=== PATIENT | male | born 1945 | race Caucasian/White ===

== ENCOUNTER → 2016-04-19 | Outpatient (CLI) | payer OTHER ==
[~2016-04-19] MED LIST: AGG PO; ATOR-14 PO; CRG3125 PO; FURO20TA PO; LOSA50TA6 PO; METFTAB2 PO; NITR0.4S UT
[2016-04-19 09:47] LABS: BASO % 0.3 %; BASO ABS # 0.03 K/uL (0-0.2); COMPLETE YES; EOS % 1.4 %; HEMATOCRIT 50.7 % (42-52); IG% 0.4 %; LYMPH % 30.5 %; MEAN CELL VOLUME 90.5 fL (80-100); MEAN CORPUSCULAR HEMOGLOBIN 30.4 pg (25-34); MEAN CORPUSCULAR HGB CONC 33.5 g/dl (32-36); MEAN PLATELET VOLUME 10.7 fL (7.4-10.4); MONO % 8.1 %; NEUT % 59.3 %; PLATELET COUNT 173 K/uL (130-400); WHITE BLOOD COUNT 11.14 K/uL (4.8-10.8)
[2016-04-19 10:12] LABS: ESTIMATED AVERAGE GLUCOSE 151 mg/dl; HA1C FLAG Normal (Normal)
[2016-04-19 10:24] LABS: C-REACTIVE PROTEIN 0.75 mg/dl (0-0.29); CHOLESTEROL/HDL RATIO 4.7; PROSTATE SPECIFIC ANTIGEN 2.46 ng/ml (0.000-4.000); THYROID STIMULATING HORMONE 2.51 uIu/ml (0.300-4.500)
--- NOTE | 2016-04-25 07:10 | CODING QUERY MEDICAL NECESSITY ---
SUPPORTING DIAGNOSIS NEEDED A supporting diagnosis is required for the test/procedure performed on this patient in order for us to be reimbursed by the patient's insurance. Please provide a supporting diagnosis for the following test/procedure listed below next to the test name along with your signature. *If there is no additional diagnosis for this patient that would support the following test/procedure please document that below next to the test/procedure. Test(s)/Procedure(s) that require a supporting diagnosis: DOS 04/19 * Hba1c DIAGNOSIS: * PSA DIAGNOSIS: * TSH DIAGNOSIS: * Lipids DIAGNOSIS: Provider Signature: Date: Thank you Tatyana [facility] Information Management Once completed, please kindly fax back to [phone] For questions please call [phone]
== END | disposition home or self-care (01) ==
LOC: C.LAB 08:39
PROVIDERS: ATTEND Internal Medicine
DX: G47.31 Primary central sleep apnea (principal)

== ENCOUNTER → 2016-06-28 | Outpatient (CLI) | payer OTHER ==
--- NOTE | 2016-06-28 14:44 | DIAGNOSTIC IMAGING REPORT ---
LUMBAR SPINE MRI HISTORY: LUMBAR SPINE STENOSIS TECHNIQUE: Multiplanar multisequence MRI of the lumbar spine was performed without the use of contrast. COMPARISON: Lumbar spine radiograph 07/17/2012. FINDINGS: For the purpose of the report the L5-S1 disc space will be located on axial image 27 of 30. Straightening of the lumbar spine. Alignment is intact. No fractures. Moderate facet degenerative changes at L5-S1. A left retroaortic renal vein. The conus terminates at the L1-L2 disc space level. Subcutaneous edema within the lumbar region. Mild disc space narrowing at L4-L5. L1-L2: No significant central canal or neural foraminal narrowing. L2-L3: Small broad-based posterior disc bulge with a small focal central disc protrusion demonstrating mild inferior subligamentous migration. In conjunction with the facet and ligamentum hypertrophy this results in mild central canal narrowing. L3-L4: Small broad-based posterior disc bulge with ligamentum and facet hypertrophy resulting in mild central canal and mild bilateral neural foraminal narrowing. L4-L5: Small broad-based posterior disc bulge asymmetric to the right without significant central canal narrowing. There is mild to moderate right and mild left neural foraminal narrowing. L5-S1: Small broad-based posterior disc bulge without significant central canal narrowing. There is mild to moderate bilateral neural foraminal narrowing. IMPRESSION: 1. Mild multilevel degenerative changes as described above with mild central canal narrowing at L3-L4. 2. No fracture or subluxation. Electronically signed by: Brandan Branch M.D. 06/28/2016 2:43 PM Dictated Date/Time: 06/28/2016 2:13 PM
== END | disposition home or self-care (01) ==
LOC: C.OPENMRI 12:18
PROVIDERS: ATTEND Internal Medicine
DX: M48.06 Spinal stenosis, lumbar region (principal)

== ENCOUNTER → 2016-10-17 | Outpatient (CLI) | payer OTHER ==
[2016-10-17 10:05] LABS: ESTIMATED AVERAGE GLUCOSE 137 mg/dl; HA1C FLAG Normal (Normal)
[2016-10-17 10:09] LABS: ALT/SGPT 24 U/L (12-78); BLOOD UREA NITROGEN 22 mg/dl (7-18); BUN/CREATININE RATIO 18.5 (10-20); CALCIUM 9.5 mg/dl (8.5-10.1); CARBON DIOXIDE 26 mmol/L (21-32); CHLORIDE 104 mmol/L (98-107); GLUCOSE 130 mg/dl (70-99); SODIUM 138 mmol/L (136-145)
[2016-10-17 10:10] LABS: ALB/GLOB RATIO 0.8 (0.9-2); ALKALINE PHOSPHATASE 49 U/L (45-117); AST/SGOT 18 U/L (15-37)
== END | disposition home or self-care (01) ==
LOC: C.LAB 08:58
PROVIDERS: ATTEND Internal Medicine
DX: I25.10 Atherosclerotic heart disease of native coronary artery without angina pectoris (principal); E11.9 Type 2 diabetes mellitus without complications

== ENCOUNTER → 2017-02-27 | Outpatient (CLI) | payer OTHER ==
[2017-02-27 09:40] LABS: BASO % 0.4 %; BASO ABS # 0.04 K/uL (0-0.2); COMPLETE YES; EOS % 1.7 %; HEMATOCRIT 49.6 % (42-52); IG% 0.5 %; LYMPH % 27.3 %; LYMPH ABS # 2.81 K/uL (1.2-3.4); MEAN CELL VOLUME 91.7 fL (80-100); MEAN CORPUSCULAR HEMOGLOBIN 30.5 pg (25-34); MEAN CORPUSCULAR HGB CONC 33.3 g/dl (32-36); MEAN PLATELET VOLUME 10.8 fL (7.4-10.4); MONO % 7.4 %; NEUT % 62.7 %; PLATELET COUNT 195 K/uL (130-400); RED BLOOD COUNT 5.41 M/uL (4.7-6.1); WHITE BLOOD COUNT 10.29 K/uL (4.8-10.8)
[2017-02-27 10:01] LABS: ALT/SGPT 26 U/L (12-78); BLOOD UREA NITROGEN 23 mg/dl (7-18); BUN/CREATININE RATIO 15.2 (10-20); CALCIUM 9.7 mg/dl (8.5-10.1); CARBON DIOXIDE 27 mmol/L (21-32); CHLORIDE 102 mmol/L (98-107); CHOLESTEROL 179 mg/dl (0-200); CREATININE 1.51 mg/dl (0.60-1.40); GLUCOSE 144 mg/dl (70-99); POTASSIUM 4.5 mmol/L (3.5-5.1); SODIUM 136 mmol/L (136-145); TRIGLYCERIDES 105 mg/dl (0-150); VERY LOW DENSITY LIPOPROT CALC 21 mg/dl
[2017-02-27 10:04] LABS: ALB/GLOB RATIO 0.7 (0.9-2); ALKALINE PHOSPHATASE 55 U/L (45-117); AST/SGOT 18 U/L (15-37); CHOLESTEROL/HDL RATIO 4.6; ESTIMATED AVERAGE GLUCOSE 146 mg/dl; HA1C FLAG Normal (Normal); HDL CHOLESTEROL 39 mg/dl; LDL CHOLESTEROL CALCULATED 119 mg/dl
== END | disposition home or self-care (01) ==
LOC: C.LAB 07:17
PROVIDERS: ATTEND Internal Medicine
DX: G47.33 Obstructive sleep apnea (adult) (pediatric) (principal); E11.9 Type 2 diabetes mellitus without complications; D72.829 Elevated white blood cell count, unspecified; I25.10 Atherosclerotic heart disease of native coronary artery without angina pectoris

== ENCOUNTER → 2017-03-09 | Outpatient (CLI) | payer OTHER ==
--- NOTE | 2017-03-09 12:55 | DIAGNOSTIC IMAGING REPORT ---
CHEST 2 VIEWS ROUTINE CLINICAL HISTORY: R06.02 Exertional shortness of [id number] dyspnea COMPARISON STUDY: 10/19/2015 FINDINGS: Mild stable cardiomegaly. Prior median sternotomy. Diaphragms are smooth. Lungs are clear. IMPRESSION: Chronic and postoperative change. No acute process. The above report was generated using voice recognition software. It may contain grammatical, syntax or spelling errors. Electronically signed by: Kwadwo Castanon M.D. 03/09/2017 12:54 PM Dictated Date/Time: 03/09/2017 12:52 PM
[2017-03-09 13:39] LABS: BLOOD UREA NITROGEN 23 mg/dl (7-18); BUN/CREATININE RATIO 15.3 (10-20); CALCIUM 9.2 mg/dl (8.5-10.1); CARBON DIOXIDE 27 mmol/L (21-32); CHLORIDE 101 mmol/L (98-107); CREATININE 1.52 mg/dl (0.60-1.40); GLUCOSE 131 mg/dl (70-99); SODIUM 134 mmol/L (136-145)
== END | disposition home or self-care (01) ==
LOC: C.RAD 12:03
PROVIDERS: ATTEND Internal Medicine
DX: N18.3 Chronic kidney disease, stage 3 (moderate) (principal); R06.02 Shortness of breath

== ENCOUNTER → 2017-07-11 | Outpatient (CLI) | payer OTHER ==
[2017-07-11 12:11] LABS: BASO % 0.5 %; BASO ABS # 0.05 K/uL (0-0.2); EOS % 1.4 %; EOS ABS # 0.14 K/uL (0-0.5); HEMATOCRIT 44.3 % (42-52); IG# 0.02 K/uL (0.00-0.02); LYMPH % 21.2 %; MEAN CORPUSCULAR HEMOGLOBIN 30.8 pg (25-34); MEAN CORPUSCULAR HGB CONC 33.9 g/dl (32-36); MEAN PLATELET VOLUME 10.4 fL (7.4-10.4); MONO % 7.4 %; MONO ABS # 0.73 K/uL (0.11-0.59); NEUT % 69.3 %; NEUT ABS # 6.86 K/uL (1.4-6.5); PLATELET COUNT 188 K/uL (130-400); RED CELL DISTRIBUTION WIDTH CV 14.5 % (11.5-14.5); RED CELL DISTRIBUTION WIDTH SD 47.5 fL (36.4-46.3)
[2017-07-11 12:24] LABS: ALBUMIN 3.5 gm/dl (3.4-5.0); ALT/SGPT 23 U/L (12-78); AST/SGOT 19 U/L (15-37); BLOOD UREA NITROGEN 19 mg/dl (7-18); CALCIUM 9.3 mg/dl (8.5-10.1); CARBON DIOXIDE 24 mmol/L (21-32); CREATININE 1.21 mg/dl (0.60-1.40); GLUCOSE 119 mg/dl (70-99); POTASSIUM 3.9 mmol/L (3.5-5.1); SODIUM 136 mmol/L (136-145)
[2017-07-11 12:26] LABS: ALKALINE PHOSPHATASE 55 U/L (45-117); TOTAL PROTEIN 8.1 gm/dl (6.4-8.2)
[2017-07-11 12:29] LABS: HEMOGLOBIN A1C 6.2 % (4.5-5.6)
== END | disposition home or self-care (01) ==
LOC: C.LAB 09:23
PROVIDERS: ATTEND Internal Medicine
DX: G47.33 Obstructive sleep apnea (adult) (pediatric) (principal); E11.9 Type 2 diabetes mellitus without complications; I73.9 Peripheral vascular disease, unspecified; I25.10 Atherosclerotic heart disease of native coronary artery without angina pectoris; G72.9 Myopathy, unspecified; G47.31 Primary central sleep apnea; Z68.41 Body mass index [BMI] 40.0-44.9, adult; I12.9 Hypertensive chronic kidney disease with stage 1 through stage 4 chronic kidney disease, or unspecified chronic kidney disease; N18.3 Chronic kidney disease, stage 3 (moderate)

== ENCOUNTER 2018-04-07 18:00 | Inpatient (IN) ==
[2018-04-07 18:35] LABS: Basophils # (auto) 0.04 K/uL (0-0.2); Basophils % (auto) 0.3 %; Eosinophils # (auto) 0.29 K/uL (0-0.5); Eosinophils % (auto) 2.1 %; Hematocrit (blood only) 50.4 % (42-52); Immature Granulocytes # (auto) 0.06 K/uL (0.00-0.02); Immature Granulocytes % (auto) 0.4 %; Lymphocytes # (auto) 1.59 K/uL (1.2-3.4); Lymphocytes % (auto) 11.5 %; Mean Corpuscular Hgb Conc 33.7 g/dL (32-36); Mean Platelet Volume 10.7 fL (7.4-10.4); Monocytes # (auto) 1.16 K/uL (0.11-0.59); Monocytes % (auto) 8.4 %; Neutrophils # (auto) 10.74 K/uL (1.4-6.5); Neutrophils % (auto) 77.3 %; Platelet Count 205 K/uL (130-400); RDW Coefficient of Variation 15.2 % (11.5-14.5); RDW Standard Deviation 52.3 fL (36.4-46.3); Red Blood Count 5.36 M/uL (4.7-6.1); White Blood Count 13.88 K/uL (4.8-10.8)
[2018-04-07] MEDS ORDERED: fentaNYL citrate 100 MCG/2 ML VIAL IV STA (18:38)
[2018-04-07] MEDS ORDERED: ASPIRIN 81 MG CHEW PO STA (18:38)
--- NOTE | 2018-04-07 18:41 | XRay Report ---
XR chest 1V portable HISTORY: Dyspnea COMPARISON: Chest 04/04/2018. FINDINGS: The heart is mildly enlarged. There are poststernotomy changes. No pneumothorax. No new foc al lung consolidations. Slight progression of the interstitial vascular thickening consistent with mi ld pulmonary edema. IMPRESSION: Cardiomegaly with developing mild pulmonary edema. Electronically signed by: Brandan Branch M.D. 04/07/2018 6:40 PM
[2018-04-07 18:51] LABS: Alanine Aminotransferase 26 U/L (12-78); Albumin Level 3.2 gm/dl (3.4-5.0); Aspartate Aminotransferase 30 U/L (15-37); BUN Creatinine Ratio 22.6 (10-20); Blood Urea Nitrogen 34 mg/dl (7-18); Carbon Dioxide 25 mmol/L (21-32); Chloride 97 mmol/L (98-107); Creatinine Clr Calc Pharmacy 54.8 ml/min; Est GFR (Non-African American) 44.9; Glucose 126 mg/dl (70-99); Magnesium 2.3 mg/dl (1.8-2.4); Potassium 3.9 mmol/L (3.5-5.1); Sodium 134 mmol/L (136-145)
[2018-04-07 18:56] LABS: Albumin Globulin Ratio 0.5 (0.9-2); Alkaline Phosphatase 90 U/L (45-117); Bilirubin,Total 2.2 mg/dl (0.2-1); Globulin 6.9 gm/dl (2.5-4.0); Total Protein 10.1 gm/dl (6.4-8.2); Troponin I < 0.015 ng/ml (0-0.045)
[2018-04-07 19:04] LABS: INR 1.2 (0.9-1.1); Partial Thromboplastin Ratio 1.1; Partial Thromboplastin Time 29.4 Seconds (21.0-31.0)
[2018-04-07 19:19] LABS: Influenza A virus by PCR Neg for Influ A (Neg); Influenza B virus by PCR Neg for Influ B (Neg)
[2018-04-07] MEDS ORDERED: IOVERSOL 100ml IV PRN (19:28)
--- NOTE | 2018-04-07 19:30 | Emergency Department Note ---
Entered by Vira David acting as a scribe for Chadd Bazzi M.D. History of Present Illness General Chief complaint: Respiratory Problems Stated complaint: BRONCHITIS, RIB PAIN, SOB Source: patient and family History of Present Illness Provider complaint: Respiratory problems Onset (ago): hour(s) 5 Location: chest Pain Consistency: + other (worsening) Maximum Pain Intensity: 8 Quality: + sharp Associated symptoms: + chest pain and + other (Negative: stomach pain, back pain , achiness); no cough and no fever/chills (fever) The patient is a 72 year old male who presents to the Emergency Room with complaints of worsening breathing problems that started 5 hours ago. The patient reports he experienced chest pain this afternoon. He describes his pain as sharp, right sided. The patient notes he cannot get enough air to cough. He notes he has history of heart problems. The patient denies fever, stomach pain, back pain, falls or achiness. On Doxycycline for bronchitis and seen in PCP office last week for this. Distant former smoker. Denies nausea. Home Medications Home Medications Medication Instructions Recorded Confirmed Type allopurinol 100 mg PO DAILY 04/07/18 04/07/18 History aspirin [Aspir-81] 81 mg PO QAM 04/07/18 04/07/18 History carvedilol 3.125 mg PO BID 04/07/18 04/07/18 History dipyridamole 75 mg PO 5XD 04/07/18 04/07/18 History doxycycline hyclate 100 mg PO BID 04/07/18 04/07/18 History furosemide [Lasix] 20 mg PO QAM 04/07/18 04/07/18 History losartan 50 mg PO QPM 04/07/18 04/07/18 History metformin 750 mg PO QDD 04/07/18 04/07/18 History nitroglycerin [Nitrostat] 0.4 mg SUBLINGUAL DIRECTED PRN 04/07/18 04/07/18 History Allergies Allergy/AdvReac Type Severity Reaction Status Date / Time No Known Allergies Allergy Unknown Verified 04/07/18 19:05 Past Med/Surg History Medical History Bronchitis 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 and A total of 10 systems reviewed and were otherwise negative Physical Exam Vital Signs Vital Signs - 24 hr 04/07/18 18:00 04/07/18 18:04 04/07/18 18:09 Temperature 36.4 C L Temperature Source Oral Sepsis Recent Fever Within 48 Hours No Sepsis Action Taken by Nursing No Action Required Pulse Rate 107 H 107 H Pulse Rhythm Regular Regular Pulse Strength Normal Respiratory Rate 28 H 28 H Respiratory Effort / Characteristics Labored Moaning Short of Breath Non-Labored Respiratory Depth Deep Normal Respiratory Pattern Gasping Regular Blood Pressure 139/87 Blood Pressure Mean 104 Blood Pressure Position Sitting Pulse Oximetry 84 L 89 L 92 Oxygen Delivery Method Room Air Room Air Nasal Cannula Oxygen Flow Rate 2 2 04/07/18 18:24 04/07/18 18:26 04/07/18 18:35 Temperature Temperature Source Sepsis Recent Fever Within 48 Hours Sepsis Action Taken by Nursing Pulse Rate 105 H 105 H Pulse Rhythm Pulse Strength Respiratory Rate 31 H 42 H Respiratory Effort / Characteristics Respiratory Depth Respiratory Pattern Blood Pressure 168/90 H Blood Pressure Mean 116 Blood Pressure Position Pulse Oximetry 93 93 92 Oxygen Delivery Method Nasal Cannula Oxygen Flow Rate 2 04/07/18 19:00 04/07/18 19:29 04/07/18 20:00 Temperature Temperature Source Sepsis Recent Fever Within 48 Hours Sepsis Action Taken by Nursing Pulse Rate 107 H 109 H 109 H Pulse Rhythm Pulse Strength Respiratory Rate 41 H 23 37 H Respiratory Effort / Characteristics Respiratory Depth Respiratory Pattern Blood Pressure 140/87 Blood Pressure Mean 104 Blood Pressure Position Pulse Oximetry 92 92 92 Oxygen Delivery Method Oxygen Flow Rate 04/07/18 20:01 04/07/18 20:02 04/07/18 20:55 Temperature Temperature Source Sepsis Recent Fever Within 48 Hours Sepsis Action Taken by Nursing Pulse Rate 109 H 109 H 109 H Pulse Rhythm Pulse Strength Respiratory Rate 37 H 36 H 37 H Respiratory Effort / Characteristics Respiratory Depth Respiratory Pattern Blood Pressure 170/82 H 170/82 H Blood Pressure Mean 111 111 Blood Pressure Position Pulse Oximetry 92 92 92 Oxygen Delivery Method Oxygen Flow Rate 04/07/18 21:00 04/07/18 21:01 04/07/18 21:02 Temperature Temperature Source Sepsis Recent Fever Within 48 Hours Sepsis Action Taken by Nursing Pulse Rate 110 H 110 H 110 H Pulse Rhythm Pulse Strength Respiratory Rate 41 H 40 H 41 H Respiratory Effort / Characteristics Respiratory Depth Respiratory Pattern Blood Pressure 138/78 Blood Pressure Mean 98 Blood Pressure Position Pulse Oximetry 91 93 93 Oxygen Delivery Method Oxygen Flow Rate 04/07/18 21:35 04/07/18 22:00 04/07/18 22:01 Temperature Temperature Source Sepsis Recent Fever Within 48 Hours Sepsis Action Taken by Nursing Pulse Rate 109 H 105 H 108 H Pulse Rhythm Pulse Strength Respiratory Rate 47 H 35 H 39 H Respiratory Effort / Characteristics Respiratory Depth Respiratory Pattern Blood Pressure 138/78 129/66 Blood Pressure Mean 98 87 Blood Pressure Position Pulse Oximetry 93 91 91 Oxygen Delivery Method Oxygen Flow Rate 04/07/18 22:02 Temperature Temperature Source Sepsis Recent Fever Within 48 Hours Sepsis Action Taken by Nursing Pulse Rate 108 H Pulse Rhythm Pulse Strength Respiratory Rate 43 H Respiratory Effort / Characteristics Respiratory Depth Respiratory Pattern Blood Pressure 129/66 Blood Pressure Mean 87 Blood Pressure Position Pulse Oximetry 91 Oxygen Delivery Method Oxygen Flow Rate GENERAL: Awake, alert, unwell-appearing HENT: Normocephalic, atraumatic EYES: Normal conjunctiva. Sclera non-icteric. NECK: Supple. No nuchal rigidity. RESPIRATORY: No wheezes. Increased respiratory effort. Diminished bases CARDIAC: Tachycardic rate. Normal rhythm. Extremities warm and well perfused. GI: Soft, non-distended. RUQ tenderness to palpation. No rebound or guarding. No masses. RECTAL: Deferred. MUSCULOSKELETAL: Atraumatic. Chest examination reveals right lower chest wall tenderness - no rash. LOWER EXTREMITIES: Calves are equal size bilaterally and non-tender. NEURO: Normal sensorium. No sensory or motor deficits noted. No facial droop. trace LE edema. SKIN: Warm and dry. No rash or jaundice noted. Course 1810: Past medical records reviewed. The patient was evaluated in room C2B, and a complete history and physical examination were performed. 2003: I checked on the patient and updated him on his results. 2027: I reviewed the patient's case with Dr. Moser, [facility]-Hospitalist . He will evaluate the patient for further management. Administered Medications Ioversol (Optiray 320 100ml) 94 ml IV ONCE PRN PRN Reason: Interaction Checking Stop: 04/11/18 19:27 Last Admin: 04/07/18 19:28 Dose: 94 ml Discontinued Medications Aspirin (Aspirin Chew) 324 mg PO NOW STA Stop: 04/07/18 18:39 Last Admin: 04/07/18 18:46 Dose: 324 mg Fentanyl Citrate (Fentanyl Citrate) 12.5 mcg IV NOW STA Stop: 04/07/18 18:39 Last Admin: 04/07/18 18:46 Dose: 12.5 mcg Furosemide (Lasix) 40 mg IV NOW STA Stop: 04/07/18 22:26 Last Admin: 04/07/18 22:34 Dose: Not Given Furosemide (Lasix) Confirm Administered Dose 40 mg IV .STK-MED ONE Stop: 04/07/18 22:32 Last Admin: 04/07/18 22:33 Dose: 40 mg Ceftriaxone Sodium (Rocephin) 1,000 mg in 50 mls @ 100 mls/hr IV NOW STA Stop: 04/07/18 22:49 Last Admin: 04/07/18 22:44 Dose: 100 mls/hr Lidocaine (Lidoderm 5%) 1 patch TD NOW STA Stop: 04/07/18 22:21 Last Admin: 04/07/18 22:39 Dose: 1 patch Methylprednisolone (Solumedrol) 125 mg IV NOW STA Stop: 04/07/18 22:17 Last Admin: 04/07/18 22:23 Dose: 125 mg Medical Decision Making Differential Diagnosis Differential diagnosis: Etiologies such as shingles, musculoskeletal pain, pericarditis, myocarditis, cardiac ischemia, pericardial tamponade, pneumonia, pneumothorax, pleural effusion, hemothorax, pleurisy, aortic pathology, pulmonary embolism, intra- abdominal process, as well as others were considered. Medical Records Attestation: I reviewed the patient's medical records. Home Medications Current Medication List: was personally reviewed by me Laboratory Data Attestation: I reviewed the patient's lab results. Result diagrams: 04/07/18 18:25 04/07/18 18:25 Lab Results 04/07/18 04/07/18 04/07/18 Range/Units 18:25 18:25 18:25 WBC 13.88 H (4.8-10.8) K/uL RBC 5.36 (4.7-6.1) M/uL Hgb 17.0 (14.0-18.0) g/dL Hct 50.4 (42-52) % MCV 94.0 (80-100) fL MCH 31.7 (25-34) pg MCHC 33.7 (32-36) g/dL RDW Std Deviation 52.3 H (36.4-46.3) fL RDW Coeff of Tasha 15.2 H (11.5-14.5) % Plt Count 205 (130-400) K/uL MPV 10.7 H (7.4-10.4) fL Immature Gran % (Auto) 0.4 % Neut % (Auto) 77.3 % Lymph % (Auto) 11.5 % Pinal % (Auto) 8.4 % Eos % (Auto) 2.1 % Baso % (Auto) 0.3 % Immature Gran # (Auto) 0.06 H (0.00-0.02) K/uL Neut # (Auto) 10.74 H (1.4-6.5) K/uL Lymph # (Auto) 1.59 (1.2-3.4) K/uL P[place] # (Auto) 1.16 H (0.11-0.59) K/uL Eos # (Auto) 0.29 (0-0.5) K/uL Baso # (Auto) 0.04 (0-0.2) K/uL PT 12.0 (9.0-12.0) Seconds INR 1.2 H (0.9-1.1) APTT 29.4 (21.0-31.0) Seconds PTT Ratio 1.1 ABG pH (7.35-7.45) ABG pCO2 (35-46) mmHg ABG pO2 (80-95) mm/Hg ABG HCO3 (19-24) mmol/L ABG O2 Saturation (90-95) % ABG Base Excess (-9-1.8) mEq/L Hira Test (Pos) Barometric Pressure mm/Hg Oxygen Given Sodium 134 L (136-145) mmol/L Potassium 3.9 (3.5-5.1) mmol/L Chloride 97 L (98-107) mmol/L Carbon Dioxide 25 (21-32) mmol/L Anion Gap 12.0 H (3-11) BUN 34 H (7-18) mg/dl Creatinine 1.51 H (0.6-1.4) mg/dl Est Cr Clr Drug Dosing 54.8 ml/min Est GFR ( Amer) 52.0 Est GFR (Non-Af Amer) 44.9 BUN/Creatinine Ratio 22.6 H (10-20) Glucose 126 H (70-99) mg/dl Calcium 10.0 (8.5-10.1) mg/dl Magnesium 2.3 (1.8-2.4) mg/dl Total Bilirubin 2.2 H (0.2-1) mg/dl AST 30 (15-37) U/L ALT 26 (12-78) U/L Alkaline Phosphatase 90 (45-117) U/L POC Troponin I (0-0.045) ng/ml Troponin I < 0.015 (0-0.045) ng/ml NT-Pro-B Natriuret Pep (0-900) pg/ml Total Protein 10.1 H (6.4-8.2) gm/dl Albumin 3.2 L (3.4-5.0) gm/dl Globulin 6.9 H (2.5-4.0) gm/dl Albumin/Globulin Ratio 0.5 L (0.9-2) Lipase (73-393) U/L Urine Color Urine Appearance (Clear) Urine pH (4.5-7.5) Ur Specific [place] (1.000-1.030) Urine Protein (Negative) Urine Glucose (UA) (Negative) Urine Ketones (Negative) Urine Blood (Negative) Urine Nitrite (Negative) Urine Bilirubin (Negative) Urine Urobilinogen (Negative) Ur Leukocyte Esterase (Negative) Urine WBC (Auto) (0-5) /hpf Urine RBC (Auto) (0-4) /hpf U Hyaline Cast (Auto) (0-5) /lpf U Epithel Cells (Auto) (0-5) /lpf Urine Bacteria (Auto) (Negative) Influenza Type A (PCR) (Neg) Influenza Type B (PCR) (Neg) 04/07/18 04/07/18 04/07/18 Range/Units 18:25 18:25 18:28 WBC (4.8-10.8) K/uL RBC (4.7-6.1) M/uL Hgb (14.0-18.0) g/dL Hct (42-52) % MCV (80-100) fL MCH (25-34) pg MCHC (32-36) g/dL RDW Std Deviation (36.4-46.3) fL RDW Coeff of Tasha (11.5-14.5) % Plt Count (130-400) K/uL MPV (7.4-10.4) fL Immature Gran % (Auto) % Neut % (Auto) % Lymph % (Auto) % Pinal % (Auto) % Eos % (Auto) % Baso % (Auto) % Immature Gran # (Auto) (0.00-0.02) K/uL Neut # (Auto) (1.4-6.5) K/uL Lymph # (Auto) (1.2-3.4) K/uL Pinal # (Auto) (0.11-0.59) K/uL Eos # (Auto) (0-0.5) K/uL Baso # (Auto) (0-0.2) K/uL PT (9.0-12.0) Seconds INR (0.9-1.1) APTT (21.0-31.0) Seconds PTT Ratio ABG pH (7.35-7.45) ABG pCO2 (35-46) mmHg ABG pO2 (80-95) mm/Hg ABG HCO3 (19-24) mmol/L ABG O2 Saturation (90-95) % ABG Base Excess (-9-1.8) mEq/L Hira Test (Pos) Barometric Pressure mm/Hg Oxygen Given Sodium (136-145) mmol/L Potassium (3.5-5.1) mmol/L Chloride (98-107) mmol/L Carbon Dioxide (21-32) mmol/L Anion Gap (3-11) BUN (7-18) mg/dl Creatinine (0.6-1.4) mg/dl Est Cr Clr Drug Dosing ml/min Est GFR ( Amer) Est GFR (Non-Af Amer) BUN/Creatinine Ratio (10-20) Glucose (70-99) mg/dl Calcium (8.5-10.1) mg/dl Magnesium (1.8-2.4) mg/dl Total Bilirubin (0.2-1) mg/dl AST (15-37) U/L ALT (12-78) U/L Alkaline Phosphatase (45-117) U/L POC Troponin I (0-0.045) ng/ml Troponin I (0-0.045) ng/ml NT-Pro-B Natriuret Pep 1469 H (0-900) pg/ml Total Protein (6.4-8.2) gm/dl Albumin (3.4-5.0) gm/dl Globulin (2.5-4.0) gm/dl Albumin/Globulin Ratio (0.9-2) Lipase 141 (73-393) U/L Urine Color Urine Appearance (Clear) Urine pH (4.5-7.5) Ur Specific [place] (1.000-1.030) Urine Protein (Negative) Urine Glucose (UA) (Negative) Urine Ketones (Negative) Urine Blood (Negative) Urine Nitrite (Negative) Urine Bilirubin (Negative) Urine Urobilinogen (Negative) Ur Leukocyte Esterase (Negative) Urine WBC (Auto) (0-5) /hpf Urine RBC (Auto) (0-4) /hpf U Hyaline Cast (Auto) (0-5) /lpf U Epithel Cells (Auto) (0-5) /lpf Urine Bacteria (Auto) (Negative) Influenza Type A (PCR) Neg for Influ A (Neg) Influenza Type B (PCR) Neg for Influ B (Neg) 04/07/18 04/07/18 04/07/18 Range/Units 18:36 20:24 22:34 WBC (4.8-10.8) K/uL RBC (4.7-6.1) M/uL Hgb (14.0-18.0) g/dL Hct (42-52) % MCV (80-100) fL MCH (25-34) pg MCHC (32-36) g/dL RDW Std Deviation (36.4-46.3) fL RDW Coeff of Tasha (11.5-14.5) % Plt Count (130-400) K/uL MPV (7.4-10.4) fL Immature Gran % (Auto) % Neut % (Auto) % Lymph % (Auto) % Pinal % (Auto) % Eos % (Auto) % Baso % (Auto) % Immature Gran # (Auto) (0.00-0.02) K/uL Neut # (Auto) (1.4-6.5) K/uL Lymph # (Auto) (1.2-3.4) K/uL P[place] # (Auto) (0.11-0.59) K/uL Eos # (Auto) (0-0.5) K/uL Baso # (Auto) (0-0.2) K/uL PT (9.0-12.0) Seconds INR (0.9-1.1) APTT (21.0-31.0) Seconds PTT Ratio ABG pH 7.44 (7.35-7.45) ABG pCO2 35 (35-46) mmHg ABG pO2 65 L (80-95) mm/Hg ABG HCO3 23 (19-24) mmol/L ABG O2 Saturation 93.3 (90-95) % ABG Base Excess -0.1 (-9-1.8) mEq/L Hira Test POS (Pos) Barometric Pressure 738.0 mm/Hg Oxygen Given 3L Sodium (136-145) mmol/L Potassium (3.5-5.1) mmol/L Chloride (98-107) mmol/L Carbon Dioxide (21-32) mmol/L Anion Gap (3-11) BUN (7-18) mg/dl Creatinine (0.6-1.4) mg/dl Est Cr Clr Drug Dosing ml/min Est GFR ( Amer) Est GFR (Non-Af Amer) BUN/Creatinine Ratio (10-20) Glucose (70-99) mg/dl Calcium (8.5-10.1) mg/dl Magnesium (1.8-2.4) mg/dl Total Bilirubin (0.2-1) mg/dl AST (15-37) U/L ALT (12-78) U/L Alkaline Phosphatase (45-117) U/L POC Troponin I 0.03 (0-0.045) ng/ml Troponin I (0-0.045) ng/ml NT-Pro-B Natriuret Pep (0-900) pg/ml Total Protein (6.4-8.2) gm/dl Albumin (3.4-5.0) gm/dl Globulin (2.5-4.0) gm/dl Albumin/Globulin Ratio (0.9-2) Lipase (73-393) U/L Urine Color Dark Yellow Urine Appearance Clear (Clear) Urine pH 5.0 (4.5-7.5) Ur Specific [place] > 1.045 H (1.000-1.030) Urine Protein 1+ H (Negative) Urine Glucose (UA) Negative (Negative) Urine Ketones Negative (Negative) Urine Blood Negative (Negative) Urine Nitrite Negative (Negative) Urine Bilirubin Negative (Negative) Urine Urobilinogen Negative (Negative) Ur Leukocyte Esterase Negative (Negative) Urine WBC (Auto) 1-5 (0-5) /hpf Urine RBC (Auto) 0-4 (0-4) /hpf U Hyaline Cast (Auto) 1-5 (0-5) /lpf U Epithel Cells (Auto) 5-10 H (0-5) /lpf Urine Bacteria (Auto) Negative (Negative) Influenza Type A (PCR) (Neg) Influenza Type B (PCR) (Neg) Imaging Data Radiologist's Impression: Radiology results as stated below per my review and the radiologist's interpretation: XR chest 1V portable HISTORY: Dyspnea COMPARISON: Chest 04/04/2018. FINDINGS: The heart is mildly enlarged. There are poststernotomy changes. No pneumothorax. No new focal lung consolidations. Slight progression of the interstitial vascular thickening consistent with mild pulmonary edema. IMPRESSION: Cardiomegaly with developing mild pulmonary edema. Electronically signed by: Brandan Branch M.D. 04/07/2018 6:40 PM ABDOMEN AND PELVIS CT WITH IV CONTRAST CT DOSE: 2258.55 mGy.cm HISTORY: Right upper quadrant abdominal pain. TECHNIQUE: Multiaxial CT images of the abdomen and pelvis were performed following the use of intravenous contrast. A dose lowering technique was utilized adhering to the principles of ALARA. COMPARISON STUDY: None. FINDINGS: Interstitial thickening at the lung bases and a calcified granuloma within the lingula. No pneumoperitoneum. No pneumatosis. There are poststernotomy changes. No suspicious lytic or blastic osseous lesions. The heart is mildly enlarged. Surgical clips within the anterior mediastinum and anterior upper abdomen. A 1 cm diverticulum at the second portion of the duodenum. No hepatic or splenic masses. The adrenal glands, pancreas, and kidneys are unremarkable. No hydronephrosis. Multiple small gallstones. No gallbladder wall thickening. No retroperitoneal lymphadenopathy. Focal linear calcification within the normal caliber abdominal aorta the level of the renal arteries favors a focal dissection. This is likely age-indeterminate but likely chronic. Both lumens opacify. There is a left retroaortic renal vein. Moderate calcified plaque within the aorta and iliac arteries. 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 The bladder is not well-distended but appears unremarkable. The prostate gland is mildly enlarged. No bowel wall thickening or obstruction. Normal appendix. IMPRESSION: 1. No bowel wall thickening or obstruction. 2. Cholelithiasis. No gallbladder wall thickening. 3. Focal linear calcification within the normal caliber abdominal aorta the level of the renal arteries favors a focal dissection. This is likely age- indeterminate but likely chronic. Both lumens opacify. 4. 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 5. Additional findings as described above. Electronically signed by: Brandan Branch M.D. 04/07/2018 7:41 PM CHEST CTA for PULMONARY ARTERIES CT DOSE: HISTORY: Atypical chest pain. Hypoxia. TECHNIQUE: Multiaxial CT images of the chest were performed following the intravenous administration of contrast to evaluate the pulmonary arteries. Maximal intensity projection images were also obtained. A dose lowering technique was utilized adhering to the principles of ALARA. COMPARISON STUDY: Chest CTA 07/28/2011. FINDINGS: Normal caliber thoracic aorta with no evidence for dissection. The heart is mildly enlarged. Trace right pleural effusion. No pericardial effusions. Motion artifact results in suboptimal evaluation of the bilateral lower lobe subsegmental pulmonary arteries. Otherwise, the remaining pulmonary arteries show no filling defects to suggest pulmonary embolus. No suspicious lytic or blastic osseous lesions. There are poststernotomy changes. The esophagus is normal in course and caliber. Interval of mediastinal and mild bilateral hilar lymphadenopathy. Dominant right peritracheal lymph node measures 2.6 x 2.4 cm. There is an enlarged subcarinal lymph node which measures 3.0 x 2.6 cm. Bilateral hilar lymph nodes are also slightly enlarged measuring up to 1 cm in short axis diameter. No pneumothorax. Small amount of mucoid material within the upper trachea. The central airways are patent. There is a 3 mm nodule within the left lung apex on image 221. There is a 3 mm nodule within the left upper lobe on image 196. There are few scattered calcified granulomas. Stable 4 mm nodule within the right lung apex on image 231. Therefore, this is considered to be benign. There is a 4 mm nodule within the right middle lobe on image 138 which has slightly increased in size. Stable 4 mm nodule within the right middle lobe on image 109. There is mild diffuse interstitial thickening throughout the lungs. This has progressed and demonstrates a subtle nodular appearance predominantly in a perilymphatic location. No new focal lung consolidations to suggest pneumonia. IMPRESSION: 1. No evidence for pulmonary embolus. 2. There is mild diffuse interstitial thickening throughout the lungs. This has progressed and demonstrates a subtle nodular appearance predominantly in a perilymphatic location. 3. Interval development of mediastinal and bilateral hilar lymphadenopathy as described above. This is nonspecific and could be due to to reactive change, long-standing pulmonary edema, or lymphoproliferative disorder. However, in conjunction with the progressive interstitial thickening this raises the possibility of sarcoidosis. Clinical correlation recommended. 4. Trace right pleural effusion. 5. A few new scattered subcentimeter pulmonary nodules as described above. These measure up to 4 mm. Electronically signed by: Brandan Branch M.D. 04/07/2018 8:00 PM ECG Data Attestation: I personally reviewed and interpreted this ECG as follows: Indication: chest pain Rate (beats per minute): 106 Rhythm: sinus tachycardia Findings: + other (intraventricular block), + 1st degree AV block, + Q waves ( Inferior Q waves) and + T-wave inversion (Lateral) Blood Pressure Blood Pressure Findings: Normal blood pressure Blood Pressure Disposition: did not require urgent referral MDM Narrative Patient is a 72-year-old gentleman with significant history of cardiac disease currently on treatment for bronchitis with doxycycline with worsening right upper quadrant and right lower chest pain over the past several hours with shortness of breath. Noted be hypoxic on room air. Tachycardia noted. Chest x -ray completed without evidence of pneumothorax or pneumonia; some evidence of mild pulmonary edema. CT angiogram of the chest was completed to exclude PE. Doubt dissection. 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 Do not believe these are the etiologies of the patient's complaint today. Troponin & EKG were completed. [id number] troponin is negative. There are some T wave changes notable on the new EKG with what appears to be persistent inferior ST segment (reviewed prior cardiology consultation from October 192011 in addition to prior EKG). This was compared to the previous film from September 2015. Patient's pain is somewhat reproducible on exam. Again no trauma was acutely reported. Basic labs are completed as well without evidence of pancreatitis or hepatitis. Trace leukocytosis is noted. No LFT abnormality except bili elevated and globin elevated. Slight creatinine elevation today. Flu swab sent and negative. Did give him some aspirin and fentanyl. Patient does have a decreased ejection fracture per last echo I see from approximately 5-6 years ago. Troponin is negative. CT findings again do not support a PE but with the interstitial thickening and lymphadenopathy concerning for possible lymphoproliferative disorder or possible sarcoidosis. This along with his consistent hypoxia will admit for further evaluation. Patient is feeling improvement of his pain after small amount of fentanyl and aspirin here but still with O2 requirment although appeared more comfortable with this. Patient updated and made aware of the incidental abdominal vasculature findings. Hospitalist contacted. Patient became more tachypneic and diaphoretic and was given IV steroids; ABG obtained with some hypoxia noted on 3L. Hospitalist pursue further workup and close ICU monitoring. Impression & Plan Hypoxia, Chest pain, Bronchitis Discharge Plan Visit Data Chief Complaint: Respiratory Problems Stated Complaint: BRONCHITIS, RIB PAIN, SOB ED Provider: Chadd Bazzi Discharge Problem: Hypoxia, Chest pain, Bronchitis Patient Disposition: Being Evaluated by Hospitalist Forms Stand Alone Forms: My [facility] 3D Data Prescriptions Prescriptions: No Action losartan 50 mg Tablet 50 mg PO QPM RF: 0 allopurinol 100 mg Tablet 100 mg PO DAILY RF: 0 aspirin [Aspir-81] 81 mg Tablet,Delayed Release (Dr/Ec) 81 mg PO QAM RF: 0 carvedilol 3.125 mg Tablet 3.125 mg PO BID RF: 0 dipyridamole 75 mg Tablet 75 mg PO 5XD RF: 0 nitroglycerin [Nitrostat] 0.4 mg Tablet, Sublingual 0.4 mg Sublingual DIRECTED PRN (Reason: Chest Pain) RF: 0 furosemide [Lasix] 20 mg Tablet 20 mg PO QAM RF: 0 doxycycline hyclate 100 mg Tablet 100 mg PO BID RF: 0 metformin 750 mg Tablet Extended Release 24 Hr 750 mg PO QDD RF: 0 Referrals Referrals: Jamari Barclay MD [Primary Care Provider] - The scribe's documentation has been prepared under my direction and personally reviewed by me in its entirety. I confirm that the note above accurately reflects all work, treatment, procedures, and medical decision making performed by me.
--- NOTE | 2018-04-07 19:43 | CT Scan Report ---
ABDOMEN AND PELVIS CT WITH IV CONTRAST CT DOSE: 2258.55 mGy.cm HISTORY: Right upper quadrant abdominal pain. TECHNIQUE: Multiaxial CT images of the abdomen and pelvis were performed following the use of intrave nous contrast. A dose lowering technique was utilized adhering to the principles of ALARA. COMPARISON STUDY: None. FINDINGS: Interstitial thickening at the lung bases and a calcified granuloma within the lingula. No pneumoperitoneum. No pneumatosis. There are poststernotomy changes. No suspicious lytic or blastic os seous lesions. The heart is mildly enlarged. Surgical clips within the anterior mediastinum and anter ior upper abdomen. A 1 cm diverticulum at the second portion of the duodenum. No hepatic or splenic m asses. The adrenal glands, pancreas, and kidneys are unremarkable. No hydronephrosis. Multiple small gallstones. No gallbladder wall thickening. No retroperitoneal lymphadenopathy. Focal linear calcific ation within the normal caliber abdominal aorta the level of the renal arteries favors a focal dissec tion. This is likely age-indeterminate but likely chronic. Both lumens opacify. There is a left retro aortic renal vein. Moderate calcified plaque within the aorta and iliac arteries. 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 The bladder is not well-distended but appears unrema rkable. The prostate gland is mildly enlarged. No bowel wall thickening or obstruction. Normal append ix. IMPRESSION: 1. No bowel wall thickening or obstruction. 2. Cholelithiasis. No gallbladder wall thickening. 3. Focal linear calcification within the normal caliber abdominal aorta the level of the renal arteri es favors a focal dissection. This is likely age-indeterminate but likely chronic. Both lumens opacif y. 4. 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 5. Additional findings as described above. Electronically signed by: Brandan Branch M.D. 04/07/2018 7:41 PM
--- NOTE | 2018-04-07 20:02 | CT Scan Report ---
CHEST CTA for PULMONARY ARTERIES CT DOSE: HISTORY: Atypical chest pain. Hypoxia. TECHNIQUE: Multiaxial CT images of the chest were performed following the intravenous administration of contrast to evaluate the pulmonary arteries. Maximal intensity projection images were also obtaine d. A dose lowering technique was utilized adhering to the principles of ALARA. COMPARISON STUDY: Chest CTA 07/28/2011. FINDINGS: Normal caliber thoracic aorta with no evidence for dissection. The heart is mildly enlarged . Trace right pleural effusion. No pericardial effusions. Motion artifact results in suboptimal evalu ation of the bilateral lower lobe subsegmental pulmonary arteries. Otherwise, the remaining pulmonary arteries show no filling defects to suggest pulmonary embolus. No suspicious lytic or blastic osseou s lesions. There are poststernotomy changes. The esophagus is normal in course and caliber. Interval of mediastinal and mild bilateral hilar lymphadenopathy. Dominant right peritracheal lymph node measu res 2.6 x 2.4 cm. There is an enlarged subcarinal lymph node which measures 3.0 x 2.6 cm. Bilateral h ilar lymph nodes are also slightly enlarged measuring up to 1 cm in short axis diameter. No pneumotho rax. Small amount of mucoid material within the upper trachea. The central airways are patent. There is a 3 mm nodule within the left lung apex on image 221. There is a 3 mm nodule within the left upper lobe on image 196. There are few scattered calcified granulomas. Stable 4 mm nodule within the right lung apex on image 231. Therefore, this is considered to be benign. There is a 4 mm nodule within th e right middle lobe on image 138 which has slightly increased in size. Stable 4 mm nodule within the right middle lobe on image 109. There is mild diffuse interstitial thickening throughout the lungs. T his has progressed and demonstrates a subtle nodular appearance predominantly in a perilymphatic loca tion. No new focal lung consolidations to suggest pneumonia. IMPRESSION: 1. No evidence for pulmonary embolus. 2. There is mild diffuse interstitial thickening throughout the lungs. This has progressed and demons trates a subtle nodular appearance predominantly in a perilymphatic location. 3. Interval development of mediastinal and bilateral hilar lymphadenopathy as described above. This i s nonspecific and could be due to to reactive change, long-standing pulmonary edema, or lymphoprolife rative disorder. However, in conjunction with the progressive interstitial thickening this raises the possibility of sarcoidosis. Clinical correlation recommended. 4. Trace right pleural effusion. 5. A few new scattered subcentimeter pulmonary nodules as described above. These measure up to 4 mm. Electronically signed by: Brandan Branch M.D. 04/07/2018 8:00 PM
--- NOTE | 2018-04-07 20:33 | History & Physical Report ---
Date of Service April 07, 2018 Assessment & Plan (1) Heart failure, systolic, with acute decompensation: Carroll Villaseñor is a 72 y.o male with history of heart failure, CABG x 5, HTN , non-insulin dependent diabetes admitted with acute hypoxic respiratory failure found to have decompensation of heart failure requiring management of heart failure and respiratory decompensation. 1. Hypoxic respiratory failure -Secondary to acute bacterial illness (bronchitis) vs heart failure decompensation as well as concern for possible chronic lung disease -CXR showed cardiomegaly and pulmonary edema -Chest CTA: Negative for pulmonary embolus. mild diffuse interstitial thickening throughout the lungs. presence of mediastinal and bilateral hilar lymphadenopathy. Trace right pleural effusion. Scattered subcentimeter pulmonary nodules. -WBC 13.80 -AB.44/35/65/23/93% -Saturations of 92% on 2L O2 per NC with respiratory distress -Given 125mg of Methylprednisolone in ED for treatment of inflammatory process, plan to continue steroids with careful monitoring of glucose levels -Duonebs ordered q4hr for cough -Continue O2 per NC to keep sats > 92% -Placed in MICU for close monitoring -Consider AVA testing for sarcoidosis 2. Heart failure acute decompensation -Secondary to respiratory illness and cardiovascular disease - Prior ECHO in 2011 with EF of 40-45% - ECHO ordered -Lasix 40mg IV given in ED -Takes 20mg PO daily of Lasix and reports compliance with medications, will hold PO and give 40mg IV daily until euvolemic -Continue Carvedilol, Losartan -Continue tele monitoring - Monitor I/O -Hold IVF 3. Bronchitis -Scant sputum production -Continue Doxycycline 100mg PO BID for total of 10 days for bronchitis -Ceftriaxone 1gm given empirically for possible bacterial pneumonia 4. Chest pain -Likely secondary to excessive coughing -Troponin negative x 1 -EKG: sinus tachycardia and first degree AV block -Fentanyl given in ED -Morphine PRN, Nitroglycerin PRN, and Lidocaine patch ordered -Continue tele monitoring 5. Elevated Serum Globulin -Serum level of 6.9 with total protein of 10.1 -History of evaluation in 2007 and 2011 for CLL -Dr. Dey did workup in 2011 with recommendations for FISH panel, SPEP, and peripheral blood flow cytometry -confirmation testing not completed -Can pursue further in inpt setting if pt agreeable -Heme consulted for further evaluation 6. NIDDM -A1c of 6.6 on 01/17/19 -Hold metformin -Accuchecks AC/HS ordered with SSI -Diabetic diet 7. History of CABG x 5 -Continue Aspirin and Dipyridamole per home dosing 8. History of Gout -Continue Allopurinol FEN/GI Monitor I/O, hold IVF Electrolytes: monitor and replace Diet: carb consistent Activity: bed rest GI PpX: protonix DVT PPX: heparin Code: Full Code Dispo: Carroll Villaseñor is admitted to inpt status for close monitoring. Consider discussing dispo to rehab with family. Agrees to PT in outpt setting. (2) Hypoxia: (3) Chest pain: (4) Coronary artery bypass grafts x 5: (5) Elevated serum globulin level: History of Present Illness Chief Complaint: chest pain and shortness of breath Primary Care Provider: Jamari Barclay MD Carroll Villaseñor is a 72 y.o male with history of HTN, heart failure, CABG x 5, DM2 , gout, and recent diagnosis of bronchitis presenting to the ED after experiencing chest pain this morning. History per patient. States that chest pain started around 1100 on 04/07/2018 that was dull in sensation and radiated to left lateral chest. Pain was constant in nature. He also reports shortness of breath that started around the same time. Dyspnea worse with activity. Denies taking medication for symptoms but reports being treated for Bronchitis with Doxycycline and is now on day 4 of the regimen. Reports history of productive cough that started on 04/01. He was seen by PCP, Dr. Barclay on 04/04 with diagnosis of bronchitis. Since taking Doxy the cough has become less productive. Currently states that the pain in right chest has improved after Fentanyl but is still present. Also states that it is difficult for him to talk due to shortness of breath. Associated fatigue. Denies n/v/diarrhea. Reports history of constipation. ED course: Given 12.5mg Fentanyl for pain, placed on O2 at 2L per NC, given 40mg IV lasix after increasing dyspnea, given Methylprednisolone 125mg, labs obtained Allergies Allergy/AdvReac Type Severity Reaction Status Date / Time No Known Allergies Allergy Unknown Verified 04/12/18 11:25 Home Medications Home Medications Medication Instructions Recorded Confirmed Type allopurinol 100 mg PO DAILY 04/07/18 04/12/18 History aspirin [Aspir-81] 81 mg PO QAM 04/07/18 04/12/18 History dipyridamole 75 mg PO 5XD 04/07/18 04/12/18 History metformin 750 mg PO QDD 04/07/18 04/12/18 History nitroglycerin [Nitrostat] 0.4 mg SUBLINGUAL DIRECTED PRN 04/07/18 04/12/18 History carvedilol 6.25 mg PO BID #30 tab 04/10/18 04/12/18 Rx sacubitril-valsartan [Entresto] 1 tab PO BID 28 Days #56 tab 04/10/18 04/12/18 Rx bumetanide 1 mg PO QPM #30 tab 04/15/18 Rx bumetanide 2 mg PO DAILY #30 tab 04/15/18 Rx doxycycline hyclate 100 mg PO BID 2 Days #4 cap 04/15/18 Rx Past Med/Surg History Medical History DVT prophylaxis CAD, multiple vessel Cardiomyopathy NNEKA (obstructive sleep apnea) History of gout T2DM (type 2 diabetes mellitus) Acute respiratory failure with hypoxia Elevated serum globulin level Heart failure, systolic, with acute decompensation Bronchitis Coronary artery bypass grafts x 5 (Resolved 10/19/11) Family History Other Diabetes HTN (hypertension) Social History Current Living Situation: Spouse Current Living Situation Comment: lives at home with Other Information That Helps Us Care for You: No Feels Safe at Home: Yes Safety Concerns: Feels Safe At This Time Smoking Status: Former smoker Hx Alcohol Use: No Hx Substance Use: No Beliefs That Will Affect Care: None Preferred Language: Greenlandic Review of Systems Constitutional: + fatigue; no fever and no chills Eyes: no worsening vision Ear, Nose, Mouth, Throat: + post nasal drip; no nasal congestion and no sore throat Respiratory: + cough, + dyspnea and + sputum production (scant); no chest congestion, no pain on inspiration and no wheezing Cardiovascular: + chest pain and + dyspnea on exertion; no palpitations and no syncope Gastrointestinal: + constipation Genitourinary (Male): no dysuria and no flank pain Musculoskeletal: no back pain and no neck pain Integumentary: no rash and no lesions Neurologic: no unsteadiness, no numbness and no dizziness "legs are weak" Physical Exam 2 Vital Signs (Past 24 Hours): Last Vital Signs Temp 36.4 C L 04/07/18 18:04 Pulse 109 H 04/07/18 20:01 Resp 37 H 04/07/18 20:01 BP 170/82 H 04/07/18 20:01 Pulse Ox 92 04/07/18 20:01 Constitutional: well developed, well nourished, + ill appearing, + obese and cooperative; no acute distress Eyes: PERRL, conjunctivae normal, anicteric sclerae moderate injection of conjunctiva ENMT: Nose: + dry nasal mucous membranes; no nasal discharge Throat: + posterior oropharynx abnormality (mucus present) hoarse voice Neck: neck supple, no lymyphadenopathy Respiratory: + labored breathing, + uses accessory muscles and + tachypneic; no cough, no audible wheezes and no nasal flaring Auscultation: + rales and + rhonchi; no wheezes rhonchi and rales present in bilateral upper and lower lung sheriff Cardiovascular: Rate/Rhythm: regular rhythm and + tachycardic Heart Sounds : normal S1 and normal S2; no murmur Vessels: normal peripheral pulses Extremities: no edema Chest (Breasts): Additional Comments: surgical scar Gastrointestinal (Abdomen): Inspection/Auscultation: + abdomen distended and normal bowel sounds Percussion/Palpation: + abdomen firm; abdomen nontender Musculoskeletal: no cyanosis or clubbing, extremities motor strength 5/5 Extremities: strength 5/5 throughout Skin: no rashes, warm and dry Neurologic: PERRL, EOMI, accommodation nl, no face palsy, no dysarthria Psychiatric: Orientation: alert, oriented x 3 and cooperative Results & Data Laboratory Results WBC 13.80 BNP 1469 BUN/Cr 34/1.51 total protein 10.1 Globulin 6.9 Diagnostic Findings CXR: Cardiomegaly, mild pulm edema CTA: interstitial thickening Code Status & VTE Plan Code Status Full code VTE Prophylaxis Plan VTE Prophylaxis will be ordered: Yes Supervising Physician Co-Signing Physician Notes Attending addendum: I have physically seen this patient, have supervised the medical residents activities, and agree with the H&P unless as otherwise noted. Assessment and Plan: Acute respiratory failure with hypoxia/acute CHF/diffuse interstitial lung disease-- Acute CHF-- The patient will be admitted to telemetry for serial cardiac enzymes, serial EKG's, cardiac rhythm monitoring and a 2-D echocardiogram with Dopplers. Given Lasix 40 mg IV in the ED. Continue Lasix 40 mg IV every 8 hours. Follow serial BMP and magnesium levels Interstitial lung disease with bronchitis-- Given Solu-Medrol 125 mg IV in the ED. Continue Solu-Medrol 40 mg IV every 8 hours Duonebs every 4 hours while awake and every 2 hours when necessary. Ceftriaxone and azithromycin IV. Remainder of orders and notations as noted . _ (1) Chest pain Chest pain type: unspecified Ischemic chest pain type: Qualified Code(s): R07.9 - Chest pain, unspecified
[2018-04-07 20:36] LABS: Appearance Urine Clear (Clear); Bacteria Urine Automated Negative (Negative); Bilirubin Urine Negative (Negative); Blood Urine Negative (Negative); Color Urine Dark Yellow; Glucose Urine UA Negative (Negative); Ictotest Urine Negative (Negative); Ketones Urine Negative (Negative); Leukocyte Esterase Urine Negative (Negative); Nitrite Urine Negative (Negative); Protein Urine 1+ (Negative); RBC Urine Automated 0-4 /hpf (0-4); Specific Gravity Urine > 1.045 (1.000-1.030); Urobilinogen Urine Negative (Negative)
[2018-04-07] MEDS ORDERED: methylPREDNISolone 125 MG/2 ML VIAL IV STA (22:16)
[2018-04-07] MEDS ORDERED: LIDOCAINE 5% 1 PATCH TD STA (22:20)
[2018-04-07] MEDS ORDERED: cefTRIAXone SODIUM 1,000 MG/50 ML BAG IV STA (22:20)
[2018-04-07] MEDS ORDERED: FUROSEMIDE 40 MG/4 ML VIAL IV STA (22:25)
[2018-04-07] MEDS ORDERED: FUROSEMIDE 40 MG/4 ML VIAL IV ONE (22:31)
[2018-04-07 22:54] LABS: Allen Test POS (Pos); HCO3 ABG 23 mmol/L (19-24); Oxygen Saturation ABG 93.3 % (90-95); PCO2 ABG 35 mmHg (35-46); PO2 ABG 65 mm/Hg (80-95); pH ABG 7.44 (7.35-7.45)
[2018-04-07] MEDS ORDERED: DEXTROSE 50% 50 ML SYRINGE IV PRN (23:12)
[2018-04-07] MEDS ORDERED: CARBOHYDRATES FOR HYPOGLYCEMIA PO PRN (23:12)
[2018-04-07] MEDS ORDERED: GLUCAGON FOR INJ 1 MG VIAL SQ PRN (23:12)
[2018-04-07] MEDS ORDERED: ONDANSETRON INJ 2 MG/ML 2 ML VIAL IV PRN (23:12)
[2018-04-07] MEDS ORDERED: GLUCOSE 40% GEL 15 GM TUBE PO PRN (23:12)
[2018-04-07] MEDS ORDERED: MAGNESIUM HYDROXIDE SUSP 30 ML UDC PO PRN (23:12)
[2018-04-07] MEDS ORDERED: POLYETHYLENE (MIRALAX) 17 GM PACK PO PRN (23:12)
[2018-04-07] MEDS ORDERED: ACETAMINOPHEN 325 MG TAB PO PRN (23:12)
[2018-04-07] MEDS ORDERED: GLUCOSE 10 TABS/TUBE PO PRN (23:12)
[2018-04-07] MEDS ORDERED: MoRPHine SULFATE 2 MG/ML CARP IV PRN (23:12)
[2018-04-07] MEDS ORDERED: ALUMINUM/MAGNESIUM SUSP 30 ML UDC PO PRN (23:12)
[2018-04-07] MEDS ORDERED: NITROGLYCERIN SL 0.4 MG/TAB TAB SL PRN ×2 (23:12)
[2018-04-07] MEDS: ALBUT/IPRATROP 3MG/0.5MG NEB 3 ML VIAL NEB SCH (23:42)
[2018-04-08] MEDS: ALBUT/IPRATROP 3MG/0.5MG NEB 3 ML VIAL NEB SCH ×6 (03:23→23:25)
[2018-04-08 06:53] LABS: Estimated Average Glucose 131 mg/dl; Hemoglobin A1C 6.2 % (4.5-5.6)
[2018-04-08] MEDS: methylPREDNISolone 40 MG in SYRINGE 0 ML IV SCH ×2 (08:02→21:08)
[2018-04-08] MEDS: DIPYRIDAMOLE 25 MG TAB PO SCH ×5 (08:02→23:33)
[2018-04-08] MEDS: HEPARIN SOD 5,000 UNIT/0.5 ML VIAL SQ SCH ×2 (08:03→21:10)
[2018-04-08] MEDS: PANTOprazole 40 MG TAB PO SCH (08:04)
[2018-04-08] MEDS: DOXYCYCLINE HYCLATE 100 MG CAP PO SCH ×2 (08:04→21:11)
[2018-04-08] MEDS: ALLOPURINOL 100 MG TAB PO SCH (08:04)
[2018-04-08] MEDS: CARVEDILOL 3.125 MG TAB PO SCH ×2 (08:04→21:10)
[2018-04-08] MEDS: ASPIRIN 81 MG ECTAB PO SCH (08:05)
[2018-04-08] MEDS: INSULIN ASPART 100 UNITS/ML 3 ML PEN SC SCH ×4 (08:06→21:12)
[2018-04-08 08:39] LABS: BUN Creatinine Ratio 26.3 (10-20); Blood Urea Nitrogen 37 mg/dl (7-18); Calcium 9.5 mg/dl (8.5-10.1); Carbon Dioxide 22 mmol/L (21-32); Chloride 101 mmol/L (98-107); Creatinine Clr Calc Pharmacy 58.4 ml/min; Est GFR (African American) 57.5; Est GFR (Non-African American) 49.6; Glucose 162 mg/dl (70-99); Sodium 134 mmol/L (136-145)
[2018-04-08 08:43] LABS: Troponin I < 0.015 ng/ml (0-0.045)
[2018-04-08] MEDS ORDERED: FUROSEMIDE 20 MG TAB PO SCH (09:00)
[2018-04-08] MEDS: FUROSEMIDE 40 MG in SYRINGE 0 ML IV SCH (09:19)
--- NOTE | 2018-04-08 09:38 | Consultation Report ---
DATE OF CONSULTATION: 04/08/2018 HEMATOLOGY CONSULTATION REASON FOR CONSULTATION: Elevated globulin level. HISTORY OF PRESENT ILLNESS: The patient is a 72-year-old male with multiple comorbid issues including hypertension, heart failure, coronary artery disease, diabetes mellitus and recent diagnosis of bronchitis, who presented to [facility] experiencing chest pain. He was subsequently admitted yesterday. He reports chest pain began around 11:00 in the morning of the , described as dull in sensation radiating to the left lateral chest wall. He also reports associated shortness of breath and dyspnea on exertion. Apparently, he was under treatment for upper respiratory infection utilizing doxycycline and was on day 4. He reports semi-productive cough. I have been asked to see the patient because of previous workup from prior women designer, who is with [facility] several years ago because of possible multiple myeloma or CLL. He is noted to have an elevated globulin fraction of 6.9 with a total protein of 10.1. Apparently, he was evaluated at 2007 and [address] lymphocytic leukemia. Dr. Dey, previous women designer, apparently work him up in 2011, but no diagnosis has ever been established. Review of his most recent counts are for most part unremarkable. His lymphocyte fraction is certainly not pathognomonic for CLL and hemoglobin is actually elevated, which suggests this gentleman may actually have a secondary erythrocytosis. Patients with plasma cell disorders are generally anemic. Clinically, he continues to struggle with shortness of breath, coughing and is presently oxygen dependent. Again the primary service is requesting a hematologic followup for his current blood issues. PAST MEDICAL HISTORY: Again significant for congestive heart failure and ischemic coronary artery disease, coronary artery bypass grafting x5, type 2 diabetes mellitus. He suffers from gout. He is presently battling acute bronchitis and suffers from hypertension. HOME MEDICATIONS: Include allopurinol 100 mg p.o. daily, aspirin 81 mg p.o. daily, carvedilol 3.125 mg p.o. b.i.d., dipyridamole 75 mg p.o. 5 times daily, doxycycline 100 mg p.o. b.i.d., Lasix 20 mg p.o. daily, losartan 50 mg p.o. daily, metformin 750 mg p.o. every other day and nitroglycerin 0.4 sublingual subQ. ALLERGIES: No known drug allergies. SOCIAL HISTORY: The patient is retired from [employer]. He lives with his spouse. He was a reformed smoker, quitting 30 years ago. Negative for alcohol or illicit drugs. FAMILY HISTORY: Positive for diabetes and hypertension. REVIEW OF SYSTEMS: CONSTITUTIONAL: As per HPI, most notably for chest pain, shortness of breath, dyspnea on exertion and semi-productive cough. Negative for fevers, chills or sweats presently. He is not anorexic, in fact morbidly obese. SKIN: No rashes or lesions. No history of dermatoses. HEENT: He denies current headache, lightheadedness or dizziness. He wears corrective lenses, but no acute visual deficit. No hearing deficit. No sinus symptoms. He denies sore throat at this time. No dysphagia. LYMPH: No history of lymphoproliferative disease. CARDIAC: He has extensive history of coronary artery disease. No current angina or palpitations. PULMONARY: No history of COPD, currently battling active bronchitis with shortness of breath, dyspnea on exertion and cough. No hemoptysis reported. GASTROINTESTINAL: Negative for abdominal pain, nausea, vomiting, diarrhea or constipation, hematochezia or melena stools. GENITOURINARY: No hematuria, dysuria, urinary incontinence. PSYCHIATRIC: Negative for anxiety, depression or psychoses. ENDOCRINE: Negative for thyroid disease. Positive for diabetes mellitus. MUSCULOSKELETAL: No arthralgias or myalgias. No muscle weakness. NEUROLOGIC: Negative for seizure, stroke or migraine headache. HEMATOLOGIC: Positive for leukocytosis, predominant neutrophilia. Hemoglobin and platelets are intact otherwise. PHYSICAL EXAMINATION: GENERAL: He is a pleasant 72-year-old gentleman, awake, alert and appropriate, in no acute distress. VITAL SIGNS: Temperature 36.4, pulse 85, respiratory rate 20, blood pressure 107/60. SKIN: Warm, dry, noncyanotic without petechia, rash or ecchymosis. HEENT: Head atraumatic, normocephalic. Eyes: PERRLA, EOMI. Sclerae nonicteric. No conjunctival injection. Nares patent without rhinorrhea or discharge. Throat clear. Tongue midline. Dentition in fair repair. No buccal lesions or ulcerations otherwise. NECK: Supple. HEART: Regular rate and rhythm. No clicks, rubs, murmurs or gallops. LUNGS: Clear to auscultation bilaterally. ABDOMEN: Soft, nontender, nondistended without palpable hepatosplenomegaly. EXTREMITIES: Musculoskeletal strength and pulses are equal in all 4 quadrants. No clubbing, cyanosis or edema otherwise. NEUROLOGICAL: He is awake, alert and oriented x3. Cranial nerves are grossly intact. LABORATORY DATA: WBC count 13,880, hemoglobin 17, platelet count 205,000 with an absolute neutrophil count 10,740. BNP 1469. Total protein 10.1, albumin 3.2, globulin 6.9. CT of the abdomen and pelvis performed on admission reveals gallstones. Chest x-ray performed on admission, cardiomegaly with developing mild pulmonary edema. IMPRESSION: 1. Elevated globulin level. 2. Mild erythrocytosis. 3. Exacerbation of congestive heart failure. 4. Hypoxic respiratory failure. 5. Acute bronchitis. 6. Diabetes mellitus. PLAN: I have been asked to evaluate the patient. He is a very pleasant 72-year-old gentleman who is admitted with the above symptomatology, particularly shortness of breath, atypical chest pain and dyspnea on exertion. Apparently, the patient had been evaluated by Hematology several years ago for a suspected chronic lymphocytic leukemia and/or plasma cell dyscrasia. He presently has an elevated globulin fraction, which I believe is career representative of hypergammaglobulinemia. The patient is not anemic, essentially ruling out an underlying plasma cell dyscrasia. In addition, his white cell differential shows no evidence of lymphocytosis, which would essentially rule out chronic lymphocytic leukemia. He actually suffers from mild erythrocytosis, which I believe is driven by his respiratory problems and secondary physiologic response. Perhaps a serum protein electrophoresis with immunofixation would provide the answer and confirm hypergammaglobulinemia. I do not feel compelled to do any further workup on this gentleman and if you have any specific questions regarding my thoughts, feel free to contact me at any time. It is a pleasure to see the patient at bedside today. Thank you very much for allowing me to participate in his care. PAUL
--- NOTE | 2018-04-08 18:21 | Family Medicine Progress Note ---
Date of Service April 08, 2018 Assessment & Plan (1) Acute respiratory failure with hypoxia: Carroll is a 72-year-old male with a past medical history of systolic heart failure with ejection fraction 40-45%, CABG x5, hypertension, and non-insulin- dependent type 2 diabetes mellitus who presented with cough, shortness of breath , and chest pain. He was admitted for acute hypoxic respiratory failure. Acute respiratory failure with hypoxia On admit O2 sat 92% on 2 L O2 with respiratory distress ABG on admit: 7.44/35/65/20 3/93% Titrate O2 to maintain O2 sat greater than 92% -Chest x-ray shows cardiomegaly with mild pulmonary edema CT shows diffuse interstitial thickening, perilymphatic nodular appearance with mediastinal and bilateral hilar lymphadenopathy. No pulmonary emboli noted. Acute on chronic Systolic heart failure Prior EF of 40-55% in 2011 Repeat echo shows decrease in EF to 20-25% with increased pulmonary pressure. Unclear etiology, increased pulmonary pressure with hilar adenopathy suspicious for sarcoid versus secondary. Carvedilol 3.125 p.o. twice daily Losartan 50 mg p.o. every afternoon Furosemide 40 mg IV daily Telemetry Recent Bronchitis, Pulmonary HTN on echo with hilar adenopathy AVA level ordered Methylprednisolone 125 mg given in ED Methylprednisolone 40 mg IV every 12 hours Pulmonary toilet DuoNeb every 4 hours Continue doxycycline 100 mg p.o. twice daily for 10-day total course Ceftriaxone 1 g given empirically in ED, no indication to continue at this time Chest pain Initial troponin and repeat 12 hours later negative EKG shows sinus tachycardia with first-degree AV block On telemetry Worsened with coughing, suspicious for MSK CAD with History of CABG x5 ASA 81 mg daily Carvedilol, losartan as above Heparin, nitro, fentanyl ordered on admit Troponins x2-, low suspicion for ACS Type 2 diabetes mellitus Last A1c= 6.6 01/17/19 -Gross checks before meals at bedtime SSI, correction factor 20 milligrams/deciliter/unit and 1 unit per 10 g ratio. T2DM diet Gout No signs of acute flare Continue allopurinol 100 mg p.o. daily Elevated total protein and serum globulin Total protein 10.1; globulin level 6.9 History of evaluation in 2007 [address] Dey in 2011. Recommendations at the time were to consider fish, SPEP, UPEP, flow cytometry Heme saw, noted that patient is not anemic which rules out underlying plasma cell dyscrasia. He also has no signs of cytosis on CBC. Noted that serum electrophoresis could confirm hypergammaglobulinemia, but did not recommend any further workup at this time. Appreciate recommendations. Heparin/SCD (2) Heart failure, systolic, with acute decompensation: (3) Bronchitis: (4) Chest pain: (5) Elevated serum globulin level: (6) T2DM (type 2 diabetes mellitus): (7) Coronary artery bypass grafts x 5: (8) History of gout: Supervising Physician Co-Signing Physician Notes Resident Physician Supervision Note: I independently interviewed and examined the patient and verified the to history and physical, reviewed labs and image studies, discussed the case with the resident Dr. Miller and agree with the findings and care plan. Subjective Carroll reports he feels a little bit better than yesterday, but still poor. He still feels short of breath, but feels he is able to take bigger breaths and is able to have a productive cough today whereas yesterday he could not even get a good enough breath to cough. Still reports a feeling of air hunger. Feels mildly short of breath lying in bed. Denies fevers, chills, night sweats, rash , skin changes, chest pressure, chest pain today. He has not noticed any swelling in his arms or legs. His cough today is productive for green/brown mucus periodically, quarter sized amount. No other changes, voices no questions at tiem of exam. Denies nausea/vomiting/diarrhea/constipation. no abdominal pain today. No headache at time of visit. No vision change. Constitutional: + fatigue; no fever, no chills and no sweats Eyes: no spots in vision and no worsening vision Ear, Nose, Mouth, Throat: no ear pain and no nasal congestion Respiratory: + cough, + dyspnea, + dyspnea on exertion, + pain with cough and + sputum production Cardiovascular: + dyspnea and + dyspnea on exertion; no chest pain, no chest pain at rest, no palpitations, no lightheadedness and no edema Gastrointestinal: no abdominal pain, no nausea, no vomiting, no constipation and no diarrhea/loose stools Musculoskeletal: no joint pain Integumentary: no rash and no lesions Physical Exam 2 Vital Signs (Past 24 Hours): Last Vital Signs Temp 36.4 C L 04/08/18 06:36 Pulse 85 04/08/18 06:36 Resp 20 04/08/18 06:36 BP 107/60 04/08/18 06:36 Pulse Ox 93 04/08/18 06:36 Physical Exam: General: A&Ox3. NAD. Cooperative. HEENT: Atraumatic, normocephalic. Pupils equal and reactive to light and accommodation. Hoarse voice, neck nontender. Pulm: Cough present. Mild rales in the dependent lobes, rhonchi present bilaterally. No acute respiratory distress, no use of accessory muscles. Cardiac: RRR, -mrg. Radial pulses intact and symmetrical. Extremities: No extremity edema is present Results & Data Laboratory Results 04/08/18 04/08/18 04/08/18 Range/Units 16:16 11:00 07:12 WBC (4.8-10.8) K/uL RBC (4.7-6.1) M/uL Hgb (14.0-18.0) g/dL Hct (42-52) % MCV (80-100) fL MCH (25-34) pg MCHC (32-36) g/dL RDW Std Deviation (36.4-46.3) fL RDW Coeff of Tasha (11.5-14.5) % Plt Count (130-400) K/uL MPV (7.4-10.4) fL Immature Gran % (Auto) % Neut % (Auto) % Lymph % (Auto) % Saline % (Auto) % Eos % (Auto) % Baso % (Auto) % Immature Gran # (Auto) (0.00-0.02) K/uL Neut # (Auto) (1.4-6.5) K/uL Lymph # (Auto) (1.2-3.4) K/uL Saline # (Auto) (0.11-0.59) K/uL Eos # (Auto) (0-0.5) K/uL Baso # (Auto) (0-0.2) K/uL PT (9.0-12.0) Seconds INR (0.9-1.1) APTT (21.0-31.0) Seconds PTT Ratio ABG pH (7.35-7.45) ABG pCO2 (35-46) mmHg ABG pO2 (80-95) mm/Hg ABG HCO3 (19-24) mmol/L ABG O2 Saturation (90-95) % ABG Base Excess (-9-1.8) mEq/L Hira Test (Pos) Barometric Pressure mm/Hg Oxygen Given Sodium (136-145) mmol/L Potassium (3.5-5.1) mmol/L Chloride (98-107) mmol/L Carbon Dioxide (21-32) mmol/L Anion Gap (3-11) BUN (7-18) mg/dl Creatinine (0.6-1.4) mg/dl Est Cr Clr Drug Dosing ml/min Est GFR ( Amer) Est GFR (Non-Af Amer) BUN/Creatinine Ratio (10-20) Glucose (70-99) mg/dl POC Glucose 159 H 169 H 143 H (70-99) Estimat Average Glucose mg/dl Hemoglobin A1c (4.5-5.6) % Calcium (8.5-10.1) mg/dl Magnesium (1.8-2.4) mg/dl Total Bilirubin (0.2-1) mg/dl AST (15-37) U/L ALT (12-78) U/L Alkaline Phosphatase (45-117) U/L POC Troponin I (0-0.045) ng/ml Troponin I (0-0.045) ng/ml NT-Pro-B Natriuret Pep (0-900) pg/ml Total Protein (6.4-8.2) gm/dl Albumin (3.4-5.0) gm/dl Globulin (2.5-4.0) gm/dl Albumin/Globulin Ratio (0.9-2) Lipase (73-393) U/L Urine Color Urine Appearance (Clear) Urine pH (4.5-7.5) Ur Specific Normal (1.000-1.030) Urine Protein (Negative) Urine Glucose (UA) (Negative) Urine Ketones (Negative) Urine Blood (Negative) Urine Nitrite (Negative) Urine Bilirubin (Negative) Urine Urobilinogen (Negative) Ur Leukocyte Esterase (Negative) Urine WBC (Auto) (0-5) /hpf Urine RBC (Auto) (0-4) /hpf U Hyaline Cast (Auto) (0-5) /lpf U Epithel Cells (Auto) (0-5) /lpf Urine Bacteria (Auto) (Negative) Influenza Type A (PCR) (Neg) Influenza Type B (PCR) (Neg) 04/08/18 04/08/18 04/07/18 Range/Units 05:29 05:26 23:27 WBC (4.8-10.8) K/uL RBC (4.7-6.1) M/uL Hgb (14.0-18.0) g/dL Hct (42-52) % MCV (80-100) fL MCH (25-34) pg MCHC (32-36) g/dL RDW Std Deviation (36.4-46.3) fL RDW Coeff of Tasha (11.5-14.5) % Plt Count (130-400) K/uL MPV (7.4-10.4) fL Immature Gran % (Auto) % Neut % (Auto) % Lymph % (Auto) % Saline % (Auto) % Eos % (Auto) % Baso % (Auto) % Immature Gran # (Auto) (0.00-0.02) K/uL Neut # (Auto) (1.4-6.5) K/uL Lymph # (Auto) (1.2-3.4) K/uL Saline # (Auto) (0.11-0.59) K/uL Eos # (Auto) (0-0.5) K/uL Baso # (Auto) (0-0.2) K/uL PT (9.0-12.0) Seconds INR (0.9-1.1) APTT (21.0-31.0) Seconds PTT Ratio ABG pH (7.35-7.45) ABG pCO2 (35-46) mmHg ABG pO2 (80-95) mm/Hg ABG HCO3 (19-24) mmol/L ABG O2 Saturation (90-95) % ABG Base Excess (-9-1.8) mEq/L Hira Test (Pos) Barometric Pressure mm/Hg Oxygen Given Sodium 134 L (136-145) mmol/L Potassium 4.0 (3.5-5.1) mmol/L Chloride 101 (98-107) mmol/L Carbon Dioxide 22 (21-32) mmol/L Anion Gap 11.0 (3-11) BUN 37 H (7-18) mg/dl Creatinine 1.39 (0.6-1.4) mg/dl Est Cr Clr Drug Dosing 58.4 ml/min Est GFR ( Amer) 57.5 Est GFR (Non-Af Amer) 49.6 BUN/Creatinine Ratio 26.3 H (10-20) Glucose 162 H (70-99) mg/dl POC Glucose 130 H (70-99) Estimat Average Glucose 131 mg/dl Hemoglobin A1c 6.2 H (4.5-5.6) % Calcium 9.5 (8.5-10.1) mg/dl Magnesium (1.8-2.4) mg/dl Total Bilirubin (0.2-1) mg/dl AST (15-37) U/L ALT (12-78) U/L Alkaline Phosphatase (45-117) U/L POC Troponin I (0-0.045) ng/ml Troponin I < 0.015 (0-0.045) ng/ml NT-Pro-B Natriuret Pep (0-900) pg/ml Total Protein (6.4-8.2) gm/dl Albumin (3.4-5.0) gm/dl Globulin (2.5-4.0) gm/dl Albumin/Globulin Ratio (0.9-2) Lipase (73-393) U/L Urine Color Urine Appearance (Clear) Urine pH (4.5-7.5) Ur Specific Normal (1.000-1.030) Urine Protein (Negative) Urine Glucose (UA) (Negative) Urine Ketones (Negative) Urine Blood (Negative) Urine Nitrite (Negative) Urine Bilirubin (Negative) Urine Urobilinogen (Negative) Ur Leukocyte Esterase (Negative) Urine WBC (Auto) (0-5) /hpf Urine RBC (Auto) (0-4) /hpf U Hyaline Cast (Auto) (0-5) /lpf U Epithel Cells (Auto) (0-5) /lpf Urine Bacteria (Auto) (Negative) Influenza Type A (PCR) (Neg) Influenza Type B (PCR) (Neg) 04/07/18 04/07/18 04/07/18 Range/Units 22:34 20:24 18:36 WBC (4.8-10.8) K/uL RBC (4.7-6.1) M/uL Hgb (14.0-18.0) g/dL Hct (42-52) % MCV (80-100) fL MCH (25-34) pg MCHC (32-36) g/dL RDW Std Deviation (36.4-46.3) fL RDW Coeff of Tasha (11.5-14.5) % Plt Count (130-400) K/uL MPV (7.4-10.4) fL Immature Gran % (Auto) % Neut % (Auto) % Lymph % (Auto) % Saline % (Auto) % Eos % (Auto) % Baso % (Auto) % Immature Gran # (Auto) (0.00-0.02) K/uL Neut # (Auto) (1.4-6.5) K/uL Lymph # (Auto) (1.2-3.4) K/uL Saline # (Auto) (0.11-0.59) K/uL Eos # (Auto) (0-0.5) K/uL Baso # (Auto) (0-0.2) K/uL PT (9.0-12.0) Seconds INR (0.9-1.1) APTT (21.0-31.0) Seconds PTT Ratio ABG pH 7.44 (7.35-7.45) ABG pCO2 35 (35-46) mmHg ABG pO2 65 L (80-95) mm/Hg ABG HCO3 23 (19-24) mmol/L ABG O2 Saturation 93.3 (90-95) % ABG Base Excess -0.1 (-9-1.8) mEq/L Hira Test POS (Pos) Barometric Pressure 738.0 mm/Hg Oxygen Given 3L Sodium (136-145) mmol/L Potassium (3.5-5.1) mmol/L Chloride (98-107) mmol/L Carbon Dioxide (21-32) mmol/L Anion Gap (3-11) BUN (7-18) mg/dl Creatinine (0.6-1.4) mg/dl Est Cr Clr Drug Dosing ml/min Est GFR ( Amer) Est GFR (Non-Af Amer) BUN/Creatinine Ratio (10-20) Glucose (70-99) mg/dl POC Glucose (70-99) Estimat Average Glucose mg/dl Hemoglobin A1c (4.5-5.6) % Calcium (8.5-10.1) mg/dl Magnesium (1.8-2.4) mg/dl Total Bilirubin (0.2-1) mg/dl AST (15-37) U/L ALT (12-78) U/L Alkaline Phosphatase (45-117) U/L POC Troponin I 0.03 (0-0.045) ng/ml Troponin I (0-0.045) ng/ml NT-Pro-B Natriuret Pep (0-900) pg/ml Total Protein (6.4-8.2) gm/dl Albumin (3.4-5.0) gm/dl Globulin (2.5-4.0) gm/dl Albumin/Globulin Ratio (0.9-2) Lipase (73-393) U/L Urine Color Dark Yellow Urine Appearance Clear (Clear) Urine pH 5.0 (4.5-7.5) Ur Specific Normal > 1.045 H (1.000-1.030) Urine Protein 1+ H (Negative) Urine Glucose (UA) Negative (Negative) Urine Ketones Negative (Negative) Urine Blood Negative (Negative) Urine Nitrite Negative (Negative) Urine Bilirubin Negative (Negative) Urine Urobilinogen Negative (Negative) Ur Leukocyte Esterase Negative (Negative) Urine WBC (Auto) 1-5 (0-5) /hpf Urine RBC (Auto) 0-4 (0-4) /hpf U Hyaline Cast (Auto) 1-5 (0-5) /lpf U Epithel Cells (Auto) 5-10 H (0-5) /lpf Urine Bacteria (Auto) Negative (Negative) Influenza Type A (PCR) (Neg) Influenza Type B (PCR) (Neg) 04/07/18 04/07/18 04/07/18 Range/Units 18:28 18:25 18:25 WBC (4.8-10.8) K/uL RBC (4.7-6.1) M/uL Hgb (14.0-18.0) g/dL Hct (42-52) % MCV (80-100) fL MCH (25-34) pg MCHC (32-36) g/dL RDW Std Deviation (36.4-46.3) fL RDW Coeff of Tasha (11.5-14.5) % Plt Count (130-400) K/uL MPV (7.4-10.4) fL Immature Gran % (Auto) % Neut % (Auto) % Lymph % (Auto) % Saline % (Auto) % Eos % (Auto) % Baso % (Auto) % Immature Gran # (Auto) (0.00-0.02) K/uL Neut # (Auto) (1.4-6.5) K/uL Lymph # (Auto) (1.2-3.4) K/uL Saline # (Auto) (0.11-0.59) K/uL Eos # (Auto) (0-0.5) K/uL Baso # (Auto) (0-0.2) K/uL PT (9.0-12.0) Seconds INR (0.9-1.1) APTT (21.0-31.0) Seconds PTT Ratio ABG pH (7.35-7.45) ABG pCO2 (35-46) mmHg ABG pO2 (80-95) mm/Hg ABG HCO3 (19-24) mmol/L ABG O2 Saturation (90-95) % ABG Base Excess (-9-1.8) mEq/L Hira Test (Pos) Barometric Pressure mm/Hg Oxygen Given Sodium (136-145) mmol/L Potassium (3.5-5.1) mmol/L Chloride (98-107) mmol/L Carbon Dioxide (21-32) mmol/L Anion Gap (3-11) BUN (7-18) mg/dl Creatinine (0.6-1.4) mg/dl Est Cr Clr Drug Dosing ml/min Est GFR ( Amer) Est GFR (Non-Af Amer) BUN/Creatinine Ratio (10-20) Glucose (70-99) mg/dl POC Glucose (70-99) Estimat Average Glucose mg/dl Hemoglobin A1c (4.5-5.6) % Calcium (8.5-10.1) mg/dl Magnesium (1.8-2.4) mg/dl Total Bilirubin (0.2-1) mg/dl AST (15-37) U/L ALT (12-78) U/L Alkaline Phosphatase (45-117) U/L POC Troponin I (0-0.045) ng/ml Troponin I (0-0.045) ng/ml NT-Pro-B Natriuret Pep 1469 H (0-900) pg/ml Total Protein (6.4-8.2) gm/dl Albumin (3.4-5.0) gm/dl Globulin (2.5-4.0) gm/dl Albumin/Globulin Ratio (0.9-2) Lipase 141 (73-393) U/L Urine Color Urine Appearance (Clear) Urine pH (4.5-7.5) Ur Specific Normal (1.000-1.030) Urine Protein (Negative) Urine Glucose (UA) (Negative) Urine Ketones (Negative) Urine Blood (Negative) Urine Nitrite (Negative) Urine Bilirubin (Negative) Urine Urobilinogen (Negative) Ur Leukocyte Esterase (Negative) Urine WBC (Auto) (0-5) /hpf Urine RBC (Auto) (0-4) /hpf U Hyaline Cast (Auto) (0-5) /lpf U Epithel Cells (Auto) (0-5) /lpf Urine Bacteria (Auto) (Negative) Influenza Type A (PCR) Neg for Influ A (Neg) Influenza Type B (PCR) Neg for Influ B (Neg) 04/07/18 04/07/18 04/07/18 Range/Units 18:25 18:25 18:25 WBC 13.88 H (4.8-10.8) K/uL RBC 5.36 (4.7-6.1) M/uL Hgb 17.0 (14.0-18.0) g/dL Hct 50.4 (42-52) % MCV 94.0 (80-100) fL MCH 31.7 (25-34) pg MCHC 33.7 (32-36) g/dL RDW Std Deviation 52.3 H (36.4-46.3) fL RDW Coeff of Tasha 15.2 H (11.5-14.5) % Plt Count 205 (130-400) K/uL MPV 10.7 H (7.4-10.4) fL Immature Gran % (Auto) 0.4 % Neut % (Auto) 77.3 % Lymph % (Auto) 11.5 % Saline % (Auto) 8.4 % Eos % (Auto) 2.1 % Baso % (Auto) 0.3 % Immature Gran # (Auto) 0.06 H (0.00-0.02) K/uL Neut # (Auto) 10.74 H (1.4-6.5) K/uL Lymph # (Auto) 1.59 (1.2-3.4) K/uL Saline # (Auto) 1.16 H (0.11-0.59) K/uL Eos # (Auto) 0.29 (0-0.5) K/uL Baso # (Auto) 0.04 (0-0.2) K/uL PT 12.0 (9.0-12.0) Seconds INR 1.2 H (0.9-1.1) APTT 29.4 (21.0-31.0) Seconds PTT Ratio 1.1 ABG pH (7.35-7.45) ABG pCO2 (35-46) mmHg ABG pO2 (80-95) mm/Hg ABG HCO3 (19-24) mmol/L ABG O2 Saturation (90-95) % ABG Base Excess (-9-1.8) mEq/L Hira Test (Pos) Barometric Pressure mm/Hg Oxygen Given Sodium 134 L (136-145) mmol/L Potassium 3.9 (3.5-5.1) mmol/L Chloride 97 L (98-107) mmol/L Carbon Dioxide 25 (21-32) mmol/L Anion Gap 12.0 H (3-11) BUN 34 H (7-18) mg/dl Creatinine 1.51 H (0.6-1.4) mg/dl Est Cr Clr Drug Dosing 54.8 ml/min Est GFR ( Amer) 52.0 Est GFR (Non-Af Amer) 44.9 BUN/Creatinine Ratio 22.6 H (10-20) Glucose 126 H (70-99) mg/dl POC Glucose (70-99) Estimat Average Glucose mg/dl Hemoglobin A1c (4.5-5.6) % Calcium 10.0 (8.5-10.1) mg/dl Magnesium 2.3 (1.8-2.4) mg/dl Total Bilirubin 2.2 H (0.2-1) mg/dl AST 30 (15-37) U/L ALT 26 (12-78) U/L Alkaline Phosphatase 90 (45-117) U/L POC Troponin I (0-0.045) ng/ml Troponin I < 0.015 (0-0.045) ng/ml NT-Pro-B Natriuret Pep (0-900) pg/ml Total Protein 10.1 H (6.4-8.2) gm/dl Albumin 3.2 L (3.4-5.0) gm/dl Globulin 6.9 H (2.5-4.0) gm/dl Albumin/Globulin Ratio 0.5 L (0.9-2) Lipase (73-393) U/L Urine Color Urine Appearance (Clear) Urine pH (4.5-7.5) Ur Specific Normal (1.000-1.030) Urine Protein (Negative) Urine Glucose (UA) (Negative) Urine Ketones (Negative) Urine Blood (Negative) Urine Nitrite (Negative) Urine Bilirubin (Negative) Urine Urobilinogen (Negative) Ur Leukocyte Esterase (Negative) Urine WBC (Auto) (0-5) /hpf Urine RBC (Auto) (0-4) /hpf U Hyaline Cast (Auto) (0-5) /lpf U Epithel Cells (Auto) (0-5) /lpf Urine Bacteria (Auto) (Negative) Influenza Type A (PCR) (Neg) Influenza Type B (PCR) (Neg) Medications Administered Current Medications Acetaminophen (Tylenol) 650 mg PO Q4H PRN PRN Reason: Pain or Fever Stop: 05/07/18 23:11 Last Admin: 04/08/18 00:04 Dose: 650 mg Al Hydrox/Mg Hydrox/Simethicone (Maalox) 15 ml PO Q4H PRN PRN Reason: Dyspepsia Stop: 05/07/18 23:11 Albuterol (Duoneb) 3 ml NEB Q4R [facility] Stop: 05/08/18 00:00 Last Admin: 04/08/18 15:18 Dose: 3 ml Allopurinol (Zyloprim) 100 mg PO DAILY [facility] Stop: 05/08/18 08:59 Last Admin: 04/08/18 08:04 Dose: 100 mg Aspirin (Ecotrin Ectab) 81 mg PO QAM [facility] Stop: 05/08/18 08:59 Last Admin: 04/08/18 08:05 Dose: 81 mg Carvedilol (Coreg) 3.125 mg PO BID [facility] Stop: 05/08/18 08:59 Last Admin: 04/08/18 08:04 Dose: 3.125 mg Dextrose (Dextrose 50%) 25 - 50 ml IV UD PRN; Protocol PRN Reason: Hypoglycemia Protocol Stop: 05/07/18 23:11 Dipyridamole (Persantine) 75 mg PO [id number] [facility] Stop: 05/08/18 06:59 Last Admin: 04/08/18 15:40 Dose: 75 mg Doxycycline Hyclate (Vibramycin) 100 mg PO BID [facility] Stop: 05/08/18 08:59 Last Admin: 04/08/18 08:04 Dose: 100 mg Furosemide (Lasix) 20 mg PO QAM [facility] Stop: 05/08/18 08:59 Glucagon (Glucagen) 1 mg SQ UD PRN; Protocol PRN Reason: Hypoglycemia Protocol Stop: 05/07/18 23:11 Glucose (Glucose 40%) 15 - 30 gm PO UD PRN; Protocol PRN Reason: Hypoglycemia Protocol Stop: 05/07/18 23:11 Glucose (Dex4 Glucose) 4 - 8 tabs PO UD PRN; Protocol PRN Reason: Hypoglycemia Protocol Stop: 05/07/18 23:11 Heparin Sodium (Porcine) (Heparin Sodium (Porcine)) 5,000 units SQ Q12 [facility] Stop: 05/08/18 08:59 Last Admin: 04/08/18 08:03 Dose: 5,000 units Methylprednisolone 40 mg/ (Syringe) 0.64 mls @ 1.5 mls/min IV Q12 [facility] Stop: 05/08/18 08:59 Last Admin: 04/08/18 08:02 Dose: 1.5 mls/min Furosemide 40 mg/ Syringe 4 mls @ 4 mls/min IV DAILY [facility] Stop: 05/08/18 08:59 Last Admin: 04/08/18 09:19 Dose: 4 mls/min Insulin Aspart (Novolog Flexpen) 0 units SC ACHS [facility] Stop: 05/08/18 07:29 Last Admin: 04/08/18 17:33 Dose: 5 units Losartan Potassium (Cozaar) 50 mg PO QPM [facility] Stop: 05/08/18 20:59 Magnesium Hydroxide (Milk Of Magnesia) 30 ml PO Q12H PRN PRN Reason: Constipation Stop: 05/07/18 23:11 Miscellaneous (Carbohydrates For Hypoglycemia) 15 - 30 gm PO UD PRN PRN Reason: Hypoglycemia Treatment Stop: 05/07/18 23:11 Miscellaneous (Remove Lidoderm Patch) 1 ea N/A DAILY@2100 [facility] Stop: 05/08/18 20:59 Morphine Sulfate (Morphine Sulfate) 2 mg IV Q30M PRN PRN Reason: Chest Pain Stop: 04/21/18 23:11 Nitroglycerin (Nitrostat) 0.4 mg SL UD PRN PRN Reason: Chest Pain Stop: 05/07/18 23:11 Ondansetron HCl (Zofran) 4 mg IV Q6H PRN PRN Reason: Nausea Stop: 05/07/18 23:11 Pantoprazole Sodium (Protonix) 40 mg PO QAM [facility] Stop: 04/11/18 09:01 Last Admin: 04/08/18 08:04 Dose: 40 mg Polyethylene Glycol (Miralax Powder Packet) 17 gm PO DAILY PRN PRN Reason: Constipation Stop: 05/07/18 23:11 Resident Activity Tracking Resident Involvement: Resident Care Provided Care Provided: [facility] Medicine _ (1) Chest pain Chest pain type: unspecified Ischemic chest pain type: Qualified Code(s): R07.9 - Chest pain, unspecified
[2018-04-08] MEDS: LOSARTAN POTASSIUM 50 MG TAB PO SCH (21:08)
[2018-04-09] MEDS: ALBUT/IPRATROP 3MG/0.5MG NEB 3 ML VIAL NEB SCH ×6 (03:36→23:16)
[2018-04-09] MEDS: DIPYRIDAMOLE 25 MG TAB PO SCH ×4 (06:04→21:21)
[2018-04-09 06:12] LABS: Basophils # (auto) 0.01 K/uL (0-0.2); Basophils % (auto) 0.1 %; Hematocrit (blood only) 43.9 % (42-52); Hemoglobin 14.9 g/dL (14.0-18.0); Immature Granulocytes # (auto) 0.05 K/uL (0.00-0.02); Immature Granulocytes % (auto) 0.3 %; Lymphocytes # (auto) 0.95 K/uL (1.2-3.4); Lymphocytes % (auto) 6.2 %; Mean Corpuscular Hgb Conc 33.9 g/dL (32-36); Mean Corpuscular Volume 92.8 fL (80-100); Mean Platelet Volume 10.9 fL (7.4-10.4); Monocytes # (auto) 0.66 K/uL (0.11-0.59); Monocytes % (auto) 4.3 %; Neutrophils # (auto) 13.58 K/uL (1.4-6.5); Neutrophils % (auto) 89.1 %; Platelet Count 222 K/uL (130-400); Red Blood Count 4.73 M/uL (4.7-6.1); White Blood Count 15.25 K/uL (4.8-10.8)
[2018-04-09 06:37] LABS: BUN Creatinine Ratio 34.1 (10-20); Creatinine Clr Calc Pharmacy 55.8 ml/min; Est GFR (African American) 54.6; Est GFR (Non-African American) 47.1
[2018-04-09] MEDS: INSULIN ASPART 100 UNITS/ML 3 ML PEN SC SCH ×4 (08:01→21:15)
[2018-04-09] MEDS ORDERED: COUGH DROP (SUGAR FREE) LOZ 24 LOZ/1 BOX BUCCAL ONE (08:55)
[2018-04-09] MEDS: ALLOPURINOL 100 MG TAB PO SCH (09:12)
[2018-04-09] MEDS: PANTOprazole 40 MG TAB PO SCH (09:16)
[2018-04-09] MEDS: DOXYCYCLINE HYCLATE 100 MG CAP PO SCH ×2 (09:16→21:21)
[2018-04-09] MEDS: ASPIRIN 81 MG ECTAB PO SCH (09:17)
[2018-04-09] MEDS: FUROSEMIDE 40 MG in SYRINGE 0 ML IV SCH (09:22)
[2018-04-09] MEDS: methylPREDNISolone 40 MG in SYRINGE 0 ML IV SCH ×2 (09:23→21:21)
[2018-04-09] MEDS: HEPARIN SOD 5,000 UNIT/0.5 ML VIAL SQ SCH ×2 (09:24→21:16)
[2018-04-09] MEDS: CARVEDILOL 3.125 MG TAB PO SCH ×2 (09:28→21:21)
--- NOTE | 2018-04-09 15:40 | Family Medicine Progress Note ---
Date of Service April 09, 2018 Assessment & Plan (1) Acute respiratory failure with hypoxia: Carroll is a 72-year-old male with a past medical history of systolic heart failure with ejection fraction 40-45%, CABG x5, hypertension, and non-insulin- dependent type 2 diabetes mellitus who presented with cough, shortness of breath , and chest pain. He was admitted for acute hypoxic respiratory failure. Acute respiratory failure with hypoxia -Cough and sputum improving, feels slightly better today but still below baseline. On admit O2 sat 92% on 2 L O2 with respiratory distress ABG on admit: 7.44/35/65/20 3/93% -Chest x-ray shows cardiomegaly with mild pulmonary edema CTsee shows diffuse interstitial thickening, perilymphatic nodular appearance with mediastinal and bilateral hilar lymphadenopathy. No pulmonary emboli noted. Increased pulmonary pressure noted on echo Methylprednisolone 125 mg given in ED Methylprednisolone 40 mg IV every 12 hours Pulmonary toilet DuoNeb every 4 hours Titrate O2 to maintain O2 sat greater than 92% Acute on chronic Systolic heart failure Prior EF of 40-55% in 2011 Repeat echo shows decrease in EF to 20-25% with increased pulmonary pressure. Unclear etiology, increased pulmonary pressure with hilar adenopathy suspicious for sarcoid versus secondary. He has a history of diagnosed NNEKA, has not used CPAP in many years due to sleep disruption. Carvedilol 3.125 p.o. twice daily Losartan 50 mg p.o. every afternoon Furosemide 40 mg IV daily Telemetry Obstructive sleep apnea History of diagnosed sleep apnea, likely contributing to his cardiac presentation CPAP at night Increased pulmonary pressure with hilar adenopathy AVA level pending History of CABG x5 ASA 81 mg daily Carvedilol, losartan as above Heparin, nitro, fentanyl ordered on admit Troponins x2-, low suspicion for ACS May still have an ischemic element to his progressive heart failure Cardiology consult placed for evaluation of worsening EF in a patient high risk for ischemic cardiomyopathy but without acute lab or clinical findings. Bronchitis Mild to moderate sputum production today Continue doxycycline 100 mg p.o. twice daily for 10-day total course Chest pain Initial troponin and repeat 12 hours later negative EKG shows sinus tachycardia with first-degree AV block On telemetry Present at lower right rib border, worsened with coughing, suspicious for MSK Type 2 diabetes mellitus Last A1c= 6.6 01/17/19 -Gross checks before meals at bedtime SSI, correction factor 20 milligrams/deciliter/unit and 1 unit per 10 g ratio. T2DM diet Morning glucose 141 today Gout No signs of acute flare Continue allopurinol 100 mg p.o. daily Elevated total protein and serum globulin Total protein 10.1; globulin level 6.9 History of evaluation in [address] Dey in 2011. Recommendations at the time were to consider fish, SPEP, UPEP, flow cytometry Heme saw, noted that patient is not anemic which rules out underlying plasma cell dyscrasia. He also has no signs of cytosis on CBC. Noted that serum electrophoresis could confirm hypergammaglobulinemia, but did not recommend any further workup at this time. Appreciate recommendations. DVT prophylaxis: Heparin 5000 every 12 (2) Heart failure, systolic, with acute decompensation: (3) Bronchitis: (4) Chest pain: (5) Elevated serum globulin level: (6) T2DM (type 2 diabetes mellitus): (7) Coronary artery bypass grafts x 5: (8) History of gout: Supervising Physician Co-Signing Physician Notes Resident Physician Supervision Note: I independently interviewed and examined the patient and verified the to history and physical, reviewed labs and image studies, discussed the case with the resident Dr. Miller and agree with the findings and care plan. Subjective Carroll reports he feels similar today, may be a little bit better. He notes that he continues to have increased cough, however the sputum seems to be clearing up a bit. He is producing less sputum and it is more clear white to ocampo white in color. He still endorses a feeling of chest tightness with breathing and discomfort in his lower right rib when he coughs, but denies chest pain and chest pressure. He continues to have shortness of breath at rest and with exertion, he feels it may be slightly improved from yesterday. Denies lightheadedness, dizziness, nausea, vomiting, diarrhea, constipation today. Peeing okay. Good appetite today. He does not currently use CPAP, but notes he has been evaluated and diagnosed with NNEKA in the past. 4-5 years ago he was told he had sleep apnea following a sleep study and had tried CPAP but could not tolerate it for more than 3 hours as it disrupted his sleep and he stopped using it. A few years ago he tried a refitting but found the new machine worse and even more disruptive to his sleep and did not follow up or use the CPAP at home. Constitutional: + fatigue; no fever, no chills, no sweats and no insomnia Respiratory: + cough, + chest congestion, + change in sputum, + dyspnea, + dyspnea on exertion, + pain with cough and + sputum production; no pain on inspiration Cardiovascular: + dyspnea; no chest pain, no chest pain at rest, no radiating jaw, neck or arm pain, no palpitations, no lightheadedness, no syncope and no edema Gastrointestinal: no nausea, no vomiting, no constipation and no diarrhea/loose stools Genitourinary (Male): no dysuria and no difficulty urinating Physical Exam 2 Vital Signs (Past 24 Hours): Last Vital Signs Temp 37.1 C 04/09/18 06:42 Pulse 98 H 04/09/18 07:06 Resp 20 04/09/18 07:06 BP 144/73 H 04/09/18 06:42 Pulse Ox 96 04/09/18 07:06 Physical Exam: General: A&Ox3. NAD. Cooperative. HEENT: Atraumatic, normocephalic. Pulm: Rales appreciated in the LLL > RLL. Symmetrical chest rise. Breathing comfortably on 2 L nasal cannula. No respiratory distress. Cardiac: RRR, -mrg. Radial pulses intact and symmetrical. JVD to approximately 1 cm below the angle of the mandible. Abdominal: Nontender, nondistended, soft. Extremity: pretibial edema present bilaterally Results & Data Laboratory Results Abnormal lab results 04/08/18 04/09/18 04/09/18 Range/Units 20:12 05:38 05:38 WBC 15.25 H (4.8-10.8) K/uL RDW Std Deviation 51.0 H (36.4-46.3) fL RDW Coeff of Tasha 15.0 H (11.5-14.5) % MPV 10.9 H (7.4-10.4) fL Immature Gran # (Auto) 0.05 H (0.00-0.02) K/uL Neut # (Auto) 13.58 H (1.4-6.5) K/uL Lymph # (Auto) 0.95 L (1.2-3.4) K/uL Crockett # (Auto) 0.66 H (0.11-0.59) K/uL Sodium 134 L (136-145) mmol/L BUN 50 H (7-18) mg/dl Creatinine 1.45 H (0.6-1.4) mg/dl BUN/Creatinine Ratio 34.1 H (10-20) Glucose 141 H (70-99) mg/dl POC Glucose 138 H (70-99) 04/09/18 04/09/18 04/09/18 Range/Units 07:28 11:10 16:16 WBC (4.8-10.8) K/uL RDW Std Deviation (36.4-46.3) fL RDW Coeff of Tasha (11.5-14.5) % MPV (7.4-10.4) fL Immature Gran # (Auto) (0.00-0.02) K/uL Neut # (Auto) (1.4-6.5) K/uL Lymph # (Auto) (1.2-3.4) K/uL Crockett # (Auto) (0.11-0.59) K/uL Sodium (136-145) mmol/L BUN (7-18) mg/dl Creatinine (0.6-1.4) mg/dl BUN/Creatinine Ratio (10-20) Glucose (70-99) mg/dl POC Glucose 135 H 144 H 109 H (70-99) Medications Administered Current Inpatient Medications Acetaminophen (Tylenol) 650 mg PO Q4H PRN PRN Reason: Pain or Fever Stop: 05/07/18 23:11 Last Admin: 04/08/18 00:04 Dose: 650 mg Al Hydrox/Mg Hydrox/Simethicone (Maalox) 15 ml PO Q4H PRN PRN Reason: Dyspepsia Stop: 05/07/18 23:11 Albuterol (Duoneb) 3 ml NEB Q4R [facility] Stop: 05/08/18 00:00 Last Admin: 04/09/18 15:07 Dose: 3 ml Allopurinol (Zyloprim) 100 mg PO DAILY [facility] Stop: 05/08/18 08:59 Last Admin: 04/09/18 09:12 Dose: 100 mg Aspirin (Ecotrin Ectab) 81 mg PO QAM [facility] Stop: 05/08/18 08:59 Last Admin: 04/09/18 09:17 Dose: 81 mg Carvedilol (Coreg) 3.125 mg PO BID [facility] Stop: 05/08/18 08:59 Last Admin: 04/09/18 09:28 Dose: 3.125 mg Dextrose (Dextrose 50%) 25 - 50 ml IV UD PRN; Protocol PRN Reason: Hypoglycemia Protocol Stop: 05/07/18 23:11 Dipyridamole (Persantine) 75 mg PO [id number] [facility] Stop: 05/08/18 06:59 Last Admin: 04/09/18 16:04 Dose: 75 mg Doxycycline Hyclate (Vibramycin) 100 mg PO BID [facility] Stop: 05/08/18 08:59 Last Admin: 04/09/18 09:16 Dose: 100 mg Furosemide (Lasix) 20 mg PO QAM [facility] Stop: 05/08/18 08:59 Glucagon (Glucagen) 1 mg SQ UD PRN; Protocol PRN Reason: Hypoglycemia Protocol Stop: 05/07/18 23:11 Glucose (Glucose 40%) 15 - 30 gm PO UD PRN; Protocol PRN Reason: Hypoglycemia Protocol Stop: 05/07/18 23:11 Glucose (Dex4 Glucose) 4 - 8 tabs PO UD PRN; Protocol PRN Reason: Hypoglycemia Protocol Stop: 05/07/18 23:11 Heparin Sodium (Porcine) (Heparin Sodium (Porcine)) 5,000 units SQ Q12 [facility] Stop: 05/08/18 08:59 Last Admin: 04/09/18 09:24 Dose: 5,000 units Methylprednisolone 40 mg/ (Syringe) 0.64 mls @ 1.5 mls/min IV Q12 [facility] Stop: 05/08/18 08:59 Last Admin: 04/09/18 09:23 Dose: 1.5 mls/min Furosemide 40 mg/ Syringe 4 mls @ 4 mls/min IV DAILY [facility] Stop: 05/08/18 08:59 Last Admin: 04/09/18 09:22 Dose: 4 mls/min Insulin Aspart (Novolog Flexpen) 0 units SC ACHS [facility] Stop: 05/08/18 07:29 Last Admin: 04/09/18 17:05 Dose: 5 units Losartan Potassium (Cozaar) 50 mg PO QPM [facility] Stop: 05/08/18 20:59 Last Admin: 04/08/18 21:08 Dose: 50 mg Magnesium Hydroxide (Milk Of Magnesia) 30 ml PO Q12H PRN PRN Reason: Constipation Stop: 05/07/18 23:11 Miscellaneous (Carbohydrates For Hypoglycemia) 15 - 30 gm PO UD PRN PRN Reason: Hypoglycemia Treatment Stop: 05/07/18 23:11 Miscellaneous (Remove Lidoderm Patch) 1 ea N/A DAILY@2100 [facility] Stop: 05/08/18 20:59 Last Admin: 04/08/18 21:11 Dose: 1 ea Morphine Sulfate (Morphine Sulfate) 2 mg IV Q30M PRN PRN Reason: Chest Pain Stop: 04/21/18 23:11 Nitroglycerin (Nitrostat) 0.4 mg SL UD PRN PRN Reason: Chest Pain Stop: 05/07/18 23:11 Ondansetron HCl (Zofran) 4 mg IV Q6H PRN PRN Reason: Nausea Stop: 05/07/18 23:11 Pantoprazole Sodium (Protonix) 40 mg PO QAM [facility] Stop: 04/11/18 09:01 Last Admin: 04/09/18 09:16 Dose: 40 mg Polyethylene Glycol (Miralax Powder Packet) 17 gm PO DAILY PRN PRN Reason: Constipation Stop: 05/07/18 23:11 _ (1) Chest pain Chest pain type: unspecified Ischemic chest pain type: Qualified Code(s): R07.9 - Chest pain, unspecified
[2018-04-09] MEDS: LOSARTAN POTASSIUM 50 MG TAB PO SCH (21:21)
[2018-04-10] MEDS: ALBUT/IPRATROP 3MG/0.5MG NEB 3 ML VIAL NEB SCH ×6 (03:25→23:14)
[2018-04-10] MEDS: DIPYRIDAMOLE 25 MG TAB PO SCH ×5 (06:25→20:42)
[2018-04-10 06:26] LABS: Calcium 8.7 mg/dl (8.5-10.1); Creatinine Clr Calc Pharmacy 54.7 ml/min; Est GFR (African American) 52.8; Est GFR (Non-African American) 45.6; Potassium 4.4 mmol/L (3.5-5.1)
[2018-04-10] MEDS: methylPREDNISolone 40 MG in SYRINGE 0 ML IV SCH ×2 (07:32→22:00)
[2018-04-10] MEDS: CARVEDILOL 3.125 MG TAB PO SCH (07:32)
[2018-04-10] MEDS: HEPARIN SOD 5,000 UNIT/0.5 ML VIAL SQ SCH ×2 (07:33→20:45)
[2018-04-10] MEDS: PANTOprazole 40 MG TAB PO SCH (07:33)
[2018-04-10] MEDS: FUROSEMIDE 40 MG in SYRINGE 0 ML IV SCH (07:33)
[2018-04-10] MEDS: ALLOPURINOL 100 MG TAB PO SCH (07:33)
[2018-04-10] MEDS: ASPIRIN 81 MG ECTAB PO SCH (07:33)
[2018-04-10] MEDS: DOXYCYCLINE HYCLATE 100 MG CAP PO SCH ×2 (07:33→20:42)
[2018-04-10] MEDS: INSULIN ASPART 100 UNITS/ML 3 ML PEN SC SCH ×4 (07:34→20:43)
--- NOTE | 2018-04-10 11:27 | Cardiology Consultation ---
Date of Consultation April 10, 2018 Assessment & Plan (1) Cardiomyopathy: Mr. 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 Please note that last Cardiac Catheterization 09/22/2002 showed an atrectic CASAS graft to Ramus, and Sequential SVG to Diagonal and OM was occluded. Suspect that his progressive LV systolic dysfunction is not the result of an acute coronary event (negative troponin level, EKG without acute changes). Suspect that over time his viable LV segments were unable to keep up to demand ( hypertension,untreated NNEKA, obesity, etc) and their contractility declined. Recommend the following: -- Increase Coreg to 6.25 mg bid. -- Stop Losartan in preparation of starting Entresto. -- Begin Entresto 24/26 mg bid in 36 hours. -- Continue IV Lasix. Discharge on Lasix 40 to 6 mg daily. -- Monitor daily I&O's, body weights. -- Monitor daily BMP. -- Check ProBNP. -- Following discharge -- titrate Coreg and Entresto to maximal tolerated doses. -- If LV systolic function continues to decline on medical therapy, we will need to consider further ischemic workup. -- Close follow up in [facility] [place] [facility] within a week of discharge. Present on Admission?: Yes (2) CAD, multiple vessel: As described above: -- Continue Coreg and titrate as tolerated. -- Continue Aspirin 81 mg daily. -- Patient does not tolerate statins due to myopathy. -- Recommend Welchol 3.75 gm daily. Present on Admission?: Yes (3) Heart failure, systolic, with acute decompensation: As outlined above. Present on Admission?: Yes Supervising Physician Co-Signing Physician Notes Salazar Roberto MD Patient seen and examined. Case reviewed with Linus Pang. Agree with above. History of Present Illness Reason for Consultation: -- Progressive LV Systolic Dysfunction. 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 -- Acute Hypoxic Respiratory Failure with component of CHF. Requesting Physician: Carrie Davalos Attending Physician: Salazar Roberto MD History of Present Illness Mr. 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 Patient was diagnosed with Acute Hypoxic Respiratory Failure secondary to Acute Decompensated Systolic CHF and Acute Bronchitis -- O2 saturation on admission was 93%, ABG's were 7.44/35/65/20 3/93%. CXR showed cardiomegaly and pulmonary edema. Echocardiogram showed a reduction of his LVEF at 20% to 25% with global hypokinesis (was 40% with posterolateral hypokinesis on negative DSE 04/17/2017) . TroponinI level was < 0.015 ng/ml x 2. Patient was treated with broad-spectrum antibiotics, IV corticosteroids, IV Lasix 40 mg daily, and he was maintained on his Coreg, aspirin, losartan, and dipyridamole. At this point, the patient is feeling significantly better. He is much less short of breath, and his cough has improved. Admittedly, the patient has been sleeping in a recliner for the past 3 years but attributes this to his sinuses getting plugged up and some dyspnea when he tries to lie down flat. Patient denies any angina pectoris at any time during this illness. He denies any palpitations, tachy palpitations, syncope, or near syncope. Allergies Allergy/AdvReac Type Severity Reaction Status Date / Time No Known Allergies Allergy Unknown Verified 04/12/18 11:25 Home Medications Home Medications Medication Instructions Recorded Confirmed Type allopurinol 100 mg PO DAILY 04/07/18 04/12/18 History aspirin [Aspir-81] 81 mg PO QAM 04/07/18 04/12/18 History dipyridamole 75 mg PO 5XD 04/07/18 04/12/18 History metformin 750 mg PO QDD 04/07/18 04/12/18 History nitroglycerin [Nitrostat] 0.4 mg SUBLINGUAL DIRECTED PRN 04/07/18 04/12/18 History carvedilol 6.25 mg PO BID #30 tab 04/10/18 04/12/18 Rx sacubitril-valsartan [Entresto] 1 tab PO BID 28 Days #56 tab 04/10/18 04/12/18 Rx bumetanide 1 mg PO QPM #30 tab 04/15/18 Rx bumetanide 2 mg PO DAILY #30 tab 04/15/18 Rx Patient History Medical History CAD, multiple vessel Cardiomyopathy NNEKA (obstructive sleep apnea) History of gout T2DM (type 2 diabetes mellitus) Bronchitis Coronary artery bypass grafts x 5 (Resolved 10/19/11) Acute respiratory failure with hypoxia Elevated serum globulin level Family History Other Diabetes HTN (hypertension) Social History Current Living Situation: Spouse Current Living Situation Comment: lives at home with Other Information That Helps Us Care for You: No Feels Safe at Home: Yes Safety Concerns: Feels Safe At This Time Smoking Status: Former smoker Hx Alcohol Use: No Hx Substance Use: No Beliefs That Will Affect Care: None Preferred Language: Jamaican Physical Exam 2 Vital Signs (Past 24 Hours): Last Vital Signs Temp 36.4 C L 04/10/18 10:49 Pulse 79 04/10/18 10:54 Resp 18 04/10/18 10:54 BP 117/65 04/10/18 10:49 Pulse Ox 95 04/10/18 10:54 Physical Exam: General: Patient in no acute distress. HEENT: Head is atraumatic, normocephalic. EOMs intact. Sclerae anicteric. Facies symmetric. No perioral cyanosis. Neck: No JVD. Carotid upstrokes +2 bilaterally without bruits. JVP is just above the clavicle lying at a 45 degree angle. Chest and Lungs: Diminished breath sounds in bilateral bases, no obvious wheezes, rales, rhonchi, or crackles. CVS: S1 and S2 are regular with a grade 1/6 apical holosystolic murmur. No obvious diastolic murmurs, gallops, or rubs. PMI is nonpalpable. No lifts, heaves, or thrills. No abdominal aortic or renal bruits. Abdominal Exam: Bowel sounds present. No masses, organomegaly, or tenderness. Extremities: No clubbing or cyanosis. Trace pretibial edema bilaterally. Intact radial pulses bilaterally. Neurologic Exam: Patient is awake, alert, and oriented. Pleasant and cooperative. Answers questions appropriately. Speech is clear. Normal movement in all 4 extremities. Gait pattern was not assessed. Hairspring Ii Inspector: -- Sinus rhythm throughout with occasional PVC's and three runs of NSVT ( longest was 5 beats. EKG on Admission: -- Sinus tachycardia at 106 bpm with RBBB, age indeterminate inferior NH. Results & Data Laboratory Results Laboratory Results - last 24 hr 04/09/18 04/09/18 04/09/18 11:10 16:16 20:28 Sodium Potassium Chloride Carbon Dioxide Anion Gap BUN Creatinine Est Cr Clr Drug Dosing Est GFR ( Amer) Est GFR (Non-Af Amer) BUN/Creatinine Ratio Glucose POC Glucose 144 H 109 H 156 H Calcium 04/10/18 04/10/18 05:20 07:11 Sodium 134 L Potassium 4.4 Chloride 102 Carbon Dioxide 26 Anion Gap 6.0 BUN 52 H Creatinine 1.49 H Est Cr Clr Drug Dosing 54.7 Est GFR ( Amer) 52.8 Est GFR (Non-Af Amer) 45.6 BUN/Creatinine Ratio 35.0 H Glucose 151 H POC Glucose 141 H Calcium 8.7 Medications Administered Active Medications Generic Name Dose Route Start Last Admin Trade Name Freq PRN Reason Stop Dose Admin Acetaminophen 650 mg 04/07/18 23:12 04/08/18 00:04 Tylenol PO 05/07/18 23:11 650 mg Q4H PRN Administration Pain or Fever Al Hydrox/Mg Hydrox/Simethicone 15 ml 04/07/18 23:12 Maalox PO 05/07/18 23:11 Q4H PRN Dyspepsia Albuterol 3 ml 04/08/18 00:00 04/10/18 10:53 Duoneb NEB 05/08/18 00:00 3 ml Q4R [facility] Administration Allopurinol 100 mg 04/08/18 09:00 04/10/18 07:33 Zyloprim PO 05/08/18 08:59 100 mg DAILY [facility] Administration Aspirin 81 mg 04/08/18 09:00 04/10/18 07:33 Ecotrin Ectab PO 05/08/18 08:59 81 mg QAM [facility] Administration Carvedilol 6.25 mg 04/10/18 21:00 Coreg PO 05/10/18 20:59 BID [facility]JA Carvedilol 3.125 mg 04/10/18 11:30 Coreg PO 04/10/18 11:31 NOW ONE Dextrose 25 - 50 ml 04/07/18 23:12 Dextrose 50% IV 05/07/18 23:11 UD PRN Hypoglycemia Protocol Protocol Dipyridamole 75 mg 04/08/18 07:00 04/10/18 06:25 Persantine PO 05/08/18 06:59 75 mg [id number] [facility] Administration Doxycycline Hyclate 100 mg 04/08/18 09:00 04/10/18 07:33 Vibramycin PO 05/08/18 08:59 100 mg BID [facility] Administration Furosemide 20 mg 04/08/18 09:00 Lasix PO 05/08/18 08:59 QAM [facility] Glucagon 1 mg 04/07/18 23:12 Glucagen SQ 05/07/18 23:11 UD PRN Hypoglycemia Protocol Protocol Glucose 15 - 30 gm 04/07/18 23:12 Glucose 40% PO 05/07/18 23:11 UD PRN Hypoglycemia Protocol Protocol Glucose 4 - 8 tabs 04/07/18 23:12 Dex4 Glucose PO 05/07/18 23:11 UD PRN Hypoglycemia Protocol Protocol Heparin Sodium (Porcine) 5,000 units 04/08/18 09:00 04/10/18 07:33 Heparin Sodium (Porcine) SQ 05/08/18 08:59 5,000 units Q12 [facility] Administration Methylprednisolone 40 mg/ 0.64 mls @ 1.5 mls/min 04/08/18 09:00 04/10/18 07: 32 Syringe IV 05/08/18 08:59 1.5 mls/min Q12 [facility] Administration Furosemide 40 mg/ Syringe 4 mls @ 4 mls/min 04/08/18 09:00 04/10/18 07:33 IV 05/08/18 08:59 4 mls/min DAILY [facility] Administration Insulin Aspart 0 units 04/08/18 07:30 04/10/18 07:34 Novolog Flexpen SC 05/08/18 07:29 5 units ACHS [facility] Administration Magnesium Hydroxide 30 ml 04/07/18 23:12 04/10/18 07:32 Milk Of Magnesia PO 05/07/18 23:11 30 ml Q12H PRN Administration Constipation Miscellaneous 15 - 30 gm 04/07/18 23:12 Carbohydrates For Hypoglycemia PO 05/07/18 23:11 UD PRN Hypoglycemia Treatment Miscellaneous 1 ea 04/08/18 21:00 04/09/18 21:21 Remove Lidoderm Patch N/A 05/08/18 20:59 1 ea DAILY@2100 [facility] Administration Morphine Sulfate 2 mg 04/07/18 23:12 Morphine Sulfate IV 04/21/18 23:11 Q30M PRN Chest Pain Nitroglycerin 0.4 mg 04/07/18 23:12 Nitrostat SL 05/07/18 23:11 UD PRN Chest Pain Ondansetron HCl 4 mg 04/07/18 23:12 Zofran IV 05/07/18 23:11 Q6H PRN Nausea Pantoprazole Sodium 40 mg 04/08/18 09:00 04/10/18 07:33 Protonix PO 04/11/18 09:01 40 mg QAM [facility] Administration Polyethylene Glycol 17 gm 04/07/18 23:12 Miralax Powder Packet PO 05/07/18 23:11 DAILY PRN Constipation
[2018-04-10] MEDS ORDERED: CARVEDILOL 3.125 MG TAB PO ONE (11:30)
--- NOTE | 2018-04-10 18:53 | Family Medicine Progress Note ---
Date of Service April 10, 2018 Assessment & Plan (1) Acute respiratory failure with hypoxia: Carroll is a 72-year-old male with a past medical history of systolic heart failure with ejection fraction 40-45%, CABG x5, hypertension, and non-insulin- dependent type 2 diabetes mellitus who presented with cough, shortness of breath , and chest pain. He was admitted for acute hypoxic respiratory failure. Acute respiratory failure with hypoxia On admit O2 sat 92% on 2 L O2 with respiratory distress. No O2 at home. -Chest x-ray shows cardiomegaly with mild pulmonary edema CTsee shows diffuse interstitial thickening, perilymphatic nodular appearance with mediastinal and bilateral hilar lymphadenopathy. No pulmonary emboli noted. Acute on chronic Systolic heart failure Prior EF of 40-55% in 2011 Repeat echo shows decrease in EF to 20-25% with increased pulmonary pressure. Unclear etiology, increased pulmonary pressure with hilar adenopathy suspicious for sarcoid versus secondary. He has a history of diagnosed NNEKA, has not used CPAP in many years due to sleep disruption. Cardiology consulted Increase Coreg to 6.25 mg twice daily Discontinue losartan Begin Entresto 24/26 mg twice daily and 36 hours Continue furosemide 40 mg daily Discharge on furosemide 40-60 mg daily He will have Coreg and Entresto titrated to maximal tolerated doses by cardiology as outpatient and will have close follow-up at the heart failure clinic in 1 week No further ischemic workup at this time, but would be considered in the future if his LVEF continues to worsen. He is intolerant of statins. Appreciate cardiology recommendations. Acute Bronchitis -Cough and sputum improving, feels slightly better today but still below baseline. Bronchitis Continue doxycycline 100 mg p.o. twice daily for 10-day total course d/c Methylprednisolone 40 mg IV Pulmonary toilet DuoNeb every 4 hours - Wean O2, 2 step if unable to wean Obstructive sleep apnea History of diagnosed sleep apnea, likely contributing to his cardiac presentation CPAP at night will acquire a new CPAP on discharge Increased pulmonary pressure with hilar adenopathy AVA level pending CAD with History of CABG x5 ASA 81 mg daily Carvedilol, losartan as above. Heparin, nitro, fentanyl ordered on admit Troponins x2-, low suspicion for ACS May still have an ischemic element to his progressive heart failure. Intolerant of statins this will be evaluated by cardiology if he does not improve on medical therapy as above Chest pain Initial troponin and repeat 12 hours later negative EKG shows sinus tachycardia with first-degree AV block On telemetry Present at lower right rib border, worsened with coughing, suspicious for MSK Not present today Type 2 diabetes mellitus Last A1c= 6.6 01/17/19 -Gross checks before meals at bedtime SSI, correction factor 20 milligrams/deciliter/unit and 1 unit per 10 g ratio. T2DM diet Gout No signs of acute flare Continue allopurinol 100 mg p.o. daily Elevated total protein and serum globulin Total protein 10.1; globulin level 6.9 History of evaluation in [address] Dey in 2011. Recommendations at the time were to consider fish, SPEP, UPEP, flow cytometry Heme saw, noted that patient is not anemic which rules out underlying plasma cell dyscrasia. He also has no signs of cytosis on CBC. Noted that serum electrophoresis could confirm hypergammaglobulinemia, but did not recommend any further workup at this time. Appreciate recommendations. DVT prophylaxis: Heparin 5000 every 12 Dispo: Likely home tomorrow Supervising Physician Co-Signing Physician Notes Resident Physician Supervision Note: I independently interviewed and examined the patient and verified the to history and physical, reviewed labs and image studies, discussed the case with the resident Dr. Miller and agree with the findings and care plan. Subjective Carroll reports he feels much better today. He wore the CPAP all night and reports that it fit much better than the one he had used in the past. He was able to tolerate it for the full night and only had a little bit of leaking in thelate in the morning. He feels more rested this morning. He feels less short of breath this morning. He reports he feels his energy is a little better this morning. He feels like he is able to get good air movement, and does not have the rib pain today. He is producing very little mucus when he coughs, clear white. He feels his strength is closer to his pre-admit baseline , but he still needed 2 L of oxygen this morning. Review of Systems Endorses shortness of breath improved from yesterday, cough, sputum production improved from yesterday. Denies chest pain, chest pressure, headache, nausea, vomiting, diarrhea, constipation, abdominal pain, weakness, confusion, lightheadedness, dizziness, syncope, presyncope. Physical Exam 2 Vital Signs (Past 24 Hours): Last Vital Signs Temp 36.4 C L 04/10/18 14:38 Pulse 81 04/10/18 15:03 Resp 16 04/10/18 15:03 BP 104/71 04/10/18 14:38 Pulse Ox 95 04/10/18 15:03 Physical Exam: General: A&Ox3. NAD. Cooperative. Sitting up in recliner chair. HEENT: Atraumatic, normocephalic. Pulm: CTAB A&P. -wheezes, -rales, -rhonchi. Symmetrical chest rise. No increase in work of breathing. No respiratory distress. On 2 L of nasal cannula. Cardiac: RRR, -mrg. Radial pulses intact and symmetrical. No JVD present. No lower extremity edema present. Abdominal: Nontender, nondistended, soft. BS present. Results & Data Laboratory Results Abnormal lab results 04/09/18 04/10/18 04/10/18 Range/Units 20:28 05:20 07:11 Sodium 134 L (136-145) mmol/L BUN 52 H (7-18) mg/dl Creatinine 1.49 H (0.6-1.4) mg/dl BUN/Creatinine Ratio 35.0 H (10-20) Glucose 151 H (70-99) mg/dl POC Glucose 156 H 141 H (70-99) 04/10/18 04/10/18 Range/Units 11:22 16:21 Sodium (136-145) mmol/L BUN (7-18) mg/dl Creatinine (0.6-1.4) mg/dl BUN/Creatinine Ratio (10-20) Glucose (70-99) mg/dl POC Glucose 163 H 129 H (70-99) Medications Administered Current Inpatient Medications Acetaminophen (Tylenol) 650 mg PO Q4H PRN PRN Reason: Pain or Fever Stop: 05/07/18 23:11 Last Admin: 04/08/18 00:04 Dose: 650 mg Al Hydrox/Mg Hydrox/Simethicone (Maalox) 15 ml PO Q4H PRN PRN Reason: Dyspepsia Stop: 05/07/18 23:11 Albuterol (Duoneb) 3 ml NEB Q4R HAJA Stop: 05/08/18 00:00 Last Admin: 04/10/18 15:02 Dose: 3 ml Allopurinol (Zyloprim) 100 mg PO DAILY HAJA Stop: 05/08/18 08:59 Last Admin: 04/10/18 07:33 Dose: 100 mg Aspirin (Ecotrin Ectab) 81 mg PO QAM HAJA Stop: 05/08/18 08:59 Last Admin: 04/10/18 07:33 Dose: 81 mg Carvedilol (Coreg) 6.25 mg PO BID HAJA Stop: 05/10/18 20:59 Dextrose (Dextrose 50%) 25 - 50 ml IV UD PRN; Protocol PRN Reason: Hypoglycemia Protocol Stop: 05/07/18 23:11 Dipyridamole (Persantine) 75 mg PO 5XDQ4H HAJA Stop: 05/08/18 06:59 Last Admin: 04/10/18 14:43 Dose: 75 mg Doxycycline Hyclate (Vibramycin) 100 mg PO BID HAJA Stop: 05/08/18 08:59 Last Admin: 04/10/18 07:33 Dose: 100 mg Furosemide (Lasix) 20 mg PO QAM HAJA Stop: 05/08/18 08:59 Glucagon (Glucagen) 1 mg SQ UD PRN; Protocol PRN Reason: Hypoglycemia Protocol Stop: 05/07/18 23:11 Glucose (Glucose 40%) 15 - 30 gm PO UD PRN; Protocol PRN Reason: Hypoglycemia Protocol Stop: 05/07/18 23:11 Glucose (Dex4 Glucose) 4 - 8 tabs PO UD PRN; Protocol PRN Reason: Hypoglycemia Protocol Stop: 05/07/18 23:11 Heparin Sodium (Porcine) (Heparin Sodium (Porcine)) 5,000 units SQ Q12 HAJA Stop: 05/08/18 08:59 Last Admin: 04/10/18 07:33 Dose: 5,000 units Methylprednisolone 40 mg/ (Syringe) 0.64 mls @ 1.5 mls/min IV Q12 HAJA Stop: 05/08/18 08:59 Last Admin: 04/10/18 07:32 Dose: 1.5 mls/min Furosemide 40 mg/ Syringe 4 mls @ 4 mls/min IV DAILY HAJA Stop: 05/08/18 08:59 Last Admin: 04/10/18 07:33 Dose: 4 mls/min Insulin Aspart (Novolog Flexpen) 0 units SC ACHS HAJA Stop: 05/08/18 07:29 Last Admin: 04/10/18 17:48 Dose: 5 units Magnesium Hydroxide (Milk Of Magnesia) 30 ml PO Q12H PRN PRN Reason: Constipation Stop: 05/07/18 23:11 Last Admin: 04/10/18 07:32 Dose: 30 ml Miscellaneous (Carbohydrates For Hypoglycemia) 15 - 30 gm PO UD PRN PRN Reason: Hypoglycemia Treatment Stop: 05/07/18 23:11 Miscellaneous (Remove Lidoderm Patch) 1 ea N/A DAILY@2100 [facility] Stop: 05/08/18 20:59 Last Admin: 04/09/18 21:21 Dose: 1 ea Morphine Sulfate (Morphine Sulfate) 2 mg IV Q30M PRN PRN Reason: Chest Pain Stop: 04/21/18 23:11 Nitroglycerin (Nitrostat) 0.4 mg SL UD PRN PRN Reason: Chest Pain Stop: 05/07/18 23:11 Ondansetron HCl (Zofran) 4 mg IV Q6H PRN PRN Reason: Nausea Stop: 05/07/18 23:11 Pantoprazole Sodium (Protonix) 40 mg PO QAM [facility] Stop: 04/11/18 09:01 Last Admin: 04/10/18 07:33 Dose: 40 mg Polyethylene Glycol (Miralax Powder Packet) 17 gm PO DAILY PRN PRN Reason: Constipation Stop: 05/07/18 23:11 Resident Activity Tracking Resident Involvement: Resident Care Provided Care Provided: Adult Hospital Medicine
[2018-04-10] MEDS: CARVEDILOL 6.25 MG TAB PO SCH (20:42)
[2018-04-11] MEDS: DIPYRIDAMOLE 25 MG TAB PO SCH ×4 (00:49→14:28)
[2018-04-11] MEDS: ALBUT/IPRATROP 3MG/0.5MG NEB 3 ML VIAL NEB SCH ×4 (03:06→15:06)
[2018-04-11 05:59] LABS: Hematocrit (blood only) 49.2 % (42-52); Hemoglobin 16.3 g/dL (14.0-18.0); Mean Corpuscular Hgb Conc 33.1 g/dL (32-36); Mean Corpuscular Volume 93.7 fL (80-100); Mean Platelet Volume 10.6 fL (7.4-10.4); Platelet Count 285 K/uL (130-400); RDW Standard Deviation 51.3 fL (36.4-46.3); Red Blood Count 5.25 M/uL (4.7-6.1); White Blood Count 12.87 K/uL (4.8-10.8)
[2018-04-11 06:37] LABS: BUN Creatinine Ratio 33.3 (10-20); Calcium 8.9 mg/dl (8.5-10.1); Creatinine Clr Calc Pharmacy 52.3 ml/min; Est GFR (Non-African American) 43.1; Potassium 4.6 mmol/L (3.5-5.1)
[2018-04-11] MEDS: CARVEDILOL 6.25 MG TAB PO SCH (07:51)
[2018-04-11] MEDS: PANTOprazole 40 MG TAB PO SCH (07:51)
[2018-04-11] MEDS: DOXYCYCLINE HYCLATE 100 MG CAP PO SCH (07:51)
[2018-04-11] MEDS: ASPIRIN 81 MG ECTAB PO SCH (07:51)
[2018-04-11] MEDS: ALLOPURINOL 100 MG TAB PO SCH (07:52)
[2018-04-11] MEDS: HEPARIN SOD 5,000 UNIT/0.5 ML VIAL SQ SCH (07:53)
[2018-04-11] MEDS: FUROSEMIDE 40 MG in SYRINGE 0 ML IV SCH (08:00)
[2018-04-11] MEDS: methylPREDNISolone 40 MG in SYRINGE 0 ML IV SCH (08:00)
[2018-04-11] MEDS: INSULIN ASPART 100 UNITS/ML 3 ML PEN SC SCH ×2 (08:52→12:26)
[2018-04-11] MEDS ORDERED: predniSONE 20 MG TAB PO SCH (09:00)
--- NOTE | 2018-04-11 19:22 | Discharge Summary ---
Date of Service April 11, 2018 Admission HPI Per Admitting Provider Carroll Villaseñor is a 72 y.o male with history of HTN, heart failure, CABG x 5, DM2 , gout, and recent diagnosis of bronchitis presenting to the ED after experiencing chest pain this morning. History per patient. States that chest pain started around 1100 on 04/07/2018 that was dull in sensation and radiated to left lateral chest. Pain was constant in nature. He also reports shortness of breath that started around the same time. Dyspnea worse with activity. Denies taking medication for symptoms but reports being treated for Bronchitis with Doxycycline and is now on day 4 of the regimen. Reports history of productive cough that started on 04/01. He was seen by PCP, Dr. Barclay on 04/04 with diagnosis of bronchitis. Since taking Doxy the cough has become less productive. Currently states that the pain in right chest has improved after Fentanyl but is still present. Also states that it is difficult for him to talk due to shortness of breath. Associated fatigue. Denies n/v/diarrhea. Reports history of constipation. ED course: Given 12.5mg Fentanyl for pain, placed on O2 at 2L per NC, given 40mg IV lasix after increasing dyspnea, given Methylprednisolone 125mg, labs obtained Principal Diagnosis Acute Hypoxic Respiratory Failure, Acute on Chronic Heart Failure with REduced EF Discharge Exam General: A&Ox3. NAD. Cooperative. HEENT: Atraumatic, normocephalic. Pulm: CTAB A&P. -wheezes, -rales, -rhonchi. Symmetrical chest rise. No increase work of breathing. No respiratory distress. Cardiac: RRR, -mrg. No JVD appreciated. No distal extremity edema. Discharge Data Allergies Allergy/AdvReac Type Severity Reaction Status Date / Time No Known Allergies Allergy Unknown Verified 04/12/18 11:25 Consultations 04/07/18 20:27 ED Decision to Admit Stat 04/07/18 23:12 Consult Hematology Routine 04/09/18 15:31 Consult Cardiology Routine Ordered Studies 04/07/18 18:09 CT angio chest PE protocol Stat 04/07/18 18:17 CT abd pelvis IV con only Stat Hospital Course (1) Acute respiratory failure with hypoxia: Carroll is a 72-year-old male with a past medical history of systolic heart failure with ejection fraction 40-45%, CABG x5, hypertension, and non-insulin- dependent type 2 diabetes mellitus who presented with cough, shortness of breath , and chest pain. He was admitted for acute hypoxic respiratory failure. Acute respiratory failure with hypoxia Carroll was admitted with and O2S of 84% on room air with shortness of breath. He was put on 4L of O2, was treated with methylprednisolone and had normalization of O2Sats. Chest XR showed cardiomegaly with mild pulmonary edema. He was treated with pumonary toilet and duonebs Q4H. Bronchitis was treated with doxycycline as below. CTsee shows diffuse interstitial thickening, perilymphatic nodular appearance with mediastinal and bilateral hilar lymphadenopathy. No pulmonary emboli noted. ECHO showed increased pulmonary pressure. Pt had a history of NNEKA and was not able to use his CPAP for several years due to his mask not fitting well. He was fitted with a mask and used CPAP and night during admission and improved clinically with weaning of his O2 to room air and improvements in his sleep quality, breathing, and energy. AVA levels were drawn to evaluate the hilar lymphadenopathy and will require followup as outpatient. (2) Heart failure, systolic, with acute decompensation: Last EF of 40-55% in 2011, on admission repeat echo shows decrease in EF to 20-25% with increased pulmonary pressure. Unclear etiology, although he has a history of NNEKA not treated with CPAP in the last few years. Other differentials included increased pulmonary pressure with hilar adenopathy suspicious for sarcoid versus secondary. Cardiology was consuled, his coreg was increased to 6.25mg twice daily. Losartan was discontinued and entresto 24/ 26mg twice daily to be started 36 hours later (evening of discharge). He was diuresed with lasix 40mg daily with good UOP. He was discharged on coreg, entresto, and lasix with close followup to cardiology who expect to titrate the coreg and entresto to maximal tolerated doses. He was breathing well and was not volume overloaded at time of discharge. (3) NNEKA (obstructive sleep apnea): Mr. Villaseñor has a history of NNEKA diagnosed 2x but has not used his CPAP in >3 years as the last two times his machine was fitted the mask did not fit well and leaked, keeping him awake. He was started on CPAP on the first night of admission and tolerated the full mask well, and was able to sleep for >6 hours without disruption. He reports the mask not leaking at his nose made it much more tolerable. He felt more well rested, and felt his breathign improved after CPAP treatment. He still qualified for CPAP with his prior company, and did not require a new sleep study on discharge. A prescription was provided and faxed for CPAP + new mask. (4) CAD, multiple vessel: Mr. Villaseñor had a history of CABG x5. He was maintained on ASA 81mg daily. Carvedilol and losartan were adjusted as above. Heparin, nitro, and fentanyl were ordered on admit and d/indra once ACS was ruled out. Troponins were negative , although given his history he is a high risk for ischemic elements and may have further workup by cardiology for ischemia in the future. He is intolerant of statins and was not put on a statin during admission. (5) Bronchitis: He had mild-moderate sputum production prior to admission and had been treated with doxycycline as outpatient, doxycycline 100mg twice daily was continued with 3 days left to complete a 10 day course on discharge. Sputum production had decreased and nearly gone at time of discharge. He remained afebrile throughout admit. His cough decreased and was nearly gone after hospital day two. (6) Chest pain: He experienced pain at his R lower rib border with coughing suspicious for musculoskeletal pain. Troponins were negative. His pain resolved on hospital day two. (7) T2DM (type 2 diabetes mellitus): Glycemic control was maintained with lantus 10U at night and asapart SSI. [employer] metformin was held and restarted on discharge. Last A1C in 01/11 was 6.6. (8) History of gout: No signs of acute flaire. Maintained on allopurinol during admission. (9) DVT prophylaxis: Heparin Q12 was used for DVT prophylaxsis. (10) Elevated total protein: He had elevated total protein and globulin levels on admit. Total protein 10.1; globulin level 6.9. He has a history of evaluation in 2007 [address] Dey in 2011. Estrella saw, noted that patient is not anemic which rules out underlying plasma cell dyscrasia. He also has no signs of cytosis on CBC. Noted that serum electrophoresis could confirm hypergammaglobulinemia, but did not recommend any further workup at this time. Total Time Total Time Spent Total Time Spent (In Minutes): 30 Total Time Includes: Examination of the Patient, Discharge Planning, Medication Reconciliation and Communication With Other Providers Discharge Plan Discharge Items Patient Disposition: Home - Self-Care Reason For Visit: SHORTNESS OF BREATH AND CHEST PAIN Discharge Diagnosis: Acute Hypoxic Respiratory Failure, Acute on Chronic Systolic CHF Discharge Goals: Improve disease control and Therapeutic intervention Activity: Resume your previous activity Non-emergency contact: Primary Care Provider and [employer] Call non-emergency contact if: you have any medication questions, your symptoms worsen and you have a fever Follow-up/Referrals: Jamari Barclay MD [Primary Care Provider] - 04/16/18 3:15 pm (Please, follow up with Dr. Jamari Barclay on SundayApril 16 at 3:15 pm. *If you need to change this appointment, call the office at [phone].) Linus Pang PA-C [Physician] - 04/18/18 10:30 am (Please, follow up at [facility] Cardiology Office with Yue Koenig PA-C on April 18 at 10:30 am. *This office is located in [address] of [facility] next to this [facility]. If you need to change this appointment, call the office at [phone]. Please bring your weight log and medication list. ) Diet: Carb Consistent or DM2 Addtl Provider Instructions: You were seen in the [facility] for Acute Respiratory Failure and Acute on Chronic Heart failure. Your breathing improved with a course of steroids and CPAP. Your blood pressure medications and heart medications have been changed as noted below. Your carvedilol has been increased to 6.25mg twice daily. Please take carvedilol 6.25mg by mouth twice daily. Please STOP taking losartin. This medication has been replaced by another medication, Entresto. Please START taking Entresto 24/26mg twice daily starting this evening. Your dose of Furosemide has been changed. Please take Furosemide 40mg once daily after returning home. You have been prescribed a short course of prednisone. Please take prednisone 40mg on 04/12/18, 20mg on 04/13/17, and 20mg on 04/14/17. You have been prescribed an antibiotic, doxycycline. Please take doxycycline 100mg twice daily for 3 days. You have been scheduled for a followup visit with your PCP Dr. Barclay on 3:15pm. If you need to change or cancel this appointment please call [phone]. You have been scheduled for a followup visit with the Cardiology PA Linus Mott on 04/18/18 at 10:30am. If you need to change or cancel this appointment please call . Call your Primary Care doctor if any of the following symptoms or problems start or get worse: * Shortness of breath or difficulty breathing * Wake up at night short of breath * Chest pain * Cough * Swelling of your hands, feet, or legs * More fatigued or tired with your normal activity * Palpitations - sudden fast heart beats WEIGHT * Weigh yourself every morning after using the bathroom. * Use the same scale. * Wear the same amount of clothing. * Write your weight down on a chart. * Call your Primary Care doctor if you gain more than 2-3 pounds in 1-2 days. MEDICATIONS * Use this discharge instruction sheet for medication instructions. * Take your medications at the time your doctor ordered. * Do not skip a dose of your medicines. * If you miss a dose of medicine, take it as soon as possible, but DO NOT DOUBLE A DOSE. * Read your medicine information when you get home. * Know all of the side effects of your medicine. If in doubt, ask your pharmacist * Call your Primary Care doctor's office if you have any side effects. * Be sure all of your doctors know what medicine and herbs you take (including cold, flu, and herbal medicine). Take the following with you to your follow-up doctor appointments: * Weight Chart * Medication List * List of questions Do not drink excessive alcohol, beer or wine. PLEASE FOLLOW UP WITH HEART FAILURE PROGRAM/LOUISE KOENIG APPROX 1 WEEK FROM DISCHARGE. [phone]. Prescriptions: New carvedilol 6.25 mg Tablet 6.25 mg PO BID Qty: 30 RF: 1 sacubitril-valsartan [Entresto] 24-26 mg tablet 1 tab PO BID 28 Days Qty: 56 RF: 0 doxycycline hyclate 100 mg Capsule 100 mg PO BID 4 Days Qty: 8 RF: 0 prednisone 20 mg tablet See Label Instructions .ROUTE .COMPLEX Qty: 4 RF: 0 Continue allopurinol 100 mg Tablet 100 mg PO DAILY RF: 0 aspirin [Aspir-81] 81 mg Tablet,Delayed Release (Dr/Ec) 81 mg PO QAM RF: 0 dipyridamole 75 mg Tablet 75 mg PO 5XD RF: 0 nitroglycerin [Nitrostat] 0.4 mg Tablet, Sublingual 0.4 mg Sublingual DIRECTED PRN (Reason: Chest Pain) RF: 0 metformin 750 mg Tablet Extended Release 24 Hr 750 mg PO QDD RF: 0 Changed furosemide [Lasix] 20 mg Tablet 40 mg PO QAM Qty: 30 RF: 1 Discontinued losartan 50 mg Tablet 50 mg PO QPM RF: 0 carvedilol 3.125 mg Tablet 3.125 mg PO BID RF: 0 doxycycline hyclate 100 mg Tablet 100 mg PO BID RF: 0 Visit Report Forms: My [facility] Portal Stand-Alone Forms: [facility] Discharge Orders: Discharge Order (Routine); Ordered 04/11/18 Ordered By: Jamari Miller Admission Data Admit Date/Time: 04/07/18 23:12 Attending Provider: Carrie Davalos Admit Provider: Burke Hall Primary Care Provider: Jamari Barclay Other Providers: Jayesh Shepherd Charles C. Service: Medical Other Interventions: Discharge Summary Assessment (RN) Last Done: 04/11/18 15:40 DC Date/Time DO NOT enter until pt leaves facility: 04/11/18 16:30 Supervising Physician Co-Signing Physician Notes Resident Physician Supervision Note: I independently interviewed and examined the patient and verified the to history and physical, reviewed labs and image studies, discussed the case with the resident Dr. Miller and agree with the findings and care plan. Time spent in discharge 35 min Resident Activity Tracking Resident Involvement: Resident Care Provided Care Provided: Adult Hospital Medicine
== END 2018-04-11 16:30 | disposition home or self-care (01) | DRG 291 ==
LOC: ED 18:00 → SUATTDRO 22:16 → 2E 22:16 → 4E 04-10 14:18
DX: Z95.1 Presence of aortocoronary bypass graft; J20.9 Acute bronchitis, unspecified; I11.0 Hypertensive heart disease with heart failure; J96.01 Acute respiratory failure with hypoxia; Z79.899 Other long term (current) drug therapy; Z79.82 Long term (current) use of aspirin; G47.33 Obstructive sleep apnea (adult) (pediatric); I50.23 Acute on chronic systolic (congestive) heart failure; M10.9 Gout, unspecified; E11.9 Type 2 diabetes mellitus without complications; Z79.84 Long term (current) use of oral hypoglycemic drugs; R07.89 Other chest pain

== ENCOUNTER 2018-04-12 09:31 | Inpatient (IN) ==
[2018-04-12] MEDS ORDERED: ALBUT/IPRATROP 3MG/0.5MG NEB 3 ML VIAL NEB STA (09:54)
[2018-04-12] MEDS ORDERED: methylPREDNISolone 60 MG in SYRINGE 1 ML IV STA (09:54)
--- NOTE | 2018-04-12 10:16 | XRay Report ---
XR chest 1V portable CLINICAL HISTORY: SOB dyspnea COMPARISON STUDY: 04/07/2017 FINDINGS: Moderate cardiomegaly. Prior median sternotomy. Prominent pulmonary vasculature. IMPRESSION: Congestive heart failure The above report was generated using voice recognition software. It may contain grammatical, syntax or spelling errors. Electronically signed by: Kwadwo Castanon M.D. 04/12/2018 10:14 AM
[2018-04-12 10:37] LABS: Basophils # (auto) 0.02 K/uL (0-0.2); Basophils % (auto) 0.1 %; Eosinophils # (auto) 0.04 K/uL (0-0.5); Eosinophils % (auto) 0.2 %; Hematocrit (blood only) 53.1 % (42-52); Hemoglobin 17.8 g/dL (14.0-18.0); Immature Granulocytes # (auto) 0.11 K/uL (0.00-0.02); Immature Granulocytes % (auto) 0.5 %; Mean Corpuscular Hgb Conc 33.5 g/dL (32-36); Mean Corpuscular Volume 93.7 fL (80-100); Mean Platelet Volume 10.6 fL (7.4-10.4); Monocytes # (auto) 1.88 K/uL (0.11-0.59); Monocytes % (auto) 9.4 %; Neutrophils # (auto) 16.83 K/uL (1.4-6.5); Neutrophils % (auto) 83.8 %; Platelet Count 285 K/uL (130-400); RDW Coefficient of Variation 14.9 % (11.5-14.5); RDW Standard Deviation 50.7 fL (36.4-46.3); Red Blood Count 5.67 M/uL (4.7-6.1); White Blood Count 20.08 K/uL (4.8-10.8)
[2018-04-12 10:44] LABS: INR 1.2 (0.9-1.1); Partial Thromboplastin Time 25.1 Seconds (21.0-31.0); Prothrombin Time 11.9 Seconds (9.0-12.0)
[2018-04-12 10:52] LABS: Albumin Level 3.1 gm/dl (3.4-5.0); Calcium 9.1 mg/dl (8.5-10.1); Creatinine Clr Calc Pharmacy 51.3 ml/min; Est GFR (African American) 48.8; Est GFR (Non-African American) 42.1; Magnesium 2.7 mg/dl (1.8-2.4); Potassium 4.5 mmol/L (3.5-5.1)
[2018-04-12 10:57] LABS: Albumin Globulin Ratio 0.5 (0.9-2); Bilirubin,Total 1.2 mg/dl (0.2-1); Globulin 5.9 gm/dl (2.5-4.0); Troponin I 0.019 ng/ml (0-0.045)
[2018-04-12] MEDS ORDERED: FUROSEMIDE 40 MG/4 ML VIAL IV STA (11:05)
[2018-04-12] MEDS ORDERED: NITROGLYCERIN 2% OINTMENT 30GM TUBE EXT STA (11:36)
--- NOTE | 2018-04-12 12:03 | History & Physical Report ---
Date of Service April 12, 2018 Assessment & Plan (1) Respiratory distress: 72 y/o M hx HTN, HLD, CAD, NNEKA, gout, obese, DM II, systolic CHF - 20%. The pt was admitted the prior week for CHF exacerbation and a URI. He was DCd 04/11. He returns with progressive SOB and exhibited hypoxia and moderate respiratory distress requiring BiPAP on arrival. Initial imaging and clinical exam are consistent with pulmonary edema. He denies CP, a productive cough or fevers. He denies dietary indiscretion or missed medication dosages, although he was prescribed Entresto to start today and had not yet taken it. Initial labs are notable for MARIBELL and leukocytosis which may be owing to an ongoing steroid taper prescribed for bronchitis. 1) CHF exacerbation - acute on chronic systolic - assigned to telemetry and will remain on BiPAP sufficiently diueresed. He is placed on Lasix 40 TID and NTG paste. I/O, daily weight requested. We will start Entresto and continue Carvedilol (dose recently increased). we will consult cadiology as they may [ refer an alternative diuretic or the addition of Metolazone going forward. He may need consideration or a biventricular pacer. 2) CAD - no evidence of ACS - cont Carvedilol, NTG. He is Statin-intolerant. It is also noted that he takes Persantine 5 x day along with ASA as he states Plavix did not work out with his insurance. This should not now be the case and it is worth running by the case coordinator to determine if we can change this prior to DC. 3) NNEKA - we will initiate CPAP QHS - a relative will bring his machine from home. 4) DM II - placed on a SS 5) MARIBELL - likely due to CHF - we will trend for improvement as we administer lasix. 6) The pt is on a prednisone taper for a recent URI in addition to Doxycycline. We will allow for completion of the taper an antibiotic course. 7) Gout - Allopurinol is held with MARIBELL - he is on prednisone regardless at present so should not suffer a flare. Full code - Heparin prophylaxis Total time for this admit including review of labs, meds, imaging, records - discussion with pt, family and ER attending - 43 min History of Present Illness Chief Complaint: Shortness of breath Primary Care Provider: Jamari Barclay MD 72 y/o M hx HTN, HLD, CAD, NNEKA, gout, obese, DM II, systolic CHF - 20%. The pt was admitted the prior week for CHF exacerbation and a URI. He was DCd 04/11. He returns with progressive SOB and exhibited hypoxia and moderate respiratory distress requiring BiPAP on arrival. Initial imaging and clinical exam are consistent with pulmonary edema. He denies CP, a productive cough or fevers. He denies dietary indiscretion or missed medication dosages, although he was prescribed Entresto to start today and had not yet taken it. Initial labs are notable for MARIBELL and leukocytosis which may be owing to an ongoing steroid taper prescribed for bronchitis. PMH: 1) systolic CHF - EF 20-25% 03/2018 2) Morbidly obese 3) NNEKA - has not yet complied with CPAP 4) CAD - 5V CABG - cath in 2002 revvealed 2 occluded grafts including CASAS to LAD and 1st diagonal 5) DM II 6) HTN 7) HLD - statin-intolerant 8) Gout Surgical: CABG 5 vessel Social: Does not drink or smoke - lives with family Family: DM, HTN Allergies Allergy/AdvReac Type Severity Reaction Status Date / Time No Known Allergies Allergy Unknown Verified 04/12/18 11:25 Home Medications Home Medications Medication Instructions Recorded Confirmed Type allopurinol 100 mg PO DAILY 04/07/18 04/12/18 History aspirin [Aspir-81] 81 mg PO QAM 04/07/18 04/12/18 History dipyridamole 75 mg PO 5XD 04/07/18 04/12/18 History metformin 750 mg PO QDD 04/07/18 04/12/18 History nitroglycerin [Nitrostat] 0.4 mg SUBLINGUAL DIRECTED PRN 04/07/18 04/12/18 History carvedilol 6.25 mg PO BID #30 tab 04/10/18 04/12/18 Rx doxycycline hyclate 100 mg PO BID 4 Days #8 cap 04/10/18 04/12/18 Rx sacubitril-valsartan [Entresto] 1 tab PO BID 28 Days #56 tab 04/10/18 04/12/18 Rx furosemide [Lasix] 40 mg PO QAM #30 tab 04/11/18 04/12/18 Rx prednisone See Label Instructions .ROUTE 04/11/18 04/12/18 Rx .COMPLEX #4 tab Past Med/Surg History Medical History DVT prophylaxis CAD, multiple vessel Cardiomyopathy NNEKA (obstructive sleep apnea) History of gout T2DM (type 2 diabetes mellitus) Acute respiratory failure with hypoxia Elevated serum globulin level Heart failure, systolic, with acute decompensation Bronchitis Coronary artery bypass grafts x 5 (Resolved 10/19/11) Social History Current Living Situation: Spouse Current Living Situation Comment: lives at home with Other Information That Helps Us Care for You: No Feels Safe at Home: Yes Safety Concerns: Feels Safe At This Time Smoking Status: Former smoker Hx Alcohol Use: No Hx Substance Use: No Beliefs That Will Affect Care: None Preferred Language: Thai Communication Ability: Effective Review of Systems Gen: Denies fevers, night sweats, rigors, fatigue, malaise, weight loss/gain ENT: Denies congestion, throat pain, hearing loss Eyes: Denies acute visual changes CV: Denies CP, palpitations - orthopnea present Pulmonary: SOB - resp distress as above GI: Denies N/V, diarrhea, constipation Neuro: Denies acute or unilateral weakness, acute gait impairment, headache or acute visual changes Musculoskeletal: Denies joint pain, inflammation Endocrine: Denies polydipsia, polyuria Skin: Denies acute rashes or ulcers Physical Exam 2 Vital Signs (Past 24 Hours): Last Vital Signs Temp 36.6 C 04/12/18 09:36 Pulse 98 H 04/12/18 11:57 Resp 22 04/12/18 11:57 BP 138/82 04/12/18 11:57 Pulse Ox 97 04/12/18 11:57 Physical Exam: General: Obese, eldelry male, AAO x 3 - pt is relatively comfortable with BiPAP ENT: No erythema or exudates, no thrush Eyes: SHELDON, EOMI Head and neck: Normocephalic, atraumatic, No JVD, neck is supple. Chest/heart: Nontender, S1,2, RRR, no murmurs, no gallops Lungs: Crackles are present BL to mid lungs Abdomen: Nontender, nondistended, BS+ Neuro: AAO x 3, speech is clear, no unilateral weakness or loss of sensation, coordination intact Musculoskeletal: No joint inflammation, muscle tenderness, FROM Skin: No acute rashes or ulcers Extremities: No clubbing, cyanosis - minimal edema Results & Data Diagnostic Findings CXR: CHF EKG: Snus tach, 1st degree AV block, IVCD - no significant change
[2018-04-12] MEDS ORDERED: ACETAMINOPHEN 325 MG TAB PO PRN (14:36)
[2018-04-12] MEDS ORDERED: MAGNESIUM HYDROXIDE SUSP 30 ML UDC PO PRN (14:36)
[2018-04-12] MEDS ORDERED: NITROGLYCERIN SL 0.4 MG/TAB TAB SL PRN (14:36)
[2018-04-12] MEDS ORDERED: MoRPHine SULFATE 2 MG/ML CARP IV PRN (14:36)
[2018-04-12] MEDS ORDERED: ALUMINUM/MAGNESIUM SUSP 30 ML UDC PO PRN (14:36)
[2018-04-12] MEDS ORDERED: ONDANSETRON INJ 2 MG/ML 2 ML VIAL IV PRN (14:36)
[2018-04-12] MEDS ORDERED: LABETALOL HCL IV 5 MG/ML 20ML IV STA (14:48)
[2018-04-12] MEDS ORDERED: GLUCAGON FOR INJ 1 MG VIAL IM PRN (14:49)
[2018-04-12] MEDS ORDERED: GLUCOSE 10 TABS/TUBE PO PRN (14:49)
[2018-04-12] MEDS ORDERED: GLUCOSE 40% GEL 15 GM TUBE PO PRN (14:49)
[2018-04-12] MEDS ORDERED: CARBOHYDRATES FOR HYPOGLYCEMIA PO PRN (14:49)
[2018-04-12] MEDS ORDERED: DEXTROSE 50% 50 ML SYRINGE IV PRN (14:49)
[2018-04-12] MEDS ORDERED: FUROSEMIDE 40 MG/4 ML VIAL IV SCH (15:00)
--- NOTE | 2018-04-12 15:14 | Cardiology Progress Note ---
Addendum entered and electronically signed by Linus Pang PA-C 04/12/18 15: 47: Addendum (Blank) Addendum April 12, 2018 15:45 Patient will not start Atorvastatin or any statin because of his history of Myopathy on them. Recommend Welchol 3.75 gm daily. Original Note: Date of Service April 12, 2018 Assessment & Plan (1) Heart failure, systolic, with acute decompensation: Mr. Villaseñor is a 72 year old male with a history of Hypertension, Dyslipidemia, Type 2 DM, Multivessel CAD s/p CABG x 5 Vessels 1989 (CORDELL to LAD , CASAS to RI, Gastroepiploic Artery to PDA, Sequential SVG to Diagonal and OM), Ischemic Cardiomyopathy who was admitted to [facility] with Acute Hypoxic Respiratory Failure with a component of Acute Systolic CHF and notable reduction of his LVEF which is currently 20% to 25% -- and was 40% in March 2017 on a negative DSE at [facility]. Please note that last Cardiac Catheterization 09/22/2002 showed an atrectic CASAS graft to Ramus, and Sequential SVG to Diagonal and OM was occluded. Suspect that his progressive LV systolic dysfunction is not the result of an acute coronary event (negative troponin level, EKG without acute changes). Suspect that over time his viable LV segments were unable to keep up to demand ( hypertension,untreated NNEKA, obesity, etc) and their contractility declined. Recommend the following: -- Continue Coreg to 6.25 mg bid. -- Start Entresto 24/26 mg bid. -- Continue IV Lasix 40 mg q 8 hours. --Consider adding Metolazone. -- Monitor daily I&O's, body weights. -- Monitor daily BMP. -- No anginal symptoms and normal cardiac enzymes but if LV systolic function continues to decline on medical therapy, we will need to consider further ischemic workup. Present on Admission?: Yes (2) Cardiomyopathy: As stated above. -- Titrate Coreg and Entresto as HR and BP allow following discharge. Present on Admission?: Yes (3) CAD, multiple vessel: No angina pectoris or evidence of an acute coronary event. -- Continue Coreg. -- Continue Aspirin daily. -- Continue SL NTG as needed. -- Begin Atorvastatin 40 mg daily. Present on Admission?: Yes Supervising Physician Co-Signing Physician Notes Salazar Roberto MD Patient seen and examined. Agree with above. He presents once again with shortness of breath, he feels better this morning after initial treatment overnight. Subjective Mr. Villaseñor is a 72 year old male with a history of Hypertension, Dyslipidemia, Type 2 DM, NNEKA, Multivessel CAD s/p CABG x 5 Vessels 1989 (CORDELL to LAD, CASAS to RI, Gastroepiploic Artery to RCA, Sequential SVG to Diagonal and OM), Ischemic Cardiomyopathy (LVEF is currently 20% to 25% -- was 40% in March 2017) who was admitted to [facility] from 04/07/2018 to 04/11/2018 with Acute Hypoxic Respiratory Failure secondary to Acute Decompensated Systolic CHF and Acute Bronchitis. Patient was sent home on Coreg 6.25 mg bid, Lasix 40 mg daily, and Entresto 24- 26 mg bid was prescribed but patient did not start it yet. Patient was compliant with a low sodium from yesterday until now. Patient awakened at 0300 with a coughing spell, and he has developed progressive dyspnea since then. In the ER he was placed on BiPAP and given a dose of IV Lasix -- and has had improvement in his symptoms. Patient denies any angina pectoris, chest pain, chest discomfort, nausea, vomiting, or any diaphoresis. He denies any palpitations, syncope, or near syncope. Physical Exam 2 Vital Signs (Past 24 Hours): Last Vital Signs Temp 36.4 C L 04/12/18 14:25 Pulse 99 H 04/12/18 13:40 Resp 18 04/12/18 14:25 BP 132/79 04/12/18 14:25 Pulse Ox 92 04/12/18 14:25 Physical Exam: General: Patient in no acute distress. HEENT: Head is atraumatic, normocephalic. EOMs intact. Sclerae anicteric. Facies symmetric. No perioral cyanosis. Neck: No JVD. Carotid upstrokes +2 bilaterally without bruits. JVP is fci to the angle of the jaws. Chest and Lungs: Tachypneic with diminished breath sounds in bilateral bases, bibasilar crackles are present. CVS: S1 and S2 are regular with a grade 1/6 apical holosystolic murmur. No obvious diastolic murmurs, gallops, or rubs. PMI is nonpalpable. No lifts, heaves, or thrills. No abdominal aortic or renal bruits. Abdominal Exam: Bowel sounds present. No masses, organomegaly, or tenderness. Extremities: No clubbing or cyanosis. Trace ankle edema bilaterally. Intact radial pulses bilaterally. Neurologic Exam: Patient is awake, alert, and oriented. Pleasant and cooperative. Answers questions appropriately. Speech is clear. Normal movement in all 4 extremities. Gait pattern was not assessed. Results & Data Laboratory Results Laboratory Results - last 24 hr 04/12/18 04/12/18 04/12/18 10:19 10:19 10:19 WBC 20.08 H RBC 5.67 Hgb 17.8 Hct 53.1 H MCV 93.7 MCH 31.4 MCHC 33.5 RDW Std Deviation 50.7 H RDW Coeff of Tasha 14.9 H Plt Count 285 MPV 10.6 H Immature Gran % (Auto) 0.5 Neut % (Auto) 83.8 Lymph % (Auto) 6.0 [place] % (Auto) 9.4 Eos % (Auto) 0.2 Baso % (Auto) 0.1 Immature Gran # (Auto) 0.11 H Neut # (Auto) 16.83 H Lymph # (Auto) 1.20 [place] # (Auto) 1.88 H Eos # (Auto) 0.04 Baso # (Auto) 0.02 PT 11.9 INR 1.2 H APTT 25.1 PTT Ratio 1.0 Sodium 133 L Potassium 4.5 Chloride 100 Carbon Dioxide 24 Anion Gap 10.0 BUN 54 H Creatinine 1.59 H Est Cr Clr Drug Dosing 51.3 Est GFR ( Amer) 48.8 Est GFR (Non-Af Amer) 42.1 BUN/Creatinine Ratio 34.0 H Glucose 168 H Calcium 9.1 Magnesium 2.7 H Total Bilirubin 1.2 H AST 38 H ALT 42 Alkaline Phosphatase 70 Troponin I 0.019 Total Protein 9.0 H Albumin 3.1 L Globulin 5.9 H Albumin/Globulin Ratio 0.5 L Medications Administered Active Medications Generic Name Dose Route Start Last Admin Trade Name Freq PRN Reason Stop Dose Admin Acetaminophen 650 mg 04/12/18 14:36 Tylenol PO 05/12/18 14:35 Q4H PRN Pain or Fever Al Hydrox/Mg Hydrox/Simethicone 15 ml 04/12/18 14:36 Maalox PO 02/17/19 14:35 Q4H PRN Dyspepsia Aspirin 81 mg 04/13/18 09:00 Ecotrin Ectab PO 05/13/18 08:59 QAM [facility] Carvedilol 6.25 mg 04/12/18 21:00 Coreg PO 05/12/18 20:59 BID [facility] Dextrose 25 - 50 ml 04/12/18 14:49 Dextrose 50% IV 05/12/18 14:48 UD PRN Hypoglycemia Protocol Protocol Dipyridamole 75 mg 04/12/18 14:36 Persantine PO 05/12/18 14:35 5XD [facility] Doxycycline Hyclate 100 mg 04/12/18 21:00 Vibramycin PO 04/19/18 20:59 BID [facility] Glucagon 1 mg 04/12/18 14:49 Glucagen IM 05/12/18 14:48 UD PRN Hypoglycemia Protocol Protocol Glucose 15 - 30 gm 04/12/18 14:49 Glucose 40% PO 05/12/18 14:48 UD PRN Hypoglycemia Protocol Protocol Glucose 4 - 8 tabs 04/12/18 14:49 Dex4 Glucose PO 05/12/18 14:48 UD PRN Hypoglycemia Protocol Protocol Heparin Sodium (Porcine) 5,000 units 04/12/18 16:00 Heparin Sodium (Porcine) SQ 05/12/18 15:59 Q8 [facility] Furosemide 40 mg/ Syringe 4 mls @ 4 mls/min 04/12/18 16:00 IV 05/12/18 15:59 Q8H [facility] Insulin Aspart 0 units 04/12/18 16:30 Novolog Flexpen SC 05/12/18 16:29 ACHS [facility] Magnesium Hydroxide 30 ml 04/12/18 14:36 Milk Of Magnesia PO 05/12/18 14:35 Q12H PRN Constipation Miscellaneous 15 - 30 gm 04/12/18 14:49 Carbohydrates For Hypoglycemia PO 05/12/18 14:48 UD PRN Hypoglycemia Treatment Morphine Sulfate 2 mg 04/12/18 14:36 Morphine Sulfate IV 04/26/18 14:35 Q30M PRN Chest Pain Nitroglycerin 0.4 mg 04/12/18 14:36 Nitrostat SL 05/12/18 14:35 UD PRN Chest Pain Ondansetron HCl 4 mg 04/12/18 14:36 Zofran IV 05/12/18 14:35 Q6H PRN Nausea Sacubitril/Valsartan 1 tab 04/12/18 14:36 Entresto 24/26mg PO 05/12/18 14:35 BID [facility]
[2018-04-12] MEDS: FUROSEMIDE 40 MG in SYRINGE 0 ML IV SCH ×2 (15:23→23:34)
[2018-04-12] MEDS: HEPARIN SOD 5,000 UNIT/0.5 ML VIAL SQ SCH ×2 (16:31→21:46)
--- NOTE | 2018-04-12 16:58 | Emergency Department Note ---
Entered by Zahra Robles acting as a scribe for History of Present Illness General Chief complaint: Shortness of Breath/Dyspnea Stated complaint: SHORT OF BREATH THIS MORNING -DISCHARGED YESTERDAY Time Seen by Provider: 04/12/18 09:44 Source: patient Mode of arrival: ambulatory Limitations: no limitations History of Present Illness Onset (ago): hour(s) (this morning) Location: chest Pain Consistency: + other (worsening) Quality: + other (shortness of breath) Relieved By: + other (biPAP) Associated symptoms: + cough (worsening cough) and + shortness of breath The patient is a 72 year old male who presents to the ED with complaints of worsening shortness of breath with an onset of this morning. The patient states that he was discharged from the hospital yesterday and notes that he was in the hospital for 4 days for shortness of breath. The patient notes that while he was in the hospital, biPAP alleviated the symptoms. The patient complains of worsening cough and shortness of breath. He notes that he has a history of open heart surgery. He notes that he does not wear oxygen at home. Per family, the patient was not able to obtain his prednisone but states that the patient has been taking his antibiotics. Home Medications Home Medications Medication Instructions Recorded Confirmed Type allopurinol 100 mg PO DAILY 04/07/18 04/12/18 History aspirin [Aspir-81] 81 mg PO QAM 04/07/18 04/12/18 History dipyridamole 75 mg PO 5XD 04/07/18 04/12/18 History metformin 750 mg PO QDD 04/07/18 04/12/18 History nitroglycerin [Nitrostat] 0.4 mg SUBLINGUAL DIRECTED PRN 04/07/18 04/12/18 History carvedilol 6.25 mg PO BID #30 tab 04/10/18 04/12/18 Rx doxycycline hyclate 100 mg PO BID 4 Days #8 cap 04/10/18 04/12/18 Rx sacubitril-valsartan [Entresto] 1 tab PO BID 28 Days #56 tab 04/10/18 04/12/18 Rx furosemide [Lasix] 40 mg PO QAM #30 tab 04/11/18 04/12/18 Rx prednisone See Label Instructions .ROUTE 04/11/18 04/12/18 Rx .COMPLEX #4 tab Allergies Allergy/AdvReac Type Severity Reaction Status Date / Time No Known Allergies Allergy Unknown Verified 04/12/18 11:25 Past Med/Surg History Medical History DVT prophylaxis CAD, multiple vessel Cardiomyopathy NNEKA (obstructive sleep apnea) History of gout T2DM (type 2 diabetes mellitus) Acute respiratory failure with hypoxia Elevated serum globulin level Heart failure, systolic, with acute decompensation Bronchitis Coronary artery bypass grafts x 5 (Resolved 10/19/11) Social History Current Living Situation: Spouse Current Living Situation Comment: lives at home with Other Information That Helps Us Care for You: No Feels Safe at Home: Yes Safety Concerns: Feels Safe At This Time Smoking Status: Former smoker Hx Alcohol Use: No Hx Substance Use: No Beliefs That Will Affect Care: None Preferred Language: Salvadorean Communication Ability: Effective Review of Systems See HPI for pertinent positives & negatives. and A total of 10 systems reviewed and were otherwise negative Physical Exam Vital Signs Vital Signs - 24 hr 04/12/18 09:36 04/12/18 10:02 04/12/18 10:14 Temperature 36.6 C Temperature Source Oral Sepsis Recent Fever Within 48 Hours No Sepsis New/Unexplained Change in Mental Status No Sepsis Action Taken by Nursing No Action Required Pulse Rate 112 H 112 H Pulse Rate [Left Finger] Pulse Rate [Right Apical] Pulse Rhythm [Right Apical] Pulse Strength [Right Apical] Respiratory Rate 24 34 H Respiratory Effort / Characteristics Spontaneous Short of Breath Respiratory Depth Normal Respiratory Pattern Tachypnea Blood Pressure 145/88 H Blood Pressure [Right Arm] Blood Pressure Mean 107 Blood Pressure Mean [Right Arm] Blood Pressure Position [Right Arm] Pulse Oximetry 90 98 Oxygen Delivery Method Room Air BiPAP Oxygen Flow Rate Fraction of Inspired Oxygen 50 04/12/18 10:16 04/12/18 10:29 04/12/18 10:37 Temperature Temperature Source Sepsis Recent Fever Within 48 Hours Sepsis New/Unexplained Change in Mental Status Sepsis Action Taken by Nursing Pulse Rate Pulse Rate [Left Finger] Pulse Rate [Right Apical] 112 H 102 H Pulse Rhythm [Right Apical] Pulse Strength [Right Apical] Respiratory Rate 34 H 26 H Respiratory Effort / Characteristics Spontaneous Short of Breath Respiratory Depth Respiratory Pattern Blood Pressure Blood Pressure [Right Arm] 139/88 Blood Pressure Mean Blood Pressure Mean [Right Arm] 105 Blood Pressure Position [Right Arm] Pulse Oximetry 98 99 99 Oxygen Delivery Method BiPAP BiPAP BiPAP Oxygen Flow Rate Fraction of Inspired Oxygen 50 04/12/18 11:25 04/12/18 11:28 04/12/18 11:57 Temperature Temperature Source Sepsis Recent Fever Within 48 Hours Sepsis New/Unexplained Change in Mental Status Sepsis Action Taken by Nursing Pulse Rate Pulse Rate [Left Finger] Pulse Rate [Right Apical] 100 H 98 H Pulse Rhythm [Right Apical] Pulse Strength [Right Apical] Respiratory Rate 25 H 22 Respiratory Effort / Characteristics Spontaneous Short of Breath SOB on Exertion Respiratory Depth Shallow Respiratory Pattern Tachypnea Blood Pressure Blood Pressure [Right Arm] 184/126 H 138/82 Blood Pressure Mean Blood Pressure Mean [Right Arm] 145 100 Blood Pressure Position [Right Arm] Pulse Oximetry 98 97 Oxygen Delivery Method BiPAP BiPAP BiPAP Oxygen Flow Rate Fraction of Inspired Oxygen 04/12/18 12:00 04/12/18 13:40 04/12/18 14:25 Temperature 36.4 C L Temperature Source Oral Sepsis Recent Fever Within 48 Hours Sepsis New/Unexplained Change in Mental Status Sepsis Action Taken by Nursing Pulse Rate 99 H Pulse Rate [Left Finger] Pulse Rate [Right Apical] 98 H Pulse Rhythm [Right Apical] Regular Pulse Strength [Right Apical] Normal Respiratory Rate 24 23 18 Respiratory Effort / Characteristics SOB on Exertion Respiratory Depth Normal Respiratory Pattern Regular Blood Pressure Blood Pressure [Right Arm] 144/78 H 132/79 Blood Pressure Mean Blood Pressure Mean [Right Arm] 100 96 Blood Pressure Position [Right Arm] Semi-fowlers Pulse Oximetry 99 98 92 Oxygen Delivery Method BiPAP Non-rebreather Nasal Cannula Oxygen Flow Rate 3 Fraction of Inspired Oxygen 04/12/18 15:42 Temperature 36.2 C L Temperature Source Oral Sepsis Recent Fever Within 48 Hours Sepsis New/Unexplained Change in Mental Status Sepsis Action Taken by Nursing Pulse Rate Pulse Rate [Left Finger] 91 H Pulse Rate [Right Apical] Pulse Rhythm [Right Apical] Pulse Strength [Right Apical] Respiratory Rate 18 Respiratory Effort / Characteristics Respiratory Depth Normal Respiratory Pattern Blood Pressure Blood Pressure [Right Arm] 127/78 Blood Pressure Mean Blood Pressure Mean [Right Arm] 94 Blood Pressure Position [Right Arm] Lying Pulse Oximetry 93 Oxygen Delivery Method Nasal Cannula Oxygen Flow Rate 3 Fraction of Inspired Oxygen GENERAL: Patient is in no acute distress. HEENT: No acute trauma, normocephalic atraumatic, mucous membranes moist, no nasal congestion, no scleral icterus. NECK: No stridor, no adenopathy, no meningismus, trachea is midline. LUNGS: : Increased respiratory rate. Dry cough noted. Mild respiratory distress. Diminished breath sounds bilaterally. HEART: Mildly tachycardic. Regular rhythm, no obvious murmur. ABDOMEN: Soft, nontender, bowel sounds positive, no hernias, no peritonitis. EXTREMITIES: No cyanosis or edema, full range of motion of all the joints without pain or difficulty, no signs for acute trauma. NEUROLOGIC: Oriented x 3, no acute motor or sensory deficits, no focal weakness. SKIN: No rash, no jaundice, no diaphoresis. Course 0950: Past medical records reviewed. The patient was evaluated in room B12B, and a complete history and physical examination were performed. 1115: I updated the patient. Upon reevaluation, the patient is resting comfortably. 1207: I reviewed the patient's case with Dr. Dariel Simms - Hospitalist [facility]. He will evaluate the patient for further management. Administered Medications Heparin Sodium (Porcine) (Heparin Sodium (Porcine)) 5,000 units SQ Q8 HAJA Stop: 05/12/18 15:59 Last Admin: 04/12/18 16:31 Dose: 5,000 units Furosemide 40 mg/ Syringe 4 mls @ 4 mls/min IV Q8H HAJA Stop: 05/12/18 15:59 Last Admin: 04/12/18 15:23 Dose: 4 mls/min Insulin Aspart (Novolog Flexpen) 0 units SC ACHS HAJA Stop: 05/12/18 16:29 Last Admin: 04/12/18 17:35 Dose: Not Given Discontinued Medications Albuterol (Duoneb) 3 ml NEB NOW STA Stop: 04/12/18 09:55 Last Admin: 04/12/18 10:12 Dose: 3 ml Furosemide (Lasix) 40 mg IV NOW STA Stop: 04/12/18 11:06 Last Admin: 04/12/18 11:14 Dose: 40 mg Methylprednisolone 60 mg/ (Syringe) 1.96 mls @ 1.5 mls/min IV NOW STA Stop: 04/12/18 09:55 Last Admin: 04/12/18 10:36 Dose: Not Given Labetalol HCl (Normodyne) 5 mg IV NOW STA Stop: 04/12/18 14:49 Last Admin: 04/12/18 16:37 Dose: 5 mg Methylprednisolone (Solumedrol) Confirm Administered Dose 80 mg .ROUTE .STK-MED ONE Stop: 04/12/18 10:33 Last Admin: 04/12/18 10:36 Dose: 60 mg Nitroglycerin (Nitro-Bid 2%) 2 inch EXT ONE STA Stop: 04/12/18 11:37 Last Admin: 04/12/18 11:42 Dose: 2 inch Medical Decision Making Differential Diagnosis Differential Diagnoses Include: Exacerbation of COPD, bronchitis, pneumonia, CHF, medication noncompliance, anemia ,electrolyte imbalance, SD. Medical Records Attestation: I reviewed the patient's medical records. Home Medications Current Medication List: was personally reviewed by me Laboratory Data Attestation: I reviewed the patient's lab results. Result diagrams: 04/12/18 10:19 04/12/18 10:19 Lab Results 04/12/18 04/12/18 04/12/18 Range/Units 10: 10: 10:19 WBC 20.08 H (4.8-10.8) K/uL RBC 5.67 (4.7-6.1) M/uL Hgb 17.8 (14.0-18.0) g/dL Hct 53.1 H (42-52) % MCV 93.7 (80-100) fL MCH 31.4 (25-34) pg MCHC 33.5 (32-36) g/dL RDW Std Deviation 50.7 H (36.4-46.3) fL RDW Coeff of Tasha 14.9 H (11.5-14.5) % Plt Count 285 (130-400) K/uL MPV 10.6 H (7.4-10.4) fL Immature Gran % (Auto) 0.5 % Neut % (Auto) 83.8 % Lymph % (Auto) 6.0 % Dillon % (Auto) 9.4 % Eos % (Auto) 0.2 % Baso % (Auto) 0.1 % Immature Gran # (Auto) 0.11 H (0.00-0.02) K/uL Neut # (Auto) 16.83 H (1.4-6.5) K/uL Lymph # (Auto) 1.20 (1.2-3.4) K/uL Dillon # (Auto) 1.88 H (0.11-0.59) K/uL Eos # (Auto) 0.04 (0-0.5) K/uL Baso # (Auto) 0.02 (0-0.2) K/uL PT 11.9 (9.0-12.0) Seconds INR 1.2 H (0.9-1.1) APTT 25.1 (21.0-31.0) Seconds PTT Ratio 1.0 Sodium 133 L (136-145) mmol/L Potassium 4.5 (3.5-5.1) mmol/L Chloride 100 (98-107) mmol/L Carbon Dioxide 24 (21-32) mmol/L Anion Gap 10.0 (3-11) BUN 54 H (7-18) mg/dl Creatinine 1.59 H (0.6-1.4) mg/dl Est Cr Clr Drug Dosing 51.3 ml/min Est GFR ( Amer) 48.8 Est GFR (Non-Af Amer) 42.1 BUN/Creatinine Ratio 34.0 H (10-20) Glucose 168 H (70-99) mg/dl POC Glucose (70-99) Calcium 9.1 (8.5-10.1) mg/dl Magnesium 2.7 H (1.8-2.4) mg/dl Total Bilirubin 1.2 H (0.2-1) mg/dl AST 38 H (15-37) U/L ALT 42 (12-78) U/L Alkaline Phosphatase 70 (45-117) U/L Troponin I 0.019 (0-0.045) ng/ml Total Protein 9.0 H (6.4-8.2) gm/dl Albumin 3.1 L (3.4-5.0) gm/dl Globulin 5.9 H (2.5-4.0) gm/dl Albumin/Globulin Ratio 0.5 L (0.9-2) 04/12/18 Range/Units 16:32 WBC (4.8-10.8) K/uL RBC (4.7-6.1) M/uL Hgb (14.0-18.0) g/dL Hct (42-52) % MCV (80-100) fL MCH (25-34) pg MCHC (32-36) g/dL RDW Std Deviation (36.4-46.3) fL RDW Coeff of Tasha (11.5-14.5) % Plt Count (130-400) K/uL MPV (7.4-10.4) fL Immature Gran % (Auto) % Neut % (Auto) % Lymph % (Auto) % Dillon % (Auto) % Eos % (Auto) % Baso % (Auto) % Immature Gran # (Auto) (0.00-0.02) K/uL Neut # (Auto) (1.4-6.5) K/uL Lymph # (Auto) (1.2-3.4) K/uL Dillon # (Auto) (0.11-0.59) K/uL Eos # (Auto) (0-0.5) K/uL Baso # (Auto) (0-0.2) K/uL PT (9.0-12.0) Seconds INR (0.9-1.1) APTT (21.0-31.0) Seconds PTT Ratio Sodium (136-145) mmol/L Potassium (3.5-5.1) mmol/L Chloride (98-107) mmol/L Carbon Dioxide (21-32) mmol/L Anion Gap (3-11) BUN (7-18) mg/dl Creatinine (0.6-1.4) mg/dl Est Cr Clr Drug Dosing ml/min Est GFR ( Amer) Est GFR (Non-Af Amer) BUN/Creatinine Ratio (10-20) Glucose (70-99) mg/dl POC Glucose 158 H (70-99) Calcium (8.5-10.1) mg/dl Magnesium (1.8-2.4) mg/dl Total Bilirubin (0.2-1) mg/dl AST (15-37) U/L ALT (12-78) U/L Alkaline Phosphatase (45-117) U/L Troponin I (0-0.045) ng/ml Total Protein (6.4-8.2) gm/dl Albumin (3.4-5.0) gm/dl Globulin (2.5-4.0) gm/dl Albumin/Globulin Ratio (0.9-2) Imaging Data Radiologist's Impression: Radiology results as stated below per my review and the radiologist's interpretation: XR chest 1V portable CLINICAL HISTORY: SOB dyspnea COMPARISON STUDY: 04/07/2017 FINDINGS: Moderate cardiomegaly. Prior median sternotomy. Prominent pulmonary vasculature. IMPRESSION: Congestive heart failure The above report was generated using voice recognition software. It may contain grammatical, syntax or spelling errors. Electronically signed by: Kwadwo Casatnon M.D. 04/12/2018 10:14 AM Dictated: 04/12/18 1013 Transcribed: 04/12/18 1013 ECG Data Attestation: I personally reviewed and interpreted this ECG as follows: Indication: SOB/dyspnea Rate (beats per minute): 111 Rhythm: sinus tachycardia Findings: + 1st degree AV block, + RBBB, + T-wave inversion (in the anterior and lateral leads) and + ST elevation (in the inferior leads) Change: no significant change (04/07/18) Blood Pressure Blood Pressure Findings: Normal blood pressure MDM Narrative There is a significant leukocytosis at 20,000, this could be consistent with infection or the stress of his situation. No worrisome anemia. Renal panel testing show some renal insufficiency, no significant electrolyte abnormality requiring correction. No hepatitis. EKG shows a sinus rhythm with some chronic changes. No acute SD noted. Cardiac enzyme testing x1 is not consistent with acute cardiac injury. No worrisome coagulopathy. Chest film does show CHF. On exam, the patient appeared to be in some mild respiratory distress. Patient was emergently placed on BiPAP. He was given a DuoNeb. He received IV Lasix to help with the heart failure. He was given a dose of IV Solu-Medrol. The patient is improved since being on BiPAP. Given his respiratory difficulty , given his findings on workup, I do think a hospital stay is warranted. He has not done well since discharge from the hospital just yesterday. I spoke to the patient and case management. The on-call hospitalist was consulted. Impression & Plan Respiratory distress, CHF (congestive heart failure) Critical Care Time I have personally spent greater than 33 minutes of critical care time in the direct management of this patient. This includes bedside care, interpretation of diagnostic studies and testing, discussion with consultants, the patient, and family members, and other required patient management activities. This 33 minutes is in excess of all separately billable procedures. Critical Care Time: Yes Total Critical Care Time: 33 Discharge Plan Visit Data *Final* Discharge Date/Time: 04/12/18 13:40 Chief Complaint: Shortness of Breath/Dyspnea Stated Complaint: SHORT OF BREATH THIS MORNING -DISCHARGED YESTERDAY ED Provider: Glenroy Temple Discharge Problem: Respiratory distress, CHF (congestive heart failure) Patient Disposition: Admitted As Inpatient Discharge Instructions Interventions: ED Discharge Assessment Last Done: 04/12/18 13:40 The scribe's documentation has been prepared under my direction and personally reviewed by me in its entirety. I confirm that the note above accurately reflects all work, treatment, procedures, and medical decision making performed by me.
[2018-04-12] MEDS: INSULIN ASPART 100 UNITS/ML 3 ML PEN SC SCH ×2 (17:35→21:34)
[2018-04-12] MEDS: DIPYRIDAMOLE 25 MG TAB PO SCH ×2 (18:26→19:50)
[2018-04-12] MEDS: SACUBITRIL-VALSARTAN 24-26 MG TAB PO SCH (19:51)
[2018-04-12] MEDS: CARVEDILOL 6.25 MG TAB PO SCH (19:51)
[2018-04-12] MEDS: DOXYCYCLINE HYCLATE 100 MG CAP PO SCH (19:52)
[2018-04-13] MEDS: HEPARIN SOD 5,000 UNIT/0.5 ML VIAL SQ SCH ×3 (06:03→21:45)
[2018-04-13 07:37] LABS: Basophils # (auto) 0.01 K/uL (0-0.2); Basophils % (auto) 0.1 %; Eosinophils # (auto) 0.03 K/uL (0-0.5); Eosinophils % (auto) 0.2 %; Hematocrit (blood only) 50.3 % (42-52); Hemoglobin 16.6 g/dL (14.0-18.0); Immature Granulocytes # (auto) 0.07 K/uL (0.00-0.02); Immature Granulocytes % (auto) 0.5 %; Lymphocytes # (auto) 1.75 K/uL (1.2-3.4); Lymphocytes % (auto) 11.7 %; Mean Corpuscular Volume 93.8 fL (80-100); Mean Platelet Volume 10.9 fL (7.4-10.4); Monocytes # (auto) 0.91 K/uL (0.11-0.59); Monocytes % (auto) 6.1 %; Neutrophils # (auto) 12.18 K/uL (1.4-6.5); Neutrophils % (auto) 81.4 %; Platelet Count 281 K/uL (130-400); RDW Coefficient of Variation 14.9 % (11.5-14.5); RDW Standard Deviation 51.2 fL (36.4-46.3); Red Blood Count 5.36 M/uL (4.7-6.1); White Blood Count 14.95 K/uL (4.8-10.8)
[2018-04-13 08:05] LABS: BUN Creatinine Ratio 35.5 (10-20); Calcium 9.2 mg/dl (8.5-10.1); Creatinine Clr Calc Pharmacy 51.5 ml/min; Est GFR (African American) 48.8; Est GFR (Non-African American) 42.1; Magnesium 2.8 mg/dl (1.8-2.4); Potassium 4.1 mmol/L (3.5-5.1)
[2018-04-13] MEDS: DOXYCYCLINE HYCLATE 100 MG CAP PO SCH ×2 (08:59→20:57)
[2018-04-13] MEDS: SACUBITRIL-VALSARTAN 24-26 MG TAB PO SCH ×2 (09:00→20:57)
[2018-04-13] MEDS: CARVEDILOL 6.25 MG TAB PO SCH ×2 (09:00→20:58)
[2018-04-13] MEDS: DIPYRIDAMOLE 25 MG TAB PO SCH ×3 (09:02→21:02)
[2018-04-13] MEDS: INSULIN ASPART 100 UNITS/ML 3 ML PEN SC SCH ×4 (09:04→21:03)
[2018-04-13] MEDS: ASPIRIN 81 MG ECTAB PO SCH (09:50)
[2018-04-13] MEDS: FUROSEMIDE 40 MG in SYRINGE 0 ML IV SCH (09:50)
--- NOTE | 2018-04-13 11:54 | Cardiology Progress Note ---
Date of Service April 13, 2018 He is feeling better this morning. He denies any shortness of breath at rest. He does appear slightly short of breath talking in sentences. He denies any PND orthopnea he normally sleeps in a chair and feels much better sleeping with CPAP at night. Next He has no lower extremity edema or abdominal distention. Denies any fevers chills or sweats. He does have a cough. He denies any light his dizziness presyncope or syncope. Has any chest pain or chest pressure. Physical Exam 2 Vital Signs (Past 24 Hours): Last Vital Signs Temp 36.3 C L 04/13/18 11:41 Pulse 79 04/13/18 11:41 Resp 18 04/13/18 11:41 BP 103/67 04/13/18 11:41 Pulse Ox 95 04/13/18 11:41 Assessment & Plan (1) Heart failure, systolic, with acute decompensation: Mr. Villaseñor is a 72 year old male with a history of Hypertension, Dyslipidemia, Type 2 DM, Multivessel CAD s/p CABG x 5 Vessels 1989 (CORDELL to LAD , CASAS to RI, Gastroepiploic Artery to PDA, Sequential SVG to Diagonal and OM), Ischemic Cardiomyopathy who was admitted to [facility] with Acute Hypoxic Respiratory Failure with a component of Acute Systolic CHF and notable reduction of his LVEF which is currently 20% to 25% -- and was 40% in March 2017 on a negative DSE at [facility]. Please note that last Cardiac Catheterization 09/22/2002 showed an atrectic CASAS graft to Ramus, and Sequential SVG to Diagonal and OM was occluded. Recommend the following: -- Continue Coreg to 6.25 mg bid. --Continue Entresto 24/26 mg bid. -- Continue IV Lasix 40 mg q 8 hours. -- Monitor daily I&O's, body weights. -- Monitor daily BMP. (2) severe ischemic cardia myopathy -- Titrate Coreg and Entresto as HR and BP allow following discharge. (3) CAD, multiple vessel: No angina pectoris or evidence of an acute coronary event. -- Continue Coreg. -- Continue Aspirin daily. -- Continue SL NTG as needed. I would continue with aggressive medical therapy. He did not salt load at home when he went home part of the issue may be that he did not have his CPAP the evening he went home to sleep with in his chair. Additionally I discussed with him he is 29 years out from bypass surgery likely all of his grafts are down and it is quite possible that his his [place] vessels are all occluded as well. If he continues to have heart failure symptoms that are uncontrollable I would consider repeat cardiac catheterization to define his coronary anatomy. This will help long-term from a prognostic standpoint. At this point I would not add spironolactone given his renal insufficiency. In addition I would try to up titrate his Entresto as an outpatient every 2-3 weeks assuming his creatinine and potassium remained stable and he has not blood pressure room. I would switch his furosemide over to Bumex 2 mg IV daily to see if this will give him an improved diuresis without worsening his renal function. We will continue to follow him with you. Physical Exam: General: Patient in no acute distress. Neck: Carotid upstrokes severely reduced without bruits. Chest and Lungs: diminished breath sounds in bilateral bases, CVS: S1 and S2 are regular with a grade 1/6 apical holosystolic murmur. No obvious diastolic murmurs, gallops, or rubs. Abdominal Exam: Bowel sounds present. No masses,or tenderness. Extremities: No clubbing or cyanosis. No edema.
[2018-04-13] MEDS ORDERED: COUGH DROP (SUGAR FREE) LOZ 24 LOZ/1 BOX BUCCAL PRN (13:45)
[2018-04-13] MEDS ORDERED: BUMETANIDE 0.5 MG in SYRINGE 0 ML IV ONE (15:00)
--- NOTE | 2018-04-13 18:05 | Hospitalist Progress Note ---
Date of Service April 13, 2018 Assessment & Plan (1) Acute on chronic combined systolic and diastolic CHF (congestive heart failure): Clinically improving. Stable labs today. Continue BB. Continue entresto. Dr. Stephenson saw patient today; recommended bumex in raquel of lasix to enhance diuresis. Was patient euvolemic at time of recent hospital discharge? Was patient compliant with dietary measures and meds after recent d/c? other reason for decompensation? Repeat BMP in am. Consider EP consultation after d/c for consideration of BiV pacer/ICD. Agree with Dr. Stephenson that underlying CAD could be contributing to CHF as well. Present on Admission?: Yes (2) CAD, multiple vessel: Cont BB, asa. Uncertain why he is not on statin therapy. Agree with cardiology that his CAD has likely progressed from prior and could be contributing to CHF. Cont entresto. Also on dipyridamole due to lack of ability to pay for plavix in the past. (3) NNEKA (obstructive sleep apnea): CPAP at HS. (4) T2DM (type 2 diabetes mellitus): control acceptable at this time. continue novolog sliding scale. (5) Chronic kidney disease, stage 3a: creatinine is at baseline. BMP in am. (6) Acute bronchitis: finish doxycycline course. no significant wheezing on exam today. defer on prednisone. hoarse voice is likely due to viral laryngitis. (7) DVT prophylaxis: heparin 5000 TID Subjective patient feels better today less dyspnea less orthopnea still requiring O2 patient reports that his dry weight was 244 pounds recently tele overnight wnl Constitutional: no fever and no anorexia Ear, Nose, Mouth, Throat: + hoarseness (x 3 days) Respiratory: + dyspnea and + dyspnea on exertion; no cough Cardiovascular: no chest pain Gastrointestinal: no abdominal pain Physical Exam 2 Vital Signs (Past 24 Hours): Last Vital Signs Temp 36.3 C L 04/13/18 14:53 Pulse 74 04/13/18 14:53 Resp 18 04/13/18 14:53 BP 105/66 04/13/18 14:53 Pulse Ox 96 04/13/18 14:53 Constitutional: well developed, well nourished and + obese; no acute distress ENMT: external ear and nose normal, oropharynx normal Neck: trachea midline, no thyromegaly Respiratory: Auscultation: + rales (fine, bases) Cardiovascular: Rate/Rhythm: regular rate and regular rhythm Heart Sounds: normal S1 and normal S2; no murmur Vessels: posterior tibial pulses present and dorsalis pedis pulses present; no JVD Extremities: + pedal edema (<1+ b/ l ) Gastrointestinal (Abdomen): normal bowel sounds, soft, nontender, no hepatosplenomegaly Psychiatric: A+Ox3, euthymic affect Results & Data Laboratory Results Laboratory Results - last 24 hr 04/12/18 04/13/18 04/13/18 21:09 06:30 06:30 WBC 14.95 H RBC 5.36 Hgb 16.6 Hct 50.3 MCV 93.8 MCH 31.0 MCHC 33.0 RDW Std Deviation 51.2 H RDW Coeff of Tasha 14.9 H Plt Count 281 MPV 10.9 H Immature Gran % (Auto) 0.5 Neut % (Auto) 81.4 Lymph % (Auto) 11.7 Hughes % (Auto) 6.1 Eos % (Auto) 0.2 Baso % (Auto) 0.1 Immature Gran # (Auto) 0.07 H Neut # (Auto) 12.18 H Lymph # (Auto) 1.75 Hughes # (Auto) 0.91 H Eos # (Auto) 0.03 Baso # (Auto) 0.01 Sodium 135 L Potassium 4.1 Chloride 99 Carbon Dioxide 26 Anion Gap 10.0 BUN 57 H Creatinine 1.59 H Est Cr Clr Drug Dosing 51.5 Est GFR ( Amer) 48.8 Est GFR (Non-Af Amer) 42.1 BUN/Creatinine Ratio 35.5 H Glucose 122 H POC Glucose 151 H Calcium 9.2 Magnesium 2.8 H 04/13/18 04/13/18 04/13/18 07:39 11:23 16:45 WBC RBC Hgb Hct MCV MCH MCHC RDW Std Deviation RDW Coeff of Tasha Plt Count MPV Immature Gran % (Auto) Neut % (Auto) Lymph % (Auto) Hughes % (Auto) Eos % (Auto) Baso % (Auto) Immature Gran # (Auto) Neut # (Auto) Lymph # (Auto) Hughes # (Auto) Eos # (Auto) Baso # (Auto) Sodium Potassium Chloride Carbon Dioxide Anion Gap BUN Creatinine Est Cr Clr Drug Dosing Est GFR ( Amer) Est GFR (Non-Af Amer) BUN/Creatinine Ratio Glucose POC Glucose 110 H 117 H 134 H Calcium Magnesium _ (1) T2DM (type 2 diabetes mellitus) Diabetes mellitus intermediate insulin use: without terminal operator use Diabetes mellitus complication status: without complication Qualified Code(s): E11.9 - Type 2 diabetes mellitus without complications (2) Acute bronchitis Bronchitis organism: other organism Qualified Code(s): J20.8 - Acute bronchitis due to other specified organisms
[2018-04-14] MEDS: HEPARIN SOD 5,000 UNIT/0.5 ML VIAL SQ SCH ×3 (05:51→21:34)
[2018-04-14 07:08] LABS: BUN Creatinine Ratio 33.4 (10-20); Calcium 9.2 mg/dl (8.5-10.1); Creatinine Clr Calc Pharmacy 49.2 ml/min; Est GFR (African American) 47.7; Est GFR (Non-African American) 41.2; Potassium 4.1 mmol/L (3.5-5.1)
[2018-04-14] MEDS: DIPYRIDAMOLE 25 MG TAB PO SCH ×3 (08:52→20:40)
[2018-04-14] MEDS: CARVEDILOL 6.25 MG TAB PO SCH ×2 (08:53→20:40)
[2018-04-14] MEDS: SACUBITRIL-VALSARTAN 24-26 MG TAB PO SCH ×2 (08:53→20:40)
[2018-04-14] MEDS: ASPIRIN 81 MG ECTAB PO SCH (08:53)
[2018-04-14] MEDS: DOXYCYCLINE HYCLATE 100 MG CAP PO SCH ×2 (08:53→20:40)
[2018-04-14] MEDS: INSULIN ASPART 100 UNITS/ML 3 ML PEN SC SCH ×4 (08:54→20:38)
[2018-04-14] MEDS ORDERED: BUMETANIDE 2 MG in SYRINGE 0 ML IV SCH (09:00)
--- NOTE | 2018-04-14 11:56 | Cardiology Progress Note ---
Date of Service April 14, 2018 He denies any chest pain chest pressure chest heaviness. He denies any shortness of breath although he still appears slightly short of breath talking in sentences. He denies any lower extremity edema. He denies any increased abdominal distention. He did not sleep with his CPAP last night unfortunately. Next He describes being back to his baseline compared to his admission last week. My concern is he may not be doing very much at home. Physical Exam 2 Vital Signs (Past 24 Hours): Last Vital Signs Temp 36.3 C L 04/14/18 11:49 Pulse 85 04/14/18 11:49 Resp 18 04/14/18 11:49 BP 94/61 L 04/14/18 11:49 Pulse Ox 92 04/14/18 11:49 Assessment & Plan (1) Heart failure, systolic, with acute decompensation: Mr. 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 Please note that last Cardiac Catheterization 09/22/2002 showed an atrectic CASAS graft to Ramus, and Sequential SVG to Diagonal and OM was occluded. Recommend the following: -- Continue Coreg to 6.25 mg bid. --Continue Entresto 24/26 mg bid. -- Continue IV Bumex -- Monitor daily I&O's, body weights. -- Monitor daily BMP. (2) severe ischemic cardia myopathy -- Titrate Coreg and Entresto as HR and BP allow following discharge. (3) CAD, multiple vessel: No angina pectoris or evidence of an acute coronary event. -- Continue Coreg. -- Continue Aspirin daily. -- Continue SL NTG as needed. I would continue with aggressive medical therapy. He did not salt load at home when he went home part of the issue may be that he did not have his CPAP the evening he went home to sleep with in his chair. Additionally I discussed with him he is 29 years out from bypass surgery likely all of his grafts are down and it is quite possible that his his rosebud vessels are all occluded as well. If he continues to have heart failure symptoms that are uncontrollable I would consider repeat cardiac catheterization to define his coronary anatomy. This will help long-term from a prognostic standpoint. At this point I would not add spironolactone given his renal insufficiency. In addition I would try to up titrate his Entresto as an outpatient every 2-3 weeks assuming his creatinine and potassium remained stable and he has not blood pressure room. I would continue with IV Bumex 2 mg. This will be the first day he actually received Bumex. His BUN and creatinine are stable. When he goes home I would switch his Bumex to 2 mg in the morning p.o. and a milligram of n.p.o. He will need close follow-up in the [facility] office and close follow- up of his BUN and creatinine. This was discussed with the hospitalist service.
--- NOTE | 2018-04-14 20:13 | Hospitalist Progress Note ---
Date of Service April 14, 2018 Assessment & Plan (1) Acute on chronic combined systolic and diastolic CHF (congestive heart failure): Appears euvolemic today or close to such. Stop bumex after this am's dose. Continue BB. Continue entresto. Did recent prednisone lead to fluid retention causing another CHF exacerbation? Repeat BMP in am. Consider EP consultation after d/c for consideration of BiV pacer/ICD. Agree with Dr. Stephenson that underlying CAD could be contributing to CHF as well. Need for cath in the future? Appreciate Dr. Stephenson's consult. (2) CAD, multiple vessel: Cont BB, asa. Uncertain why he is not on statin therapy. Agree with cardiology that his CAD has likely progressed from prior and could be contributing to CHF; CABG was 30 years ago. Cont entresto. Also on dipyridamole due to lack of ability to pay for plavix in the past. (3) NNEKA (obstructive sleep apnea): CPAP at HS. (4) T2DM (type 2 diabetes mellitus): control acceptable. continue novolog sliding scale. (5) Chronic kidney disease, stage 3a: creatinine continues to be stable. BMP in am. (6) Acute bronchitis: finish doxycycline course. defer on prednisone given lack of wheezing and possible contributor to CHF exacerbation. hoarse voice is likely due to viral laryngitis. symptomatic care. (7) DVT prophylaxis: heparin 5000 TID cleared by PT, OT to return home hopefully home tomorrow Subjective patient feeling better. main complaint is hoarse voice. no dyspnea. no cough. denies orthopnea. office records reviewed -- patient's weight on 04/04/18 was 254 pounds. he is unsure of home weights. family at bedside with multiple questions. Constitutional: no fever Ear, Nose, Mouth, Throat: + hoarseness; no nasal congestion Respiratory: no cough and no dyspnea Cardiovascular: no chest pain and no dyspnea at rest Physical Exam 2 Vital Signs (Past 24 Hours): Last Vital Signs Temp 36.6 C 04/14/18 19:59 Pulse 86 04/14/18 19:59 Resp 20 04/14/18 19:59 BP 114/72 04/14/18 19:59 Pulse Ox 94 04/14/18 19:59 Constitutional: well developed and well nourished; no acute distress ENMT: external ear and nose normal, oropharynx normal Neck: trachea midline, no thyromegaly Respiratory: normal respiratory effort, lungs clear to auscultation Cardiovascular: Rate/Rhythm: regular rate and regular rhythm Heart Sounds: normal S1 and normal S2 Vessels: posterior tibial pulses present and dorsalis pedis pulses present; no JVD Extremities: no edema Gastrointestinal (Abdomen): normal bowel sounds, soft, nontender, no hepatosplenomegaly Psychiatric: A+Ox3, euthymic affect Results & Data Laboratory Results Laboratory Results - last 24 hr 04/13/18 04/14/18 04/14/18 20:54 06:31 07:44 Sodium 134 L Potassium 4.1 Chloride 98 Carbon Dioxide 30 Anion Gap 6.0 BUN 54 H Creatinine 1.62 H Est Cr Clr Drug Dosing 49.2 Est GFR ( Amer) 47.7 Est GFR (Non-Af Amer) 41.2 BUN/Creatinine Ratio 33.4 H Glucose 127 H POC Glucose 122 H 119 H Calcium 9.2 04/14/18 04/14/18 11:08 16:23 Sodium Potassium Chloride Carbon Dioxide Anion Gap BUN Creatinine Est Cr Clr Drug Dosing Est GFR ( Amer) Est GFR (Non-Af Amer) BUN/Creatinine Ratio Glucose POC Glucose 98 129 H Calcium _ (1) T2DM (type 2 diabetes mellitus) 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
[2018-04-15] MEDS: HEPARIN SOD 5,000 UNIT/0.5 ML VIAL SQ SCH (05:35)
[2018-04-15 06:00] LABS: Hematocrit (blood only) 53.3 % (42-52); Hemoglobin 18.1 g/dL (14.0-18.0); Mean Corpuscular Volume 94.3 fL (80-100); Mean Platelet Volume 10.7 fL (7.4-10.4); Platelet Count 251 K/uL (130-400); RDW Coefficient of Variation 14.9 % (11.5-14.5); Red Blood Count 5.65 M/uL (4.7-6.1); White Blood Count 17.88 K/uL (4.8-10.8)
[2018-04-15 06:21] LABS: BUN Creatinine Ratio 35.1 (10-20); Calcium 9.1 mg/dl (8.5-10.1); Creatinine Clr Calc Pharmacy 53.2 ml/min; Est GFR (African American) 52.4; Est GFR (Non-African American) 45.2
[2018-04-15] MEDS: DOXYCYCLINE HYCLATE 100 MG CAP PO SCH (08:41)
[2018-04-15] MEDS: CARVEDILOL 6.25 MG TAB PO SCH (08:41)
[2018-04-15] MEDS: ASPIRIN 81 MG ECTAB PO SCH (08:42)
[2018-04-15] MEDS: DIPYRIDAMOLE 25 MG TAB PO SCH (08:42)
[2018-04-15] MEDS: SACUBITRIL-VALSARTAN 24-26 MG TAB PO SCH (08:42)
[2018-04-15] MEDS: INSULIN ASPART 100 UNITS/ML 3 ML PEN SC SCH ×2 (08:43→10:53)
--- NOTE | 2018-04-15 09:28 | Cardiology Progress Note ---
Date of Service April 15, 2018 Assessment & Plan (1) Heart failure, systolic, with acute decompensation: Mr. 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 Please note that last Cardiac Catheterization 09/22/2002 showed an atrectic CASAS graft to Ramus, and Sequential SVG to Diagonal and OM was occluded. Suspect that his progressive LV systolic dysfunction -- I suspect that over time his viable LV segments were unable to keep up to demand (hypertension, untreated NNEKA, obesity, etc) and their contractility gradually declined. However if patient has recurrent exacerbations of CHF -- would consider left heart catheterization and coronary angiography as he is 29 years post CABG. Recommend the following: -- Continue Coreg to 6.25 mg bid. -- Continue Entresto 24/26 mg bid. -- Send home Bumex 2 mg daily and prn. -- Monitor daily I&O's, body weights. -- Monitor daily BMP. -- FOLLOW UP AT [facility] ON Sunday04/18/2018 AT 10:30 AM WITH LOUISE FRIED PA-C. (2) Cardiomyopathy: As stated above. -- Titrate Coreg and Entresto as HR and BP allow following discharge. -- Bumex 2 mg daily and prn. (3) CAD, multiple vessel: No angina pectoris or evidence of an acute coronary event. -- Continue Coreg. -- Continue Aspirin daily. -- Continue SL NTG as needed. -- Begin Atorvastatin 40 mg daily. Supervising Physician Co-Signing Physician Notes Salazar Roberto MD Patient seen and examined. Agree with above. Subjective Mr. 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 He is doing very well currently. He has a negative fluid balance of 2.34 L, and his breathing is at baseline. He was able to sleep lying down flat last (with CPAP) -- and he did not have any orthopnea or pnd. He has been ambulating without exertional dyspnea or angina pectoris. His voice is still raspy but cough has mostly resolved. Physical Exam 2 Vital Signs (Past 24 Hours): Last Vital Signs Temp 36.3 C L 04/15/18 07:32 Pulse 80 04/15/18 08:00 Resp 18 04/15/18 07:32 BP 117/75 04/15/18 07:32 Pulse Ox 98 04/15/18 07:32 Physical Exam: General: Patient in no acute distress. HEENT: Head is atraumatic, normocephalic. EOMs intact. Sclerae anicteric. Facies symmetric. No perioral cyanosis. Neck: No JVD. Carotid upstrokes +2 bilaterally without bruits. JVP is at the level of the clavicle sitting upright. Chest and Lungs: Clear to auscultation throughout all lung sheriff. CVS: S1 and S2 are regular with a grade 1/6 apical holosystolic murmur. No obvious diastolic murmurs, gallops, or rubs. PMI is nonpalpable. No lifts, heaves, or thrills. No abdominal aortic or renal bruits. Abdominal Exam: Bowel sounds present. No masses, organomegaly, or tenderness. Extremities: No clubbing or cyanosis. No edema. Intact radial pulses bilaterally. Neurologic Exam: Patient is awake, alert, and oriented. Pleasant and cooperative. Answers questions appropriately. Normal movement in all 4 extremities. Gait pattern was not assessed. Results & Data Laboratory Results Laboratory Results - last 24 hr 04/14/18 04/14/18 04/14/18 11:08 16:23 20:16 WBC RBC Hgb Hct MCV MCH MCHC RDW Std Deviation RDW Coeff of Tasha Plt Count MPV Sodium Potassium Chloride Carbon Dioxide Anion Gap BUN Creatinine Est Cr Clr Drug Dosing Est GFR ( Amer) Est GFR (Non-Af Amer) BUN/Creatinine Ratio Glucose POC Glucose 98 129 H 115 H Calcium TSH 04/15/18 04/15/18 04/15/18 05:33 05:33 07:43 WBC 17.88 H RBC 5.65 Hgb 18.1 H Hct 53.3 H MCV 94.3 MCH 32.0 MCHC 34.0 RDW Std Deviation 51.0 H RDW Coeff of Tasha 14.9 H Plt Count 251 MPV 10.7 H Sodium 131 L Potassium 4.0 Chloride 95 L Carbon Dioxide 30 Anion Gap 6.0 BUN 53 H Creatinine 1.50 H Est Cr Clr Drug Dosing 53.2 Est GFR ( Amer) 52.4 Est GFR (Non-Af Amer) 45.2 BUN/Creatinine Ratio 35.1 H Glucose 110 H POC Glucose 120 H Calcium 9.1 TSH 3.290 Medications Administered Active Medications Generic Name Dose Route Start Last Admin Trade Name Freq PRN Reason Stop Dose Admin Acetaminophen 650 mg 04/12/18 14:36 Tylenol PO 05/12/18 14:35 Q4H PRN Pain or Fever Al Hydrox/Mg Hydrox/Simethicone 15 ml 04/12/18 14:36 Maalox PO 05/12/18 14:35 Q4H PRN Dyspepsia Aspirin 81 mg 04/13/18 09:00 04/15/18 08:42 Ecotrin Ectab PO 05/13/18 08:59 81 mg QAM HAJA Administration Carvedilol 6.25 mg 04/12/18 21:00 04/15/18 08:41 Coreg PO 05/12/18 20:59 Not Given BID HAJA Dextrose 25 - 50 ml 04/12/18 14:49 Dextrose 50% IV 05/12/18 14:48 UD PRN Hypoglycemia Protocol Protocol Dipyridamole 150 mg 04/12/18 20:00 04/15/18 08:42 Persantine PO 05/12/18 19:59 150 mg BID@0800,2000 HAJA Administration Dipyridamole 75 mg 04/12/18 17:00 04/14/18 17:27 Persantine PO 05/12/18 16:59 75 mg DAILY@1400 HAJA Administration Doxycycline Hyclate 100 mg 04/12/18 21:00 04/15/18 08:41 Vibramycin PO 04/19/18 20:59 100 mg BID HAJA Administration Glucagon 1 mg 04/12/18 14:49 Glucagen IM 05/12/18 14:48 UD PRN Hypoglycemia Protocol Protocol Glucose 15 - 30 gm 04/12/18 14:49 Glucose 40% PO 05/12/18 14:48 UD PRN Hypoglycemia Protocol Protocol Glucose 4 - 8 tabs 04/12/18 14:49 Dex4 Glucose PO 05/12/18 14:48 UD PRN Hypoglycemia Protocol Protocol Heparin Sodium (Porcine) 5,000 units 04/12/18 16:00 04/15/18 05:35 Heparin Sodium (Porcine) SQ 05/12/18 15:59 5,000 units Q8 HAJA Administration Bumetanide 2 mg/ Syringe 8 mls @ 4 mls/min 04/14/18 09:00 04/14/18 08:54 IV 05/14/18 08:59 4 mls/min DAILY HAJA Administration Insulin Aspart 0 units 04/12/18 16:30 04/15/18 08:43 Novolog Flexpen SC 05/12/18 16:29 Not Given ACHS HAJA Magnesium Hydroxide 30 ml 04/12/18 14:36 Milk Of Magnesia PO 05/12/18 14:35 Q12H PRN Constipation Menthol 1 melinda 04/13/18 13:45 Nice BUCCAL 05/13/18 13:44 Q1H PRN Cough Miscellaneous 15 - 30 gm 04/12/18 14:49 Carbohydrates For Hypoglycemia PO 05/12/18 14:48 UD PRN Hypoglycemia Treatment Morphine Sulfate 2 mg 04/12/18 14:36 Morphine Sulfate IV 04/26/18 14:35 Q30M PRN Chest Pain Nitroglycerin 0.4 mg 04/12/18 14:36 Nitrostat SL 05/12/18 14:35 UD PRN Chest Pain Ondansetron HCl 4 mg 04/12/18 14:36 Zofran IV 05/12/18 14:35 Q6H PRN Nausea Sacubitril/Valsartan 1 tab 04/12/18 21:00 04/15/18 08:42 Entresto 24/26mg PO 05/12/18 20:59 1 tab BID HAJA Administration
--- NOTE | 2018-04-15 10:09 | Discharge Summary ---
Date of Service April 15, 2018 Admission HPI Per Admitting Provider 72 y/o M hx HTN, HLD, CAD, NNEKA, gout, obese, DM II, systolic CHF - 20%. The pt was admitted the prior week for CHF exacerbation and a URI. He was DCd 04/11. He returns with progressive SOB and exhibited hypoxia and moderate respiratory distress requiring BiPAP on arrival. Initial imaging and clinical exam are consistent with pulmonary edema. He denies CP, a productive cough or fevers. He denies dietary indiscretion or missed medication dosages, although he was prescribed Entresto to start today and had not yet taken it. Initial labs are notable for MARIBELL and leukocytosis which may be owing to an ongoing steroid taper prescribed for bronchitis. PMH: 1) systolic CHF - EF 20-25% 03/2018 2) Morbidly obese 3) NNEKA - has not yet complied with CPAP 4) CAD - 5V CABG - cath in 2002 revvealed 2 occluded grafts including CASAS to LAD and 1st diagonal 5) DM II 6) HTN 7) HLD - statin-intolerant 8) Gout Surgical: CABG 5 vessel Social: Does not drink or smoke - lives with family Family: DM, HTN Admission Exam Per Admitting Provider General: Obese, eldelry male, AAO x 3 - pt is relatively comfortable with BiPAP ENT: No erythema or exudates, no thrush Eyes: SHELDON, EOMI Head and neck: Normocephalic, atraumatic, No JVD, neck is supple. Chest/heart: Nontender, S1,2, RRR, no murmurs, no gallops Lungs: Crackles are present BL to mid lungs Abdomen: Nontender, nondistended, BS+ Neuro: AAO x 3, speech is clear, no unilateral weakness or loss of sensation, coordination intact Musculoskeletal: No joint inflammation, muscle tenderness, FROM Skin: No acute rashes or ulcers Extremities: No clubbing, cyanosis - minimal edema Principal Diagnosis Acute on chronic systolic and diastolic heart failure Discharge Exam Constitutional WD/WN, vitals as above Eyes PERRL, conjunctivae normal, anicteric sclerae ENMT external ear and nose normal, oropharynx normal Neck trachea midline, no thyromegaly Respiratory normal respiratory effort, lungs clear to auscultation (no rales, good air flow in bases of lungs) Cardiovascular RRR, no murmur, no edema Vessels: no JVD Gastrointestinal (Abdomen) normal bowel sounds, soft, nontender, no hepatosplenomegaly Musculoskeletal no cyanosis or clubbing, extremities motor strength 5/5 Skin no rashes, warm and dry Neurologic patellar DTR's 2+ bilat, sensation intact and PERRL, EOMI, accommodation nl, no face palsy, no dysarthria Psychiatric A+Ox3, euthymic affect Lymphatic no cervical or axillary lymphadenopathy Discharge Data Allergies Allergy/AdvReac Type Severity Reaction Status Date / Time No Known Allergies Allergy Unknown Verified 04/12/18 11:25 Consultations 04/12/18 11:17 ED Decision to Admit Stat 04/12/18 14:36 Consult Cardiology Routine Hospital Course (1) Acute on chronic combined systolic and diastolic CHF (congestive heart failure): examines euvolemic on day of discharge, lungs clear, no peripheral edema according to I/O, he is negative 2.5 liters for admission will continue Bumex on discharge, will recommend 2mg in the morning, 1mg in afternoon this replaces Lasix should check BMP this week, his Cr has been tolerating Bumex, 1.4-1.6 rang, 1.5 on day of discharge continue Coreg 6.25mg BID, Entresto may try to titrate up on Entresto if BP allows follow up with heart failure clinic on 04/18 heart failure instructions provided while inpatient, there was discussion about evaluating for biventricular pacer, consider repeat heart cath in near future (2) CAD, multiple vessel: Cont BB, asa, dipyridamole (cannot tolerate Plavix) Not on statin therapy due to severe myopathy in the past Agree with cardiology that his CAD has likely progressed from prior and could be contributing to CHF; CABG was 30 years ago. could consider repeat cath as outpatient to define extent of his CAD, could clarify his prognosis (3) NNEKA (obstructive sleep apnea): CPAP at HS he is instructed that he needs to use this to offload heart at night (4) T2DM (type 2 diabetes mellitus): resume Metformin on discharge, diabetic diet (5) Chronic kidney disease, stage 3a: Cr stable between 1.4-1.6 on Bumex Cr is 1.5 on day of discharge recommend repeat level in a week while on Bumex (6) Acute bronchitis: finish doxycycline course lungs are clear, no wheezing hoarse voice is likely due to viral laryngitis. symptomatic care. (7) DVT prophylaxis: heparin 5000 TID cleared by PT, OT to return home Total Time Total Time Spent Total Time Spent (In Minutes): 35 minutes Total Time Includes: Examination of the Patient, Discharge Planning, Medication Reconciliation, Communication With Other Providers (Linus Pang with cardiology) and Other (spoke with patient's over the phone) Discharge Plan Discharge Items Patient Disposition: Home - Self-Care Reason For Visit: CHF EXACERATION Discharge Diagnosis: Acute on chronic systolic heart failure Condition: Good Discharge Goals: Improve disease control and Improve function Activity: Resume your previous activity Lifting: None Bathing: No limitations Exercise/Sports: Gradually increase as tolerated Driving/Machine Use: No limitations Non-emergency contact: Primary Care Provider and Fertilizer Supervisor Call non-emergency contact if: you have any medication questions, your symptoms worsen and you have a fever Follow-up/Referrals: Jamari Barclay MD [Primary Care Provider] - 04/16/18 3:15 pm (Please, follow up with Dr. Jamari Barclay on SundayApril 16 at 3:15 pm. *If you need to change this appointment, call the office at [phone].) Louise Koengi PA-C [Physician] - 04/18/18 10:30 am (Please, follow up at [facility]iology Office with Louise Koenig PA-C on April 18 at 10:30 am. *This office is located in [address] of [facility] - the big building next to this [facility]. If you need to change this appointment, call the office at [phone].) Diet: Carb Consistent or DM2 and Heart Healthy Fluids: 1500ml (6 cups) Addtl Provider Instructions: Medications: - BUMEX: new diuretic medication to help control volume, take 2mg in the morning and 1mg in the afternoon this replaces Lasix, should stop Lasix - DOXYCYCLINE: complete 4 more doses for mild bronchitis Acute on chronic combined systolic and diastolic heart failure improved with Bumex IV, removed 2.3 liters of fluid main change in medication is switching Lasix to Bumex for better effect you will need to follow fluid restriction, 1.5 liters of fluid daily, this includes everything you drink follow a low salt diet, no more than 2 grams a day, look at packaging labels step on scale every morning (after you urinate, before you eat breakfast) and record your weight if your weight goes up by 2-3 lbs total then you need to call your PCP or intermodal customer service for instructions take all of your medications as prescribed cardiology has discussed possible evaluation for biventricular pacemaker, possible heart cath this will determined further as outpatient FOLLOW UP AT [facility] ON Sunday04/18/2018 AT 10:30 AM WITH LOUISE KOENIG PA-C. Call 911 and go to the Emergency Room if: * You have tightness or pain in your chest that does not go away with rest or Nitroglycerin * You are very short of breath even with rest Call your doctor if any of the following symptoms or problems start or get worse: * Shortness of breath or difficulty breathing * Wake up at night short of breath * Chest pain * Cough * Swelling of your hands, fee, or legs * More fatigued or tired with your normal activity * Palpitations - sudden fast heart beats WEIGHT * Weigh yourself every morning after using the bathroom. * Use the same scale. * Wear the same amount of clothing. * Write your weight down on your chart. * Call your doctor if you gain more than 2-3 pounds in 1-2 days. MEDICATIONS * Use this discharge instruction sheet for instructions. * Take your medications at the time your doctor ordered. * Do not skip a dose of your medicines. * If you miss a dose of medicine, take as soon as possible, but DO NOT DOUBLE A DOSE. * Read your medicine information when you get home. * Know all of the side effects of your medicine. * Call your doctor's office if you have any side effects. * Be sure all of your doctors know what medicine and herbs you take (including cold, flu, and herbal medicine). * Pain Medicine: If you do not get relief from your pain, please call your doctor for help. Take the following with you to your follow-up doctor appointments: * Weight Chart * Medication List * List of questions Do not drink excessive alcohol, beer or wine. Prescriptions: New doxycycline hyclate 100 mg Capsule 100 mg PO BID 2 Days Qty: 4 RF: 0 bumetanide 2 mg tablet 2 mg PO DAILY Qty: 30 RF: 3 bumetanide 1 mg tablet 1 mg PO QPM Qty: 30 RF: 3 Continue allopurinol 100 mg Tablet 100 mg PO DAILY RF: 0 aspirin [Aspir-81] 81 mg Tablet,Delayed Release (Dr/Ec) 81 mg PO QAM RF: 0 dipyridamole 75 mg Tablet 75 mg PO 5XD RF: 0 nitroglycerin [Nitrostat] 0.4 mg Tablet, Sublingual 0.4 mg Sublingual DIRECTED PRN (Reason: Chest Pain) RF: 0 metformin 750 mg Tablet Extended Release 24 Hr 750 mg PO QDD RF: 0 carvedilol 6.25 mg Tablet 6.25 mg PO BID Qty: 30 RF: 1 sacubitril-valsartan [Entresto] 24-26 mg tablet 1 tab PO BID 28 Days Qty: 56 RF: 0 Discontinued prednisone 20 mg tablet See Label Instructions .ROUTE .COMPLEX Qty: 4 RF: 0 furosemide [Lasix] 20 mg Tablet 40 mg PO QAM Qty: 30 RF: 1 Visit Report Forms: My [facility] Portal Stand-Alone Forms: [facility] Discharge Orders: Discharge Order (Routine); Ordered 04/15/18 Ordered By: Edwin Marrufo Admission Data Admit Date/Time: 04/12/18 11:58 Attending Provider: Edwin Marrufo Admit Provider: Dariel Simms Primary Care Provider: Jamari Barclay Other Providers: Dariel Simms ; Salazar Roberto Service: Telemetry
== END 2018-04-15 12:59 | disposition home or self-care (01) | DRG 291 ==
LOC: ED 09:31 → SUATTDRO 11:58 → 2N 11:58

== ENCOUNTER 2018-04-25 23:21 | Inpatient (IN) ==
[2018-04-25 23:55] LABS: Basophils # (auto) 0.02 K/uL (0-0.2); Basophils % (auto) 0.1 %; Eosinophils # (auto) 0.14 K/uL (0-0.5); Eosinophils % (auto) 0.7 %; Hematocrit (blood only) 48.9 % (42-52); Hemoglobin 16.5 g/dL (14.0-18.0); Immature Granulocytes # (auto) 0.09 K/uL (0.00-0.02); Immature Granulocytes % (auto) 0.5 %; Lymphocytes # (auto) 1.48 K/uL (1.2-3.4); Lymphocytes % (auto) 7.4 %; Mean Corpuscular Hgb Conc 33.7 g/dL (32-36); Mean Corpuscular Volume 91.6 fL (80-100); Mean Platelet Volume 11.1 fL (7.4-10.4); Neutrophils # (auto) 17.47 K/uL (1.4-6.5); Neutrophils % (auto) 87.3 %; Platelet Count 188 K/uL (130-400); RDW Coefficient of Variation 14.3 % (11.5-14.5); RDW Standard Deviation 48.4 fL (36.4-46.3); Red Blood Count 5.34 M/uL (4.7-6.1)
[2018-04-26 00:27] LABS: Alanine Aminotransferase 34 U/L (12-78); Albumin Globulin Ratio 0.4 (0.9-2); Albumin Level 2.6 gm/dl (3.4-5.0); Alkaline Phosphatase 98 U/L (45-117); Aspartate Aminotransferase 36 U/L (15-37); BUN Creatinine Ratio 20.2 (10-20); Bilirubin,Total 0.9 mg/dl (0.2-1); Blood Urea Nitrogen 28 mg/dl (7-18); Calcium 9.2 mg/dl (8.5-10.1); Carbon Dioxide 25 mmol/L (21-32); Chloride 100 mmol/L (98-107); Creatinine Clr Calc Pharmacy 58.2 ml/min; Est GFR (African American) 58.5; Est GFR (Non-African American) 50.4; Globulin 5.8 gm/dl (2.5-4.0); Glucose 132 mg/dl (70-99); NT Pro B Type Natriuretic Pept 1756 pg/ml (0-900); Potassium 5.1 mmol/L (3.5-5.1); Sodium 132 mmol/L (136-145); Total Protein 8.4 gm/dl (6.4-8.2); Troponin I < 0.015 ng/ml (0-0.045)
[2018-04-26] MEDS ORDERED: SODIUM CHLORIDE 0.9% 500 ML IV ONE (00:29)
[2018-04-26] MEDS ORDERED: LEVOFLOXACIN/D5W 750 MG/150 ML BAG IV STA (00:48)
--- NOTE | 2018-04-26 02:07 | History & Physical Report ---
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 Outpatient stress echocardiogram performed 04/17/2017 found ejection fraction back to baseline 40%. Recently admitted to [facility] from 04/07/2018 to 04/11/18 with hypoxic respiratory failure, bronchitis. He was found to be in acute decompensated CHF. Diuresed with lasix. Repeat echocardiogram during that admission showed severe global LV dysfunction with EF of 20-25%, a significant decline from his previous echo that was done in 2011. Carvedilol was increased to 6.25 mg BID. Losartan was converted to Entresto 24/26 mg BID. Has history of NNEKA, and was not able to use his CPAP for several years due to his mask not fitting well. Fitted with a mask and used CPAP, improved clinically, with weaning of his O2 to room air. Then presented to ED the following day, 04/12/18, complaining of progressive shortness of breath. He presented with hypoxia and moderate respiratory distress requiring BiPAP on arrival. He was given a dose of IV Lasix and had improvement in his symptoms. Re-admitted for further diuresis and lasix was ordered every 8 hours. He was later converted to IV Bumex in attempts of improved diuresis. Discharged on Bumex 2 mg PO q am and 1 q pm on 04/15/18. Seen in outpatient cardiac rehab earlier today, and according to their notes his daily dose of Bumex changed to 1 mg tablet, with 1 extra milligram tablet to be taken should his trigger weight be hit which is 238.-- 235lb is his dry weight. Presents today at 238 lbs. he has not taken any extra Bumex and was not aware he is supposed to. Says this morning he felt well and then later this afternoon, began coughing a lot. So much so that he could not catch his breath in between. He says he was told to return to the hospital should he have trouble breathing and so he came. I asked him about his weight, he says he weighed himself today and was 239 pounds. He says he has weighed 239 pounds for the past several days. He says he has not taken any extra doses of Bumex. He says he has not been told to do so. Has also only been wearing his CPAP may be 1-2 hours per night since discharge, and 2 nights ago did not wear it at all and slept 6-7 hours. He says this is the most he has slept in a long time. While in the ED patient was observed to cough up thick sputum, this has been sent for culture. Labs are remarkable for elevated white cell count, neutrophilia. Otherwise unremarkable , creatinine improved from discharge date. Afebrile. Cough, pneumonia in setting of mild hypoxia, NNEKA -leukocytosis with neutrophilia -CT c/w atypical pneumonia vs possible HAP given 2 recent admissions -requiring 2L O2 in ED Plan: -will treat empirically for HAP with vanc, zosyn, levaquin -MRSA swab pending -urine, blood cultures drawn in ED -O2 as needed -CPAP qhs FEN/GI: received 1L bolus in ED. Will DVT ppx: lovenox CODE STATUS: FULL as discussed with pt DISPO: Tele. Other ongoing medical problems: T2DM: -well controlled, last A1c 04/08/18=6.2 -ISS. Hold home metformin. 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 Outpatient stress echocardiogram performed 04/17/2017 found ejection fraction back to baseline 40%. Recently admitted to [facility] from 04/07/2018 to 04/11/18 with hypoxic respiratory failure, bronchitis. He was found to be in acute decompensated CHF. Diuresed with lasix. Repeat echocardiogram during that admission showed severe global LV dysfunction with EF of 20-25%, a significant decline from his previous echo that was done in 2011. Carvedilol was increased to 6.25 mg BID. Losartan was converted to Entresto 24/26 mg BID. Has history of NNEKA, and was not able to use his CPAP for several years due to his mask not fitting well. Fitted with a mask and used CPAP, improved clinically, with weaning of his O2 to room air. Then presented to ED the following day, 04/12/18, complaining of progressive shortness of breath. He presented with hypoxia and moderate respiratory distress requiring BiPAP on arrival. He was given a dose of IV Lasix and had improvement in his symptoms. Re-admitted for further diuresis and lasix was ordered every 8 hours. He was later converted to IV Bumex in attempts of improved diuresis. Discharged on Bumex 2 mg PO q am and 1 q pm on 04/15/18. Seen in outpatient cardiac rehab -- 235lb is his dry weight. Presents today at 238 lbs. Says this morning he felt well and then later this afternoon, began coughing a lot. So much so that he could not catch his breath in between. He says he was told to return to the hospital should he have trouble breathing and so he came. I asked him about his weight, he says he weighed himself today and was 239 pounds. He says he has weighed 239 pounds for the past several days. He says he has not taken any extra doses of Bumex. He says he has not been told to do so. Has only been wearing his CPAP may be 1-2 hours per night since discharge, and 2 nights ago did not wear it at all and slept 6-7 hours. He says this is the most he has slept in a long time. While in the ED patient was observed to cough up thick sputum, this has been sent for culture. Labs are remarkable for elevated white cell count, neutrophilia. Otherwise unremarkable, creatinine improved from discharge date. Afebrile. Allergies Allergy/AdvReac Type Severity Reaction Status Date / Time No Known Allergies Allergy Unknown Verified 04/26/18 01:03 Home Medications Home Medications Medication Instructions Recorded Confirmed Type allopurinol 100 mg PO DAILY 04/07/18 04/26/18 History aspirin [Aspir-81] 81 mg PO QAM 04/07/18 04/26/18 History metformin 750 mg PO QDD 04/07/18 04/26/18 History nitroglycerin [Nitrostat] 0.4 mg SUBLINGUAL DIRECTED PRN 04/07/18 04/26/18 History carvedilol 6.25 mg PO BID #30 tab 04/10/18 04/26/18 Rx sacubitril-valsartan [Entresto] 1 tab PO BID 28 Days #56 tab 04/10/18 04/26/18 Rx bumetanide 1 mg PO QAM 04/26/18 04/26/18 History dipyridamole 75 mg PO . EVERY AFTERNOON 04/26/18 04/26/18 History dipyridamole 150 mg PO AMPM 04/26/18 04/26/18 History Past Med/Surg History Medical History CAD, multiple vessel Cardiomyopathy NNEKA (obstructive sleep apnea) History of gout T2DM (type 2 diabetes mellitus) Bronchitis Coronary artery bypass grafts x 5 (Resolved 10/19/11) Acute respiratory failure with hypoxia Elevated serum globulin level Family History Other Diabetes HTN (hypertension) Social History Current Living Situation: Spouse Current Living Situation Comment: lives at home with Feels Safe at Home: Yes Smoking Status: Never smoker Hx Alcohol Use: No Hx Substance Use: No Beliefs That Will Affect Care: None Preferred Language: Persian Review of Systems All systems reviewed & are unremarkable except as noted in HPI & below (denies fevers, chills, abdominal pain, diarrhea, constipation, bloody stools, hematuria , lower extremity weakness or calf pain. ) Physical Exam 2 Vital Signs (Past 24 Hours): Last Vital Signs Temp 36.4 C L 04/25/18 23:23 Pulse 105 H 04/26/18 01:31 Resp 27 H 04/26/18 01:31 BP 102/60 04/26/18 01:31 Pulse Ox 95 04/26/18 01:31 Physical Exam: Vitals noted as above and within normal limits. GENERAL: Awake, alert, tired-appearing, in no distress. Nontoxic. HENT: Normocephalic, atraumatic. Nasal cannula in place. EYES: Normal conjunctiva. Sclera non-icteric. EOMI. NECK: Supple. Full range of motion. No JVD RESPIRATORY: Slight crackles at the bases. CARDIAC: Regular rate, normal rhythm. Extremities warm and well perfused. Pulses equal. ABDOMEN: Soft, non-distended. No tenderness to palpation. No rebound or guarding. No masses. Bowel sounds are normal. LOWER EXTREMITIES: Calves are equal size bilaterally and non-tender. No edema. No discoloration. NEURO: No gross focal motor deficits noted. SKIN: Rash not present. No jaundice noted. Results & Data Laboratory Results 04/26/18 04/26/18 04/25/18 Range/Units 03:10 00:23 23:46 WBC (4.8-10.8) K/uL RBC (4.7-6.1) M/uL Hgb (14.0-18.0) g/dL Hct (42-52) % MCV (80-100) fL MCH (25-34) pg MCHC (32-36) g/dL RDW Std Deviation (36.4-46.3) fL RDW Coeff of Tasha (11.5-14.5) % Plt Count (130-400) K/uL MPV (7.4-10.4) fL Immature Gran % (Auto) % Neut % (Auto) % Lymph % (Auto) % [place] % (Auto) % Eos % (Auto) % Baso % (Auto) % Immature Gran # (Auto) (0.00-0.02) K/uL Neut # (Auto) (1.4-6.5) K/uL Lymph # (Auto) (1.2-3.4) K/uL [place] # (Auto) (0.11-0.59) K/uL Eos # (Auto) (0-0.5) K/uL Baso # (Auto) (0-0.2) K/uL PT INR APTT PTT Ratio Sodium (136-145) mmol/L Potassium (3.5-5.1) mmol/L Chloride (98-107) mmol/L Carbon Dioxide (21-32) mmol/L Anion Gap (3-11) BUN (7-18) mg/dl Creatinine (0.6-1.4) mg/dl Est Cr Clr Drug Dosing ml/min Est GFR ( Amer) Est GFR (Non-Af Amer) BUN/Creatinine Ratio (10-20) Glucose (70-99) mg/dl POC Lactic Acid Elliot 1.26 (0.90-1.70) mmol/L Calcium (8.5-10.1) mg/dl Total Bilirubin (0.2-1) mg/dl AST (15-37) U/L ALT (12-78) U/L Alkaline Phosphatase (45-117) U/L POC Troponin I 0.04 (0-0.045) ng/ml Troponin I (0-0.045) ng/ml NT-Pro-B Natriuret Pep (0-900) pg/ml Total Protein (6.4-8.2) gm/dl Albumin (3.4-5.0) gm/dl Globulin (2.5-4.0) gm/dl Albumin/Globulin Ratio (0.9-2) Specimen Hemolysis Urine Color Pending Urine Appearance Pending Urine pH Pending Ur Specific [place] Pending Urine Protein Pending Urine Glucose (UA) Pending Urine Ketones Pending Urine Blood Pending Urine Nitrite Pending Urine Bilirubin Pending Urine Urobilinogen Pending Ur Leukocyte Esterase Pending 04/25/18 04/25/18 04/25/18 Range/Units 23:40 23:40 23:40 WBC 20.00 H (4.8-10.8) K/uL RBC 5.34 (4.7-6.1) M/uL Hgb 16.5 (14.0-18.0) g/dL Hct 48.9 (42-52) % MCV 91.6 (80-100) fL MCH 30.9 (25-34) pg MCHC 33.7 (32-36) g/dL RDW Std Deviation 48.4 H (36.4-46.3) fL RDW Coeff of Tasha 14.3 (11.5-14.5) % Plt Count 188 (130-400) K/uL MPV 11.1 H (7.4-10.4) fL Immature Gran % (Auto) 0.5 % Neut % (Auto) 87.3 % Lymph % (Auto) 7.4 % [place] % (Auto) 4.0 % Eos % (Auto) 0.7 % Baso % (Auto) 0.1 % Immature Gran # (Auto) 0.09 H (0.00-0.02) K/uL Neut # (Auto) 17.47 H (1.4-6.5) K/uL Lymph # (Auto) 1.48 (1.2-3.4) K/uL Sterling # (Auto) 0.80 H (0.11-0.59) K/uL Eos # (Auto) 0.14 (0-0.5) K/uL Baso # (Auto) 0.02 (0-0.2) K/uL PT Cancelled INR Cancelled APTT Cancelled PTT Ratio Cancelled Sodium 132 L (136-145) mmol/L Potassium 5.1 (3.5-5.1) mmol/L Chloride 100 (98-107) mmol/L Carbon Dioxide 25 (21-32) mmol/L Anion Gap 7.0 (3-11) BUN 28 H (7-18) mg/dl Creatinine 1.37 (0.6-1.4) mg/dl Est Cr Clr Drug Dosing 58.2 ml/min Est GFR ( Amer) 58.5 Est GFR (Non-Af Amer) 50.4 BUN/Creatinine Ratio 20.2 H (10-20) Glucose 132 H (70-99) mg/dl POC Lactic Acid Elliot (0.90-1.70) mmol/L Calcium 9.2 (8.5-10.1) mg/dl Total Bilirubin 0.9 (0.2-1) mg/dl AST 36 (15-37) U/L ALT 34 (12-78) U/L Alkaline Phosphatase 98 (45-117) U/L POC Troponin I (0-0.045) ng/ml Troponin I < 0.015 (0-0.045) ng/ml NT-Pro-B Natriuret Pep 1756 H (0-900) pg/ml Total Protein 8.4 H (6.4-8.2) gm/dl Albumin 2.6 L (3.4-5.0) gm/dl Globulin 5.8 H (2.5-4.0) gm/dl Albumin/Globulin Ratio 0.4 L (0.9-2) Specimen Hemolysis Urine Color Urine Appearance Urine pH Ur Specific [place] Urine Protein Urine Glucose (UA) Urine Ketones Urine Blood Urine Nitrite Urine Bilirubin Urine Urobilinogen Ur Leukocyte Esterase Medications Administered 750 mg Levaquin IV, 1 L saline bolus given in the ED. Supervising Physician Co-Signing Physician Notes Pt seen/examined in conjunction with resident Esteban Todd. Orders and plan of admission formulated with resident. 72 y/o M hx HTN, HLD, CAD, NNEKA, gout, obese, DM II, systolic CHF - 20%. 2 recent admissions for CHF exacerbation. Presenting with congestion and a productive cough. Could not confirm fevers. Initial labs revealed a WBC count of 20. XR was clear so that we opted for a CT chest to r/o PNM which would require HCAP treatment. CT returned + for a RUL infiltrate. The pt exhibited mild hypoxia in the ER. OE AAO x 3 S1,2 R - borderline tachy CTA - no audible crackles or wheezing NT, ND No CC - no current edema No deficits P: PNM - Initiate treatment for HCAP - PRN Nebs, 02 protocol CHF - cont Entresto, Bumex, Coreg DM - placed on a SS CAD - no evidence of ACS - EKG is abnormal but not appear significantly changed - cont ASA, Coreg, PRN NTG Resident Activity Tracking Resident Involvement: Resident Care Provided Care Provided: [facility] Medicine _ (1) T2DM (type 2 diabetes mellitus) Chronic kidney disease stage: Diabetes mellitus complication detail: Diabetes mellitus complication status: without complication Diabetes mellitus group home insulin use: 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
[2018-04-26 03:25] LABS: Appearance Urine Cloudy (Clear); Bacteria Urine Automated Negative (Negative); Color Urine Dark Yellow; Epithelial Cell Urine Auto >30 /lpf (0-5); Glucose Urine UA Negative (Negative); Ketones Urine 1+ (Negative); Leukocyte Esterase Urine Trace (Negative); Nitrite Urine Negative (Negative); Protein Urine Trace (Negative); Specific Gravity Urine 1.025 (1.000-1.030); Urobilinogen Urine Negative (Negative)
[2018-04-26] MEDS ORDERED: BUMETANIDE 1 MG TAB PO ONE (03:32)
[2018-04-26] MEDS ORDERED: BUMETANIDE 1 MG TAB ONE (03:53)
[2018-04-26 03:56] LABS: Bilirubin Urine Negative (Negative); Ictotest Urine Negative (Negative)
--- NOTE | 2018-04-26 05:46 | Emergency Department Note ---
Entered by Allan Shahid acting as a scribe for History of Present Illness General Chief complaint: Respiratory Problems Stated complaint: TROUBLE BREATHING, COUGHING Time Seen by Provider: 04/25/18 23:27 Source: patient History of Present Illness Provider complaint: Respiratory problems Onset (ago): hour(s) (This afternoon) Location: chest Radiation: non-radiation Pain Consistency: + other (Worsening) Associated symptoms: + cough, + nausea/vomiting (One episode of vomiting but no current nausea), + shortness of breath and + other (Rhinorrhea, no abdominal pain, ); no chest pain, no fever/chills and no headaches The patient is a 72 year old male who presents to the Emergency Room with complaints of worsening shortness of breath and cough that started this afternoon. He has also had persistent rhinorrhea as of late. The cough is productive with clear phlegm and earlier today he coughed so hard that he vomited. The patient was here earlier this month for similar symptoms but has been following up with his bottle booth attendant since. His last follow up was this morning and he was told everything looks good. He denies any fever, chills, abdominal pain, nausea, headaches, or chest pain but he does have an extensive cardiac history. He had a myocardial infarction when he was 44 years old and had 5 bypass procedures done at that time. This was the last myocardial infarction that he had. He did mention that he recently doubled his Coreg medication and was started on Entresto. He also had to be taken off of his Bumex last week but went back on it earlier this week, two days ago. Home Medications Home Medications Medication Instructions Recorded Confirmed Type allopurinol 100 mg PO DAILY 04/07/18 04/26/18 History aspirin [Aspir-81] 81 mg PO QAM 04/07/18 04/26/18 History metformin 750 mg PO QDD 04/07/18 04/26/18 History nitroglycerin [Nitrostat] 0.4 mg SUBLINGUAL DIRECTED PRN 04/07/18 04/26/18 History carvedilol 6.25 mg PO BID #30 tab 04/10/18 04/26/18 Rx sacubitril-valsartan [Entresto] 1 tab PO BID 28 Days #56 tab 04/10/18 04/26/18 Rx bumetanide 1 mg PO QAM 04/26/18 04/26/18 History dipyridamole 75 mg PO . EVERY AFTERNOON 04/26/18 04/26/18 History dipyridamole 150 mg PO AMPM 04/26/18 04/26/18 History Allergies Allergy/AdvReac Type Severity Reaction Status Date / Time No Known Allergies Allergy Unknown Verified 04/26/18 01:03 Past Med/Surg History Medical History CAD, multiple vessel Cardiomyopathy NNEKA (obstructive sleep apnea) History of gout T2DM (type 2 diabetes mellitus) Bronchitis Coronary artery bypass grafts x 5 (Resolved 10/19/11) Acute respiratory failure with hypoxia Elevated serum globulin level Family History Other Diabetes HTN (hypertension) Social History Current Living Situation: Spouse Current Living Situation Comment: lives at home with Feels Safe at Home: Yes Smoking Status: Never smoker Hx Alcohol Use: No Hx Substance Use: No Beliefs That Will Affect Care: None Preferred Language: Portuguese Review of Systems See HPI for pertinent positives & negatives. and A total of 10 systems reviewed and were otherwise negative Physical Exam Vital Signs Vital Signs - 24 hr 04/25/18 23:23 04/25/18 23:34 04/25/18 23:40 Temperature 36.4 C L Temperature Source Oral Sepsis Recent Fever Within 48 Hours No Sepsis Action Taken by Nursing No Action Required Pulse Rate 114 H 110 H Respiratory Rate 20 27 H 34 H Respiratory Effort / Characteristics Non-Labored Spontaneous Respiratory Depth Normal Blood Pressure 105/69 Blood Pressure Mean 81 Pulse Oximetry 93 91 Oxygen Delivery Method Room Air Oxygen Flow Rate 04/25/18 23:52 04/26/18 00:00 04/26/18 00:20 Temperature Temperature Source Sepsis Recent Fever Within 48 Hours Sepsis Action Taken by Nursing Pulse Rate 111 H 108 H 110 H Respiratory Rate 31 H 31 H 34 H Respiratory Effort / Characteristics Respiratory Depth Blood Pressure 94/63 L Blood Pressure Mean 73 Pulse Oximetry 93 92 91 Oxygen Delivery Method Room Air Oxygen Flow Rate 04/26/18 00:34 04/26/18 00:40 04/26/18 01:00 Temperature Temperature Source Sepsis Recent Fever Within 48 Hours Sepsis Action Taken by Nursing Pulse Rate 110 H 106 H 104 H Respiratory Rate 28 H 29 H 30 H Respiratory Effort / Characteristics Respiratory Depth Blood Pressure 99/63 L 99/69 L Blood Pressure Mean 75 79 Pulse Oximetry 92 91 94 Oxygen Delivery Method Nasal Cannula Oxygen Flow Rate 2 04/26/18 01:20 04/26/18 01:31 04/26/18 01:32 Temperature Temperature Source Sepsis Recent Fever Within 48 Hours Sepsis Action Taken by Nursing Pulse Rate 105 H 105 H 104 H Respiratory Rate 28 H 27 H 25 H Respiratory Effort / Characteristics Respiratory Depth Blood Pressure 102/60 Blood Pressure Mean 74 Pulse Oximetry 94 95 96 Oxygen Delivery Method Nasal Cannula Oxygen Flow Rate 04/26/18 01:40 04/26/18 02:00 04/26/18 02:20 Temperature Temperature Source Sepsis Recent Fever Within 48 Hours Sepsis Action Taken by Nursing Pulse Rate 106 H 101 H 103 H Respiratory Rate 24 26 H 27 H Respiratory Effort / Characteristics Respiratory Depth Blood Pressure 105/68 Blood Pressure Mean 80 Pulse Oximetry 95 95 96 Oxygen Delivery Method Nasal Cannula Oxygen Flow Rate 04/26/18 02:30 04/26/18 02:40 04/26/18 03:11 Temperature Temperature Source Sepsis Recent Fever Within 48 Hours Sepsis Action Taken by Nursing Pulse Rate 103 H 100 H Respiratory Rate 27 H 26 H 20 Respiratory Effort / Characteristics Respiratory Depth Blood Pressure 107/76 Blood Pressure Mean 86 Pulse Oximetry 96 95 Oxygen Delivery Method Nasal Cannula Oxygen Flow Rate 04/26/18 03:20 04/26/18 03:31 04/26/18 03:40 Temperature Temperature Source Sepsis Recent Fever Within 48 Hours Sepsis Action Taken by Nursing Pulse Rate 104 H 98 H 100 H Respiratory Rate 19 23 27 H Respiratory Effort / Characteristics Respiratory Depth Blood Pressure 107/65 Blood Pressure Mean 79 Pulse Oximetry 96 89 L Oxygen Delivery Method Oxygen Flow Rate 04/26/18 04:00 04/26/18 04:20 04/26/18 04:40 Temperature Temperature Source Sepsis Recent Fever Within 48 Hours Sepsis Action Taken by Nursing Pulse Rate 97 H 97 H 96 H Respiratory Rate 29 H 26 H 27 H Respiratory Effort / Characteristics Respiratory Depth Blood Pressure 110/62 Blood Pressure Mean 78 Pulse Oximetry 92 92 92 Oxygen Delivery Method Oxygen Flow Rate HEENT: Head - normocephalic and atraumatic Pupils are equal, round, and reactive to light. Extraocular eye muscles are intact, and sclera are anicteric. Nose - moist nasal mucosa without discharge. Mouth - moist buccal mucosa. Oropharynx is nonerythematous and there is no tonsillar exudate or edema noted. Neck: Supple; no JVD, nuchal rigidity, cervical lymphadenopathy, or auscultated bruits. Heart: Regular rate and rhythm. There is a normal S1 and S2 with no murmurs, clicks, or gallops appreciated. Lungs: No wheezes or rhonchi. Rales noted in bilateral lung bases. Abdomen: Soft, completely nontender, nondistended, with good bowel sounds. There are no palpable pulsatile masses or hepatosplenomegaly. There is no guarding, rigidity, or rebound noted. Extremities: No evidence of cyanosis, or clubbing. There are easily palpable peripheral pulses. Trace bilateral pedal edema. Skin: warm and dry with good turgor and no rashes. Course 2330: Past medical records reviewed. The patient was evaluated in room B09, and a complete history and physical examination were performed. The patient was observed on the order administrator and pulse oximeter. Laboratory studies were drawn as above. A 12-lead EKG was obtained. Patient had a portable chest x- ray as described above. 0010: The patient's O2 saturation was decreasing on room air so he was hooked up to 2L NC. 0029: I ordered Sodium Chloride 500mls @ 999mls/hr IV. The patient had a significantly elevated white blood cell count and a septic protocol was performed. 0045: I reevaluated the patient and he feels better on the oxygen. I also was able to see his sputum from his cough and it was a thick, yellow color so I am ordering a sputum culture and antibiotics. 0048: I ordered Levaquin/Dextrose 750mg in 150mls @ 100mls/hr IV 0107: I spoke to Dr. Demi Short [facility] Hospitalist about the patient's case and he is going to accept him for further evaluation. Consultations Consultation #1: I spoke to Dr. Simms [facility] Hospitalist about the patient's case and he is going to accept him for further evaluation. Time: 01:07 Administered Medications Discontinued Medications Bumetanide (Bumex) Confirm Administered Dose 1 mg .ROUTE .STK-MED ONE Stop: 04/26/18 03:54 Last Admin: 04/26/18 03:54 Dose: 1 mg Sodium Chloride (Nss) 500 mls @ 999 mls/hr IV .Q31M ONE Stop: 04/26/18 00:59 Last Infusion: 04/26/18 01:05 Dose: 0 mls/hr Admin: 04/26/18 00:35 Dose: 999 mls/hr Levofloxacin/Dextrose (Levaquin/D5w) 750 mg in 150 mls @ 100 mls/hr IV NOW STA Stop: 04/26/18 02:17 Last Infusion: 04/26/18 02:26 Dose: 0 mls/hr Admin: 04/26/18 00:53 Dose: 100 mls/hr Medical Decision Making Differential Diagnosis The patient is a 72 year old male who presents to the ED with worsening shortness of breath and cough that started this afternoon. Differential diagnosis includes CHF, pneumonia, bronchitis, cardiac ischemia, and sepsis, amongst others. Medical Records Attestation: I reviewed the patient's medical records. Home Medications Current Medication List: was personally reviewed by me Laboratory Data Attestation: I reviewed the patient's lab results. Result diagrams: 04/25/18 23:40 04/25/18 23:40 Lab Results 04/25/18 04/25/18 04/25/18 Range/Units 23:40 23:40 23:40 WBC 20.00 H (4.8-10.8) K/uL RBC 5.34 (4.7-6.1) M/uL Hgb 16.5 (14.0-18.0) g/dL Hct 48.9 (42-52) % MCV 91.6 (80-100) fL MCH 30.9 (25-34) pg MCHC 33.7 (32-36) g/dL RDW Std Deviation 48.4 H (36.4-46.3) fL RDW Coeff of Tasha 14.3 (11.5-14.5) % Plt Count 188 (130-400) K/uL MPV 11.1 H (7.4-10.4) fL Immature Gran % (Auto) 0.5 % Neut % (Auto) 87.3 % Lymph % (Auto) 7.4 % Will % (Auto) 4.0 % Eos % (Auto) 0.7 % Baso % (Auto) 0.1 % Immature Gran # (Auto) 0.09 H (0.00-0.02) K/uL Neut # (Auto) 17.47 H (1.4-6.5) K/uL Lymph # (Auto) 1.48 (1.2-3.4) K/uL Will # (Auto) 0.80 H (0.11-0.59) K/uL Eos # (Auto) 0.14 (0-0.5) K/uL Baso # (Auto) 0.02 (0-0.2) K/uL PT Cancelled INR Cancelled APTT Cancelled PTT Ratio Cancelled Sodium 132 L (136-145) mmol/L Potassium 5.1 (3.5-5.1) mmol/L Chloride 100 (98-107) mmol/L Carbon Dioxide 25 (21-32) mmol/L Anion Gap 7.0 (3-11) BUN 28 H (7-18) mg/dl Creatinine 1.37 (0.6-1.4) mg/dl Est Cr Clr Drug Dosing 58.2 ml/min Est GFR ( Amer) 58.5 Est GFR (Non-Af Amer) 50.4 BUN/Creatinine Ratio 20.2 H (10-20) Glucose 132 H (70-99) mg/dl POC Lactic Acid Elliot (0.90-1.70) mmol/L Calcium 9.2 (8.5-10.1) mg/dl Total Bilirubin 0.9 (0.2-1) mg/dl AST 36 (15-37) U/L ALT 34 (12-78) U/L Alkaline Phosphatase 98 (45-117) U/L POC Troponin I (0-0.045) ng/ml Troponin I < 0.015 (0-0.045) ng/ml NT-Pro-B Natriuret Pep 1756 H (0-900) pg/ml Total Protein 8.4 H (6.4-8.2) gm/dl Albumin 2.6 L (3.4-5.0) gm/dl Globulin 5.8 H (2.5-4.0) gm/dl Albumin/Globulin Ratio 0.4 L (0.9-2) Specimen Hemolysis Urine Color Urine Appearance (Clear) Urine pH (4.5-7.5) Ur Specific [place] (1.000-1.030) Urine Protein (Negative) Urine Glucose (UA) (Negative) Urine Ketones (Negative) Urine Blood (Negative) Urine Nitrite (Negative) Urine Bilirubin (Negative) Urine Urobilinogen (Negative) Ur Leukocyte Esterase (Negative) Urine WBC (Auto) (0-5) /hpf Urine RBC (Auto) (0-4) /hpf U Hyaline Cast (Auto) (0-5) /lpf U Epithel Cells (Auto) (0-5) /lpf Urine Bacteria (Auto) (Negative) 04/25/18 04/26/18 04/26/18 Range/Units 23:46 00:23 03:10 WBC (4.8-10.8) K/uL RBC (4.7-6.1) M/uL Hgb (14.0-18.0) g/dL Hct (42-52) % MCV (80-100) fL MCH (25-34) pg MCHC (32-36) g/dL RDW Std Deviation (36.4-46.3) fL RDW Coeff of Tasha (11.5-14.5) % Plt Count (130-400) K/uL MPV (7.4-10.4) fL Immature Gran % (Auto) % Neut % (Auto) % Lymph % (Auto) % Will % (Auto) % Eos % (Auto) % Baso % (Auto) % Immature Gran # (Auto) (0.00-0.02) K/uL Neut # (Auto) (1.4-6.5) K/uL Lymph # (Auto) (1.2-3.4) K/uL Will # (Auto) (0.11-0.59) K/uL Eos # (Auto) (0-0.5) K/uL Baso # (Auto) (0-0.2) K/uL PT INR APTT PTT Ratio Sodium (136-145) mmol/L Potassium (3.5-5.1) mmol/L Chloride (98-107) mmol/L Carbon Dioxide (21-32) mmol/L Anion Gap (3-11) BUN (7-18) mg/dl Creatinine (0.6-1.4) mg/dl Est Cr Clr Drug Dosing ml/min Est GFR ( Amer) Est GFR (Non-Af Amer) BUN/Creatinine Ratio (10-20) Glucose (70-99) mg/dl POC Lactic Acid Elliot 1.26 (0.90-1.70) mmol/L Calcium (8.5-10.1) mg/dl Total Bilirubin (0.2-1) mg/dl AST (15-37) U/L ALT (12-78) U/L Alkaline Phosphatase (45-117) U/L POC Troponin I 0.04 (0-0.045) ng/ml Troponin I (0-0.045) ng/ml NT-Pro-B Natriuret Pep (0-900) pg/ml Total Protein (6.4-8.2) gm/dl Albumin (3.4-5.0) gm/dl Globulin (2.5-4.0) gm/dl Albumin/Globulin Ratio (0.9-2) Specimen Hemolysis Urine Color Dark Yellow Urine Appearance Cloudy H (Clear) Urine pH 5.0 (4.5-7.5) Ur Specific [place] 1.025 (1.000-1.030) Urine Protein Trace H (Negative) Urine Glucose (UA) Negative (Negative) Urine Ketones 1+ H (Negative) Urine Blood Trace H (Negative) Urine Nitrite Negative (Negative) Urine Bilirubin Negative (Negative) Urine Urobilinogen Negative (Negative) Ur Leukocyte Esterase Trace H (Negative) Urine WBC (Auto) 5-10 H (0-5) /hpf Urine RBC (Auto) 10-30 H (0-4) /hpf U Hyaline Cast (Auto) 10-30 H (0-5) /lpf U Epithel Cells (Auto) >30 H (0-5) /lpf Urine Bacteria (Auto) Negative (Negative) Imaging Data Attestation: I personally reviewed and interpreted this imaging study as follows : My Impression: X ray results are stated below per my interpretation: Chest: 1 view: Cardiomegaly noted. Significant improvement in CHF compared to . No obvious consolidation. ECG Data Attestation: I personally reviewed and interpreted this ECG as follows: Indication: SOB/dyspnea Rate (beats per minute): 111 Rhythm: sinus tachycardia Findings: + 1st degree AV block, + ST depression (Leads 1, aVL, V1, V2), + T- wave inversion (Lateral and anterior leads) and + ST elevation (Leads 2, 3, and aVF) Comparison ECG Date: from () Change: no significant change Blood Pressure Blood Pressure Findings: Low blood pressure Blood Pressure Disposition: further management by hospitalist JOSE Narrative The patient is a 72 year old male who presents to the ED with worsening shortness of breath and cough that started this afternoon. The patient has an extensive history of congestive heart failure. He was recently hospitalized for this. He saw his bottle booth attendant this morning and had a normal checkup at that time. Later this afternoon, the patient developed this productive cough. Chest x-ray was unremarkable today here in the emergency department. However, the patient became hypoxic. EKG shows some significant abnormalities but was unchanged from previous EKGs. He had no associated chest discomfort. The case was discussed with the [facility] Hospitalist and they will evaluate for further management. Impression & Plan Hypoxia Discharge Plan Visit Data *Final* Discharge Date/Time: 04/26/18 04:58 Chief Complaint: Respiratory Problems Stated Complaint: TROUBLE BREATHING, COUGHING ED Provider: Zenia Elder Discharge Problem: Hypoxia Patient Disposition: Admitted As Inpatient Discharge Instructions Interventions: ED Discharge Assessment Last Done: 04/26/18 04:58 The loriibe's documentation has been prepared under my direction and personally reviewed by me in its entirety. I confirm that the note above accurately reflects all work, treatment, procedures, and medical decision making performed by me.
[2018-04-26] MEDS ORDERED: DEXTROSE 50% 50 ML SYRINGE IV PRN (05:52)
[2018-04-26] MEDS ORDERED: GLUCOSE 40% GEL 15 GM TUBE PO PRN (05:52)
[2018-04-26] MEDS ORDERED: ALUMINUM/MAGNESIUM SUSP 30 ML UDC PO PRN (05:52)
[2018-04-26] MEDS ORDERED: VANCOMYCIN CONSULT ACTIVE PRN (05:52)
[2018-04-26] MEDS ORDERED: NITROGLYCERIN SL 0.4 MG/TAB TAB SL PRN (05:52)
[2018-04-26] MEDS ORDERED: PIPERACILL/TAZOBAC CONSULT ACTIVE PRN (05:52)
[2018-04-26] MEDS ORDERED: CARBOHYDRATES FOR HYPOGLYCEMIA PO PRN (05:52)
[2018-04-26] MEDS ORDERED: POLYETHYLENE (MIRALAX) 17 GM PACK PO PRN (05:52)
[2018-04-26] MEDS ORDERED: GLUCOSE 10 TABS/TUBE PO PRN (05:52)
[2018-04-26] MEDS ORDERED: MAGNESIUM HYDROXIDE SUSP 30 ML UDC PO PRN (05:52)
[2018-04-26] MEDS ORDERED: GLUCAGON FOR INJ 1 MG VIAL SQ PRN (05:52)
[2018-04-26] MEDS ORDERED: ACETAMINOPHEN 325 MG TAB PO PRN (05:52)
[2018-04-26] MEDS ORDERED: VANCOMYCIN HCL 2,250 MG in SODIUM CHLORIDE 0.9% 500 ML IV ONE (06:15)
[2018-04-26] MEDS ORDERED: PIPERACILLIN/TAZOBACTAM 4.5 GM in DEXTROSE 5% 100 ML IV ONE (06:15)
--- NOTE | 2018-04-26 06:44 | XRay Report ---
XR chest 1V portable CLINICAL HISTORY: Dyspnea COMPARISON STUDY: 04/12/2018 FINDINGS: The cardiac and sternal contours remain stable. There is no focal pulmonary consolidation. There are postsurgical changes of midline sternotomy. There is no failure. There are no pleural effus ions.[ IMPRESSION: No active disease in the chest. Electronically signed by: Jason Tanner M.D. 04/26/2018 6:43 AM
--- NOTE | 2018-04-26 06:58 | CT Scan Report ---
CT chest wo con CLINICAL HISTORY: cough COMPARISON STUDY: CT angiogram of the chest dated 04/07/2018 CT DOSE: 895.79 mGy.cm TECHNIQUE: CT of the thorax was performed from the thoracic inlet to the lung bases. Images are revi ewed in the axial, sagittal, and coronal planes. IV contrast was not administered for this examinatio n. A dose lowering technique was utilized adhering to the principles of ALARA. FINDINGS: Thyroid: Imaged portions of the thyroid gland are normal in appearance. Thoracic aorta: The thoracic aorta is normal in course and caliber, noting standard 3 vessel arch jorge barbara. Heart: There are coronary artery calcifications. There is no pericardial effusion. There are postsurg ical changes of a midline sternotomy and presumed coronary artery bypass grafting Lungs and pleural spaces: There is pulmonary emphysema. There are multiple bilateral scattered calcif ied granulomas. There is a stable noncalcified 3 mm right upper lobe pulmonary nodule. There is a sta ble noncalcified 2.5 mm left upper lobe pulmonary nodule. There is right upper lobe micronodularity/m iliary pattern. Mediastinum: There are persistent enlarged mediastinal lymph nodes. An index precarinal lymph node me asures 25 x 16 mm. There is a 19 x 15 mm subcarinal lymph node. Alcira: Hilar lymph nodes are the upper limits of normal in size Axilla: There is no evidence of pathologic axillary lymphadenopathy Upper abdomen: Cholelithiasis Skeletal structures: There are no lytic or blastic osseous lesions. IMPRESSION: 1. Pulmonary emphysema 2. No evidence of acute parenchymal consolidation 3. Persistent mediastinal lymphadenopathy 4. Right upper lobe nodularity/miliary pattern. An atypical infection cannot be excluded. Other consi derations include sarcoidosis, pneumoconiosis, and metastatic disease. Electronically signed by: Jason Tanner M.D. 04/26/2018 6:57 AM
[2018-04-26 08:08] LABS: INR 1.2 (0.9-1.1); Prothrombin Time 12.2 Seconds (9.0-12.0)
[2018-04-26 08:35] LABS: Creatinine Clr Calc Pharmacy 52.7 ml/min; Est GFR (African American) 52.4; Est GFR (Non-African American) 45.2
[2018-04-26] MEDS: INSULIN ASPART 100 UNITS/ML 3 ML PEN SC SCH ×4 (08:59→21:06)
[2018-04-26] MEDS: BUMETANIDE 1 MG TAB PO SCH (09:00)
[2018-04-26] MEDS: ASPIRIN 81 MG ECTAB PO SCH (09:00)
[2018-04-26] MEDS: ENOXAPARIN INJ 40 MG/0.4 ML SYR SQ SCH (09:01)
[2018-04-26] MEDS: SACUBITRIL-VALSARTAN 24-26 MG TAB PO SCH ×2 (09:01→21:05)
[2018-04-26] MEDS: CARVEDILOL 6.25 MG TAB PO SCH ×2 (09:01→21:05)
[2018-04-26] MEDS: DIPYRIDAMOLE 25 MG TAB PO SCH ×3 (09:01→21:05)
[2018-04-26] MEDS: ALLOPURINOL 100 MG TAB PO SCH (09:01)
[2018-04-26] MEDS: PIPERACILLIN/TAZOBACTAM 3.375 GM in DEXTROSE 5% 100 ML IV SCH ×2 (14:07→21:14)
--- NOTE | 2018-04-26 15:35 | Pharmacy Report ---
Pharmacy Abx Initial Consult - Date of Service April 26, 2018 - Pharmacy Dosing Scope Date of Consult: 04/26/18 Consultation requested by: Dr. Todd Pharmacy is consulted to initiate vancomycin, levofloxacin, and Zosyn IV dosing therapy, order appropriate labs and adjust drug dose/frequency. - Subjective The patient is a 72 year old M admitted on 04/26/18 04:32. - Objective Height: 5 ft 10 in Weight: 106.1 kg Vital Signs (Past 12hrs): Vital Signs Temp Pulse Pulse Resp BP BP BP 04/26/18 12:14 36.5 C 78 16 94/59 L 04/26/18 08:00 93 H 04/26/18 07:05 36.4 C L 89 18 100/65 04/26/18 05:10 36.6 C 101 H 18 93/52 L 04/26/18 04:40 96 H 27 H 04/26/18 04:20 97 H 26 H 04/26/18 04:00 97 H 29 H 110/62 04/26/18 03:40 100 H 27 H 04/26/18 03:31 98 H 23 107/65 Pulse Ox 04/26/18 12:14 93 04/26/18 08:00 04/26/18 07:05 91 04/26/18 05:10 96 04/26/18 04:40 92 04/26/18 04:20 92 04/26/18 04:00 92 04/26/18 03:40 04/26/18 03:31 89 L Lab Results (24hrs): Laboratory Tests (24 Hours) 04/26/18 04/25/18 04/25/18 07:44 23:40 23:40 WBC 20.00 H Neut # (Auto) 17.47 H Creatinine 1.50 H 1.37 Est Cr Clr Drug Dosing 52.7 58.2 Micro Results: 04/26/18 02:20 Gram Stain - Final Sputum, Expectorated Sputum Culture - Pending 04/26/18 00:10 Blood Culture - Pending Blood 04/26/18 00:19 Blood Culture - Pending Blood - Risk Factors for Resistance * Hospitalization for 48 hours or more within the past 90 days * Antimicrobial use within the last 90 days - Assessment & Plan Assessment 72 year old M receiving empiric vancomycin, Zosyn, and levofloxacin for treatment of possible HAP. Plan Vancomycin, levofloxacin, and Zosyn for treatment of HAP Vancomycin IV * Estimated PK Parameters: Vd 0.6 L/kg (63.7 L), Hu 0.048 hr-1, t1/2 14.4 hr * Loading dose: 2150 mg (21 mg/kg) * Maintenance dose: 1250 mg IV (12 mg/kg) every 16 hours to obtain estimated trough of approximately 18 * Goal trough level for pneumonia : 15 to 20 mcg/mL * SCr is 1.5, which appears to be around baseline * MRSA nasal swab negative - physician notified * Obtain vanco trough once at steady-state (before 4th dose or random level earlier if significant change in renal function) Piperacillin/tazobactam * 4.5 g bolus administered over 30 minutes, then 3.375 g IV extended infusion every 8 hours for CrCl greater than 20 mL/min Levofloxacin * 750 mg IV q24h is appropriate based on CrCl > 50 mL/min Culture data: * sputum gm stain reveals moderate gm + cocci and gm - bacilli * Blood culture x 2 pending Patient is afebrile, WBC: 20k Pharmacy will continue to follow and will adjust dose/frequency as necessary. Thank you.
[2018-04-27] MEDS ORDERED: VANCOMYCIN HCL 1,250 MG in SODIUM CHLORIDE 0.9% 500 ML IV SCH
[2018-04-27] MEDS: LEVOFLOXACIN/D5W 750 MG/150 ML BAG IV SCH (00:54)
[2018-04-27] MEDS: PIPERACILLIN/TAZOBACTAM 3.375 GM in DEXTROSE 5% 100 ML IV SCH ×3 (05:34→21:36)
[2018-04-27 07:28] LABS: Creatinine Clr Calc Pharmacy 58.6 ml/min; Est GFR (African American) 59.5; Est GFR (Non-African American) 51.4
[2018-04-27] MEDS: ALLOPURINOL 100 MG TAB PO SCH (07:34)
[2018-04-27] MEDS: BUMETANIDE 1 MG TAB PO SCH (07:34)
[2018-04-27] MEDS: SACUBITRIL-VALSARTAN 24-26 MG TAB PO SCH ×2 (07:35→20:42)
[2018-04-27] MEDS: ENOXAPARIN INJ 40 MG/0.4 ML SYR SQ SCH (07:36)
[2018-04-27] MEDS: ASPIRIN 81 MG ECTAB PO SCH (07:36)
[2018-04-27] MEDS: CARVEDILOL 6.25 MG TAB PO SCH ×2 (07:37→20:43)
[2018-04-27] MEDS: DIPYRIDAMOLE 25 MG TAB PO SCH ×3 (07:38→20:41)
[2018-04-27] MEDS: INSULIN ASPART 100 UNITS/ML 3 ML PEN SC SCH ×4 (07:43→20:43)
[2018-04-27] MEDS: VANCOMYCIN HCL 1,250 MG in SODIUM CHLORIDE 0.9% 250 ML IV SCH (16:16)
[2018-04-27] MEDS: LACTOBACILLUS ACIDOPHILUS (FLORANEX) TAB PO SCH ×2 (17:39→20:42)
[2018-04-28] MEDS: LEVOFLOXACIN/D5W 750 MG/150 ML BAG IV SCH (01:15)
[2018-04-28] MEDS: PIPERACILLIN/TAZOBACTAM 3.375 GM in DEXTROSE 5% 100 ML IV SCH ×2 (06:07→14:04)
[2018-04-28] MEDS ORDERED: VANCOMYCIN TROUGH ONE (07:30)
[2018-04-28 07:34] LABS: Basophils # (auto) 0.04 K/uL (0-0.2); Basophils % (auto) 0.5 %; Eosinophils # (auto) 0.32 K/uL (0-0.5); Eosinophils % (auto) 4.1 %; Hemoglobin 14.9 g/dL (14.0-18.0); Immature Granulocytes # (auto) 0.02 K/uL (0.00-0.02); Immature Granulocytes % (auto) 0.3 %; Lymphocytes # (auto) 1.19 K/uL (1.2-3.4); Lymphocytes % (auto) 15.2 %; Mean Corpuscular Hgb Conc 33.1 g/dL (32-36); Mean Corpuscular Volume 91.8 fL (80-100); Mean Platelet Volume 10.4 fL (7.4-10.4); Monocytes % (auto) 7.6 %; Neutrophils # (auto) 5.68 K/uL (1.4-6.5); Neutrophils % (auto) 72.3 %; Platelet Count 161 K/uL (130-400); RDW Coefficient of Variation 14.3 % (11.5-14.5); RDW Standard Deviation 48.5 fL (36.4-46.3); White Blood Count 7.85 K/uL (4.8-10.8)
[2018-04-28] MEDS: ALLOPURINOL 100 MG TAB PO SCH (08:01)
[2018-04-28] MEDS: BUMETANIDE 1 MG TAB PO SCH (08:01)
[2018-04-28] MEDS: VANCOMYCIN HCL 1,250 MG in SODIUM CHLORIDE 0.9% 250 ML IV SCH (08:01)
[2018-04-28] MEDS: DIPYRIDAMOLE 25 MG TAB PO SCH ×2 (08:02→14:03)
[2018-04-28] MEDS: LACTOBACILLUS ACIDOPHILUS (FLORANEX) TAB PO SCH ×2 (08:02→12:32)
[2018-04-28] MEDS: ENOXAPARIN INJ 40 MG/0.4 ML SYR SQ SCH (08:02)
[2018-04-28] MEDS: CARVEDILOL 6.25 MG TAB PO SCH (08:02)
[2018-04-28] MEDS: SACUBITRIL-VALSARTAN 24-26 MG TAB PO SCH (08:02)
[2018-04-28] MEDS: ASPIRIN 81 MG ECTAB PO SCH (08:03)
[2018-04-28] MEDS: INSULIN ASPART 100 UNITS/ML 3 ML PEN SC SCH ×2 (08:09→12:30)
[2018-04-28 08:21] LABS: BUN Creatinine Ratio 14.8 (10-20); Calcium 8.6 mg/dl (8.5-10.1); Creatinine Clr Calc Pharmacy 65.3 ml/min; Est GFR (African American) 67.9; Est GFR (Non-African American) 58.6; Potassium 4.2 mmol/L (3.5-5.1)
--- NOTE | 2018-04-28 10:40 | Hospitalist Progress Note ---
Date of Service April 27, 2018 Assessment & Plan (1) Cough: 72 yo male with PMH of Hypertension, Dyslipidemia, Type 2 DM, NNEKA, Multivessel CAD s/p CABG x 5 Vessels 1989, Ischemic Cardiomyopathy. Outpatient stress echocardiogram performed 04/17/2017 found ejection fraction back to baseline 40%. Cough, pneumonia in setting of mild hypoxia, NNEKA Patient weight is better than when he was discharged. BNP is mildly elevated. Doubt CHF. Likely aspiration pneumonitis. Patient does have leukocytosis. Will continue with current antibiotics. Patient has no fever Antiipate discharge within next 24 hours. Currenly on room air. -CT c/w atypical pneumonia vs possible HAP given 2 recent admissions Due to recent hopsital admission. will continue zosyn, levaquin Continue CPAP qhs DVT ppx: lovenox CODE STATUS: FULL as discussed with pt DISPO: Tele. Other ongoing medical problems: T2DM: -well controlled, last A1c 04/08/18=6.2 -ISS. Hold home metformin. 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 (2) T2DM (type 2 diabetes mellitus): (3) NNEKA (obstructive sleep apnea): (4) Cardiomyopathy: (5) CAD, multiple vessel: (6) Acute on chronic combined systolic and diastolic CHF (congestive heart failure): (7) Chronic kidney disease, stage 3a: (8) Coronary artery bypass grafts x 5: Subjective Patient reports feeling better today. Patient states his cough has improved. Patient is on room air. Patient denies any fever chills, nausea, vomiting. Physical Exam 2 Vital Signs (Past 24 Hours): Last Vital Signs Temp 36.4 C 04/27/18 11:00 Pulse 87 04/27/18 11:00 Resp 16 04/27/18 11:00 BP 94/62 04/27/18 11:00 Pulse Ox 97 04/27/18 11:00 Physical Exam: Vitals noted as above and within normal limits. GENERAL: Awake, alert, tired-appearing, in no distress. Nontoxic. HENT: Normocephalic, atraumatic. Nasal cannula in place. EYES: Normal conjunctiva. Sclera non-icteric. EOMI. NECK: Supple. Full range of motion. No JVD RESPIRATORY: clear to auscultation CARDIAC: Regular rate, normal rhythm. Extremities warm and well perfused. Pulses equal. ABDOMEN: Soft, non-distended. No tenderness to palpation. No rebound or guarding. No masses. Bowel sounds are normal. LOWER EXTREMITIES: Calves are equal size bilaterally and non-tender. No edema. No discoloration. NEURO: No gross focal motor deficits noted. SKIN: Rash not present. No jaundice noted. 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
--- NOTE | 2018-04-28 13:29 | XRay Report ---
XR chest 1V portable CLINICAL HISTORY: pneumonia dyspnea COMPARISON STUDY: 04/25/2018 FINDINGS: Mild stable cardia megaly. Prior median sternotomy. Diaphragms smooth. The lungs are clear. IMPRESSION: No acute process. Lungs are considered clear. The above report was generated using voice recognition software. It may contain grammatical, syntax or spelling errors. Electronically signed by: Kwadwo Castanon M.D. 04/28/2018 1:28 PM
[2018-04-28] MEDS ORDERED: VANCOMYCIN HCL 1,250 MG in SODIUM CHLORIDE 0.9% 250 ML IV SCH (20:00)
--- NOTE | 2018-04-29 10:22 | Discharge Summary ---
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 Outpatient stress echocardiogram performed 04/17/2017 found ejection fraction back to baseline 40%. Recently admitted to [facility] from 04/07/2018 to 04/11/18 with hypoxic respiratory failure, bronchitis. He was found to be in acute decompensated CHF. Diuresed with lasix. Repeat echocardiogram during that admission showed severe global LV dysfunction with EF of 20-25%, a significant decline from his previous echo that was done in 2011. Carvedilol was increased to 6.25 mg BID. Losartan was converted to Entresto 24/26 mg BID. Has history of NNEKA, and was not able to use his CPAP for several years due to his mask not fitting well. Fitted with a mask and used CPAP, improved clinically, with weaning of his O2 to room air. Then presented to ED the following day, 04/12/18, complaining of progressive shortness of breath. He presented with hypoxia and moderate respiratory distress requiring BiPAP on arrival. He was given a dose of IV Lasix and had improvement in his symptoms. Re-admitted for further diuresis and lasix was ordered every 8 hours. He was later converted to IV Bumex in attempts of improved diuresis. Discharged on Bumex 2 mg PO q am and 1 q pm on 04/15/18. Seen in outpatient cardiac rehab -- 235lb is his dry weight. Presents today at 238 lbs. Says this morning he felt well and then later this afternoon, began coughing a lot. So much so that he could not catch his breath in between. He says he was told to return to the hospital should he have trouble breathing and so he came. I asked him about his weight, he says he weighed himself today and was 239 pounds. He says he has weighed 239 pounds for the past several days. He says he has not taken any extra doses of Bumex. He says he has not been told to do so. Has only been wearing his CPAP may be 1-2 hours per night since discharge, and 2 nights ago did not wear it at all and slept 6-7 hours. He says this is the most he has slept in a long time. While in the ED patient was observed to cough up thick sputum, this has been sent for culture. Labs are remarkable for elevated white cell count, neutrophilia. Otherwise unremarkable, creatinine improved from discharge date. Afebrile. Principal Diagnosis Aspiration Pneumonia Discharge Exam Vitals noted as above and within normal limits. GENERAL: Awake, alert, tired-appearing, in no distress. Nontoxic. HENT: Normocephalic, atraumatic. Nasal cannula in place. EYES: Normal conjunctiva. Sclera non-icteric. EOMI. NECK: Supple. Full range of motion. No JVD RESPIRATORY: clear to auscultation CARDIAC: Regular rate, normal rhythm. Extremities warm and well perfused. Pulses equal. ABDOMEN: Soft, non-distended. No tenderness to palpation. No rebound or guarding. No masses. Bowel sounds are normal. LOWER EXTREMITIES: Calves are equal size bilaterally and non-tender. No edema. No discoloration. NEURO: No gross focal motor deficits noted. SKIN: Rash not present. No jaundice noted. 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 Outpatient stress echocardiogram performed 04/17/2017 found ejection fraction back to baseline 40%. Cough, pneumonia in setting of mild hypoxia, NNEKA Patient weight is better than when he was discharged. BNP is mildly elevated. Doubt CHF. Likely aspiration pneumonitis. Patient does have leukocytosis. This resolved over course of hopsital stay. Will continue with current antibiotics. Patient has no fever Currenly on room air. -CT c/w atypical pneumonia vs possible HAP given 2 recent admissions Due to recent hopsital admission. was placed zosyn, levaquin Continue CPAP qhs Patient will be discharged on augmentin. Patient was recommended by speech to no longer drink straws. A formal speech eval was not completed. If patient develops signs of coughing when dinking fluid or eating please refer him to speech as an outpatient. DVT ppx: lovenox . Other ongoing medical problems: T2DM: -well controlled, last A1c 04/08/18=6.2 -ISS. Hold home metformin. CAD, CABG x5 grafts, systolic and diastolic CHF -last stress Echo 04/17/18 showed EF %40 which is improved since last discharge -continue ASA, bumex, carvedilol, dipyridamole, Entresto -Dry weight: 235lbs -- to take 1 extra tab of Bumex per day if weight is 238lbs or more, per outpatient cardiology records CKD 3a -[employer] at baseline (2) T2DM (type 2 diabetes mellitus): (3) NNEKA (obstructive sleep apnea): (4) Cardiomyopathy: (5) CAD, multiple vessel: (6) Acute on chronic combined systolic and diastolic CHF (congestive heart failure): (7) Chronic kidney disease, stage 3a: (8) Coronary artery bypass grafts x 5: Total Time Total Time Spent Total Time Spent (In Minutes): 35 Total Time Includes: Examination of the Patient, Discharge Planning and Medication Reconciliation Discharge Plan Discharge Items Patient Disposition: Home - Self-Care Reason For Visit: PNEUMONIA Discharge Diagnosis: Pneumonia Discharge Goals: Decrease discomfort Activity: Resume your previous activity Non-emergency contact: Primary Care Provider Call non-emergency contact if: you have any medication questions Diet: Regular Addtl Provider Instructions: Followup with PCP in 1-2 weeks. Start antibiotics in the morning. Prescriptions: New levofloxacin 750 mg tablet 750 mg PO DAILY 5 Days Qty: 5 RF: 0 Continue allopurinol 100 mg Tablet 100 mg PO DAILY RF: 0 aspirin [Aspir-81] 81 mg Tablet,Delayed Release (Dr/Ec) 81 mg PO QAM RF: 0 nitroglycerin [Nitrostat] 0.4 mg Tablet, Sublingual 0.4 mg Sublingual DIRECTED PRN (Reason: Chest Pain) RF: 0 metformin 750 mg Tablet Extended Release 24 Hr 750 mg PO QDD RF: 0 carvedilol 6.25 mg Tablet 6.25 mg PO BID Qty: 30 RF: 1 sacubitril-valsartan [Entresto] 24-26 mg tablet 1 tab PO BID 28 Days Qty: 56 RF: 0 bumetanide 1 mg tablet 1 mg PO QAM RF: 0 dipyridamole 75 mg Tablet 75 mg PO . EVERY AFTERNOON RF: 0 dipyridamole 75 mg Tablet 150 mg PO AMPM RF: 0 Stand-Alone Forms: [facility] Discharge Orders: Discharge Order (Routine); Ordered 04/28/18 Ordered By: Mushtaq Wang Admission Data Admit Date/Time: 04/26/18 04:32 Attending Provider: Mushtaq Wang Admit Provider: Sandy Todd Primary Care Provider: Jamari Barclay Other Providers: Mushtaq Wang ; Dariel Simms Service: Telemetry Other Interventions: Discharge Summary Assessment (RN) Last Done: 04/28/18 15:10 DC Date/Time DO NOT enter until pt leaves facility: 04/28/18 15:48
== END 2018-04-28 15:48 | disposition home or self-care (01) | DRG 194 ==
LOC: ED 23:21 → 2S 04-26 04:32 → SUATTDRO 04-26 04:32 → 2S 04-26 04:58
DX: E11.9 Type 2 diabetes mellitus without complications; G47.33 Obstructive sleep apnea (adult) (pediatric); N18.3 Chronic kidney disease, stage 3 (moderate); I25.10 Atherosclerotic heart disease of native coronary artery without angina pectoris; Z82.49 Family history of ischemic heart disease and other diseases of the circulatory system; I13.0 Hypertensive heart and chronic kidney disease with heart failure and stage 1 through stage 4 chronic kidney disease, or unspecified chronic kidney disease; Z95.1 Presence of aortocoronary bypass graft; Z79.84 Long term (current) use of oral hypoglycemic drugs; Z79.82 Long term (current) use of aspirin; I50.40 Unspecified combined systolic (congestive) and diastolic (congestive) heart failure; Z83.3 Family history of diabetes mellitus; J18.9 Pneumonia, unspecified organism

== ENCOUNTER 2019-08-05 12:58 | Observation (INO) ==
[2019-08-05] MEDS ORDERED: fentaNYL citrate 100 MCG/2 ML VIAL ONE (14:25)
[2019-08-05] MEDS ORDERED: LIDOCAINE HCL 1% 20 ML VIAL ONE (14:25)
[2019-08-05] MEDS ORDERED: MIDAZOLAM HCL 5 MG/ML 1 ML VIAL ONE (14:25)
[2019-08-05] MEDS ORDERED: BACITRACIN OINT 0.9 GM PKT ONE (14:26)
[2019-08-05] MEDS ORDERED: CEFAZOLIN 250 MG/ML 1 GM VIAL ONE (14:26)
[2019-08-05] MEDS ORDERED: BACITRACIN INJ 50,000 UNIT VIAL ONE (14:29)
--- NOTE | 2019-08-05 14:34 | History & Physical Bridge Note ---
Date of Service August 05, 2019 History & Physical Bridge Note I have examined the patient, reviewed the History & Physical and in the interval since the performance of the History & Physical I have noted the following changes of clinical significance: no changes noted. I reviewed the indications, procedure, risks and alternatives of ICD implantation with the patient and he understands and agrees to proceed. A dual-chamber device will be used since there is a need to maintain AV synchrony. Consent for the procedure obtained. I also reviewed conscious sedation with him and he understands and agrees to proceed. Consent for sedation obtained.
--- NOTE | 2019-08-05 14:35 | Pre Anesthesia Assessment ---
Date of Service August 05, 2019 Pre Sedation Assessment Vital Signs Pulse Resp BP Pulse Ox 08/05/19 13:20 68 20 143/89 H 99 Cardiovascular RRR, no murmur, no edema Respiratory normal respiratory effort, lungs clear to auscultation Pre-Sedation Airway Assessment Smoking Status: Former smoker Hx Sleep Apnea: No Short, Thick Neck: No Thyromental Distance: > or= 3.5 Finger Breadths Oral Cavity: + WNL Mallampati Class: II ASA: ASA3 NPO Status Date of Last Intake of Fluids: 08/04/19 Time of Last Intake of Fluids: 18:00 Date of Last Intake of Solid Food: 08/04/19 Time of Last Intake of Solid Foods: 18:00 Procedure Planning Contraindications for Sedation: none Current Medications Reviewed: Yes Notes The planned sedation has been discussed with the patient. Informed Consent was obtained. I have identified the patient, determined the appropriateness of sedation and have assessed the patient immediately prior to the procedure. All medicine(s) and interventions are by my order.
--- NOTE | 2019-08-05 16:12 | Electrophysiology Report ---
Date of Service August 05, 2019 Electrophysiology Procedure Electrophysiology Procedure Report Preoperative diagnosis: Ischemic cardiomyopathy Postoperative diagnosis: Same Procedure: Dual-chamber ICD implantation Surgeon: Salazar Roberto MD Estimated blood loss: 20 cc Complications: None Disposition: Cardiology recovery Procedure details: After obtaining informed consent for the procedure, the patient was brought to the laboratory and prepped and draped in the standard sterile manner. The left prepectoral region was anesthetized with 1% lidocaine local anesthetic and left axillary venipuncture was performed by percutaneous technique and a guidewire placed through the left subclavian vein into the superior vena cava. The area was further infiltrated with 1% lidocaine local anesthetic and a 7 cm incision was made parallel to the left clavicle and 2 cm below it and carried down to the anterior pectoralis fascia. An ICD pocket was formed by blunt dissection anterior to the pectoralis fascia and a bacitracin- soaked sponge (50,000 units in 50 cc normal saline solution) was placed in the pocket. A 10.5 [place] Medtronic lead introducer was placed over the guidewire into the left subclavian vein, the dilator and guidewire were removed and a bipolar dual coil active fixation steroid tipped ventricular ICD lead was advanced through the introducer into the superior vena cava. A guidewire was placed through the introducer and the introducer was stripped from the lead and guidewire. An 8 [place] Medtronic lead introducer was placed over the guidewire into the left subclavian vein, the dilator and guidewire were removed and a bipolar active fixation steroid tipped atrial lead was advanced through the introducer into the superior vena cava. A guidewire was placed back through the introducer and the introducer was stripped from the lead and guidewire. Using a curved stylette the ventricular lead was advanced through the right ventricular outflow tract into the pulmonary artery and then using a straight stylette was positioned in the right ventricular apex. The screw was extended fixing the lead in position. Pacing and sensing thresholds were evaluated in bipolar configuration and are recorded on the implant data sheet. Using a curved stylette the atrial lead was positioned in the region of the atrial appendage and the screw extended fixing the lead in position. Pacing and sensing thresholds were evaluated in bipolar configuration and are recorded on the implant data sheet. Once the leads were in position they were attached to the anterior pectoralis fascia using 2 sutures of 2-0 silk around each lead collar. The bacitracin- soaked sponge was removed from the pocket, hemostasis was obtained, the ICD was attached to the leads and placed in the pocket with the leads coiled beneath it. The incision was closed with a running double subcutaneous closure of 3-0 Vicryl absorbable suture, followed by running subcuticular skin closure of 4-0 Vicryl absorbable suture. Bacitracin ointment was placed on the incision and a dressing applied. [facility] [place] codes Indication for Procedure (1) Cardiomyopathy: ICD Procedure 1: ICD: 26463 Insert single or dual ICD system PG Moderate Sedation Codes Moderate Sedation Codes Procedure 1: Sedation/Anesthesia: 64363 Mod Sedation by the same physician;Init15 Min Child Age 5 & Up Procedure 2: Sedation/Anesthesia: 26489 Mod Sedation by the same physician; Ea [id number] Minutes
[2019-08-05] MEDS ORDERED: KETOROLAC TROMETHAMINE 10 MG TABLET PO PRN (16:25)
[2019-08-05] MEDS ORDERED: ACETAMINOPHEN PO PRN (16:27)
[2019-08-05] MEDS ORDERED: NITROGLYCERIN SL 0.4 MG/TAB TAB SL PRN (16:27)
--- NOTE | 2019-08-05 16:53 | Post Anesthesia Assessment ---
Date of Service August 05, 2019 Post Sedation Assessment Vital Signs Pulse Resp BP Pulse Ox 08/05/19 16:28 74 16 147/71 H 94 08/05/19 16:16 77 20 152/75 H 96 08/05/19 13:20 68 20 143/89 H 99 Recovery Score Activity: Moves 4 extremities Respiration: Deep Breath/Cough Circulation: +/-20% PreAnes Value Consciousness: Fully Awake Oxygen Saturation: > 92% On Room Air Post Anesthesia Score: 10 Discharge Sedation Level of Care: Fast Track Phase II Post Sedation Plan On clinical assessment, the patient appears to have tolerated the sedation without complications. Patient is recovering as anticipated. Patient will continue to be monitored by nursing and may be discharged when sedation discharge criteria are met per below protocol. Upon Completions of procedure up to 15 minutes continue every 5 minute vital signs and the P.A.R. score; then discharge to a Phase I or Fast Track to Phase II per the following guidelines: * Discharge Patient to appropriate Phase II area if PAR is 8 or greater or return to pre- procedure baseline. The post - procedure orders will be as directed. * If PAR score is less than 8 or not return to pre-procedure baseline then patient will follow Phase I monitoring till PAR is reached for Phase II. The Phase I may be done in procedure room or may call to secure a Phase I area. * If naloxone or flumazenil are used for reversal, hold in Phase I for continued monitoring from when last reversal dose was given for a minimum of 60 minutes or longer pending the nurse and/or physician discretion of patient condition before discharge to Phase II. Please call the Sedation Physician to re-evaluate and complete post-note for discharge to Phase II area. Do NOT discharge from procedure sedation or Phase 1 until post- sedation evaluation note is complete by procedure /sedation MD Sedation Discharge Instructions to be given to the patient at discharge to home.
[2019-08-05] MEDS: SACUBITRIL-VALSARTAN 97-103 MG TAB PO SCH (17:51)
[2019-08-05] MEDS: ACETAMINOPHEN 325 MG TAB PO PRN (18:13)
[2019-08-05] MEDS: levETIRAcetam 500 MG TAB PO SCH (20:03)
[2019-08-05] MEDS: carvediloL 12.5 MG TAB PO SCH (20:03)
[2019-08-05] MEDS: DOCUSATE SODIUM 100 MG CAP PO SCH (20:03)
[2019-08-05] MEDS: SENNA 8.6 MG TAB PO SCH (20:03)
[2019-08-06] MEDS: ACETAMINOPHEN 325 MG TAB PO PRN (01:05)
--- NOTE | 2019-08-06 06:53 | XRay Report ---
XR chest 2V PA/lateral CLINICAL HISTORY: 74 years-old Male presenting with EXACT TIME ORDERED Evaluate for pneumothorax and l. TECHNIQUE: PA and lateral views of the chest were obtained. COMPARISON: 07/29/2019. FINDINGS: Left subclavian implanted cardiac defibrillator with leads to the right atrium and right ventricular apex, new from prior exam. Leads appear appropriately positioned. Scattered mediastinal surgical clip s. Numerous overlying external leads to grating image quality. Median sternotomy wires. Atherosclerosis of the aortic arch. Cardiac silhouette mildly enlarged. Lungs and pleural spaces vel r. Degenerative changes of the thoracic spine. Surgical clips project over the epigastrium. IMPRESSION: 1. Interval placement of a 2-lead ICD. No pneumothorax. ACT 112: Negative or not required by law. Electronically signed by: Jamari Garza M.D. 08/06/2019 6:52 AM
[2019-08-06] MEDS: SACUBITRIL-VALSARTAN 97-103 MG TAB PO SCH (08:58)
[2019-08-06] MEDS: carvediloL 12.5 MG TAB PO SCH (08:58)
[2019-08-06] MEDS: DOCUSATE SODIUM 100 MG CAP PO SCH (08:58)
[2019-08-06] MEDS: SENNA 8.6 MG TAB PO SCH (08:58)
[2019-08-06] MEDS: levETIRAcetam 500 MG TAB PO SCH (08:58)
[2019-08-06] MEDS ORDERED: BUMETANIDE 1 MG TAB PO SCH (09:00)
[2019-08-06] MEDS ORDERED: allopurinoL 100 MG TAB PO SCH (09:00)
[2019-08-06] MEDS ORDERED: ASPIRIN 81 MG ECTAB PO SCH (09:00)
--- NOTE | 2019-08-06 10:23 | Cardiology Progress Note ---
Date of Service August 06, 2019 Assessment & Plan (1) History of implantable cardioverter-defibrillator (ICD) placement: He is doing well following ICD implantation yesterday. The site looks good, the x-ray shows good lead position and no pneumothorax, electrically the device is working very well. He is stable for discharge. I am going to increase his carvedilol back to 25 mg twice a day which is his prior dose, it was reduced due to bradycardia but now with the pacemaker that is not a risk. Admission and Anticipated Discharge Date Admission Date: August 05, 2019 Subjective He is feeling well today, he had some incisional discomfort last evening but that has resolved. No chest pain or shortness of breath. Physical Exam Physical Exam: The incision is clean and dry, no swelling or erythema. Dressing changed. Results & Data ([facility]) Vital Signs (Past 12 Hours) Vital Signs Temp Pulse Pulse Resp BP Pulse Ox 08/06/19 08:00 82 08/06/19 03:49 36.5 C 75 18 138/73 93 08/05/19 23:51 36.7 C 67 18 131/72 94 Diagnostic Findings Telemetry: Atrial sensing and ventricular pacing appropriately Chest x-ray: Good lead position, no pneumothorax Device evaluation: Excellent pacing and sensing characteristics in both leads PG Care Time/CCT Total # of Minutes Spent Total Time Spent with Patient: Total time spent is greater than 50% in coordination of care (as documented) at patient's floor/unit and/or counseling patient: Coding Level of Care Code 21411 Post Operative Follow-Up Diagnoses History of implantable cardioverter-defibrillator (ICD) placement Z95.810
--- NOTE | 2019-08-07 06:03 | Electrocardiogram Report ---
Test Reason : Blood Pressure : / mmHG Vent. Rate : 083 BPM Atrial Rate : 083 BPM P-R Int : 000 ms QRS Dur : 190 ms QT Int : 414 ms P-R-T Axes : 000 -85 069 degrees QTc Int : 487 ms Atrial-sensed ventricular-paced rhythm Abnormal ECG When compared with ECG of 29-JUL-2019 18:12, Ventricular pacing is now present Confirmed by Asa Cohen ([id number]) on 08/07/2019 6:02:42 AM Referred By: Linus Pang Confirmed By:Asa Cohen
--- NOTE | 2019-08-07 09:28 | Discharge Summary ---
Date of Service August 06, 2019 Admission HPI Per Admitting Provider Mr. Villaseñor is a 74 year old male with a history of Hypertension, Dyslipidemia, Type 2 DM, NNEKA, Multivessel CAD s/p CABG x 5 Vessels 1989 (CORDELL to LAD, CASSA to RI, Gastroepiploic Artery to RCA, Sequential SVG to Diagonal and OM), Ischemic Cardiomyopathy (LVEF 30% to 35% on Echo 04/21/2019), and Chronic Systolic CHF who presents today for a Hospital Follow-up Visit after experiencing Syncope x 2 on 07/29/2019 -- which were very concerning because they were likely secondary to an Arrhythmia in light of his reduced LV systolic function. He did not have any arrhythmias while in our emergency room, nor did he have any arrhythmias while at [facility]. Nonetheless, the patient is at increased risk for ventricular arrhythmias and sudden cardiac due to his reduced LV systolic function. Therefore strongly recommend placement of a dual chamber AICD. Admission Exam Per Admitting Provider General: Patient in no acute distress. HEENT: Pupils are equal in size. EOMs intact. Sclerae anicteric. Facies symmetric. No perioral cyanosis. Neck: No JVD. JVP is at the level of the clavicle sitting upright. Chest and Lungs: Clear to auscultation throughout all lung sheriff. No wheezes, rales, or crackles. CVS: S1 and S2 are regular with frequent ectopy. No obvious murmurs, gallops, or rubs. PMI is nonpalpable. No lifts, heaves, or thrills. No abdominal aortic or renal bruits. Abdominal Exam: Bowel sounds present. No masses, organomegaly, or tenderness. Extremities: No edema. No clubbing or cyanosis. Intact radial pulses bila terally. Neurologic Exam: Patient is awake, alert, and oriented. Pleasant and cooperative. Answers questions appropriately. Speech is clear. Normal movement in all 4 extremities. Gait pattern is slightly wide-based and slow, and he is currently ambulating with a wheeled walker. Principal Diagnosis Ischemic cardiomyopathy Discharge Exam The incision is clean and dry, no significant bleeding, no erythema or swelling. Cardiac rhythm is regular with no rub Lungs are clear Discharge Data Allergies Allergy/AdvReac Type Severity Reaction Status Date / Time fexofenadine [From [place]] Allergy Severe joint pain Verified 08/04/19 15:06 lisinopril Allergy Severe cough, rash Verified 08/04/19 15:06 atorvastatin AdvReac Severe myalgia Verified 08/04/19 15:06 prednisone AdvReac Severe edema Verified 08/04/19 15:06 Procedures Performed Operation Date: 08/05/19 14:00 Actual Procedures p ICD Insertion Single or Dual - Salazar Roberto MD Ordered Studies 08/05/19 07:31 CL Cath Imgs for PACS use only Routine Hospital Course (1) History of implantable cardioverter-defibrillator (ICD) placement: A dual-chamber ICD was placed on August 05, 2019. He is doing well following ICD implantation. The site looks good, the x-ray shows good lead position and no pneumothorax, electrically the device is working very well. He is stable for discharge. I am going to increase his carvedilol back to 25 mg twice a day which is his prior dose, it was reduced due to bradycardia but now with the pacemaker that is not a risk. Total Time Total Time Spent Total Time Spent (In Minutes): 20 Total Time Includes: Examination of the Patient, Discharge Planning and Medication Reconciliation Discharge Plan Discharge Items Patient Disposition: Home - Self-Care Reason For Visit: S/P ICD INSERTION Discharge Diagnosis: Defibrillator implantation Activity: Per Instructions section Bathing: Keep incision dry Driving/Machine Use: No limitations Non-emergency contact: Primary Care Provider Call non-emergency contact if: you have any medication questions Follow-up/Referrals: Jamari Barclay MD [Primary Care Provider] - 08/08/19 11:30 am Salazar Roberto MD [Physician] - 08/08/19 9:00 am Diet: Heart Healthy Addtl Attending Provider Instructions: ACTIVITY RECOMMENDATIONS: * Do not raise affected arm over head for 2 weeks. SPECIAL CARE INSTRUCTIONS: * If bleeding occurs, apply direct pressure to area for 5 minutes. * Call your doctor if you have severe pain, fever, drainage or bleeding at site. * Keep dressing on and dry for 48 hours then remove. * Keep any scheduled doctor's appointment. * Implant Card - hand held device with website information given. SKIN IRRITATION: * You may experience some redness and/or swelling in the area where radiation was administered. If any skin irritation occurs, please contact your family physician. FOLLOW UP VISIT: Keep any scheduled doctor appointments. Pending Studies at Discharge: No Stand-Alone Forms: My [facility], Smoking Cessation Medications and DC Order Prescriptions: New carvedilol 25 mg tablet 25 mg PO BID Qty: 60 RF: 0 Continued bumetanide 1 mg tablet 1 mg PO QAM Qty: 90 RF: 2 allopurinol 100 mg tablet 100 mg PO DAILY Qty: 30 RF: 5 acetaminophen 325 mg capsule 925 mg PO Q8H PRN (Reason: Pain) RF: 0 docusate sodium 100 mg capsule 100 mg PO BID RF: 0 Entresto 97-103 mg tablet 1 tab PO BID Qty: 180 RF: 3 aspirin [Aspir-81] 81 mg Tablet,Delayed Release (Dr/Ec) 81 mg PO QAM RF: 0 Hold Instructions: until directed by neuro C nitroglycerin [Nitrostat] 0.4 mg Tablet, Sublingual 0.4 mg Sublingual DIRECTED PRN (Reason: Chest Pain) RF: 0 Discontinued carvedilol 25 mg tablet 12.5 mg PO BID RF: 0 Discharge Orders: Discharge Order (Routine); Ordered 08/06/19 Ordered By: Salazar Roberto Admission Data Admit Date/Time: 08/05/19 15:27 Attending Provider: Salazar Roberto Admit Provider: Salazar Roberto Primary Care Provider: Jamari Barclay Other Interventions: Discharge Summary Assessment (RN) Last Done: 08/06/19 10:40 DC Date/Time DO NOT enter until pt leaves facility: 08/06/19 11:30 Coding Level of Care Code 43472 OBS Care - Discharge Diagnoses History of implantable cardioverter-defibrillator (ICD) placement Z95.810
== END 2019-08-06 11:30 | disposition home or self-care (01) ==
LOC: EP 12:58 → 2S 12:58
PROC: EPB.ICD (2019-08-05 14:00)
DX: Z79.82 Long term (current) use of aspirin; E11.9 Type 2 diabetes mellitus without complications; Z95.1 Presence of aortocoronary bypass graft; E78.5 Hyperlipidemia, unspecified; I11.0 Hypertensive heart disease with heart failure; Z87.891 Personal history of nicotine dependence; I50.22 Chronic systolic (congestive) heart failure; I25.10 Atherosclerotic heart disease of native coronary artery without angina pectoris; R55 Syncope and collapse; Z79.899 Other long term (current) drug therapy; I25.5 Ischemic cardiomyopathy

== ENCOUNTER 2020-04-13 07:27 | Inpatient (IN) ==
--- NOTE | 2020-03-30 08:48 | Anesthesiology Consultation ---
Date of Service March 30, 2020 Assessment & Plan (1) Encounter for pre-operative examination: - Per assessment on 03/23: Travel screen- Lives in [place]. Uses PPE. Travel to [facility] for doctors appts. No current COVID-19 related symptoms. Florencia chin had postive contact (son) who tested positive 03/16. Since son's positive test, patient has not had contact or symptoms develop and now 2+ weeks since exposure. Surgeon arranging preop COVID testing (scheduled 04/06; surgeon's office). Awaiting results. - Check BSG AM DOS - Cardiology office visit: 03/03/20: "Patient was under a lot of emotional stress 3-4 weeks ago when a loved one was struggling. Around that time he had a couple of episodes of exertional chest discomfort reminiscent of angina. On 2 or 3 occasions he took a nitroglycerin, and the chest discomfort resolved. However, in the past 2 weeks he has been less anxious and as physically active as always, and has not had any further exertional chest discomfort or angina. He continues to monitor his daily weight -- which is currently down 3 pounds from his visit on 12/22/19. Patient's breathing is at baseline, and he has not had any recent exacerbations of CHF. He has not had any symptoms suggestive of arrhythmia either. His exertional tolerance is at baseline. Patient is an acceptable surgical risk to proceed with carotid angiograms as scheduled. He was advised to take his usual medications the morning of this procedure with sips of water." - Workup done by neurology revealed progression in carotid disease and patient referred to vascular surgery for further evaluation. Per vascular note from 03/15/20, "he has severe stenosis of the left internal carotid artery recommended carotid endarterectomy." Cases at the Main OR at currently limited to essential cases only until 04/2019. Will need statement of medical necessity in order to proceed. Patient has an ICD / pacemaker on the left and is having his left carotid operated on - will contact surgeon to make sure magnet will be OK and out of field or else it will have to be reprogrammed for the procedure. It is reasonable to proceed with this procedure on an urgent basis rather than waiting for the OR's to reopen for elective surgeries. Chart Review Chart Review: Acceptable Risk for Surgery (pending evaluation AM DOS) and Patient NOT seen in Pre Admission Testing History Surgery Operation Date: 04/13/20 07:00 Proposed Procedures p Left Carotid Endarterectomy - Osbaldo Shaffer MD Height/Weight Height: 5 ft 10 in Weight: 116.573 kg Allergies Allergy/AdvReac Type Severity Reaction Status Date / Time fexofenadine [From Linn] Allergy Severe joint pain Verified 03/23/20 14:20 lisinopril Allergy Severe cough, rash Verified 03/23/20 14:20 atorvastatin AdvReac Severe myalgia Verified 03/23/20 14:20 prednisone AdvReac Severe edema Verified 03/23/20 14:20 Medications Home Medications Medication Instructions Recorded Confirmed Last Taken nitroglycerin [Nitrostat] 0.4 mg SUBLINGUAL DIRECTED PRN 04/07/18 03/23/20 Unknown acetaminophen 325 mg capsule 650 mg PO BID PRN cap 08/08/19 03/23/20 Unknown carvedilol 25 mg tablet 25 mg PO BID #60 tab 09/23/19 03/23/20 Unknown docusate sodium 100 mg capsule 100 mg PO DAILY PRN cap 11/07/19 03/23/20 Unknown bumetanide 1 mg tablet 1 mg PO QAM #90 tab 11/13/19 03/23/20 Unknown sacubitril 97 mg-valsartan 103 mg 1 tab PO BID #180 tab 01/21/20 03/23/20 Unknown tablet miscellaneous medical supply See Rx Instructions .ROUTE 02/04/20 03/03/20 Unknown .COMPLEX #1 ea clopidogrel 75 mg tablet 75 mg PO QAM 03/03/20 03/23/20 Unknown allopurinol 100 mg PO QAM 03/23/20 03/23/20 Unknown aspirin [Aspir-81] 81 mg PO QAM 03/23/20 03/23/20 Unknown evolocumab [Repatha SureClick] 1 mg SUBCUT Q4WK 03/23/20 03/23/20 Unknown Past Medical History Medical History (Updated 03/30/20 @ 09:06 by Gregoria Hernandez) CAD (coronary artery disease) s/p CABG x5 (1989)- CORDELL to LAD, CASAS to RI, Gastroepiploic Artery to RCA, Sequential SVG to Diagonal and OM Carotid artery stenosis LICA 95-99%, EKTA 45% per 03/15 vascular note CHF (congestive heart failure) Chronic kidney disease, stage 3a baseline creatinine 1.5-1.8 per chart review Diabetes mellitus, type 2 diet controlled Hilar adenopathy Hyperlipidemia ICD (implantable cardioverter-defibrillator), dual, in situ Implanted 07/2019, Medtronic, dual chamber, last check 12/22/19 Obesity Severe obstructive sleep apnea CPAP Stroke remote left hemispheric stroke (9+ years ago), traumatic left parafalcine SDH (07/2019) Transient ischemic attack (TIA) 2011 Past Family History Family History Father Lung cancer COPD (chronic obstructive pulmonary disease) Mother Alzheimer disease Hypertension Brother Coronary heart disease Hypertension Obesity Stroke Diabetes Sister Asthma Son Diabetes Past Surgical History Surgical History Coronary artery bypass grafts x 5 History of arthroscopy of shoulder History of cardiac catheterization History of colonoscopy (~08/2015) History of coronary artery bypass graft (~1989) History of vasectomy Presence of combination internal cardiac defibrillator (ICD) and pacemaker Implanted 07/2019 Social History Smoking Status: Former smoker tobacco type: cigarettes Do You Dip or Chew Tobacco: No Smoking End Date: QUIT 30 YRS AGO Hx Alcohol Use: No Hx Substance Use: No substance use type: does not use Testing Laboratory Results 03/01/20 WBC 10.35 H/H 16.3/47.8 PLATELETS 183 SODIUM 140 POTASSIUM 4.4 CHLORIDE 108 CO2 25 BUN 48 CREATININE 1.78 GLUCOSE 90 PT 10.8 PTT 27.1 INR 1.0 11/12/19 HGBA1C 6.0% Electrocardiogram Date: 08/05/19 Atrial sensed ventricular-paced rhythm at 83bpm. Echocardiogram Date: 07/30/19 LVEF 35-39%. Moderately enlarged LV cavity. Large sized septal, inferior, posterior wall motion abnormality with akinesis of the segments. Moderate MR. Other Testing Pacer/ICD check: 12/22/19 (per EP office visit note): "The ICD was fully evaluated today including threshold measurements and interrogation of data storage. It is working well with stable thresholds. Battery voltage remains adequate. No significant arrhythmias were identified and no shocks were delivered. OptiVol shows possible recent fluid gain although it did not cross threshold.. Syncope: He has had no further syncope since device implantation. He has had no significant arrhythmias to explain it so far." Chest CT: 09/25/19: No significant change in multiple tiny nodules since prior exam. Benign etiology is favored. This may reflect a chronic granulomatous process. No acute findings within the chest. No thoracic lymphadenopathy.
--- NOTE | 2020-03-30 12:33 | Communication Note ---
Date of Service: March 30, 2020 Patient with severe near occlusion of the left internal carotid artery. Would recommend urgent left CEA.
--- NOTE | 2020-04-02 10:46 | PAT Medication Instructions ---
Medication Instructions Date of Service April 02, 2020 Home Medications Medication Instructions Recorded carvedilol 25 mg tablet 25 mg PO BID #60 tab 09/23/19 bumetanide 1 mg tablet 1 mg PO QAM #90 tab 11/13/19 sacubitril 97 mg-valsartan 103 mg 1 tab PO BID #180 tab 01/21/20 tablet miscellaneous medical supply See Rx Instructions .ROUTE 02/04/20 .COMPLEX #1 ea nitroglycerin [Nitrostat] 0.4 mg SUBLINGUAL DIRECTED PRN acetaminophen 325 mg capsule 650 mg PO BID PRN carvedilol 25 mg tablet 25 mg PO BID docusate sodium 100 mg capsule 100 mg PO DAILY PRN bumetanide 1 mg tablet 1 mg PO QAM sacubitril 97 mg-valsartan 103 mg tablet 1 tab PO BID clopidogrel 75 mg tablet 75 mg PO QAM allopurinol 100 mg PO QAM aspirin [Aspir-81] 81 mg PO QAM evolocumab [Repatha SureClick] 1 mg SUBCUT Q4WK Continue as directed nitroglycerin [Nitrostat] 0.4 mg SUBLINGUAL DIRECTED PRN (if needed) ASK your surgeon for instructions evolocumab [Repatha SureClick] 1 mg SUBCUT Q4WK ASK your prescriber and surgeon clopidogrel 75 mg tablet 75 mg PO QAM aspirin [Aspir-81] 81 mg PO QAM DO NOT take the morning of surgery docusate sodium 100 mg capsule 100 mg PO DAILY PRN bumetanide 1 mg tablet 1 mg PO QAM Take morning of surgery With a small sip of water, OTHERWISE NOTHING TO EAT OR DRINK AFTER MIDNIGHT: acetaminophen 325 mg capsule 650 mg PO BID PRN (okay to take up to 4 hours prior to surgery if needed) carvedilol 25 mg tablet 25 mg PO BID allopurinol 100 mg PO QAM Take evening before surgery acetaminophen 325 mg capsule 650 mg PO BID PRN (if needed) carvedilol 25 mg tablet 25 mg PO BID docusate sodium 100 mg capsule 100 mg PO DAILY PRN (if needed) Other Notes Anesthesia will provide instructions: sacubitril 97 mg-valsartan 103 mg tablet 1 tab PO BID If you have any questions please call us at [phone] or [phone] or [phone] or [phone]
--- NOTE | 2020-04-06 11:43 | XRay Report ---
XR chest Pre-admission PA/Lat HISTORY: Preop. COMPARISON: Chest 08/06/2019. FINDINGS: No pneumothorax. No pleural effusions. The heart remains top normal in size. There is a lef t-sided pacemaker/defibrillator and poststernotomy changes. Mild diffuse interstitial thickening whic h is likely chronic. This remains unchanged. No new focal lung consolidations to suggest pneumonia. N o evidence for pulmonary edema. A few tiny scattered nodules remain stable. IMPRESSION: No significant change compared to the prior study. No acute process. ACT 112: Negative or not required by law. Electronically signed by: Brandan Branch M.D. 04/06/2020 11:42 AM
[2020-04-06 11:49] LABS: Basophils # (auto) 0.05 K/uL (0-0.2); Basophils % (auto) 0.5 %; Eosinophils # (auto) 0.28 K/uL (0-0.5); Eosinophils % (auto) 2.6 %; Hematocrit (blood only) 47.1 % (42-52); Hemoglobin 15.8 g/dL (14.0-18.0); Immature Granulocytes # (auto) 0.05 K/uL (0.00-0.02); Immature Granulocytes % (auto) 0.5 %; Lymphocytes # (auto) 2.72 K/uL (1.2-3.4); Lymphocytes % (auto) 25.6 %; Mean Corpuscular Hemoglobin 31.2 pg (25-34); Mean Corpuscular Hgb Conc 33.5 g/dL (32-36); Mean Corpuscular Volume 93.1 fL (80-100); Mean Platelet Volume 10.6 fL (7.4-10.4); Monocytes # (auto) 1.01 K/uL (0.11-0.59); Monocytes % (auto) 9.5 %; Neutrophils # (auto) 6.53 K/uL (1.4-6.5); Neutrophils % (auto) 61.3 %; Platelet Count 167 K/uL (130-400); RDW Coefficient of Variation 13.2 % (11.5-14.5); RDW Standard Deviation 44.7 fL (36.4-46.3); Red Blood Count 5.06 M/uL (4.7-6.1); White Blood Count 10.64 K/uL (4.8-10.8)
[2020-04-06 12:00] LABS: Albumin Level 3.6 gm/dl (3.4-5.0); BUN Creatinine Ratio 22.8 (10-20); Calcium 9.1 mg/dl (8.5-10.1); Creatinine Clr Calc Pharmacy 50.9 ml/min; Est GFR (African American) 48.5; Est GFR (Non-African American) 41.9; Potassium 4.3 mmol/L (3.5-5.1)
[2020-04-06 12:01] LABS: Partial Thromboplastin Time 26.7 Seconds (21.0-31.0)
[2020-04-06 12:02] LABS: Bilirubin Direct 0.2 mg/dl (0-0.2); Bilirubin,Total 0.7 mg/dl (0.2-1); Total Protein 8.3 gm/dl (6.4-8.2)
--- NOTE | 2020-04-12 13:46 | History & Physical Report ---
Date of Service April 12, 2020 Assessment & Plan (1) Left carotid artery stenosis: Patient is admitted for a left carotid endarterectomy. I have discussed the risks options and benefits of the procedure with the patient. The patient understands the risks options and benefits and agrees to the procedure. History of Present Illness Chief Complaint: Left internal carotid artery stenosis Primary Care Provider: Jamari Barclay MD Mr Villaseñor is a 74-year-old gentleman who was being worked up for carotid disease. He had an arteriogram done of his carotid arteries which showed a 45% narrowing the right side and a severe 95 to 99% narrowing of the left internal carotid artery. Left internal carotid artery beyond the narrowing is small whi ch possibly could be from hypoperfusion. He has no new neurological symptoms at this time. Allergies Allergy/AdvReac Type Severity Reaction Status Date / Time fexofenadine [From Linn] Allergy Severe joint pain Verified 03/23/20 14:20 lisinopril Allergy Severe cough, rash Verified 03/23/20 14:20 atorvastatin AdvReac Severe myalgia Verified 03/23/20 14:20 prednisone AdvReac Severe edema Verified 03/23/20 14:20 Home Medications Medication Instructions Recorded Confirmed Type nitroglycerin [Nitrostat] 0.4 mg SUBLINGUAL DIRECTED PRN 04/07/18 03/23/20 History acetaminophen 325 mg capsule 650 mg PO BID PRN cap 08/08/19 03/23/20 History carvedilol 25 mg tablet 25 mg PO BID #60 tab 09/23/19 03/23/20 Rx docusate sodium 100 mg capsule 100 mg PO DAILY PRN cap 11/07/19 03/23/20 History bumetanide 1 mg tablet 1 mg PO QAM #90 tab 11/13/19 03/23/20 Rx sacubitril 97 mg-valsartan 103 mg 1 tab PO BID #180 tab 01/21/20 03/23/20 Rx tablet miscellaneous medical supply See Rx Instructions .ROUTE 02/04/20 03/03/20 Rx .COMPLEX #1 ea clopidogrel 75 mg tablet 75 mg PO QAM 03/03/20 03/23/20 History allopurinol 100 mg PO QAM 03/23/20 03/23/20 History aspirin [Aspir-81] 81 mg PO QAM 03/23/20 03/23/20 History evolocumab [Repatha SureClick] 1 mg SUBCUT Q4WK 03/23/20 03/23/20 History Past Med/Surg History Medical History CAD (coronary artery disease) s/p CABG x5 (1989)- CORDELL to LAD, CASAS to RI, Gastroepiploic Artery to RCA, Sequential SVG to Diagonal and OM Carotid artery stenosis LICA 95-99%, EKTA 45% per 03/15 vascular note CHF (congestive heart failure) Chronic kidney disease, stage 3a baseline creatinine 1.5-1.8 per chart review Diabetes mellitus, type 2 diet controlled Hilar adenopathy Hyperlipidemia ICD (implantable cardioverter-defibrillator), dual, in situ Implanted 07/2019, Medtronic, dual chamber, last check 12/22/19 Obesity Severe obstructive sleep apnea CPAP Stroke remote left hemispheric stroke (9+ years ago), traumatic left parafalcine SDH (07/2019) Transient ischemic attack (TIA) 2011 Surgical History Coronary artery bypass grafts x 5 History of arthroscopy of shoulder History of cardiac catheterization History of colonoscopy (~08/2015) History of coronary artery bypass graft (~1989) History of vasectomy Presence of combination internal cardiac defibrillator (ICD) and pacemaker Implanted 07/2019 Family History Father Lung cancer COPD (chronic obstructive pulmonary disease) Mother Alzheimer disease Hypertension Brother Coronary heart disease Hypertension Obesity Stroke Diabetes Sister Asthma Son Diabetes Social History Smoking Status: Former smoker Age Started Using Tobacco: 14; Age Quit Using Tobacco: 44; packs per day: 2; Years Smoked: 30; Number of Years Since Quit: 30; Second Hand Exposure: Yes ( A CHILD); Hx Alcohol Use: No Hx Substance Use: No Preferred Language: Maltese Communication Ability: Effective Visual Impairment: No Limitations Hearing Ability: Normal Vacuum Pan Tender Required: No Beliefs That Will Affect Care: None marital status: Current Living Situation: Spouse and Family Current Living Situation Comment: lives at home with /GRANDSON AND FAMILY WILL BE MOVING IN WITH PT/SPOUS current occupational status: retired Feels Safe at Home: Yes caffeine: Yes Physical Activity Frequency: Does not Exercise Seatbelt Use: always Sunscreen Use: No Assistive Devices: CPAP, Denture - Upper and Glasses Review of Systems All systems reviewed & are unremarkable except as noted in HPI & below Physical Exam Physical Exam: Constitutional: In general patient is an obese healthy appearing well-nourished well-developed elderly male no distress. He ambulates without assistance. Chest: Heart is irregular, lungs are clearo Abdomen: Soft nontender with normoactive bowel sounds and no bruit. Pulses: Bilateral brachial radial and femoral pulses are +3. Left lower extremity DP is +1 PT is not palpable he has brisk capillary refill and no sign of distal ischemia. His right lower extremity demonstrates +1 DP and nonpalpable PT with brisk capillary refill and no sign of distal ischemia. Is warm pink toes.
[~2020-04-13 07:27] MED LIST changes: -AGG PO; -ATOR-14 PO; +BUPIVACAINE/EPINEPHRINE 0.5% MPF 1:200,000 30 ML VIAL ONE; +CEFAZOLIN 2,000 MG/15 ML SYR IV SCH; -CRG3125 PO; -FURO20TA PO; +GELATIN SPONGE SZ 100 ONE; +HEPARIN (PORCINE) 1000 UNIT/ML 10 ML (CATH LAB USE ONLY) ONE; +LACTATED RINGER'S 1,000 ML IV SCH; +LIDOCAINE HCL 1% 20 ML VIAL ONE; -LOSA50TA6 PO; -METFTAB2 PO; -NITR0.4S UT; +THROMBIN FOR SOLN 20000 UNIT KIT ONE
[2020-04-13] MEDS ORDERED: fentaNYL citrate 100 MCG/2 ML VIAL ONE ×2 (07:40→11:41)
--- NOTE | 2020-04-13 08:16 | History & Physical Bridge Note ---
Date of Service April 13, 2020 History & Physical Bridge Note I have examined the patient, reviewed the History & Physical and in the interval since the performance of the History & Physical I have noted the following changes of clinical significance: no changes noted
[2020-04-13] MEDS: LACTATED RINGER'S 1,000 ML IV SCH ×3 (08:21→18:34)
[2020-04-13] MEDS ORDERED: METOCLOPRAMIDE HCL INJ 5 MG/ML 2 ML VIAL IV PRN (10:40)
[2020-04-13] MEDS ORDERED: PROMETHAZINE HCL 12.5 MG in SODIUM CHLORIDE 0.9% 50 ML IV PRN (10:40)
[2020-04-13] MEDS ORDERED: ONDANSETRON INJ 2 MG/ML 2 ML VIAL IV PRN (10:40)
[2020-04-13] MEDS ORDERED: ATROPINE SULFATE 0.1 MG/ML 10ML SYR IV PRN (10:40)
[2020-04-13] MEDS ORDERED: HYDROmorphone INJ 2 MG/ML SYR/VIAL IV PRN (10:40)
[2020-04-13] MEDS ORDERED: ePHEDrine sulfate 50 MG/ML AMP IV PRN (10:40)
[2020-04-13] MEDS ORDERED: fentaNYL citrate 100 MCG/2 ML VIAL IV PRN (10:40)
[2020-04-13] MEDS ORDERED: PHENYLEPHRINE HCL 10 MG/ML VIAL ONE ×2 (10:46→11:11)
[2020-04-13] MEDS ORDERED: ONDANSETRON INJ 2 MG/ML 2 ML VIAL ONE (10:46)
[2020-04-13] MEDS ORDERED: ePHEDrine sulfate 50 MG/ML SYR ONE (10:46)
[2020-04-13] MEDS ORDERED: LIDOCAINE HCL 2% 2 ML VIAL/AMP(20MG/ML) INFIL ONE (10:46)
[2020-04-13] MEDS ORDERED: LARYING-O-JET KIT (LTA) ONE (10:46)
[2020-04-13] MEDS ORDERED: PROPOFOL IV EMULSION 10 MG/ML 20 ML VIAL IV ONE (10:46)
[2020-04-13] MEDS ORDERED: HEPARIN SOD (PORCINE) 1000 UNIT/ML 10 ML VIAL ONE ×2 (10:46→11:40)
[2020-04-13] MEDS ORDERED: ROCURONIUM BROMIDE 10 MG/ML 5 ML VIAL IV ONE ×3 (10:47→11:43)
--- NOTE | 2020-04-13 13:37 | Operative Report ---
Post Operative Report Pre & Post Diagnosis Operation Date: 04/13/20 09:05 Pre-Op Diagnosis: Left Carotid Artery Stenosis, severe Post-Op Diagnosis: Left Carotid Artery Stenosis, occluded left internal carotid artery I identified the patient and participated in the time-out.: Yes Procedure Operation Date: 04/13/20 09:05 Actual Procedures p Left Common Carotid Endarterectomy with Ligation of Left Internal Carotid Artery(Left) - Osbaldo Shaffer MD Surgeon Osbaldo Shaffer MD Privacy Specialist Geronimo,PAC Estimated Blood Loss 300 Findings Consistent with Post-Op Diagnosis Specimens plaque Anesthesia Type General Complications none Disposition Accompanied Patient To Recovery: No Disposition: Recovery Room Indications Patient was found to have a very severe stenosis of the left internal carotid artery. CEA was recommended. There was a possibility that the left internal carotid was occluded. I have discussed the risks options and benefits of the procedure with the patient. The patient understands the risks options and benefits and agrees to the procedure. Description of Procedure The patient was taken to the operating room and placed in supine position. After general anesthesia was accomplished the left side of the neck was prepped and draped in a sterile manner. The patient was identified and a timeout performed. A longitudinal neck incision was then made coursing along the medial border of the sternocleidomastoid muscle. The incision was taken down through the platysmal layer. The facial vein was identified, ligated, and divided. The common carotid artery was then seen. It was dissected free down to the omohyoid muscle. The dissection was carried upward until the external carotid artery and superior thyroid artery was seen. The superior thyroid artery was slung with a 2-0 silk suture. The external carotid was slung with a red rubber vessel loop. Next the dissection was carried up along the internal carotid artery. The hypoglossal nerve was seen and preserved. The lesion appeared to extend upward higher than the hypoglossal. The belly of the digastric muscle was divided. The patient was heparinized. After adequate heparinization was accomplished, the internal, external, and common carotid arteries were clamped. A longitudinal arteriotomy was started on the common carotid artery and extended upward along the internal carotid artery. The internal carotid appeared to be occluded with no backbleeding. The arteriotomy was carried upward to above the digastric at which point some backbleeding was seen. The internal carotid appeared to be chronically occluded at the origin and extended upward to above the hypoglossal. A shunt could not be placed. The endarterectomy was then started in the appropriate plane on the common carotid artery and the common carotid artery was endarterectomized. This was carried upward and the external carotid was everted and endarterectomized. The internal carotid was endarterectomized of plaque and fibrous tissue that extended to the level of the digastric. It was decided to try to graft to the internal carotid artery. Two attempts to do the distal anastomosis had the internal carotid tear due its friability. Being we were so high we decided to ligate the internal carotid with 5-0 prolene. Once this was done the arteriotomy then closed using a 5-0 p rolene suture. Backbleeding and forward bleeding was allowed to occur. The final few sutures were then placed and securely tied. Clamps were then removed off the external and common carotid arteries. Adequate hemostasis was obtained. The wound was inspected and adequate hemostasis was obtained. The wound was irrigated with antibiotic solution. It was then closed with a running 3-0 Vicryl suture for the platysmal layer and a 4-0 subcuticular Vicryl suture for the skin edges. Dermabond was used for dressing. The patient left the operation room in satisfactory condition and tolerated the procedure well. All needle and sponge counts were correct at the end of the procedure. Natalie Vo Pac assisted due to lack of resident availability and was necessary for prepping, draping, retraction, wound closure defects, subQ and skin closure and was necessary for the case. I attest to the content of the Intraoperative Record and any orders documented therein. Any exceptions are noted below.
[2020-04-13] MEDS ORDERED: GLYCOPYRROLATE 0.2 MG/ML VIAL ONE (14:02)
[2020-04-13] MEDS ORDERED: NEOSTIGMINE METHYLSULFATE 5 MG/5 ML SYR ONE (14:02)
--- NOTE | 2020-04-13 14:35 | Anesthesiology Progress Note ---
Date of Service April 13, 2020 Anesthesia Post Procedure Vital Signs Vital Signs: Temp Pulse Pulse Resp BP BP Pulse Ox 04/13/20 14:25 70 15 119/58 L 94 04/13/20 14:15 69 17 114/55 L 95 04/13/20 14:05 70 21 112/55 L 95 04/13/20 13:56 36.0 C L 71 18 114/58 L 95 04/13/20 08:10 36.7 C 82 20 100/67 117/71 97 Pain Intensity Back: Pain Intensity: 5 Transfer of Care Handoff Completed per policy Notes Mental Status: alert / awake / arousable and participated in evaluation Patient Amnestic to Procedure: Yes Nausea / Vomiting: adequately controlled Pain: adequately controlled Airway Patency, RR, SpO2: stable & adequate BP & HR: stable & adequate Hydration State: stable & adequate Anesthetic Complications: no major complications apparent and Pt Satisfied with anesthetic care Notes: pt has reactive pupils but L is larger than right. slight difference. nursing making Dr vilchis aware
[2020-04-13] MEDS ORDERED: MoRPHine SULFATE 4 MG/ML 1 ML CARP\\VIAL IV PRN (15:25)
[2020-04-13] MEDS ORDERED: NON-FORMULARY MEDICATION (Evolocumab [Repatha Sureclick] 140 mg/mL Pen Injector) SQ SCH (15:25)
[2020-04-13] MEDS ORDERED: DOCUSATE SODIUM 100 MG CAP PO PRN (15:25)
[2020-04-13] MEDS ORDERED: NITROGLYCERIN SL 0.4 MG/TAB TAB SL PRN (15:25)
[2020-04-13] MEDS ORDERED: oxyCODONE/ACETAMINOPHEN 5mg/325mg TAB PO PRN (15:25)
[2020-04-13] MEDS ORDERED: ACETAMINOPHEN 325 MG TAB PO PRN (15:25)
--- NOTE | 2020-04-13 15:40 | Critical Care Consultation ---
Date of Consultation April 13, 2020 Assessment & Plan (1) Left carotid artery stenosis: Impression: 74-year-old male with history of HTN, dyslipidemia, type II DM, NNEKA, multivessel CAD s/p CABG X5 vessels 1989, ischemic cardiomyopathy (LVEF 35-40% ECHO July 2019), AICD placed 08/05/2019 for ventricular arrhythmia. Remote left hemispheric stroke 9 years prior, and traumatic left parafalcine subdural hematoma, and tiny right frontal convexity subarachnoid hematoma 07/29/2019 w/ occluded left internal carotid artery now s/p left endarterectomy. 24-hour events: s/p l endarterectomy Neuro - History of stroke L hemisphere (9 years prior) and L parafalcine SDH and small R SAH (07/29/2019) - continue ASA, Plavix - HAJA Acetaminophen, PRN Morphine 1-4mg Q2, and PRN Percocet for pain - sluggish pupil potentially due to Hx. of cataract - continue to monitor for new neurologic sign Patient is following commands. CAM ICU negative Cardiac - Hx. of multivessel CAD s/p CABG 1989 EF 35-40% in July Hx. of Hypertension - continue Bumex, Carvedilol, Entresto, ASA Respiratory - --NNEKA - currently holding off on CPAP given mask would overlap incision - wean oxygen as tolerated GI - - continue home Colace RENAL/LYTES - Monitor BUN/creatinine given contrast load ENDO - -- type II DM (A1c 6 on 10/2018) - not currently on home medication, continue to monitor for now HEME - -- no acute issues - Hgb 14.3 from 15.8 - recheck AM CBC ID - -- Ancef Lines: Peripheral Diet: clear liquid diet Plan: monitor in the ICU in the immediate post operative period Supervising Physician Co-Signing Physician Notes Dr Melo was the resident-physician during care of patient. I separately evaluated patient for to portions of the history and the exam. I was present during the critical portion of medical decision making, and I discussed the case with the resident. I generally agree with the findings and plan except for any additions/exceptions noted. Patient seen and examined at bedside. No acute distress, no adverse events since coming out of the OR. Patient is able to move all the extremities on command. No weakness. Good pulses appreciated bilateral lower extremity and upper extremity. Patient's left pupil is more dilated than the right with sluggish response on the left. Patient does have history of cataract which might be one of the reason of that finding. Swelling of the left neck is appreciated. No hematoma. Continue with ice pack. Monitor H&H. Patient's COVID-19 was negative on 04/06/2020. Leukocytosis is likely reactive post surgery. Patient used to be heavy smoker before with greater than 52-[id number] smoking history quit approximately 30 years ago when he had the CABG done at the age of 44. Continue with aspirin and Plavix. Start DVT prophylaxis chemical once cleared by surgery. Continue with beta-lou and diuretic for underlying CHF. Strict in and out. This time is exclusive of all separately billable procedures, and teaching time and separate from and in addition to any other critical care service time. History of Present Illness Attending Physician: Osbaldo Shaffer MD Carroll Villaseñor has a history of carotid artery stenosis, HTN, dyslipidemia, type II DM (A1c 6), NNEKA, multivessel CAD s/p CABG X5 vessels 1989, ischemic cardiomyopathy (LVEF 35-40% ECHO July 2019), AICD placed 08/05/2019 for ventricular arrhythmia. Remote left hemispheric stroke 9 years prior, and traumatic left parafalcine subdural hematoma, and tiny right frontal convexity subarachnoid hematoma 07/29/2019. Was admitted today for 95-99% occlusion of the left internal carotid artery was found to be fully occluded during endarterectomy. EBL 300 ml, there were no complications. He was doing well upon coming to the ICU and did not have any pain, but did complain of a scratchy throat. He does not have a history of glaucoma and did not previously have any abnormality of his pupils. He does have a history of cataracts. 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 After talking with him he had no questions or concerns. Allergies Allergy/AdvReac Type Severity Reaction Status Date / Time fexofenadine [From [place]] Allergy Severe joint pain Verified 04/13/20 07:48 lisinopril Allergy Severe cough, rash Verified 04/13/20 07:48 atorvastatin AdvReac Severe myalgia Verified 04/13/20 07:48 prednisone AdvReac Severe edema Verified 04/13/20 07:48 Home Medications Medication Instructions Recorded Confirmed Type nitroglycerin [Nitrostat] 0.4 mg SUBLINGUAL DIRECTED PRN 04/07/18 04/13/20 History acetaminophen 325 mg capsule 650 mg PO BID PRN cap 08/08/19 04/13/20 History carvedilol 25 mg tablet 25 mg PO BID #60 tab 09/23/19 03/23/20 Rx docusate sodium 100 mg capsule 100 mg PO DAILY PRN cap 11/07/19 04/13/20 History bumetanide 1 mg tablet 1 mg PO QAM #90 tab 11/13/19 04/13/20 Rx sacubitril 97 mg-valsartan 103 mg 1 tab PO BID #180 tab 01/21/20 04/13/20 Rx tablet miscellaneous medical supply See Rx Instructions .ROUTE 02/04/20 04/13/20 Rx .COMPLEX #1 ea clopidogrel 75 mg tablet 75 mg PO QAM 03/03/20 03/23/20 History allopurinol 100 mg PO QAM 03/23/20 03/23/20 History aspirin [Aspir-81] 81 mg PO QAM 03/23/20 03/23/20 History evolocumab [Repatha SureClick] 1 mg SUBCUT Q4WK 03/23/20 04/13/20 History Patient History Medical History CAD (coronary artery disease) s/p CABG x5 (1989)- CORDELL to LAD, CASAS to RI, Gastroepiploic Artery to RCA, Sequential SVG to Diagonal and OM Carotid artery stenosis LICA 95-99%, EKTA 45% per 03/15 vascular note CHF (congestive heart failure) Chronic kidney disease, stage 3a baseline creatinine 1.5-1.8 per chart review Diabetes mellitus, type 2 diet controlled Hilar adenopathy Hyperlipidemia ICD (implantable cardioverter-defibrillator), dual, in situ Implanted 07/2019, [employer], dual chamber, last check 12/22/19 Obesity Severe obstructive sleep apnea CPAP Stroke remote left hemispheric stroke (9+ years ago), traumatic left parafalcine SDH (07/2019) Transient ischemic attack (TIA) 2011 Surgical History Coronary artery bypass grafts x 5 History of arthroscopy of shoulder History of cardiac catheterization History of colonoscopy (~08/2015) History of coronary artery bypass graft (~1989) History of vasectomy Presence of combination internal cardiac defibrillator (ICD) and pacemaker Implanted 07/2019 Family History Father Lung cancer COPD (chronic obstructive pulmonary disease) Mother Alzheimer disease Hypertension Brother Coronary heart disease Hypertension Obesity Stroke Diabetes Sister Asthma Son Diabetes Social History Smoking Status: Former smoker Age Started Using Tobacco: 14; Age Quit Using Tobacco: 44; packs per day: 2; Years Smoked: 30; Smoking End Date: QUIT 30 YRS AGO; Number of Years Since Quit: 30; Second Hand Exposure: No; Do You Dip or Chew Tobacco: No; Hx Alcohol Use: No Hx Substance Use: No Preferred Language: Citizen Of [place] Communication Ability: Effective Visual Impairment: No Limitations Hearing Ability: Normal Enrichment Teacher Required: No Beliefs That Will Affect Care: None marital status: Current Living Situation: Spouse Current Living Situation Comment: lives at home with current occupational status: retired Other Information That Helps Us Care for You: No Feels Safe at Home: Yes Safety Concerns: Feels Safe At This Time caffeine: Yes Physical Activity Frequency: Does not Exercise Seatbelt Use: always Sunscreen Use: No Assistive Devices: Glasses Review of Systems Review of Systems: Constitutional: denies fevers, chills Cardiac: denies chest pain palpitations, presyncope or syncope Pulm.: denies shortness of breath, cough GI: denies nausea, vomiting, abdominal pain Skin: denies rash Neuro: denies paresthesia, weakness, tingling, trouble speaking or trouble swallowing Physical Exam Constitutional: - no acute distress, lying in bed, sleepy but arousable Eyes: - left 3.5 mm, sluggish - right 2 mm, reactive to light - vision intact bilaterally, EOMI ENMT: external ear and nose normal, oropharynx normal Neck: - significant swelling and bruising on left neck w/ no drainage Respiratory: normal respiratory effort, lungs clear to auscultation Cardiovascular: RRR, no murmur, no edema Chest (Breasts): normal inspection/palpation of breasts Gastrointestinal (Abdomen): - decreased bowel sounds - soft, nTTP, no masses appreciated Musculoskeletal: - 5 strength intact grossly in upper and lower extremity Skin: - bruising, over left neck otherwise no rashes, skin warm and dry Neurologic: - alert and oriented 3/3 - CN II - XII intact w/ exception of sluggish left pupil Results & Data Results & Data ([facility]) Vital Signs (Past 12 Hours) Vital Signs Temp Pulse Pulse Resp BP BP Pulse Ox 04/13/20 14:55 71 17 134/70 97 04/13/20 14:45 71 12 129/67 95 04/13/20 14:35 36.5 C 70 12 125/64 95 04/13/20 14:25 70 15 119/58 L 94 04/13/20 14:15 69 17 114/55 L 95 04/13/20 14:05 70 21 112/55 L 95 04/13/20 13:56 36.0 C L 71 18 114/58 L 95 04/13/20 08:10 36.7 C 82 20 100/67 117/71 97 CBC Results Results Complete Blood Count Results: RBC 4.56 M/uL (4.7-6.1) L 04/13/20 WBC 16.27 K/uL (4.8-10.8) H 04/13/20 Hgb 14.3 g/dL (14.0-18.0) 04/13/20 Hct 42.2 % (42-52) 04/13/20 Plt Count 165 K/uL (130-400) 04/13/20 Chemistry (BMP) Results BMP Results: Sodium 138 mmol/L (136-145) 04/06/20 Potassium 4.3 mmol/L (3.5-5.1) 04/06/20 Chloride 106 mmol/L (98-107) 04/06/20 BUN 36 mg/dl (7-18) H 04/06/20 Creatinine 1.58 mg/dl (0.6-1.4) H 04/06/20 Glucose 104 mg/dl (70-99) H 04/06/20 Resident Activity Tracking Resident Involvement: Resident Care Provided Care Provided: [facility]
[2020-04-13 16:03] LABS: Basophils # (auto) 0.04 K/uL (0-0.2); Basophils % (auto) 0.2 %; Eosinophils # (auto) 0.08 K/uL (0-0.5); Eosinophils % (auto) 0.5 %; Hematocrit (blood only) 42.2 % (42-52); Hemoglobin 14.3 g/dL (14.0-18.0); Immature Granulocytes # (auto) 0.06 K/uL (0.00-0.02); Immature Granulocytes % (auto) 0.4 %; Lymphocytes # (auto) 1.76 K/uL (1.2-3.4); Lymphocytes % (auto) 10.8 %; Mean Corpuscular Hemoglobin 31.4 pg (25-34); Mean Corpuscular Hgb Conc 33.9 g/dL (32-36); Mean Corpuscular Volume 92.5 fL (80-100); Mean Platelet Volume 10.2 fL (7.4-10.4); Monocytes # (auto) 0.71 K/uL (0.11-0.59); Monocytes % (auto) 4.4 %; Neutrophils # (auto) 13.62 K/uL (1.4-6.5); Neutrophils % (auto) 83.7 %; Platelet Count 165 K/uL (130-400); RDW Coefficient of Variation 13.1 % (11.5-14.5); RDW Standard Deviation 44.1 fL (36.4-46.3); Red Blood Count 4.56 M/uL (4.7-6.1); White Blood Count 16.27 K/uL (4.8-10.8)
[2020-04-13] MEDS: ceFAZolin 2000MG 2,000 MG/15 ML SYR IV SCH (17:02)
--- NOTE | 2020-04-13 18:08 | Billing Data ---
Date of Service April 13, 2020 Coding Level of Care Code 54847 Initial Inpt Care Lvl 3
[2020-04-13] MEDS: carvediloL 25 MG TAB PO SCH (21:13)
[2020-04-13] MEDS: SACUBITRIL-VALSARTAN 97-103 MG TAB PO SCH (21:13)
[2020-04-14] MEDS: ceFAZolin 2000MG 2,000 MG/15 ML SYR IV SCH (00:05)
[2020-04-14] MEDS: LACTATED RINGER'S 1,000 ML IV SCH ×2 (00:48→08:47)
[2020-04-14 04:53] LABS: Basophils # (auto) 0.03 K/uL (0-0.2); Basophils % (auto) 0.2 %; Eosinophils # (auto) 0.06 K/uL (0-0.5); Eosinophils % (auto) 0.5 %; Hematocrit (blood only) 40.3 % (42-52); Hemoglobin 13.5 g/dL (14.0-18.0); Immature Granulocytes # (auto) 0.05 K/uL (0.00-0.02); Immature Granulocytes % (auto) 0.4 %; Lymphocytes # (auto) 1.89 K/uL (1.2-3.4); Lymphocytes % (auto) 14.7 %; Mean Corpuscular Hemoglobin 31.3 pg (25-34); Mean Corpuscular Hgb Conc 33.5 g/dL (32-36); Mean Corpuscular Volume 93.3 fL (80-100); Mean Platelet Volume 10.1 fL (7.4-10.4); Monocytes # (auto) 1.05 K/uL (0.11-0.59); Monocytes % (auto) 8.1 %; Neutrophils # (auto) 9.82 K/uL (1.4-6.5); Neutrophils % (auto) 76.1 %; Platelet Count 161 K/uL (130-400); RDW Standard Deviation 44.9 fL (36.4-46.3); Red Blood Count 4.32 M/uL (4.7-6.1)
[2020-04-14 05:10] LABS: Albumin Level 2.9 gm/dl (3.4-5.0); BUN Creatinine Ratio 20.3 (10-20); Calcium 8.3 mg/dl (8.5-10.1); Creatinine Clr Calc Pharmacy 62.2 ml/min; Est GFR (Non-African American) 53.5; Potassium 4.3 mmol/L (3.5-5.1)
[2020-04-14 05:13] LABS: Albumin Globulin Ratio 0.7 (0.9-2); Bilirubin,Total 0.6 mg/dl (0.2-1); Globulin 4.2 gm/dl (2.5-4.0); Total Protein 7.1 gm/dl (6.4-8.2)
--- NOTE | 2020-04-14 08:05 | Critical Care Progress Note ---
Date of Service April 14, 2020 Assessment & Plan (1) Left carotid artery stenosis: Impression: 74-year-old male with history of HTN, dyslipidemia, Type II DM, NNEKA, multivessel CAD s/p CABG X5 vessels 1989, ischemic cardiomyopathy (LVEF 35-40% ECHO July 2019), AICD placed 08/05/2019 for ventricular arrhythmia. Remote left hemispheric stroke 9 years prior, and traumatic left parafalcine subdural hematoma, and tiny right frontal convexity subarachnoid hematoma 07/29/2019 w/ occluded left internal carotid artery now s/p left endarterectomy. 24-hour events: s/p l endarterectomy Neuro - -- History of stroke L hemisphere (9 years prior) and L parafalcine SDH and small R SAH (07/29/2019) - continue ASA, Plavix - HAJA Acetaminophen, PRN Morphine 1-4 mg Q2H, and PRN Percocet for pain - sluggish pupil potentially due to Hx. of cataract - continue to monitor for new neurologic sign Patient is following commands. CAM ICU negative Cardiac - -- Hx. of multivessel CAD s/p CABG 1989, EF 35-40% in July --Hx. of Hypertension, well controlled - continue Bumex, Carvedilol, Entresto, ASA Respiratory - --NNEKA - currently holding off on CPAP given mask would overlap incision - wean oxygen as tolerated GI - - continue home Colace RENAL/LYTES - -- Monitor kidney function given contrast load - cr. 1.29 this AM -- Urinary retention overnight - no prior history of retention - cath if retaining, consider starting Flomax if this continues ENDO - -- type II DM (A1c 6 on 10/2018) - not currently on home medication, continue to monitor for now HEME - -- no acute issues - Hgb 13.5 from 14.3 from 15.8 - recheck H&H at noon ID - -- perioperative Ancef - leukocytosis likely 2/2 operation DVT: will start prophylaxis once cleared by surgery Lines: Peripheral, arterial line Diet: clear liquid diet Plan: Monitoring in the ICU in the immediate post operative period, overall improved and hemodynamically stable for the floor. Admission and Anticipated Discharge Date Admission Date: April 13, 2020 Supervising Physician Co-Signing Physician Notes Dr Melo was the resident-physician during care of patient. I separately evaluated patient for to portions of the history and the exam. I was present during the critical portion of medical decision making, and I discussed the case with the resident. I generally agree with the findings and plan except for any additions/exceptions noted. Patient seen and examined at bedside. No acute distress, no adverse events overnight. Patient was saturating well at the time of examination. He was about to have his breakfast. He does say that he gets choking sensation sometimes when he eats. This is not new as per the patient he has been having these issues even before. But he says that the swelling on the left side of the neck is making it worse. He did say that it is pressing on his tongue. On physical exam he was able to move his tongue without any difficulty. He had no neurological deficit. No slurred voice. Pupils were round and reactive to light. Left side of the neck is a bit swollen. With mild hematoma rest changes appreciated around the incision site. No significant change compared to yesterday. H&H is stable. Patient is hemodynamically stable to be downgraded to a medical floor. DC IV fluids. Please note the above document was generated using voice recognition software. It may contain grammatical, syntax or spelling errors.Any formal questions or concerns about the content, text or information contained within the body of this dictation should be directly addressed to the provider for clarification. Subjective Doing well this morning, he was having some trouble with swallowing, which he attributes to the swelling in his neck and his head position. He was having some urinary retention overnight, and a straight cath. was used to resolve this. He has not urinated this morning. Review of Systems Review of Systems: Constitutional: denies fevers, chills Cardiac: denies chest pain, palpitations Rerp.: denies shortness of breath, cough Physical Exam Constitutional: - no acute distress, lying in bed, sleepy but arousable Eyes: - PERRLA, EOMI ENMT: - uvula midline, no significant swelling appreciated of the posterior oropharynx Neck: - significant swelling and bruising on left neck w/ no drainage Respiratory: normal respiratory effort, lungs clear to auscultation Cardiovascular: RRR, no murmur, no edema Chest (Breasts): normal inspection/palpation of breasts Gastrointestinal (Abdomen): - decreased bowel sounds - soft, nTTP, no masses appreciated Musculoskeletal: - 5/5 strength intact grossly in upper and lower extremity Skin: - bruising, over left neck otherwise no rashes, skin warm and dry Neurologic: - alert and oriented 3/3 - CN II - XII intact w/ exception of sluggish left pupil Results & Data Results & Data ([facility]) Vital Signs (Past 12 Hours) Vital Signs Temp Pulse Resp BP Pulse Ox 04/14/20 04:04 83 13 120/65 97 04/14/20 04:00 36.7 C 84 6 L 98 04/14/20 03:05 81 18 97 04/14/20 03:04 83 15 123/66 96 04/14/20 03:00 83 18 98 04/14/20 02:04 83 18 122/58 L 96 04/14/20 02:00 81 18 95 04/14/20 01:05 81 19 96 04/14/20 01:04 81 19 128/64 97 04/14/20 01:00 81 18 96 04/14/20 00:05 86 13 97 04/14/20 00:04 85 15 108/61 95 04/14/20 00:00 36.9 C 83 17 97 04/13/20 23:56 81 04/13/20 23:04 83 7 L 126/58 L 98 04/13/20 23:00 88 10 L 98 04/13/20 22:04 91 H 14 108/58 L 96 04/13/20 22:00 86 18 96 04/13/20 21:04 88 14 127/76 95 04/13/20 21:00 85 17 90 04/13/20 20:05 87 27 H 140/71 98 CBC Results Results Complete Blood Count Results: RBC 4.32 M/uL (4.7-6.1) L 04/14/20 WBC 12.90 K/uL (4.8-10.8) H 04/14/20 Hgb 13.8 g/dL (14.0-18.0) L 04/14/20 Hct 41.4 % (42-52) L 04/14/20 Plt Count 161 K/uL (130-400) 04/14/20 Chemistry (BMP) Results BMP Results: Sodium 141 mmol/L (136-145) 04/14/20 Potassium 4.3 mmol/L (3.5-5.1) 04/14/20 Chloride 110 mmol/L (98-107) H 04/14/20 BUN 26 mg/dl (7-18) H 04/14/20 Creatinine 1.29 mg/dl (0.6-1.4) 04/14/20 Glucose 120 mg/dl (70-99) H 04/14/20 Resident Activity Tracking Resident Involvement: Resident Care Provided Care Provided: Adult [facility]
[2020-04-14] MEDS: ASPIRIN 81 MG ECTAB PO SCH (08:47)
[2020-04-14] MEDS: carvediloL 25 MG TAB PO SCH ×2 (08:47→20:47)
[2020-04-14] MEDS: BUMETANIDE 1 MG TAB PO SCH (08:47)
[2020-04-14] MEDS: CLOPIDOGREL BISULFATE 75 MG TAB PO SCH (08:47)
[2020-04-14] MEDS: allopurinoL 100 MG TAB PO SCH (08:47)
[2020-04-14] MEDS: SACUBITRIL-VALSARTAN 97-103 MG TAB PO SCH ×2 (08:47→20:47)
--- NOTE | 2020-04-14 11:30 | Surgery Progress Note ---
Date of Service April 14, 2020 Assessment & Plan (1) Left carotid artery stenosis: We will transfer the patient to the floor later today. Will order a swallowing study prior to starting him on a solid diet. We will also do a bladder scan after his next urination to see if he is having urinary retention. If he does then urology consult will be obtained. Admission and Anticipated Discharge Date Admission Date: April 13, 2020 Subjective Patient today is complaining of difficulty with urination. He claims that his upper and lower extremity strength is normal. He does have a fullness feeling in his mouth and feels like his tongue is slightly deviated to the left. He is able to swallow but he has not tried anything larger than small sips. Physical Exam Physical Exam: On exam his upper and lower strength is normal. He has good sensation in upper and lower extremities. He does have some mild tongue deviation to the left on extruding his tongue. The neck incision is slightly swollen, no tracheal deviation is noted. Constitutional: WD/WN, vitals as above Results & Data ([facility]) Vital Signs (Past 12 Hours) Vital Signs Temp Pulse Resp BP Pulse Ox 04/14/20 09:05 98 H 21 113/73 94 04/14/20 09:00 91 H 21 94 04/14/20 08:36 96 H 10 L 94 04/14/20 08:04 86 16 106/61 91 04/14/20 08:00 87 22 92 04/14/20 07:30 90 18 94 04/14/20 07:04 88 17 127/73 96 04/14/20 07:00 83 18 92 04/14/20 06:45 85 17 94 04/14/20 04:04 83 13 120/65 97 04/14/20 04:00 36.7 C 84 6 L 98 04/14/20 03:05 81 18 97 04/14/20 03:04 83 15 123/66 96 04/14/20 03:00 83 18 98 04/14/20 02:04 83 18 122/58 L 96 04/14/20 02:00 81 18 95 04/14/20 01:05 81 19 96 04/14/20 01:04 81 19 128/64 97 04/14/20 01:00 81 18 96 04/14/20 00:05 86 13 97 04/14/20 00:04 85 15 108/61 95 04/14/20 00:00 36.9 C 83 17 97 04/13/20 23:56 81
[2020-04-14 12:29] LABS: Hematocrit (blood only) 41.4 % (42-52); Hemoglobin 13.8 g/dL (14.0-18.0)
--- NOTE | 2020-04-14 16:26 | Billing Data ---
Date of Service April 14, 2020 Coding Level of Care Code 41343 Subseq Hosp Care Lvl 3
[2020-04-15] MEDS: BUMETANIDE 1 MG TAB PO SCH (09:41)
[2020-04-15] MEDS: allopurinoL 100 MG TAB PO SCH (09:41)
[2020-04-15] MEDS: carvediloL 25 MG TAB PO SCH (09:41)
[2020-04-15] MEDS: SACUBITRIL-VALSARTAN 97-103 MG TAB PO SCH (09:41)
[2020-04-15] MEDS: ASPIRIN 81 MG ECTAB PO SCH (09:42)
[2020-04-15] MEDS: CLOPIDOGREL BISULFATE 75 MG TAB PO SCH (09:42)
--- NOTE | 2020-04-15 15:01 | Surgery Progress Note ---
Date of Service April 15, 2020 Assessment & Plan (1) Left carotid artery stenosis: Pt doing well post op. Will d/c home today. Will see in office in 2 weeks for follow up. Admission and Anticipated Discharge Date Admission Date: April 13, 2020 Subjective 74 yo m POD #2 after L CEA and internal carotid ligation, seen in f/u today. Pt states feeling generally well. Admits fatigue/malaise/voice hoarseness. Denies any new neuro complaints. Has taken PO without trouble. Urinating normally again. No other new complaints. Review of Systems Review of Systems: All systems reviewed & are unremarkable except as noted in HPI & below Physical Exam Physical Exam: On exam his upper and lower strength is normal. He has good sensation in upper and lower extremities. He does have some mild tongue deviation to the left on extruding his tongue. The neck incision is slightly swollen, no tracheal deviation is noted. Constitutional: WD/WN, vitals as above Neck: trachea midline (l neck incision C/D/I, mild ecchymosis, mild edema) Respiratory: normal respiratory effort, lungs clear to auscultation Cardiovascular: RRR, no murmur, no edema Gastrointestinal (Abdomen): normal bowel sounds, soft, nontender, no hepatosplenomegaly Neurologic: moves all extremities and awake; not confused Cranial Nerves: normal facial strength; + tongue not midline (Mild L deviation) Psychiatric: A+Ox3, euthymic affect Results & Data ([facility]) Vital Signs (Past 12 Hours) Vital Signs Temp Pulse Resp BP Pulse Ox 04/15/20 07:53 37 C 87 18 98/61 L 92
--- NOTE | 2020-04-15 15:02 | Discharge Summary ---
Date of Service April 15, 2020 Admission HPI Per Admitting Provider Mr Villaseñor is a 74-year-old gentleman who was being worked up for carotid disease. He had an arteriogram done of his carotid arteries which showed a 45% narrowing the right side and a severe 95 to 99% narrowing of the left internal carotid artery. Left internal carotid artery beyond the narrowing is small which possibly could be from hypoperfusion. He has no new neurological symptoms at this time. L CEA was recommended. Pt agreeable. Admission Exam Per Admitting Provider Physical Exam: Constitutional: In general patient is an obese healthy appearing well-nourished well-developed elderly male no distress. He ambulates without assistance. Chest: Heart is irregular, lungs are clearo Abdomen: Soft nontender with normoactive bowel sounds and no bruit. Pulses: Bilateral brachial radial and femoral pulses are +3. Left lower extremity DP is +1 PT is not palpable he has brisk capillary refill and no sign of distal ischemia. His right lower extremity demonstrates +1 DP and nonpalpable PT with brisk capillary refill and no sign of distal ischemia. Is warm pink toes. Principal Diagnosis 1. L carotid endarerectomy and L internal carotid ligation 2. L Carotid stenosis Discharge Exam Constitutional WD/WN, vitals as above Neck trachea midline (l neck incision C/D/I, mild ecchymosis, mild edema) Respiratory normal respiratory effort, lungs clear to auscultation Cardiovascular RRR, no murmur, no edema Gastrointestinal (Abdomen) normal bowel sounds, soft, nontender, no hepatosplenomegaly Neurologic moves all extremities and awake; not confused Cranial Nerves: normal facial strength; + tongue not midline (Mild L deviation) Psychiatric A+Ox3, euthymic affect Discharge Data Allergies Allergy/AdvReac Type Severity Reaction Status Date / Time fexofenadine [From [place]inn] Allergy Severe joint pain Verified 04/13/20 07:48 lisinopril Allergy Severe cough, rash Verified 04/13/20 07:48 atorvastatin AdvReac Severe myalgia Verified 04/13/20 07:48 prednisone AdvReac Severe edema Verified 04/13/20 07:48 Consultations 04/13/20 15:25 Consult Manager Cafe Routine Procedures Performed Operation Date: 04/13/20 09:05 Actual Procedures p Left Carotid Endarterectomy with Ligation of Left Internal Carotid Art ivon(Left) - Osbaldo Shaffer MD Hospital Course (1) Left carotid artery stenosis: Pt also seen by Dr Shaffer today. Pt doing well post op. Will d/c home today. Will see in office in 2 weeks for follow up. Total Time Total Time Spent Total Time Spent (In Minutes): 0 Discharge Plan Discharge Items Patient Disposition: Home - Self-Care Reason For Visit: Left Carotid Artery Stenosis Discharge Diagnosis: Left internal carotid artery occlusion, left carotid endarterectomy Activity: Per Instructions section Lifting: Gradually increase as tolerated Bathing: No limitations Exercise/Sports: Gradually increase as tolerated Non-emergency contact: Surgeon Call non-emergency contact if: your temperature is above 101.5, your wound has increased redness, your wound has increased drainage and your wound pain has increased Follow-up/Referrals: Jamari Barclay MD [Primary Care Provider] - Diet: Heart Healthy Diet Comment: full liquids for now, advance to heart healthy as tolerated Addtl Attending Provider Instructions: ACTIVITY RECOMMENDATIONS: See Above SPECIAL CARE INSTRUCTIONS: Call your doctor if: * Temperature above 101 degrees * Pain not relieved by pain medicine ordered * There is increased drainage or redness from any incision * You have any unanswered questions or concerns. Pending Studies at Discharge: No Stand-Alone Forms: [facility] [employer] [facility], Smoking Cessation Medications and DC Order Prescriptions: Continued acetaminophen 325 mg capsule 650 mg PO BID PRN (Reason: Pain) RF: 0 carvedilol 25 mg tablet 25 mg PO BID Qty: 60 RF: 11 docusate sodium 100 mg capsule 100 mg PO DAILY PRN (Reason: Constipation) RF: 0 bumetanide 1 mg tablet 1 mg PO QAM Qty: 90 RF: 3 Entresto 97-103 mg tablet 1 tab PO BID Qty: 180 RF: 3 Scooter Misc See Rx Instructions .ROUTE .COMPLEX Qty: 1 RF: 0 clopidogrel 75 mg tablet 75 mg PO QAM RF: 0 nitroglycerin [Nitrostat] 0.4 mg Tablet, Sublingual 0.4 mg Sublingual DIRECTED PRN (Reason: Chest Pain) RF: 0 allopurinol 100 mg tablet 100 mg PO QAM RF: 0 Repatha SureClick 140 mg/mL Pen Injector 1 mg SUBCUT Q4WK RF: 0 aspirin [Aspir-81] 81 mg Tablet,Delayed Release (Dr/Ec) 81 mg PO QAM RF: 0 Discharge Orders: Discharge Order (Routine); Ordered 04/15/20 Ordered By: Osbaldo Shaffer Admission Data Admit Date/Time: 04/13/20 08:16 Attending Provider: Osbaldo Shaffer Admit Provider: Osbaldo Shaffer Primary Care Provider: Jamari Barclay Other Providers: Glenroy Tipton ; Malcom Cadena ; Raymon Sosa ; Ok Jeong ; Yannick Cope ; Kalyan Alvarez ; Lg Lowery ; [facility]
--- NOTE | 2020-04-26 09:38 | Coding Query ---
CONGESTIVE HEART FAILURE To Promote full compliance with coding requirements relating to patient care, physician participation is requested in all cases of associate producer uncertainty. Please assist us with the following questions. A diagnosis of Congestive Heart Failure is documented in the patient's medical record. To accurately code this diagnosis and to compare patient severity, we ask that you specify the type of heart failure by placing an X within the parenthesis (x). SYSTOLIC HEART FAILURE ( ) Acute ( ) Chronic ( ) Acute on Chronic ( ) Rheumatic ( x ) Unknown DIASTOLIC HEART FAILURE ( ) Acute ( ) Chronic ( ) Acute on Chronic ( ) Rheumatic (x ) Unknown COMBINED SYSTOLIC AND DIASTOLIC HEART FAILURE ( ) Acute ( ) Chronic ( ) Acute on Chronic ( ) Rheumatic ( x ) Unknown Was the CHF Present On Admission? Please check the appropriate box: ( ) Present on Admission ( ) Not Present On Admission ( x ) Clinically undetermined Thank you Erika MILLER
== END 2020-04-15 16:38 | disposition home or self-care (01) | DRG 27 ==
LOC: ASU 07:27 → 1E 08:16 → 3W 04-14 13:58

== ENCOUNTER 2020-04-17 05:59 | Inpatient (IN) ==
[2020-04-17] MEDS ORDERED: ASPIRIN CHEW 324 MG ONE (06:07)
[2020-04-17 06:29] LABS: Basophils # (auto) 0.04 K/uL (0-0.2); Basophils % (auto) 0.3 %; Eosinophils # (auto) 0.09 K/uL (0-0.5); Eosinophils % (auto) 0.6 %; Hematocrit (blood only) 36.6 % (42-52); Hemoglobin 11.8 g/dL (14.0-18.0); Immature Granulocytes # (auto) 0.06 K/uL (0.00-0.02); Immature Granulocytes % (auto) 0.4 %; Lymphocytes # (auto) 2.15 K/uL (1.2-3.4); Lymphocytes % (auto) 14.4 %; Mean Corpuscular Hemoglobin 30.7 pg (25-34); Mean Corpuscular Hgb Conc 32.2 g/dL (32-36); Mean Corpuscular Volume 95.3 fL (80-100); Mean Platelet Volume 10.5 fL (7.4-10.4); Monocytes # (auto) 1.36 K/uL (0.11-0.59); Monocytes % (auto) 9.1 %; Neutrophils % (auto) 75.2 %; Platelet Count 188 K/uL (130-400); RDW Coefficient of Variation 13.4 % (11.5-14.5); RDW Standard Deviation 46.4 fL (36.4-46.3); Red Blood Count 3.84 M/uL (4.7-6.1)
[2020-04-17 06:43] LABS: INR 1.1 (0.9-1.1); Partial Thromboplastin Time 28.3 Seconds (21.0-31.0); Prothrombin Time 11.8 Seconds (9.0-12.0)
--- NOTE | 2020-04-17 06:47 | Emergency Department Note ---
History of Present Illness General Chief complaint: Shortness of Breath/Dyspnea Stated complaint: SHORT OF BREATH Time Seen by Provider: 04/17/20 06:28 Source: patient Mode of arrival: EMS Limitations: no limitations History of Present Illness Provider complaint: Shortness of breath Maximum Pain Intensity: 3 This is a 74-year-old male who presents to the ED with a chief complaint of shortness of breath. He was released from the hospital 2 days ago after a left carotid endarterectomy. He states he has been feeling short of breath for the past couple days. He did state that they were contemplating sending him home on oxygen but they did not. The patient also reports some chest pressure in the left upper chest for the past couple of days associated with shortness of breath. He also states that his right hand is a little more swollen than usual. He does have history of pacemaker/defibrillator. He was given aspirin by EMS as well as 350 cc of normal saline. The patient's blood pressure during his hospitalization is of the 21st had blood pressures in the mid to high 90s syst olic. His initial blood pressure here was 81/49. Oxygen saturations here was 89% on room air. The patient states that he feels better on oxygen. The patient had a left carotid endarterectomy during his most recent hospitalization and he did report some difficulty with swallowing although this seems to be getting better. This is no worse than when he was discharged. Home Medications Medication Instructions Recorded Confirmed Type nitroglycerin [Nitrostat] 0.4 mg SUBLINGUAL DIRECTED PRN 04/07/18 04/17/20 History acetaminophen 325 mg capsule 650 mg PO BID PRN cap 08/08/19 04/17/20 History carvedilol 25 mg tablet 25 mg PO BID #60 tab 09/23/19 04/17/20 Rx docusate sodium 100 mg capsule 100 mg PO DAILY PRN cap 11/07/19 04/17/20 History bumetanide 1 mg tablet 1 mg PO QAM #90 tab 11/13/19 04/17/20 Rx sacubitril 97 mg-valsartan 103 mg 1 tab PO BID #180 tab 01/21/20 04/17/20 Rx tablet miscellaneous medical supply See Rx Instructions .ROUTE 02/04/20 04/17/20 Rx .COMPLEX #1 ea clopidogrel 75 mg tablet 75 mg PO QAM 03/03/20 04/17/20 History allopurinol 100 mg PO QAM 03/23/20 04/17/20 History aspirin 81 mg PO QAM 03/23/20 04/17/20 History evolocumab 140 mg/mL subcutaneous 1 mg SUBCUT .Q2WK ml 04/16/20 04/17/20 History pen injector Allergies Allergy/AdvReac Type Severity Reaction Status Date / Time fexofenadine [From [place]inn] Allergy Severe joint pain Verified 04/17/20 06:05 lisinopril Allergy Severe cough, rash Verified 04/17/20 06:05 atorvastatin AdvReac Severe myalgia Verified 04/17/20 06:05 prednisone AdvReac Severe edema Verified 04/17/20 06:05 Past Med/Surg History Medical History CAD (coronary artery disease) s/p CABG x5 (1989)- CORDELL to LAD, CASAS to RI, Gastroepiploic Artery to RCA, Sequential SVG to Diagonal and OM Carotid artery stenosis LICA 95-99%, EKTA 45% per 03/15 vascular note CHF (congestive heart failure) Chronic kidney disease, stage 3a baseline creatinine 1.5-1.8 per chart review Diabetes mellitus, type 2 diet controlled Hilar adenopathy Hyperlipidemia ICD (implantable cardioverter-defibrillator), dual, in situ Implanted 07/2019, [employer], dual chamber, last check 12/22/19 Obesity Severe obstructive sleep apnea CPAP Stroke remote left hemispheric stroke (9+ years ago), traumatic left parafalcine SDH (07/2019) Transient ischemic attack (TIA) 2011 Surgical History Coronary artery bypass grafts x 5 History of arthroscopy of shoulder History of cardiac catheterization History of colonoscopy (~08/2015) History of coronary artery bypass graft (~1989) History of vasectomy Presence of combination internal cardiac defibrillator (ICD) and pacemaker Implanted 07/2019 Family History Father Lung cancer COPD (chronic obstructive pulmonary disease) Mother Alzheimer disease Hypertension Brother Coronary heart disease Hypertension Obesity Stroke Diabetes Sister Asthma Son Diabetes Social History Smoking Status: Former smoker Age Started Using Tobacco: 14; Age Quit Using Tobacco: 44; packs per day: 2; Years Smoked: 30; Number of Years Since Quit: 30; Second Hand Exposure: No; Hx Alcohol Use: No Hx Substance Use: No Preferred Language: Macedonian Communication Ability: Effective Visual Impairment: No Limitations Hearing Ability: Normal Newspaper Managing Editor Required: No Beliefs That Will Affect Care: None marital status: Current Living Situation: Spouse Current Living Situation Comment: lives at home with current occupational status: retired Feels Safe at Home: Yes caffeine: Yes Physical Activity Frequency: Does not Exercise Seatbelt Use: always Sunscreen Use: No Assistive Devices: Walker Review of Systems A total of 10 systems reviewed and were otherwise negative Physical Exam Vital Signs Vital Signs - 24 hr 04/17/20 05:59 04/17/20 06:15 04/17/20 06:18 Temperature 36.3 C L Temperature Source Oral Pulse Rate 100 H Pulse Rate from SpO2 Sensor Respiratory Rate 20 Blood Pressure 81/49 L Blood Pressure [Right Arm] Blood Pressure Mean 59 Blood Pressure Mean [Right Arm] Pulse Oximetry 94 89 L 95 Oxygen Delivery Method Room Air Nasal Cannula Nasal Cannula Oxygen Flow Rate 2 Sepsis Recent Fever Within 48 Hours No Sepsis New/Unexplained Change in Mental Status No Sepsis Action Taken by Nursing No Action Required Oxygen Flow Rate - Titration 2 Pulse Oximetry Post Tiitration 96 04/17/20 06:20 04/17/20 06:30 04/17/20 06:35 Temperature Temperature Source Pulse Rate 85 86 87 Pulse Rate from SpO2 Sensor 84 88 87 Respiratory Rate 23 24 25 H Blood Pressure 95/60 L Blood Pressure [Right Arm] 95/60 L Blood Pressure Mean 71 Blood Pressure Mean [Right Arm] 71 Pulse Oximetry 97 97 98 Oxygen Delivery Method Nasal Cannula Nasal Cannula Oxygen Flow Rate 2 2 Sepsis Recent Fever Within 48 Hours Sepsis New/Unexplained Change in Mental Status Sepsis Action Taken by Nursing Oxygen Flow Rate - Titration Pulse Oximetry Post Tiitration 04/17/20 07:01 04/17/20 07:30 04/17/20 08:01 Temperature Temperature Source Pulse Rate 82 85 84 Pulse Rate from SpO2 Sensor 83 85 84 Respiratory Rate 24 28 H 26 H Blood Pressure 100/69 126/81 115/87 Blood Pressure [Right Arm] Blood Pressure Mean 79 96 96 Blood Pressure Mean [Right Arm] Pulse Oximetry 97 97 98 Oxygen Delivery Method Oxygen Flow Rate Sepsis Recent Fever Within 48 Hours Sepsis New/Unexplained Change in Mental Status Sepsis Action Taken by Nursing Oxygen Flow Rate - Titration Pulse Oximetry Post Tiitration CONSTITUTIONAL/VITAL SIGNS: Reviewed / noted above. GENERAL: Non-toxic in appearance. INTEGUMENTARY: Warm, dry, and [place]. HEAD: Normocephalic. EYES: without scleral icterus or trauma. ENT/OROPHARYNX: clear and moist. There is ecchymosis to the entire anterior neck with a healing wound on the left carotid area. LYMPHADENOPATHY/NECK: Is supple without lymphadenopathy or meningismus. RESPIRATORY: Lungs diminished but clear and equal. CARDIOVASCULAR: Regular rate and rhythm. GI/ABDOMEN: Soft and nontender. No organomegaly or pulsatile mass. No rebound or guarding. Normal bowel sounds. EXTREMITIES: Warm and well perfused. BACK: No CVA tenderness. NEUROLOGICAL: Intact without focal deficits. PSYCHIATRIC: normal affect. MUSCULOSKELETAL: Normally developed with good muscle tone. TRIAGE NURSING DOCUMENTATION REVIEWED. Course Administered Medications Sodium Chloride (Nss 1000ml) 500 mls @ 999 mls/hr IV .Q31M ONE Stop: 04/17/20 08:45 Last Admin: 04/17/20 08:26 Dose: 999 mls/hr Documented by: [id number] Discontinued Medications Aspirin (Aspirin Chew 324 Mg) Confirm Administered Dose 324 mg .ROUTE .STK-MED ONE Stop: 04/17/20 06:08 Last Admin: 04/17/20 06:16 Dose: Not Given Documented by: [id number] Medical Decision Making Differential Diagnosis The differential was considered includes acute myocardial infarction, acute coronary syndrome, myocarditis, pericarditis, pericardial effusions /tamponad, esophageal perforation, pulmonary embolism, pneumonia, pneumothorax, cardiomyopathy, congestive heart, anemia , COPD/asthma exacerbation. Medical Records Attestation: I reviewed the patient's medical records. Home Medications Current Medication List: was personally reviewed by me Laboratory Data Attestation: I reviewed the patient's lab results. Result diagrams: 04/17/20 05:10 04/17/20 05:10 Lab Results 04/17/20 04/17/20 04/17/20 Range/Units 05:10 05:10 05:10 WBC 14.90 H (4.8-10.8) K/uL RBC 3.84 L (4.7-6.1) M/uL Hgb 11.8 L (14.0-18.0) g/dL Hct 36.6 L (42-52) % MCV 95.3 (80-100) fL MCH 30.7 (25-34) pg MCHC 32.2 (32-36) g/dL RDW Std Deviation 46.4 H (36.4-46.3) fL RDW Coeff of Tasha 13.4 (11.5-14.5) % Plt Count 188 (130-400) K/uL MPV 10.5 H (7.4-10.4) fL Immature Gran % (Auto) 0.4 % Neut % (Auto) 75.2 % Lymph % (Auto) 14.4 % [place] % (Auto) 9.1 % Eos % (Auto) 0.6 % Baso % (Auto) 0.3 % Neut # (Auto) 11.20 H (1.4-6.5) K/uL Lymph # (Auto) 2.15 (1.2-3.4) K/uL [place] # (Auto) 1.36 H (0.11-0.59) K/uL Eos # (Auto) 0.09 (0-0.5) K/uL Baso # (Auto) 0.04 (0-0.2) K/uL Immature Gran # (Auto) 0.06 H (0.00-0.02) K/uL PT 11.8 (9.0-12.0) Seconds INR 1.1 (0.9-1.1) APTT 28.3 (21.0-31.0) Seconds PTT Ratio 1.0 Sodium 138 (136-145) mmol/L Potassium 4.2 (3.5-5.1) mmol/L Chloride 106 (98-107) mmol/L Carbon Dioxide 27 (21-32) mmol/L Anion Gap 5.0 (3-11) BUN 47 H (7-18) mg/dl Creatinine 2.39 H (0.6-1.4) mg/dl Est Cr Clr Drug Dosing 34.2 ml/min Est GFR ( Amer) 29.4 Est GFR (Non-Af Amer) 25.4 BUN/Creatinine Ratio 19.8 (10-20) Glucose 131 H (70-99) mg/dl Calcium 8.5 (8.5-10.1) mg/dl Total Bilirubin 1.2 H (0.2-1) mg/dl AST 55 H (15-37) U/L ALT 22 (12-78) U/L Alkaline Phosphatase 53 (45-117) U/L Troponin I 6.340 H* (0-0.045) ng/ml Total Protein 7.1 (6.4-8.2) gm/dl Albumin 2.9 L (3.4-5.0) gm/dl Globulin 4.2 H (2.5-4.0) gm/dl Albumin/Globulin Ratio 0.7 L (0.9-2) Imaging Data Attestation: I personally reviewed and interpreted this imaging study as follows: My Impression: Chest x-ray: No acute disease no pneumonia or pneumothorax. Radiologist's Impression: XR chest 1V portable HISTORY: 74 years-old Male SOB acute shortness of breath COMPARISON: Chest radiograph 04/06/2020, chest CT 09/25/2019 TECHNIQUE: Portable AP view of the chest FINDINGS: Cardiac silhouette is enlarged. Prior median sternotomy. Left subclavian pacer/AICD. Chronic mild interstitial coarsening. Mild pulmonary vascular congestion. No pneumothorax, large pleural effusion or lobar airspace consolidation. Mild blunting of the costophrenic angles. Degenerative changes of the shoulders and spine. IMPRESSION: Cardiomegaly with pulmonary vascular congestion. ECG Data Attestation: I personally reviewed and interpreted this ECG as follows: Indication: + chest pain and + other (Paced ventricular rhythm) Rate (beats per minute): 86 Rhythm: + other (Paced ventricular rhythm) ECG Findings: no PVCs MDM Narrative Patient presents with shortness of breath for the past 2 days since being discharged from the hospital. He does use CPAP at home. He had a left carotid endarterectomy. He does have ecchymosis to the anterior neck region that seems to be no different than when he was discharged. His breathing feels better with oxygen. He is currently on 2 L. Saturations were 89% on room air and are 95% on 2 L. Denies any fevers or cough. No additional complaints at this time. Chest x-ray reveals some cardiomegaly and congestive changes per the radiologist. The patient CBC Shows a white blood cell count of 14.9. Hemoglobin is 11.8. This is down from 13.8, 3 days ago. BUN is 47 creatinine is 2.39. This is up from 1.29, 3 days ago. Troponin is elevated 6.34. The patient was initially hypoxic with saturations of 89% when he first came in. This is on room air. He does not have oxygen at home. He states that his symptoms did feel better with oxygen. He was given aspirin by EMS. He was given some IV fluids by EMS as well as in the ED. Blood pressure did improve from around the 80 systolic range of the 115 systolic range. He will be seen by the hospitalist for further evaluation and care. Impression & Plan Acute kidney injury, Myocardial infarction Discharge Plan Visit Data Chief Complaint: Shortness of Breath/Dyspnea Stated Complaint: SHORT OF BREATH ED Provider: Ramo Gan Discharge Problem: Acute kidney injury, Myocardial infarction Forms Stand Alone Forms: [facility] [employer] Prescriptions Prescriptions: No Action acetaminophen 325 mg capsule 650 mg PO BID PRN (Reason: Pain) RF: 0 carvedilol 25 mg tablet 25 mg PO BID Qty: 60 RF: 11 docusate sodium 100 mg capsule 100 mg PO DAILY PRN (Reason: Constipation) RF: 0 bumetanide 1 mg tablet 1 mg PO QAM Qty: 90 RF: 3 Entresto 97-103 mg tablet 1 tab PO BID Qty: 180 RF: 3 Scooter Misc See Rx Instructions .ROUTE .COMPLEX Qty: 1 RF: 0 Repatha SureClick 140 mg/mL pen injector 1 mg SUBCUT .Q2WK RF: 0 clopidogrel 75 mg tablet 75 mg PO QAM RF: 0 nitroglycerin [Nitrostat] 0.4 mg Tablet, Sublingual 0.4 mg Sublingual DIRECTED PRN (Reason: Chest Pain) RF: 0 allopurinol 100 mg tablet 100 mg PO QAM RF: 0 aspirin 81 mg Tablet,Delayed Release (Dr/Ec) 81 mg PO QAM RF: 0 Discharge Problem: Myocardial infarction Qualifiers: Myocardial infarction type: unspecified Involved coronary artery: unspecified coronary artery Qualified Code(s): I21.9 - Acute myocardial infarction, unspecified
[2020-04-17 06:52] LABS: Albumin Level 2.9 gm/dl (3.4-5.0); BUN Creatinine Ratio 19.8 (10-20); Calcium 8.5 mg/dl (8.5-10.1); Creatinine Clr Calc Pharmacy 34.2 ml/min; Est GFR (African American) 29.4; Est GFR (Non-African American) 25.4; Potassium 4.2 mmol/L (3.5-5.1)
[2020-04-17 07:03] LABS: Albumin Globulin Ratio 0.7 (0.9-2); Bilirubin,Total 1.2 mg/dl (0.2-1); Globulin 4.2 gm/dl (2.5-4.0); Total Protein 7.1 gm/dl (6.4-8.2); Troponin I 6.34 ng/ml (0-0.045)
--- NOTE | 2020-04-17 08:00 | XRay Report ---
XR chest 1V portable HISTORY: 74 years-old Male SOB acute shortness of breath COMPARISON: Chest radiograph 04/06/2020, chest CT 09/25/2019 TECHNIQUE: Portable AP view of the chest FINDINGS: Cardiac silhouette is enlarged. Prior median sternotomy. Left subclavian pacer/AICD. Chronic mild int erstitial coarsening. Mild pulmonary vascular congestion. No pneumothorax, large pleural effusion or lobar airspace consolidation. Mild blunting of the costophrenic angles. Degenerative changes of the s houlders and spine. IMPRESSION: Cardiomegaly with pulmonary vascular congestion. ACT 112: Negative or not required by law. The above report was generated using voice recognition software. It may contain grammatical, syntax o r spelling errors. Electronically signed by: Kip Salazar M.D. 04/17/2020 7:59 AM
[2020-04-17] MEDS ORDERED: SODIUM CHLORIDE 0.9% 1000ML 500 ML IV ONE (08:15)
--- NOTE | 2020-04-17 10:06 | XRay Report ---
XR chest 1V portable HISTORY: 74 years-old Male Resp sx c/w COVID-19 acute shortness of breath. COVID Positive. COMPARISON: Chest radiograph 04/17/2020 TECHNIQUE: Portable AP view of the chest FINDINGS: Cardiac silhouette is enlarged. Prior median sternotomy. Left subclavian pacer/AICD. Pulmonary vascul ar congestion with progressively worsened interstitial opacities and ill-defined bibasilar densities. Trace pleural effusions. Degenerative changes of the shoulders and spine. IMPRESSION: 1. Cardiomegaly and pulmonary vascular congestion with progressively worsened diffuse interstitial op acities suggestive of pulmonary edema versus interstitial pneumonitis. 2. Trace pleural effusions. ACT 112: Negative or not required by law. The above report was generated using voice recognition software. It may contain grammatical, syntax o r spelling errors. Electronically signed by: Kip Salazar M.D. 04/17/2020 10:04 AM
[2020-04-17] MEDS ORDERED: ONDANSETRON INJ 2 MG/ML 2 ML VIAL IV PRN (10:51)
[2020-04-17] MEDS ORDERED: ACETAMINOPHEN 325 MG TAB PO PRN (10:51)
[2020-04-17] MEDS ORDERED: HEPARIN SODIUM/DEXTROSE 25,000 UNITS/500 ML BAG IV SCH (10:51)
[2020-04-17] MEDS ORDERED: NORMOSOL-R 500 ML IV ONE (10:51)
--- NOTE | 2020-04-17 11:11 | Cardiology Consultation ---
Date of Consultation He notes he just could not catch his breath at home and felt short of breath. He did not have typical angina. He describes his angina as being in the upper portion of his chest into his throat. He did have to take nitroglycerin about 3 to 4 weeks ago but has not needed any nitroglycerin in the short-term. He did wish to be propped up in bed slightly further and his BNP is markedly elevated consistent with heart failure. He has no lower extremity edema or increased abdominal distention and his abdomen is not firm he describes his weight is stab le. He denies any palpitations or fluttering or feeling his heart racing. His appetite is been very poor since he has been home he does have bruising With some drainage of his left carotid endarterectomy site April 17, 2020 History of Present Illness Attending Physician: Venkatesh Arteaga MD Allergies Allergy/AdvReac Type Severity Reaction Status Date / Time fexofenadine [From Linn] Allergy Severe joint pain Verified 04/17/20 06:05 lisinopril Allergy Severe cough, rash Verified 04/17/20 06:05 atorvastatin AdvReac Severe myalgia Verified 04/17/20 06:05 prednisone AdvReac Severe edema Verified 04/17/20 06:05 Home Medications Medication Instructions Recorded Confirmed Type nitroglycerin [Nitrostat] 0.4 mg SUBLINGUAL DIRECTED PRN 04/07/18 04/17/20 History acetaminophen 325 mg capsule 650 mg PO BID PRN cap 08/08/19 04/17/20 History carvedilol 25 mg tablet 25 mg PO BID #60 tab 09/23/19 04/17/20 Rx docusate sodium 100 mg capsule 100 mg PO DAILY PRN cap 11/07/19 04/17/20 History bumetanide 1 mg tablet 1 mg PO QAM #90 tab 11/13/19 04/17/20 Rx sacubitril 97 mg-valsartan 103 mg 1 tab PO BID #180 tab 01/21/20 04/17/20 Rx tablet miscellaneous medical supply See Rx Instructions .ROUTE 02/04/20 04/17/20 Rx .COMPLEX #1 ea clopidogrel 75 mg tablet 75 mg PO QAM 03/03/20 04/17/20 History allopurinol 100 mg PO QAM 03/23/20 04/17/20 History aspirin 81 mg PO QAM 03/23/20 04/17/20 History evolocumab 140 mg/mL subcutaneous 1 mg SUBCUT .Q2WK ml 04/16/20 04/17/20 History pen injector Patient History Medical History CAD (coronary artery disease) s/p CABG x5 (1989)- CORDELL to LAD, CASAS to RI, Gastroepiploic Artery to RCA, Sequential SVG to Diagonal and OM Carotid artery stenosis LICA 95-99%, EKTA 45% per 03/15 vascular note CHF (congestive heart failure) Chronic kidney disease, stage 3a baseline creatinine 1.5-1.8 per chart review Diabetes mellitus, type 2 diet controlled Hilar adenopathy Hyperlipidemia ICD (implantable cardioverter-defibrillator), dual, in situ Implanted 07/2019, Medtronic, dual chamber, last check 12/22/19 Obesity Severe obstructive sleep apnea CPAP Stroke remote left hemispheric stroke (9+ years ago), traumatic left parafalcine SDH (07/2019) Transient ischemic attack (TIA) 2011 Surgical History Coronary artery bypass grafts x 5 History of arthroscopy of shoulder History of cardiac catheterization History of colonoscopy (~08/2015) History of coronary artery bypass graft (~1989) History of vasectomy Presence of combination internal cardiac defibrillator (ICD) and pacemaker Implanted 07/2019 Family History Father Lung cancer COPD (chronic obstructive pulmonary disease) Mother Alzheimer disease Hypertension Brother Coronary heart disease Hypertension Obesity Stroke Diabetes Sister Asthma Son Diabetes Social History Smoking Status: Former smoker Age Started Using Tobacco: 14; Age Quit Using Tobacco: 44; packs per day: 2; Years Smoked: 30; Number of Years Since Quit: 30; Second Hand Exposure: No; Hx Alcohol Use: No Hx Substance Use: No Preferred Language: Lao Communication Ability: Effective Visual Impairment: No Limitations Hearing Ability: Normal Motorcoach Driver Required: No Beliefs That Will Affect Care: None marital status: Current Living Situation: Spouse Current Living Situation Comment: lives at home with current occupational status: retired Other Information That Helps Us Care for You: No Feels Safe at Home: Yes Safety Concerns: Feels Safe At This Time caffeine: Yes Physical Activity Frequency: Does not Exercise Seatbelt Use: always Sunscreen Use: No Assistive Devices: CPAP, Denture - Upper, Glasses and Walker Results & Data ([facility]) Vital Signs (Past 12 Hours) Vital Signs Temp Pulse Pulse Resp BP BP Pulse Ox 04/17/20 10:46 36.9 C 88 18 88/55 L 96 04/17/20 10:00 87 27 H 88/57 L 99 04/17/20 09:31 83 27 H 131/74 98 04/17/20 09:01 85 26 H 127/80 99 04/17/20 08:31 85 25 H 145/87 H 99 04/17/20 08:01 84 26 H 115/87 98 04/17/20 07:30 85 28 H 126/81 97 04/17/20 07:01 82 24 100/69 97 04/17/20 06:35 87 25 H 95/60 L 95/60 L 98 04/17/20 06:30 86 24 97 04/17/20 06:20 85 23 97 04/17/20 06:18 95 04/17/20 06:15 89 L 04/17/20 05:59 36.3 C L 100 H 20 81/49 L 94 He is awake alert and oriented x3 he appears mildly short of breath. HEENT: Severely reduced carotid upstrokes on the right I did not Palpate the left given his recent CEA Lungs: Globally decreased breath sounds no rales rhonchi or wheezing Heart: Paced rhythm no appreciable murmurs rubs or gallops Abdomen: Soft nontender distended positive bowel sounds Extremities no clubbing cyanosis or edema Psychiatric his affect appeared appropriate Assessment and Plan (1) Cardiomyopathy:Severe ischemic cardiomyopathy (2) CAD, multiple vessel:CABG x5 in 1989 (3) ICD (implantable cardioverter-defibrillator), dual, in situ: (4) Hyperlipidemia: (5) Peripheral arterial occlusive disease:Status post left CEA (6) Acute on chronic systolic heart failure I would hold off on heparin at this point. I would wait for his next troponin. If it is trending down this is likely acute systolic heart failure secondary to volume overload from his procedure earlier in the week. If his troponin continues to climb then he could have ischemic heart failure. We know that his bypass grafts are 30 years old it is Likely he has had significant progression of his coronary disease including loss of multiple grafts. He will live with a heart rate in the 90s with his severe ischemic card iomyopathy. He likely will need diuretics. I would hold his Entresto for now and continue his carvedilol. He is not having any angina at this point. He notes his angina is most typical of chest tightness and pressure in the mid to upper portion of his chest and he would take nitroglycerin for that. Recently and even today before he came in the hospital he did not have that symptom. I would continue his aspirin and Plavix.If he has worsening angina we can add long-acting nitrates depending on his blood pressure. Mr. Villaseñor is a 74 year old male with a history of Carotid Artery Stenosis (Occluded LICA, EKTA > 60% stenosis), Hypertension, Dyslipidemia, Type 2 DM, NNEKA, Multivessel CAD s/p CABG x 5 Vessels 1989 (CORDELL to LAD, CASAS to RI, Gastroepiploic Artery to RCA, Sequential SVG to Diagonal and OM), Ischemic Cardiomyopathy (LVEF 35% to 40% on Echo July 2019), Chronic Systolic CHF, and Syncope x 2 Episodes 07/29/2019 (presumed secondary to Ventricular Arrhythmia) s/p Medtronic Evera MRI XT Dual Chamber AICD Implantation 08/05/2019 Outpatient medications: 1. Coreg 25 mg b.i.d.. 2. Entresto 97-103 mg b.i.d.. 3. Aspirin 81 mg daily. 4. Bumex 1 mg daily. 5. Maintain a low-sodium, heart healthy diet. 6. Continue monitoring daily weights. 7. Begin Repatha 140 mg subcutaneous injection every 2 weeks.
[2020-04-17] MEDS ORDERED: HEPARIN IV BOLUS 7,000 UNITS in SYRINGE 0 ML IV ONE (11:30)
[2020-04-17] MEDS ORDERED: carvediloL 12.5 MG TAB PO SCH (11:30)
--- NOTE | 2020-04-17 12:16 | Electrocardiogram Report ---
Test Reason : Blood Pressure : / mmHG Vent. Rate : 175 BPM Atrial Rate : 174 BPM P-R Int : 096 ms QRS Dur : 148 ms QT Int : 144 ms P-R-T Axes : 081 -73 000 degrees QTc Int : 245 ms Normal sinus rhythm V Paced Abnormal ECG When compared with ECG of 06-AUG-2019 09:09, No significant change was found Confirmed by Anish Stephenson ([id number]) on 04/17/2020 12:16:04 PM Referred By: REFERRED SELF Confirmed By:Anish Stephenson
[2020-04-17] MEDS: ASPIRIN 81 MG ECTAB PO SCH (12:33)
[2020-04-17] MEDS: CLOPIDOGREL BISULFATE 75 MG TAB PO SCH (12:34)
[2020-04-17] MEDS: allopurinoL 100 MG TAB PO SCH (12:34)
--- NOTE | 2020-04-17 13:53 | History & Physical Report ---
Date of Service April 17, 2020 Assessment & Plan (1) Acute systolic (congestive) heart failure: BNP elevated to 20k, and CXR on admission showed pulmonary vacular congestion. - Hold IV fluids - Diuretic ordered - Bumex 1 mg IV x 1, then BID if Cr stable/improving - Hold Entresto temporarily (2) Myocardial infarction: Initial troponin was 6.3, then 5.9. EKG is paced on admission and stable from a prior in 07/2019. Concern for acute coronary syndrome with atypical angina; however, cardiology felt demand ischemia from acute CHF more likely. - Trend troponins and EKGs. - Echo ordered - Continue ASA, Plavix, beta-lou - Heparin gtt initially ordered, but not started (this was cleared by vascular surgery who will see him on Sunday) (3) Acute kidney injury: Baseline Cr. 1.3 - 1.8, eGFR 40 - 50. - On presentation, Cr was up to 2.4. Likely cardiorenal from acute CHF. Did check PVR on admission which was 350 mL. Subsequent straight cath was only 250 mL though, so post-renal less likely to be contributing significantly. - Diuresis as above - Hold Entresto as above (4) Chronic kidney disease, stage 3a: As above for MARIBELL. (5) Hypertension: BP presently 95/60 which is not unexpected given his cardiomyopathy. - Holding Entresto - Halved beta-lou to carvedilol 12.5 mg PO BID - Would like to continue as able for cardioprotective effects (6) Left carotid artery stenosis: S/p left CEA and internal carotid ligation on 04/13/2020. - Discussed with Dr. Shaffer; no inpatient needs presently. Could institute heparin gtt as needed for cardiac purposes. - Will see on Sunday - No official consult needed (7) Gout: No flare noted on admission. - Continue allopurinol (8) Complex sleep apnea syndrome: - Inpatient CPAP (9) DVT prophylaxis: Heparin 7,500 units SQ Q12h Admission and Anticipated Discharge Date Admission Date: April 17, 2020 History of Present Illness Primary Care Provider: Jamari Barclay MD 74yo M w/ hx of CAD s/p CABG in 1989, left internal carotid occlusion, ischemic cardiomyopathy, HTN, ICD for presumed ventricular arrhythmias who presents with shortness of breath overnight. The patient was recently hospitalized for a left carotid endarterectomy which ended up requiring ligation of left internal carotid artery. He was on some O2 at that time, but was able to be discharged without it. He reports that he was doing ok at home with low levels of shortness of breath when he became acutely short of breath last night. He reports this happened about 9pm. He had been wearing his CPAP, but had to take it off due to neck pain after his left CEA. About an hour after he took it off (again ~9pm), he felt acute onset shortness of breath with some left upper-sternal chest pressure. He noted some right arm tingling, but no direct radiation from the chest pain. Denies lightheadedness, diaphoresis, palpitations, or other associated symptoms apart from general weakness. He reports he sat up and felt some relief from the shortness of breath. He never took a nitro or other medication. The family called 911, and by the time he was coming to the ED, his shortness of breath improved and resolved and has not retu rned. At the time of my interview, he felt nearly normal/back to baseline. Allergies Allergy/AdvReac Type Severity Reaction Status Date / Time fexofenadine [From Linn] Allergy Severe joint pain Verified 04/17/20 06:05 lisinopril Allergy Severe cough, rash Verified 04/17/20 06:05 atorvastatin AdvReac Severe myalgia Verified 04/17/20 06:05 prednisone AdvReac Severe edema Verified 04/17/20 06:05 Home Medications Medication Instructions Recorded Confirmed Type nitroglycerin [Nitrostat] 0.4 mg SUBLINGUAL DIRECTED PRN 04/07/18 04/17/20 History acetaminophen 325 mg capsule 650 mg PO BID PRN cap 08/08/19 04/17/20 History carvedilol 25 mg tablet 25 mg PO BID #60 tab 09/23/19 04/17/20 Rx docusate sodium 100 mg capsule 100 mg PO DAILY PRN cap 11/07/19 04/17/20 History bumetanide 1 mg tablet 1 mg PO QAM #90 tab 11/13/19 04/17/20 Rx sacubitril 97 mg-valsartan 103 mg 1 tab PO BID #180 tab 01/21/20 04/17/20 Rx tablet miscellaneous medical supply See Rx Instructions .ROUTE 02/04/20 04/17/20 Rx .COMPLEX #1 ea clopidogrel 75 mg tablet 75 mg PO QAM 03/03/20 04/17/20 History allopurinol 100 mg PO QAM 03/23/20 04/17/20 History aspirin 81 mg PO QAM 03/23/20 04/17/20 History evolocumab 140 mg/mL subcutaneous 1 mg SUBCUT .Q2WK ml 04/16/20 04/17/20 History pen injector Past Med/Surg History Medical History CAD (coronary artery disease) s/p CABG x5 (1989)- CORDELL to LAD, CASAS to RI, Gastroepiploic Artery to RCA, Sequential SVG to Diagonal and OM Carotid artery stenosis LICA 95-99%, EKTA 45% per 03/15 vascular note CHF (congestive heart failure) Chronic kidney disease, stage 3a baseline creatinine 1.5-1.8 per chart review Diabetes mellitus, type 2 diet controlled Hilar adenopathy Hyperlipidemia ICD (implantable cardioverter-defibrillator), dual, in situ Implanted 07/2019, Medtronic, dual chamber, last check 12/22/19 Obesity Severe obstructive sleep apnea CPAP Stroke remote left hemispheric stroke (9+ years ago), traumatic left parafalcine SDH (07/2019) Transient ischemic attack (TIA) 2011 Surgical History Coronary artery bypass grafts x 5 History of arthroscopy of shoulder History of cardiac catheterization History of colonoscopy (~08/2015) History of coronary artery bypass graft (~1989) History of vasectomy Presence of combination internal cardiac defibrillator (ICD) and pacemaker Implanted 07/2019 Family History Father Lung cancer COPD (chronic obstructive pulmonary disease) Mother Alzheimer disease Hypertension Brother Coronary heart disease Hypertension Obesity Stroke Diabetes Sister Asthma Son Diabetes Social History Smoking Status: Former smoker Age Started Using Tobacco: 14; Age Quit Using Tobacco: 44; packs per day: 2; Years Smoked: 30; Number of Years Since Quit: 30; Second Hand Exposure: No; Hx Alcohol Use: No Hx Substance Use: No Preferred Language: Iranian Communication Ability: Effective Visual Impairment: No Limitations Hearing Ability: Normal Animal Therapist Required: No Beliefs That Will Affect Care: None marital status: Current Living Situation: Spouse Current Living Situation Comment: lives at home with current occupational status: retired Other Information That Helps Us Care for You: No Feels Safe at Home: Yes Safety Concerns: Feels Safe At This Time caffeine: Yes Physical Activity Frequency: Does not Exercise Seatbelt Use: always Sunscreen Use: No Assistive Devices: CPAP, Denture - Upper, Glasses and Walker Review of Systems Review of Systems: All systems reviewed & are unremarkable except as noted in HPI & below Physical Exam Constitutional: WD/WN, vitals as above Eyes: EOM intact bilaterally; no conjunctival abnormality ENMT: external ear and nose normal, oropharynx normal Neck: trachea midline, no thyromegaly + anterior neck swelling; + abnormal visual inspection (Left CEA surgical incision with some scabs; no purulence or erythema) Respiratory: normal respiratory effort, lungs clear to auscultation no respiratory distress Cardiovascular: RRR, no murmur, no edema Vessels: no JVD Extremities: no edema Gastrointestinal (Abdomen): Inspection/Auscultation: abdomen normal to inspection; abdomen not distended Musculoskeletal: no cyanosis or clubbing, extremities motor strength 5/5 Skin: no rashes, warm and dry Neurologic: moves all extremities and awake Psychiatric: Orientation: alert, oriented to person and cooperative Results & Data Results & Data ([facility]) Vital Signs (Past 12 Hours) Vital Signs Temp Pulse Pulse Resp BP BP Pulse Ox 04/17/20 11:18 36.6 C 89 22 96/63 L 93 04/17/20 11:00 36.7 C 90 21 97/55 L 94 04/17/20 10:46 36.9 C 88 18 88/55 L 96 04/17/20 10:00 87 27 H 88/57 L 99 04/17/20 09:31 83 27 H 131/74 98 04/17/20 09:01 85 26 H 127/80 99 04/17/20 08:31 85 25 H 145/87 H 99 04/17/20 08:01 84 26 H 115/87 98 04/17/20 07:30 85 28 H 126/81 97 04/17/20 07:01 82 24 100/69 97 04/17/20 06:35 87 25 H 95/60 L 95/60 L 98 04/17/20 06:30 86 24 97 04/17/20 06:20 85 23 97 04/17/20 06:18 95 04/17/20 06:15 89 L 04/17/20 05:59 36.3 C L 100 H 20 81/49 L 94 Code Status & VTE Plan VTE Prophylaxis Plan VTE Prophylaxis will be ordered: Yes PG Care Time/CCT Total # of Minutes Spent Total Time Spent with Patient: Total time spent is greater than 50% in coordination of care (as documented) at patient's floor/unit and/or counseling patient: Coding Level of Care Code 96307 Initial Inpt Care Lvl 3 Diagnoses Acute systolic (congestive) heart failure I50.21 Myocardial infarction I21.9 Involved coronary artery: unspecified coronary artery Myocardial infarction type: unspecified Acute kidney injury N17.9 Chronic kidney disease, stage 3a N18.3 Hypertension I10 Hypertension type: essential hypertension Left carotid artery stenosis I65.22 Gout M10.9 Complex sleep apnea syndrome G47.31 DVT prophylaxis Z29.9 (1) Myocardial infarction Involved coronary artery: unspecified coronary artery Myocardial infarction type: unspecified Qualified Code(s): I21.9 - Acute myocardial infarction, unspecified (2) Hypertension Hypertension type: essential hypertension Qualified Code(s): I10 - Essential (primary) hypertension
[2020-04-17] MEDS ORDERED: BUMETANIDE 1 MG in SYRINGE 0 ML IV SCH (14:00)
[2020-04-17] MEDS ORDERED: CALCIUM CARBONATE 500 MG CHEWABLE TAB PO PRN (16:41)
[2020-04-17] MEDS ORDERED: NITROGLYCERIN SL 0.4 MG/TAB TAB SL STA (16:41)
[2020-04-17] MEDS ORDERED: HEPARIN SOD 5,000 UNIT/0.5 ML VIAL SQ SCH (21:00)
[2020-04-17] MEDS: METOPROLOL TARTRATE 25 MG TAB PO SCH (21:30)
[2020-04-18 07:10] LABS: Hematocrit (blood only) 34.9 % (42-52); Hemoglobin 11.2 g/dL (14.0-18.0); Mean Corpuscular Hemoglobin 30.4 pg (25-34); Mean Corpuscular Hgb Conc 32.1 g/dL (32-36); Mean Corpuscular Volume 94.8 fL (80-100); Mean Platelet Volume 10.7 fL (7.4-10.4); Platelet Count 228 K/uL (130-400); RDW Coefficient of Variation 13.4 % (11.5-14.5); RDW Standard Deviation 46.3 fL (36.4-46.3); Red Blood Count 3.68 M/uL (4.7-6.1); White Blood Count 15.94 K/uL (4.8-10.8)
[2020-04-18 07:51] LABS: Albumin Level 2.6 gm/dl (3.4-5.0); BUN Creatinine Ratio 25.1 (10-20); Calcium 9.3 mg/dl (8.5-10.1); Est GFR (African American) 27.2; Est GFR (Non-African American) 23.5; Magnesium 2.6 mg/dl (1.8-2.4); Potassium 4.5 mmol/L (3.5-5.1)
[2020-04-18 07:54] LABS: Albumin Globulin Ratio 0.6 (0.9-2); Bilirubin,Total 1.1 mg/dl (0.2-1); Globulin 4.4 gm/dl (2.5-4.0)
[2020-04-18] MEDS: CLOPIDOGREL BISULFATE 75 MG TAB PO SCH (08:06)
[2020-04-18] MEDS: allopurinoL 100 MG TAB PO SCH (08:06)
[2020-04-18] MEDS: ASPIRIN 81 MG ECTAB PO SCH (08:06)
[2020-04-18] MEDS: METOPROLOL TARTRATE 25 MG TAB PO SCH ×2 (08:06→20:31)
--- NOTE | 2020-04-18 11:00 | Electrocardiogram Report ---
Test Reason : Blood Pressure : / mmHG Vent. Rate : 169 BPM Atrial Rate : 300 BPM P-R Int : 000 ms QRS Dur : 010 ms QT Int : 166 ms P-R-T Axes : 000 000 -71 degrees QTc Int : 278 ms Normal sinus rhythm atrial-sensed ventricular-paced complexes Abnormal ECG When compared with ECG of 17-APR-2020 06:11, ; the very wide QRS complex is unchanged Confirmed by Anish Stephenson ([id number]) on 04/18/2020 11:00:29 AM Referred By: REFERRED SELF Confirmed By:Anish Stephenson
--- NOTE | 2020-04-18 11:06 | Electrocardiogram Report ---
Test Reason : Blood Pressure : / mmHG Vent. Rate : 093 BPM Atrial Rate : 093 BPM P-R Int : 280 ms QRS Dur : 150 ms QT Int : 398 ms P-R-T Axes : 068 039 135 degrees QTc Int : 494 ms Sinus rhythm with 1st degree A-V block Right bundle branch block Inferior infarct (cited on or before 17-APR-2020)and Posterior Infarct T wave abnormality, consider anterolateral ischemia ACUTE FL / STEMI Abnormal ECG When compared with ECG of 17-APR-2020 16:28, (unconfirmed) Significant changes have occurred Confirmed by Anish Stephenson ([id number]) on 04/18/2020 11:06:23 AM Referred By: REFERRED SELF Confirmed By:Anish Stephenson
--- NOTE | 2020-04-18 11:21 | Electrocardiogram Report ---
Test Reason : Blood Pressure : / mmHG Vent. Rate : 082 BPM Atrial Rate : 082 BPM P-R Int : 272 ms QRS Dur : 140 ms QT Int : 408 ms P-R-T Axes : 085 066 127 degrees QTc Int : 476 ms Sinus rhythm with 1st degree A-V block Right bundle branch block ST elevation consider inferior injury or acute infarct ACUTE DC / STEMI Abnormal ECG When compared with ECG of 17-APR-2020 16:56, (unconfirmed) Evolving inferoposterior infarct Confirmed by Anish Stephenson ([id number]) on 04/18/2020 11:21:41 AM Referred By: REFERRED SELF Confirmed By:Anish Stephenson
--- NOTE | 2020-04-18 12:06 | Cardiology Progress Note ---
Date of Service April 18, 2020 Assessment & Plan Admission and Anticipated Discharge Date Admission Date: April 17, 2020 Subjective He denies any chest pain or chest pressure. He still has some shortness of breath talking in sentences. In trying to ascertain whether he is more short of breath than he was before the surgery sitting up with the head of the bed elevated. He notes sleeping he describes being much more active before the surgery than he currently is and describes being more short of breath at rest. He denies any lightheadedness or dizziness. He denies any of his typical anginal symptoms and denies any pressure or heaviness in his chest up into his throat like he was having at home that he used nitroglycerin for last night it was lower than it is currently but he did not try to sleep flat. He denies any palpitations or fluttering or feeling his heart racing. Results & Data ([facility]) Vital Signs (Past 12 Hours) Vital Signs Temp Pulse Resp BP Pulse Ox 04/18/20 07:01 36.8 C 16 93/59 L 93 04/18/20 04:23 37.1 C 81 16 97/61 L 94 04/18/20 00:46 37.2 C 88 18 95/62 L 95 He is awake alert and oriented x3 he appears mildly short of breath. HEENT: Severely reduced carotid upstrokes on the right I did not Palpate the left given his recent CEA Lungs: Globally decreased breath sounds no rales rhonchi or wheezing Heart: Paced rhythm no appreciable murmurs rubs or gallops Abdomen: Soft nontender distended positive bowel sounds Extremities no clubbing cyanosis or edema Psychiatric his affect appeared appropriate Assessment and Plan (1) Cardiomyopathy:Severe ischemic cardiomyopathy (2) CAD, multiple vessel:CABG x5 in 1989 (3) ICD (implantable cardioverter-defibrillator), dual, in situ: (4) Hyperlipidemia: (5) Peripheral arterial occlusive disease:Status post left CEA (6) Acute on chronic systolic heart failure 7. Torrential mitral regurgitation 8. Chronic hypotension I went back and looked at all of the patient's EKGs. His EKG when not ventricularly paced looks like he is having an acute inferior posterior NM. If you look at the previous EKGs from July 2019 he had the previous inferior Q waves with ST elevation in the inferior leads and some degree of ST depression V1 to V3 which has been chronic consistent with aneurysmal formation. If you look at his EKG from just before [address] depression V1 to V3 appears slightly worse. His EKG this morning is back to being ventricularly paced with a wide bizarre QRS complex which is unchanged. In light of the fact he is not having any angina right now and his creatinine is up to 2.[address] Torres of interventional cardiology the risk of a catheterization at this point will is significantly greater than the benefit. His risk of acute kidney injury leading to dialysis is significant and he notes he had a brother who was on dialysis. If you look at his echocardiogram this morning he has torrential mitral regurgitation with an ejection fraction in the range of 30% in the face of severe MR which makes his true ejection fraction substantially less. I am not surprised with the degree of mitral regurgitation and the lack of forward flow that he is having worsening heart failure symptoms. His troponin has peaked and continues to trend down. There are no good options here his best short-term would be to consider dobutamine at a low dose to try to improve forward flow and improve his renal function and allow for adequate diuresis. The dilemma is dobutamine may make his angina worse. With dobutamine I would try to give him a milligram of IV Bumex to facilitate diuresis. If we can get him through the next couple of days and he stabilizes and he wants everything done then one option would be to consider a mitral clip to reduce the severity of his mitral regurgitation and improve forward flow. Unfortunately his bypass grafts are 30 years old they were likely all occluded and he is living off his severely diseased torres martinez coronaries. All this was discussed with the hospitalist as well as Dr. Torres in detail I spent nearly an hour discussing his case and reviewing his document Tatian in the electronic medical record. Mr. Villaseñor is a 74 year old male with a history of Carotid Artery Stenosis (Occluded LICA, EKTA > 60% stenosis), Hypertension, Dyslipidemia, Type 2 DM, NNEKA, Multivessel CAD s/p CABG x 5 Vessels 1989 (CORDELL to LAD, CASAS to RI, Gastroepiploic Artery to RCA, Sequential SVG to Diagonal and OM), Ischemic Cardiomyopathy (LVEF 35% to 40% on Echo July 2019), Chronic Systolic CHF, and Syncope x 2 Episodes 07/29/2019 (presumed secondary to Ventricular Arrhythmia) s/p Medtronic Evera MRI XT Dual Chamber AICD Implantation 08/05/2019 Outpatient medications: 1. Coreg 25 mg b.i.d.. 2. Entresto 97-103 mg b.i.d.. 3. Aspirin 81 mg daily. 4. Bumex 1 mg daily. 5. Maintain a low-sodium, heart healthy diet. 6. Continue monitoring daily weights. 7. Begin Repatha 140 mg subcutaneous injection every 2 weeks.
--- NOTE | 2020-04-18 15:33 | Hospitalist Progress Note ---
Date of Service April 18, 2020 Assessment & Plan (1) Myocardial infarction: Initial troponin was 6.3, then 5.9. EKG is paced on admission and stable from a prior in 07/2019. Concern for acute coronary syndrome with atypical angina; however, cardiology felt demand ischemia from acute CHF more likely. - Trend troponins and EKGs. - Echo on 04/18 showed EF 30% with severe mitral regurgitation. - Continue ASA, Plavix, beta-lou - Holding heparin gtt at this time for bleeding risk. Troponin peaked at 04/17 night at 7.4, and is trending down. (2) Acute systolic (congestive) heart failure: BNP elevated to 20k, and CXR on admission showed pulmonary vacular congestion. - Hold Entresto temporarily - Diuretic ordered on 04/17 (Bumex 1 mg IV). Holding today given worsening BUN/Cr. (3) Acute kidney injury: Baseline Cr. 1.3 - 1.8, eGFR 40 - 50. - On presentation, Cr was up to 2.4. Likely cardiorenal from acute CHF. Did check PVR on admission which was 350 mL. Subsequent straight cath was only 250 mL though, so post-renal less likely to be contributing significantly. - Diuresis as above - Hold Entresto as above (4) Chronic kidney disease, stage 3a: As above for MARIBELL. (5) Hypertension: BP presently 105/70 which is not unexpected given his cardiomyopathy. - Holding Entresto - Beta-lou switched to metoprolol to mitigate BP effects from carvedilol - Continue metop 12.5 mg PO BID (6) Left carotid artery stenosis: S/p left CEA and internal carotid ligation on 04/13/2020. - Discussed with Dr. Shaffer; no inpatient needs presently. Could institute heparin gtt as needed for cardiac purposes. - Will see on Sunday - No official consult needed (7) Gout: No flare noted on admission. - Continue allopurinol (8) Complex sleep apnea syndrome: - Inpatient CPAP (9) DVT prophylaxis: SCDs - Holding heparin DVT ppx for bleeding from CEA surgical site on 04/17 Admission and Anticipated Discharge Date Admission Date: April 17, 2020 Subjective No further chest pain. The neck is not bleeding as much either. Reports no fevers/chills, chest pain, shortness of breath, abdominal pain, nausea, or vomiting. Physical Exam Constitutional: WD/WN, vitals as above Eyes: EOM intact bilaterally; no conjunctival abnormality ENMT: external ear and nose normal, oropharynx normal Neck: trachea midline, no thyromegaly + anterior neck swelling; + abnormal visual inspection (Left CEA surgical incision with some bleeding; no purulence or erythema) Respiratory: normal respiratory effort, lungs clear to auscultation no respiratory distress Cardiovascular: RRR, no murmur, no edema Vessels: no JVD Extremities: no edema Gastrointestinal (Abdomen): Inspection/Auscultation: abdomen normal to inspection; abdomen not distended Musculoskeletal: no cyanosis or clubbing, extremities motor strength 5/5 Skin: no rashes, warm and dry Neurologic: moves all extremities and awake Psychiatric: Orientation: alert, oriented to person and cooperative Results & Data Results & Data ([facility]) Vital Signs (Past 12 Hours) Vital Signs Temp Pulse Resp BP Pulse Ox 04/18/20 14:57 37.1 C 86 19 108/72 92 04/18/20 12:44 85 104/71 93 04/18/20 12:16 36.8 C 81 18 94/55 L 94 04/18/20 07:01 36.8 C 16 93/59 L 93 04/18/20 04:23 37.1 C 81 16 97/61 L 94 PG Care Time/CCT Total # of Minutes Spent Total Time Spent with Patient: Total time spent is greater than 50% in coordination of care (as documented) at patient's floor/unit and/or counseling patient: Coding Level of Care Code 51322 Subseq Hosp Care Lvl 3 Diagnoses Myocardial infarction I21.9 Involved coronary artery: unspecified coronary artery Myocardial infarction type: unspecified Acute systolic (congestive) heart failure I50.21 Acute kidney injury N17.9 Chronic kidney disease, stage 3a N18.3 Hypertension I10 Hypertension type: essential hypertension Left carotid artery stenosis I65.22 Gout M10.9 Complex sleep apnea syndrome G47.31 DVT prophylaxis Z29.9 (1) Myocardial infarction Involved coronary artery: unspecified coronary artery Myocardial infarction type: unspecified Qualified Code(s): I21.9 - Acute myocardial infarction, unspecified (2) Hypertension Hypertension type: essential hypertension Qualified Code(s): I10 - Essential (primary) hypertension
[2020-04-19 07:56] LABS: Hemoglobin 9.8 g/dL (14.0-18.0); Mean Corpuscular Hemoglobin 30.8 pg (25-34); Mean Corpuscular Hgb Conc 32.7 g/dL (32-36); Mean Corpuscular Volume 94.3 fL (80-100); Mean Platelet Volume 10.9 fL (7.4-10.4); Platelet Count 245 K/uL (130-400); RDW Coefficient of Variation 13.2 % (11.5-14.5); RDW Standard Deviation 45.2 fL (36.4-46.3); Red Blood Count 3.18 M/uL (4.7-6.1); White Blood Count 14.56 K/uL (4.8-10.8)
[2020-04-19] MEDS: METOPROLOL TARTRATE 25 MG TAB PO SCH (08:29)
[2020-04-19] MEDS: ASPIRIN 81 MG ECTAB PO SCH (08:31)
[2020-04-19] MEDS: CLOPIDOGREL BISULFATE 75 MG TAB PO SCH (08:31)
[2020-04-19 09:06] LABS: Albumin Globulin Ratio 0.5 (0.9-2); Albumin Level 2.2 gm/dl (3.4-5.0); BUN Creatinine Ratio 45.8 (10-20); Bilirubin,Total 0.8 mg/dl (0.2-1); Creatinine Clr Calc Pharmacy 38.1 ml/min; Est GFR (African American) 33.6; Globulin 4.1 gm/dl (2.5-4.0); Magnesium 2.6 mg/dl (1.8-2.4); Potassium 4.1 mmol/L (3.5-5.1); Total Protein 6.4 gm/dl (6.4-8.2); Troponin I 4.85 ng/ml (0-0.045)
[2020-04-19 09:22] LABS: Calcium 8.2 mg/dl (8.5-10.1)
--- NOTE | 2020-04-19 10:04 | Cardiology Progress Note ---
Date of Service April 19, 2020 Assessment & Plan (1) Acute systolic (congestive) heart failure: He seems to be in significant congestive heart failure which is relatively acute, the cause is likely multifactorial but the mitral valve may be the primary cause at this point. He may also have developed ischemia. (2) CAD, multiple vessel: He has known coronary disease and his troponin is significantly elevated, he could have had an ischemic event, it is possible is demand ischemia but the level seem quite high to be that. I am concerned that he may have had an ischemic event which probably occurred around the time of presentation this admission or slightly earlier based on his enzyme trend. (3) Mitral regurgitation: He has developed severe mitral regurgitation which may in part explain his congestive heart failure, the cause of it is not clear but we may have to investigate further by ARDEN. At the moment he is not in good condition for that. Shortly after my seeing him in the morning and before we could decide on definitive plans for further evaluation he decompensated and . Admission and Anticipated Discharge Date Admission Date: April 17, 2020 Subjective This is a 74-year-old male whom I follow in the office with a history of hypertension, diabetes mellitus, dyslipidemia and obesity. He also has longstanding coronary artery disease for which he had bypass surgery in 1989 which included a gastroepiploic artery to the right coronary artery. He also has an ischemic cardiomyopathy with ejection fraction of 30 to 35% on his echocardiogram April 21, 2019. He had several episodes of syncope in July 2019, on evaluation of those episodes he was noted to have a subdural hematoma and he was transferred to [facility] where he was treated medically. With indications for an ICD for primary invention as well as these episodes he underwent dual-chamber ICD implantation on August 05, 2019. When I saw him in the office on December 22, 2019 he noted exertional substernal chest discomfort. This did not occur always but was fairly frequent, it actually occurred while walking into the office that day. When he gets this he has to pause before he can resume his activity. This may be similar to what he experienced prior to his bypass surgery. He did have a dobutamine stress echo in March 2017 which was negative for ischemia, at that time he had mild left ventricular dysfunction. I ordered a nuclear stress test, however it appears that it was erroneously scheduled for a year later and when I asked the patient about it today he has no recollection of being told he should get a stress test. Unfortunately therefore it was not done. He then underwent carotid surgery on April 13, 2020 and he was sent home on April 15, 2020. He then presented with congestive heart failure on April 17, 2020 and his troponin elevated to 7.4 and has been gradually decreasing. His initial troponin however was 6.3. Although attributed to demand ischemia from congestive heart failure this could be an ischemic event. An echocardiogram done April 17, 2020 shows a moderate left ventricular dilatation with an ejection fraction of about 30% with severe mitral regurgitation. Based on his recent echocardiograms the severe mitral regurgitation appears new, prior to that he had mild to moderate mitral regurgitation. He is quite slow to answer and seems somewhat confused about his history today. He tells me he is not feeling well but cannot be too specific about what it is, when pressed he tells me he is tired. He might be short of breath. He is not having chest discomfort. He is sitting at his bedside chair and appears mildly uncomfortable. Results & Data ([facility]) Vital Signs (Past 12 Hours) Vital Signs Temp Pulse Resp BP Pulse Ox 04/19/20 07:47 36.5 C 84 19 100/64 96 04/19/20 00:14 36.4 C L 83 16 97/59 L 93 PG Care Time/CCT Total # of Minutes Spent Total Time Spent with Patient: Total time spent is greater than 50% in coordination of care (as documented) at patient's floor/unit and/or counseling patient: Coding Level of Care Code 23574 Office/Outpt Visit, Est Diagnoses Acute systolic (congestive) heart failure I50.21 CAD, multiple vessel I25.10 Mitral regurgitation I34.0 Cardiac valve disease etiology: nonrheumatic (1) Mitral regurgitation Cardiac valve disease etiology: nonrheumatic Qualified Code(s): I34.0 - Nonrheumatic mitral (valve) insufficiency
[2020-04-19] MEDS: allopurinoL 100 MG TAB PO SCH (12:23)
--- NOTE | 2020-04-19 13:55 | Hospitalist Progress Note ---
Date of Service April 19, 2020 Assessment & Plan (1) Myocardial infarction: Initial troponin was 6.3, then 5.9. EKG is paced on admission and stable from a prior in 07/2019. Concern for acute coronary syndrome with atypical angina; however, cardiology felt demand ischemia from acute CHF more likely. - Trend troponins and EKGs. - Echo on 04/18 showed EF 30% with severe mitral regurgitation. - Continue ASA, Plavix, beta-lou - Holding heparin gtt at this time for bleeding risk. Troponin peaked at 04/17 night at 7.4, and is trending down. (2) Acute systolic (congestive) heart failure: BNP elevated to 20k, and CXR on admission showed pulmonary vacular congestion. - Hold Entresto temporarily - Diuretic ordered on 04/17 (Bumex 1 mg IV). Holding today given worsening BUN/Cr. - On dobutamine on 04/18, but then stopped by cardiology on 04/19. (3) Acute kidney injury: Baseline Cr. 1.3 - 1.8, eGFR 40 - 50. - On presentation, Cr was up to 2.4. Likely cardiorenal from acute CHF. Did check PVR on admission which was 350 mL. Subsequent straight cath was only 250 mL though, so post-renal less likely to be contributing significantly. - Diuresis as above - Hold Entresto as above (4) Chronic kidney disease, stage 3a: As above for MARIBELL. (5) Hypertension: BP presently 105/70 which is not unexpected given his cardiomyopathy. - Holding Entresto - Beta-lou switched to metoprolol to mitigate BP effects from carvedilol - Continue metop 12.5 mg PO BID (6) Left carotid artery stenosis: S/p left CEA and internal carotid ligation on 04/13/2020. - Discussed with Dr. Shaffer; no inpatient needs presently. Could institute heparin gtt as needed for cardiac purposes. - Will see on Sunday - No official consult needed (7) Gout: No flare noted on admission. - Continue allopurinol (8) Complex sleep apnea syndrome: - Inpatient CPAP (9) DVT prophylaxis: SCDs - Holding heparin DVT ppx for bleeding from CEA surgical site on 04/17 & 04/18 Admission and Anticipated Discharge Date Admission Date: April 17, 2020 Subjective More tired today. Still some neck pain. Reports no fevers/chills, chest pain, shortness of breath, abdominal pain, nausea, or vomiting. Physical Exam Constitutional: WD/WN, vitals as above Eyes: EOM intact bilaterally; no conjunctival abnormality ENMT: external ear and nose normal, oropharynx normal Neck: trachea midline, no thyromegaly + anterior neck swelling; + abnormal visual inspection (Left CEA surgical incision with some bleeding; no purulence or erythema) Respiratory: normal respiratory effort, lungs clear to auscultation no respiratory distress Cardiovascular: RRR, no murmur, no edema Vessels: no JVD Extremities: no edema Gastrointestinal (Abdomen): Inspection/Auscultation: abdomen normal to inspection; abdomen not distended Musculoskeletal: no cyanosis or clubbing, extremities motor strength 5/5 Skin: no rashes, warm and dry Neurologic: moves all extremities and awake Psychiatric: Orientation: alert, oriented to person and cooperative Results & Data Results & Data ([facility]) Vital Signs (Past 12 Hours) Vital Signs Temp Pulse Pulse Resp BP Pulse Ox 04/19/20 12:02 36.7 C 82 19 93/61 L 99 04/19/20 10:26 81 04/19/20 07:47 36.5 C 84 19 100/64 96 PG Care Time/CCT Total # of Minutes Spent Total Time Spent with Patient: Total time spent is greater than 50% in coordination of care (as documented) at patient's floor/unit and/or counseling patient: Coding Level of Care Code 50689 Subseq Hosp Care Lvl 2 Diagnoses Myocardial infarction I21.9 Involved coronary artery: unspecified coronary artery Myocardial infarction type: unspecified Acute systolic (congestive) heart failure I50.21 Acute kidney injury N17.9 Chronic kidney disease, stage 3a N18.3 Hypertension I10 Hypertension type: essential hypertension Left carotid artery stenosis I65.22 Gout M10.9 Complex sleep apnea syndrome G47.31 DVT prophylaxis Z29.9 (1) Myocardial infarction Involved coronary artery: unspecified coronary artery Myocardial infarction type: unspecified Qualified Code(s): I21.9 - Acute myocardial infarction, unspecified (2) Hypertension Hypertension type: essential hypertension Qualified Code(s): I10 - Essential (primary) hypertension
--- NOTE | 2020-04-19 15:05 | Critical Care Consultation ---
Date of Consultation April 19, 2020 Assessment & Plan (1) Left carotid artery stenosis: Impression: 74-year-old male with history of HTN, dyslipidemia, type II DM, NNEKA, multivessel CAD s/p CABG X5 vessels 1989, ischemic cardiomyopathy (LVEF 35-40% ECHO July 2019), AICD placed 08/05/2019 for ventricular arrhythmia. Remote left hemispheric stroke 9 years prior, and traumatic left parafalcine subdural hematoma, and tiny right frontal convexity subarachnoid hematoma 07/29/2019 w/ occluded left internal carotid artery now s/p left endarterectomy. Was a code purple for unresponsive episode and hypotension, pt. brought to the ICU and shortly thereafter continued to be hypotension despite pressors, the patient coded, family was called and the code was stopped and the patient . 24-hour events: code purple, transfer to ICU, code blue, Neuro - History of stroke L hemisphere (9 years prior) and L parafalcine SDH and small R SAH (07/29/2019) - on ASA, Plavix Patient is following commands initially Cardiac - IA, initial troponin was 6.3, then down 5.9. most recently. EKG is paced on admission and stable from a prior. Concern for acute coronary syndrome with atypical angina; cardiology felt demand ischemia from acute CHF more likely. - Echo on 04/18 showed EF 30% with severe mitral regurgitation. - Holding heparin gtt at this time for bleeding risk. Troponin peaked at 04/17 night at 7.4, and is trending down. - Troponin 4.44 from 4.85 from labs drawn at [facility] - cardiology was consulted Hx. of multivessel CAD s/p CABG 1989 EF 35-40% in July Hx. of Hypertension - held Bumex and Entresto Respiratory - --NNEKA - was on CPAP overnight GI - - no acute concerns RENAL/LYTES - MARIBELL on CKD III thought to be due to CHF - cr climbed to 2.42 from 2.14 during labs from [facility] ENDO - -- type II DM (A1c 6 on 10/2018) - most recent glucose during [facility] was 169 HEME - - Hgb 9.8 this morning from 11.2 the day prior - Hgb was 8.5, drawn during the code - 2 units pRBC's ordered, these were not given prior to patient coding ID - - no acute concerns Lines: Peripheral, central line placed in right femoral Diet: was on a full liquid diet DVT: was on SCD's History of Present Illness Attending Physician: Venkatesh Arteaga MD Carroll Villaseñor has a past medical history of CAD s/p CABG in 1989, ischemic cardiomyopathy, IA with downtrending troponin, HTN, DM II, Obesity, dyslipidemia, who had severe stenosis of left internal carotid artery now s/p ligation of LICA on 04/13. He was a code purple on the second floor due to an episode of unresponsiveness during a bowel movement on the bedside commode. Blood pressure was 80's over 50's, he was on dobutamine, fluids were started, along with labs and he was transported down to the ICU. He was not complaining of any chest pain. When he got to the ICU his blood pressure was low, we started him on Dopamine, Norepinephrine and Epinephrine. His blood pressure did not respond to this and he quickly decompensated and coded. See Dr. Jeong's note in regard to the code. Family was called and they had us stop the code. Allergies Allergy/AdvReac Type Severity Reaction Status Date / Time fexofenadine [From [place]] Allergy Severe joint pain Verified 04/17/20 06:05 lisinopril Allergy Severe cough, rash Verified 04/17/20 06:05 atorvastatin AdvReac Severe myalgia Verified 04/17/20 06:05 prednisone AdvReac Severe edema Verified 04/17/20 06:05 Home Medications Medication Instructions Recorded Confirmed Type nitroglycerin [Nitrostat] 0.4 mg SUBLINGUAL DIRECTED PRN 04/07/18 04/17/20 History acetaminophen 325 mg capsule 650 mg PO BID PRN cap 08/08/19 04/17/20 History carvedilol 25 mg tablet 25 mg PO BID #60 tab 09/23/19 04/17/20 Rx docusate sodium 100 mg capsule 100 mg PO DAILY PRN cap 11/07/19 04/17/20 History bumetanide 1 mg tablet 1 mg PO QAM #90 tab 11/13/19 04/17/20 Rx sacubitril 97 mg-valsartan 103 mg 1 tab PO BID #180 tab 01/21/20 04/17/20 Rx tablet miscellaneous medical supply See Rx Instructions .ROUTE 02/04/20 04/17/20 Rx .COMPLEX #1 ea clopidogrel 75 mg tablet 75 mg PO QAM 03/03/20 04/17/20 History allopurinol 100 mg PO QAM 03/23/20 04/17/20 History aspirin 81 mg PO QAM 03/23/20 04/17/20 History evolocumab 140 mg/mL subcutaneous 1 mg SUBCUT .Q2WK ml 04/16/20 04/17/20 History pen injector Patient History Medical History CAD (coronary artery disease) s/p CABG x5 (1989)- COREDLL to LAD, CASAS to RI, Gastroepiploic Artery to RCA, Sequential SVG to Diagonal and OM Carotid artery stenosis LICA 95-99%, EKTA 45% per 03/15 vascular note CHF (congestive heart failure) Chronic kidney disease, stage 3a baseline creatinine 1.5-1.8 per chart review Diabetes mellitus, type 2 diet controlled Hilar adenopathy Hyperlipidemia ICD (implantable cardioverter-defibrillator), dual, in situ Implanted 07/2019, [employer], dual chamber, last check 12/22/19 Obesity Severe obstructive sleep apnea CPAP Stroke remote left hemispheric stroke (9+ years ago), traumatic left parafalcine SDH (07/2019) Transient ischemic attack (TIA) 2011 Surgical History Coronary artery bypass grafts x 5 History of arthroscopy of shoulder History of cardiac catheterization History of colonoscopy (~08/2015) History of coronary artery bypass graft (~1989) History of vasectomy Presence of combination internal cardiac defibrillator (ICD) and pacemaker Implanted 07/2019 Family History Father Lung cancer COPD (chronic obstructive pulmonary disease) Mother Alzheimer disease Hypertension Brother Coronary heart disease Hypertension Obesity Stroke Diabetes Sister Asthma Son Diabetes Social History Smoking Status: Former smoker Age Started Using Tobacco: 14; Age Quit Using Tobacco: 44; packs per day: 2; Years Smoked: 30; Number of Years Since Quit: 30; Second Hand Exposure: No; Hx Alcohol Use: No Hx Substance Use: No Preferred Language: Luxembourgish Communication Ability: Effective Visual Impairment: No Limitations Hearing Ability: Normal [employer] Required: No Beliefs That Will Affect Care: None marital status: Current Living Situation: Spouse Current Living Situation Comment: lives at home with current occupational status: retired Other Information That Helps Us Care for You: No Feels Safe at Home: Yes Safety Concerns: Feels Safe At This Time caffeine: Yes Physical Activity Frequency: Does not Exercise Seatbelt Use: always Sunscreen Use: No Assistive Devices: Walker Review of Systems Review of Systems: Unobtainable due to cognitive status Physical Exam Constitutional: + acute distress and + ill appearing Eyes: PERRL, conjunctivae normal, anicteric sclerae ENMT: external ear and nose normal, oropharynx normal Neck: - bruising throughout the anterior neck - no active bleeding Respiratory: normal respiratory effort Cardiovascular: - cool extremities - 1+ pitting edema bilaterally Gastrointestinal (Abdomen): Inspection/Auscultation: + abdomen distended - soft, nTTP Neurologic: - responsive Results & Data Results & Data ([facility]) Vital Signs (Past 12 Hours) Vital Signs Temp Pulse Pulse Resp BP Pulse Ox 04/19/20 12:02 36.7 C 82 19 93/61 L 99 04/19/20 10:26 81 04/19/20 07:47 36.5 C 84 19 100/64 96 CBC Results Results Complete Blood Count Results: RBC 2.75 M/uL (4.7-6.1) L 04/19/20 WBC 18.81 K/uL (4.8-10.8) H 04/19/20 Hgb 8.5 g/dL (14.0-18.0) L 04/19/20 Hct 26.0 % (42-52) L 04/19/20 Plt Count 233 K/uL (130-400) 04/19/20 Chemistry (BMP) Results BMP Results: Sodium 140 mmol/L (136-145) 04/19/20 Potassium 4.5 mmol/L (3.5-5.1) 04/19/20 Chloride 109 mmol/L (98-107) H 04/19/20 BUN 121 mg/dl (7-18) H 04/19/20 Creatinine 2.42 mg/dl (0.6-1.4) H 04/19/20 Glucose 169 mg/dl (70-99) H 04/19/20 Resident Activity Tracking Resident Involvement: Resident Care Provided Care Provided: Adult Hospital Medicine
[2020-04-19] MEDS ORDERED: DOPamine 400MG / 250ML D5W IV ONE (15:21)
[2020-04-19] MEDS ORDERED: NOREPINEPHRINE/D5W 8 MG/508 ML IV ONE (15:26)
[2020-04-19] MEDS ORDERED: STAT IV Infusion **Titration per Protocol STA (15:29)
[2020-04-19] MEDS ORDERED: DOPamine / D5W 400 MG/250 ML BAG IV SCH (15:30)
[2020-04-19] MEDS ORDERED: NOREPINEPHRINE/D5W 8 MG/508 ML BAG IV SCH (15:30)
[2020-04-19] MEDS ORDERED: SODIUM CHLORIDE 0.9% 250 ML IV PRN (15:36)
[2020-04-19 15:37] LABS: Hemoglobin 8.5 g/dL (14.0-18.0); Mean Corpuscular Hemoglobin 30.9 pg (25-34); Mean Corpuscular Volume 94.5 fL (80-100); Mean Platelet Volume 10.7 fL (7.4-10.4); Platelet Count 233 K/uL (130-400); RDW Coefficient of Variation 13.3 % (11.5-14.5); Red Blood Count 2.75 M/uL (4.7-6.1); White Blood Count 18.81 K/uL (4.8-10.8)
[2020-04-19] MEDS ORDERED: SODIUM BICARB 8.4% INJ 50 MEQ/50 ML SYR IV ONE (15:44)
[2020-04-19] MEDS ORDERED: Standard 16mcg/mL; 4 MG in 250 mL for BRADYCARDIA IV SCH (15:45)
[2020-04-19 16:03] LABS: BUN Creatinine Ratio 49.8 (10-20); Calcium 8.3 mg/dl (8.5-10.1); Creatinine Clr Calc Pharmacy 33.7 ml/min; Potassium 4.5 mmol/L (3.5-5.1)
[2020-04-19 16:16] LABS: Albumin Globulin Ratio 0.5 (0.9-2); Bilirubin,Total 0.7 mg/dl (0.2-1); Globulin 3.8 gm/dl (2.5-4.0); Total Protein 5.8 gm/dl (6.4-8.2); Troponin I 4.44 ng/ml (0-0.045)
--- NOTE | 2020-04-19 16:34 | Discharge Summary ---
Date of Service April 19, 2020 Admission HPI Per Admitting Provider 74yo M w/ hx of CAD s/p CABG in 1989, left internal carotid occlusion, ischemic cardiomyopathy, HTN, ICD for presumed ventricular arrhythmias who presents with shortness of breath overnight. The patient was recently hospitalized for a left carotid endarterectomy which ended up requiring ligation of left internal carotid artery. He was on some O2 at that time, but was able to be discharged without it. He reports that he was doing ok at home with low levels of shortness of breath when he became acutely short of breath last night. He reports this happened about 9pm. He had been wearing his CPAP, but had to take it off due to neck pain after his left CEA. About an hour after he took it off (again ~9pm), he felt acute onset shortness of breath with some left upper-sternal chest pressure. He noted some right arm tingling, but no direct radiation from the chest pain. Denies lightheadedness, diaphoresis, palpitations, or other associated symptoms apart from general weakness. He reports he sat up and felt some relief from the shortness of breath. He never took a nitro or other medication. The family called 911, and by the time he was coming to the ED, his shortness of breath improved and resolved and has not returned. At the time of my interview, he felt nearly normal/back to baseline. Principal Diagnosis Acute heart failure Discharge Exam No heart sounds, no breath sounds, no pupillary reflex Discharge Data Allergies Allergy/AdvReac Type Severity Reaction Status Date / Time fexofenadine [From [place]] Allergy Severe joint pain Verified 04/17/20 06:05 lisinopril Allergy Severe cough, rash Verified 04/17/20 06:05 atorvastatin AdvReac Severe myalgia Verified 04/17/20 06:05 prednisone AdvReac Severe edema Verified 04/17/20 06:05 Consultations 04/17/20 10:51 Consult Cardiology Routine 04/19/20 15:04 Consult Margin Trimmer Routine Ordered Studies 04/20/20 11:00 FL video swallow Routine Hospital Course (1) Myocardial infarction: Patiestephanie became acutely hypotensive on the commode this afternoon. Despite adjustment of dobutamine and IV fluids, his blood pressure only temporarily recovered. CPR was begun when pressure again fell to below SBP 50 mmHg. CPR was continued for approx. 10 minutes when the patient's in conjunction with is [id number] made the decision to stop CPR. Time of was 16:10. Initial troponin was 6.3, then 5.9. EKG is paced on admission and stable from a prior in 07/2019. Concern for acute coronary syndrome with atypical angina; however, cardiology felt demand ischemia from acute CHF more likely. - Trend troponins and EKGs. - Echo on 04/18 showed EF 30% with severe mitral regurgitation. - Continue ASA, Plavix, beta-lou - Holding heparin gtt at this time for bleeding risk. Troponin peaked at 04/17 night at 7.4, and is trending down. (2) Acute systolic (congestive) heart failure: BNP elevated to 20k, and CXR on admission showed pulmonary vacular congestion. - Hold Entresto temporarily - Diuretic ordered on 04/17 (Bumex 1 mg IV). Holding today given worsening BUN/Cr. - On dobutamine on 04/18, but then stopped by cardiology on 04/19. (3) Acute kidney injury: Baseline Cr. 1.3 - 1.8, eGFR 40 - 50. - On presentation, Cr was up to 2.4. Likely cardiorenal from acute CHF. Did check PVR on admission which was 350 mL. Subsequent straight cath was only 250 mL though, so post-renal less likely to be contributing significantly. - Diuresis as above - Hold Entresto as above (4) Chronic kidney disease, stage 3a: As above for MARIBELL. (5) Hypertension: BP presently 105/70 which is not unexpected given his cardiomyopathy. - Holding Entresto - Beta-lou switched to metoprolol to mitigate BP effects from carvedilol - Continue metop 12.5 mg PO BID (6) Left carotid artery stenosis: S/p left CEA and internal carotid ligation on 04/13/2020. - Discussed with Dr. Shaffer; no inpatient needs presently. Could institute heparin gtt as needed for cardiac purposes. - Will see on Sunday - No official consult needed (7) Gout: No flare noted on admission. - Continue allopurinol (8) Complex sleep apnea syndrome: - Inpatient CPAP (9) DVT prophylaxis: SCDs - Holding heparin DVT ppx for bleeding from CEA surgical site on 04/17 & 04/18 Total Time Total Time Spent Total Time Spent (In Minutes): 35 Discharge Plan Discharge Items Reason For Visit: NSTEMI Follow-up/Referrals: Jamari Barclay MD [Primary Care Provider] - Medications and DC Order Prescriptions: No Action acetaminophen 325 mg capsule 650 mg PO BID PRN (Reason: Pain) RF: 0 carvedilol 25 mg tablet 25 mg PO BID Qty: 60 RF: 11 docusate sodium 100 mg capsule 100 mg PO DAILY PRN (Reason: Constipation) RF: 0 bumetanide 1 mg tablet 1 mg PO QAM Qty: 90 RF: 3 Entresto 97-103 mg tablet 1 tab PO BID Qty: 180 RF: 3 Scooter Misc See Rx Instructions .ROUTE .COMPLEX Qty: 1 RF: 0 Repatha SureClick 140 mg/mL pen injector 1 mg SUBCUT .Q2WK RF: 0 clopidogrel 75 mg tablet 75 mg PO QAM RF: 0 nitroglycerin [Nitrostat] 0.4 mg Tablet, Sublingual 0.4 mg Sublingual DIRECTED PRN (Reason: Chest Pain) RF: 0 allopurinol 100 mg tablet 100 mg PO QAM RF: 0 aspirin 81 mg Tablet,Delayed Release (Dr/Ec) 81 mg PO QAM RF: 0 Admission Data Admit Date/Time: 04/17/20 09:05 Attending Provider: Venkatesh Arteaga Admit Provider: Venkatesh Arteaga Primary Care Provider: Jamari Barclay Other Providers: [facility],Home Healthcare ; Anish Stephenson ; Ok Jeong Coding Level of Care Code D/C Day Management >30 mins Diagnoses Myocardial infarction I21.9 Involved coronary artery: unspecified coronary artery Myocardial infarction type: unspecified Acute systolic (congestive) heart failure I50.21 Acute kidney injury N17.9 Chronic kidney disease, stage 3a N18.3 Hypertension I10 Hypertension type: essential hypertension Left carotid artery stenosis I65.22 Gout M10.9 Complex sleep apnea syndrome G47.31 DVT prophylaxis Z29.9
--- NOTE | 2020-04-19 16:35 | Death Pronouncement Note ---
Date of Service April 19, 2020 Pronouncement Note Admission Date Admission Date: April 17, 2020 Date and Time of Date of : 04/19/20 Time of : 16:10 PCOD Preliminary cause of : Acute systolic congestive heart failure Contributing Factors (1) Myocardial infarction: (2) Acute systolic (congestive) heart failure: (3) Acute kidney injury: (4) Chronic kidney disease, stage 3a: (5) Hypertension: (6) Left carotid artery stenosis: (7) Gout: (8) Complex sleep apnea syndrome: (9) DVT prophylaxis: Additional Data Confirmation of : no pulse, no respirations, no heart sounds and pupils fixed and dilated Family: contacted Attending/PCP notified?: Yes Attending physician: Venkatesh Arteaga MD Was code activated?: Yes Autopsy requested?: No cone examiner notified?: No Organ bank notified?: No Advance directives: No Coding Level of Care Code D/C Day Management >30 mins Diagnoses Myocardial infarction I21.9 Involved coronary artery: unspecified coronary artery Myocardial infarction type: unspecified Acute systolic (congestive) heart failure I50.21 Acute kidney injury N17.9 Chronic kidney disease, stage 3a N18.3 Hypertension I10 Hypertension type: essential hypertension Left carotid artery stenosis I65.22 Gout M10.9 Complex sleep apnea syndrome G47.31 DVT prophylaxis Z29.9
[2020-04-19 16:38] LABS: Mean Corpuscular Hgb Conc 32.7 g/dL (32-36)
--- NOTE | 2020-04-19 16:45 | Communication Note ---
Date of Service: April 19, 2020 Esteban munguia was called around 2:45 PM on 04/19/2020 and I responded to the event. Numerous nurses and physicians were present. Patient systolic blood pressure was 60/40 and he was acutely encephalopathic. He was able to answer simple commands. Patient was receiving a 500 mL fluid bolus. Decision was made to send the patient down to the intensive care unit. In the intensive care unit, his blood pressure was 50s over 30s and a right femoral central line was placed by myself. I did do a bedside echo which demonstrated poor LV function and wide-open mitral regurgitation. He does carry history of "torrential mitral regurgitation" and ischemic cardiomyopathy with an EF of approximately 30%. He was recently discharged from the hospital for a carotid endarterectomy. During this hospitalization, he has had worsening kidney dysfunction with a creatinine of approximately 2.42. Esteban TOUSSAINT was then called around the time of central line placement. Performed approximately 10 minutes of CPR. Patient received several doses of epinephrine and calcium chloride. Patient was in PEA throughout the cardiac arrest. It appears that he received several shocks from his AICD. I did successfully intubate the patient using the video laryngoscope during CPR. Patient's family was called by the hospitalist. Numerous discussions were had with her garment folder and hospitalist and ultimately the family decided to proceed with termination of CPR. Time of was recorded at 16:10. CRITICAL CARE TIME - I have personally spent 102 minutes of critical care time in the direct management of this patient. This is a life/limb threatening event. This includes time spent evaluating patient, direct bedside care, chart review, placing orders, interpretation of diagnostic studies, discussion with consultants, patient, and family members, as well as other required patient management activities. This time is exclusive of all separately billable procedures, and teaching time and separate from and in addition to any other critical care service time. Coding Level of Care Code 81619 Prolonged Care (int'l) Time Spent (min) 102
--- NOTE | 2020-04-19 16:48 | Electrocardiogram Report ---
Test Reason : Blood Pressure : / mmHG Vent. Rate : 231 BPM Atrial Rate : 258 BPM P-R Int : 130 ms QRS Dur : 008 ms QT Int : 156 ms P-R-T Axes : -74 000 128 degrees QTc Int : 306 ms Sinus rhythm with ventricular pacing Abnormal ECG When compared with ECG of 18-APR-2020 06:53, Electronic ventricular pacemaker has replaced Sinus rhythm Vent. rate has increased BY 149 BPM Confirmed by Bird Nayak ([id number]) on 04/19/2020 4:48:33 PM Referred By: REFERRED SELF Confirmed By:Efrem Nayak
--- NOTE | 2020-04-19 16:49 | Procedure Note ---
Procedure Note Date of Service April 19, 2020 Note INTUBATION PROCEDURE NOTE: Dr. Ok Jeong A time-out was completed verifying correct patient, procedure, site, positioning. Patient was evaluated and required intubation for cardiac arrest. Sedative agent used: None Paralysis agent used: None Emergent consent was implied given patients rapidly declining clinical status and need for airway protection. Number of attempts: 2 Grade view: 3 View laryngoscope was utilized The patient was prepared in the appropriate fashion. Bag mask ventilation was provided during the cardiac arrest. Saturations were unable to be obtained due to loss of pulses. Significant secretions were noted in the mouth. Some mild amount of bleeding was seen in the posterior pharynx on the second intubation attempt. A 7.5 Nepalese endotracheal tube was placed under video laryngoscope guidance to 23 cm at the lip after 1 attempt under direct laryngoscope with MAC 4 blade. The stylette was removed and balloon was inflated with 10mL of air. Appropriate Colorimetric change was appreciated. Bilateral breath sounds were heard without air sounds in the abdomen. Patient tolerated the procedure well and there were no immediate complications. Coding CPT Codes Resuscitation - Resuscitation: 56551 Endotracheal Intubation, emergency ([id number]) [facility] [place] Procedure Codes (Charges) Resuscitation Resuscitation: 98214 Endotracheal Intubation, emergency
--- NOTE | 2020-04-19 16:53 | Procedure Note ---
Procedure Note Date of Service April 19, 2020 Note FEMORAL CENTRAL LINE PROCEDURE NOTE: Procedure: Right femoral Central Line Placement Indication: Impending cardiac arrest Emergent consent was implied due to the patient's condition. A time-out was completed verifying correct patient, procedure, site, positioning, and implants(s) or special equipment if applicable. Patients right groin was cleansed and draped in the typical sterile fashion using Chloraprep. The right femoral Vein and Femoral Artery were identified using ultrasound. After adequate anesthetization was achieved, the right femoral Vein was cannulated under direct ultrasound guidance using an introducer needle on a syringe. Good venous blood return was maintained prior to removal of syringe from introducer needle. Using Seldinger Technique, a guide wire was advanced through the introducer needle without resistance. The introducer needle was removed and ultrasound images were obtained of the guide wire within the Femoral Vein and saved to the patients medical record. A small incision was made in penetrating fashion at the guide wire insertion site utilizing an 11 blade scalpel. The dilator was advanced to the vessel without resistance. The dilator was exchanged for the triple lumen catheter which was advanced into the vessel without resistance. The guide wire was removed intact from the catheter without issue. Claves were placed on each catheter tip with confirmation of good blood flow from each lumen. Each port was easily flushed with sterile saline. The catheter was placed at the hub and sutured in place. BioPatch was applied to the catheter and a sterile Tegaderm dressing was applied over the catheter with careful attention to sterility. Patient tolerated procedure well. No immediate complications were met. Images obtained are saved for permanent record Procedural Ultrasound Guidance utilized Coding CPT Codes Tubes, Drains, and Vasc Access - Tubes, Drains, and Vasc Access: [id number] Place catheter in vein superior or inferior vena cava ([id number]) Tubes, Drains, and Vasc Access - Tubes, Drains, and Vasc Access: [id number] Ultrasonic Guide For Needle Placement ([id number]) [facility] [place] Codes (Charges) Tubes, Drains, and Vasc Access Procedure 2: Tubes, Drains, and Vasc Access: [id number] Place catheter in vein superior or inferior vena cava Procedure 3: Tubes, Drains, and Vasc Access: [id number] Ultrasonic Guide For Needle Placement
[2020-04-19] MEDS ORDERED: CALCIUM CHLORIDE 10% 10 ML SYR IV ONE (18:59)
[2020-04-19] MEDS ORDERED: ATROPINE SULFATE 0.1 MG/ML 10ML SYR IV ONE (18:59)
--- NOTE | 2020-04-30 12:40 | Coding Query ---
CODING QUERY To promote full compliance with coding requirements relating to patient care, provider participation is requested in all cases of cotton roll packer uncertainty. Please assist us with the question(s) below: Coding Question(s): There is documentation throughout the record and on Discharge Summary of Myocardial Infarction with documentation of, "Initial troponin was 6.3, then 5.9. EKG is paced on admission and stable from a prior in 07/2019. Concern for acute coronary syndrome with atypical angina; however, cardiology felt demand ischemia from acute CHF more likely" and down further on the Discharge Summary, under the Discharge Plan, there is documentation of, "Reason For Visit: NSTEMI" and the Cardiology Progress Note on 04/19/20 documents, "He has known coronary disease and his troponin is significantly elevated, he could have had an ischemic event, it is possible is demand ischemia but the level seem quite high to be that. I am concerned that he may have had an ischemic event which probably occurred around the time of presentation this admission or slightly earlier based on his enzyme trend", and the Cardiology Progress Note on 04/18/20 documents, "I went back and looked at all of the patient's EKGs. His EKG when not ventricularly paced looks like he is having an acute inferior posterior TX". Please specify below, in your clinical opinion, regarding Myocardial Infarction. ( x ) TX is likely NSTEMI ( ) TX is likely acute ST Elevation Inferior Posterior ( ) TX is likely TX due to Demand Ischemia, or Type 2 TX ( ) TX is Other: Please Specify ( ) TX is Unspecified Physician's Response(s): Thank you Marie Parker Principal Diagnosis: "that condition established after study, to be chiefly responsible for occasioning the admission of the patient to the hospital for care." Co-Existing Principal Diagnosis: "when two or more diagnoses equally meet the criteria for principal diagnosis as determined by the circumstances of admission, diagnostic work up, and/or therapy provided, and the Alphabetic Index, Tabular List, or another coding guideline does not provide sequencing direction, any one of the diagnoses may be sequenced first." "When the physician has documented what appears to be a current diagnosis in the body of the record, but has not included the diagnosis in the final diagnostic statement, the physician should be asked whether the diagnosis should be added." (Source Coding [facility] 2 QTR90. p3-4) [facility]
== END 2020-04-19 19:00 | disposition expired ==
LOC: ED 05:59 → 2S 09:05 → 1E 04-19 15:07